=== PATIENT | female | born 1970 | race Caucasian/White ===

== ENCOUNTER 2023-10-20 05:14 | Inpatient (IN) | payer BC, SELFPAY ==
[2023-10-19 23:21] VITALS: BP 137/82
[2023-10-19 23:22] VITALS: BP 137/82; BMI 21.5
--- NOTE | 2023-10-19 23:33 | ED.GENMED ---
History of Present Illness
General
Chief Complaint: Abdominal Pain
Source: patient
Exam Limitations: none
Time Seen by Provider: 10/19/23 23:25
Nursing documentation reviewed up to this point in time: agreed with
Travel History
Have you had any contact with someone who has COVID-19?: No
Do you have any symptoms of coronavirus? Fever > 100 degrees, chills, cough, shortness of breath, sore throat, loss of taste or smell, muscle aches, or headache?: No
History of Present Illness
History of Present Illness:
The patient is a 53-year-old female with a past medical history of recurrent pancreatitis who comes in with complaints of severe diarrhea and abdominal pain. Patient complains of severe nausea. She attributes her symptoms to a likely bout of
pancreatitis. She reports that she recently recovered from a flareup of pancreatitis about 2 weeks ago. She reports she is followed by a specialist at [place]. She reports that she is unable to handle her symptoms at home and is tearful in the
ED. She denies fever. She reports left upper abdominal pain.
Past History
Past History
ED Past Medical History: Other (Recurrent pancreatitis, pancreatic duct stone,, pancreatic divisum,, PNA, Bowel obstruction, Hep A, IBS, Gastroporesis) and Other (C. difficile colitis)
ED Past Surgical History: Appendectomy, Bowel resection (Pancreatic revision surgery February 2017.), Cardiac (VSD repair as a child ), Cholecystectomy and Other (Splenectomy/adhesion. Liver repair post trauma years ago. Stents Pancreatic, Adhesions)
Social History
Tobacco: Non-smoker
Alcohol: Occasional
Drug: None
Personal:
Living: with family
Employment: Not employed
Family History
Family History: Hypertension
Review of Systems
Review of Systems
Allergies reviewed?: Yes
All Other Systems: ROS reviewed and negative except as documented in HPI and ROS
Constitutional: Reports no symptoms
EENT: Reports no symptoms
Respiratory: Reports no symptoms
Cardiac: Reports no symptoms
ABD/GI: Reports abdominal pain, nausea, vomiting, diarrhea and anorexia
: Reports no symptoms
Musculoskeletal: Reports no symptoms
Skin: Reports no symptoms
Neurological: Reports no symptoms
Endocrine: Reports no symptoms
Hematologic/Lymphatic: Reports no symptoms
Psychiatric: Reports no symptoms
Phy Exam
Physical Exam
Physical Exam:
Physical Exam
General: Patient appears anxious, uncomfortable and is crying
Neck: supple. no meningeal signs. normal psoterior pharynx
Heart: Tachycardic, regular
Lungs: no acute respiratory distress. clear bilaterally
Abdomen: Soft, left upper abdominal tenderness. No rebound or guarding. No pulsatile mass
Neuro: alert and oriented. no focal neurological deficits
Skin: no rash
Psychiatric: well kept. interactive and cooperative
Extremities: no edema. no calf tenderness. negative homans. good distal pulses
Course
Orders/Labs/Results
Orders:
Orders
10/19/23 23:31
Complete Blood Count/With Diff Urgent
Comprehensive Metabolic Panel Urgent
Lipase Urgent
10/19/23 23:33
0.9% Sodium Chloride 1000 ml [Nss] 1,000 ml IV BOLUS
Ondansetron Injectable [Zofran] 4 mg IV NOW STA
10/19/23 23:34
HYDROmorphone [Dilaudid] 1 mg IV NOW STA
10/20/23 00:55
CT Abd/pelvis W Iv Cont Urgent
Comment:
Reason For Exam: abdominal pain
10/20/23 02:25
Lorazepam [Ativan] 1 mg IV NOW STA
10/20/23 03:17
Lactic Acid Urgent
10/20/23 04:10
Admit/Transfer Patient As Directed
Co-Sign Provider:
Level of Care: Inpatient admission
Assign to:: Medical/Surgical
Physician / Group: [email or web address]
Diagnosis: Recurrent epigastric abdominal pain - Dirrhea
Reason for Hospitalization: Recurrent epigastric abdominal pain -
Expected length of stay greater than two midnights?: Yes
ELOS- Estimated Length of Stay in days: 3
I certify the patient meets the requirements for IP care: Yes
10/20/23 04:11
Code Status As Directed
Resuscitation Status: Full Code
10/20/23 05:21
HYDROmorphone [Dilaudid] 1 mg IV Q3HPRN PRN
Lactated Ringers [Lr] 1,000 ml IV 120 mls/hr
Ondansetron Injectable [Zofran] 4 mg IV Q6HPRN PRN
10/20/23 05:21
Consult Notification Routine
Specialty to Notify: Gastroenterology
Date consulting provider notified: 10/20/23
Time consulting provider notified: 08:20
Notified:: Provider
GASTROINTESTINAL CONSULT Routine
Consulting Provider: Ruel Jack
Was physician already notified: No
Reason for consult: Recurrent epigastric abdominal pain - may be chr pancreatitis
Stool Culture Routine
JUAN M Source: Feces/Stool
Specimen Description:
Date Specimen was Collected: 10/21/23
Time Specimen was Collected: 12:39
Activity As Directed
Activity Level: With Assistance
Intake/ Output As Directed
Frequency: Per unit guidelines
Pneumatic Compression Sleeves As Directed
Type: Knee high
Vital Signs As Directed
Frequency: Per unit guidelines
Weight As Directed
Frequency: Daily
DX Deep Vein Thrombosis Video Routine
10/20/23 05:41
Complete Blood Count/No Diff IN AM
10/20/23 05:42
Comprehensive Metabolic Panel IN AM
Lipase IN AM
Abnormal Lab Results
10/20/23
00:13
WBC 29.8 H 10^3/uL
(4.8-10.8)
Hct 36.4 L %
(37.0-47.0)
MCV 79.5 L fL
(81.0-99.0)
Plt Count 692 H 10^3/uL
(130-400)
Abs Immat Gran (auto) 0.6 H 10^3/uL
(0-0.05)
Absolute Neuts (auto) 24.9 H 10^3/uL
(1.4-6.5)
Absolute Monos (auto) 1.7 H 10^3/uL
(0.1-0.6)
Immature Gran % 2.0 H %
(0-0.5)
Neutrophils % 83.7 H %
(42.2-75.2)
Lymphocytes % 7.7 L %
(20.5-51.1)
Carbon Dioxide 17 L mmol/L
(22-30)
BUN 24 H mg/dl
(7-17)
Creatinine 0.5 L mg/dL
(0.6-1.0)
Glucose 124 H mg/dl
(70-99)
Calcium 10.4 H mg/dl
(8.4-10.2)
AST 54 H U/L
(14-36)
10/20/23 00:13
10/20/23 00:13
Vital Signs
Initial and Last Documented VS:
Initial Vital Signs
BP
137/82
10/19/23 23:21
Last Documented Vital Signs
Temp Pulse Resp BP Pulse Ox
98.3 F 74 18 114/59 95
10/22/23 07:00 10/22/23 07:00 10/22/23 07:00 10/22/23 07:00 10/22/23 07:00
MDM/Problems Addressed
Differential Diagnosis Includes:
Acute pancreatitis, acute bowel obstruction, acute diverticulitis
MDM/Problems Addressed:
Patient presents with acute on chronic abdominal pain
Chronic conditions affecting care:
Chronic pancreatitis
Acute Exacerbation and/or Progression of Chronic Illness:
Patient likely presents with acute exacerbation of chronic pancreatitis
*Radiology
Radiology exam reviewed: radiology read reviewed
*Pulse Oximetry
Patient hypoxic: no
*Critical Care Note
Total Time (30-74mins, 75-104mins- exclusive of procedures): Not Applicable
Data Reviewed
Review of Other/Old Records Reveals: Discharge Summary (Hospital discharge summary reviewed from 02/2023 when patient was admitted for acute on chronic pancreatitis)
ED Attending Note
-
Portions of this chart may have been created with voice recognition software.� Occasional wrong word or��sound alike� substitutions may have occurred due to the inherent limitations of voice recognition software.
Discharge Plan
Departure
Patient Disposition: Admit
Date of Disposition: 10/20/23
Time of Disposition: 02:36
Admit to: Med/Surg
Presentation/result/management discussed w/ accepting MD/DO: Hospitalist
Patient with high blood pressure during this ER visit?: No
Condition: Good
Covid-19: Not Applicable
Discharge Problem:
Intractable nausea, Acute on chronic abdominal pain, Leukocytosis (leucocytosis)
Interventions
Interventions:
*Risk Screen - Suicide Last Done: 10/19/23 23:25
*General Assessment Last Done: 10/19/23 23:25
*Neglect/Abuse Screening Last Done: 10/19/23 23:25
ED- Fall Risk Assessment Last Done: 10/20/23 02:50
*ED COVID-19 Vaccine History Last Done: 10/19/23 23:25
*Nursing Disposition Last Done: 10/20/23 09:22
WD-Xjqmca-Jibzwnylpr Assessment Last Done: 10/19/23 23:30
Discharge Date and Time
Discharge Date/Time: 10/20/23 10:26
[2023-10-20] VITALS (12 sets, daily range): BP systolic 87–122; BP diastolic 23–85; BMI 21.1
[2023-10-20 00:40] LABS: % Basophils 0.5 % (0-2); % Eosinophils 0.6 % (0-6); % Lymphocytes 7.7 % (20.5-51.1); % Monocytes 5.5 % (1.7-9.3); % Neutrophils 83.7 % (42.2-75.2); Absolute Basophils 0.2 10^3/uL (0-0.2); Absolute Eosinophils 0.2 10^3/uL (0-0.7); Absolute Immature Granulocytes 0.6 10^3/uL (0-0.05); Absolute Lymphocytes 2.3 10^3/uL (1.2-3.4); Absolute Monocytes 1.7 10^3/uL (0.1-0.6); Absolute Neutrophils 24.9 10^3/uL (1.4-6.5); Hematocrit 36.4 % (37.0-47.0); Hemoglobin 13.1 g/dL (12.0-16.0); Mean Corpuscular Hgb 28.6 pg (27.0-31.0); Mean Corpuscular Volume 79.5 fL (81.0-99.0); Mean Platelet Volume 9.8 fL (7.4-10.4); Nucleated Red Blood Cells % 0 %; Platelet Count 692 10^3/uL (130-400); Red Blood Cell Count 4.58 10^6/uL (4.20-5.40); Red Cell Dist. Width 12.8 % (11.5-14.5); White Blood Cell Count 29.8 10^3/uL (4.8-10.8)
[2023-10-20 00:42] LABS: ALT (SGPT) 29 U/L (0-35); AST (SGOT) 54 U/L (14-36); Albumin 4.5 g/dl (3.5-5.0); Alkaline Phosphatase 117 U/L (38-126); Blood Urea Nitrogen 24 mg/dl (7-17); Calcium 10.4 mg/dl (8.4-10.2); Carbon Dioxide 17 mmol/L (22-30); Chloride 105 mmol/L (98-107); Estimated Creatinine Clearance 84 ml/min; Glucose 124 mg/dl (70-99); Potassium 3.8 mmol/L (3.5-5.1); Sodium 136 mmol/L (135-145); Total Bilirubin 0.9 mg/dl (0.2-1.3); eGFR > 60.00
[2023-10-20 00:54] LABS: Lipase 142 U/L (23-300)
[2023-10-20] MEDS: ZOFRAN 4 MG IV ×5 (01:27→22:08)
[2023-10-20] MEDS: NSS 1000 IV (01:27)
[2023-10-20] MEDS: DILAUDID 1 MG IV ×2 (01:27→05:37)
[2023-10-20] MEDS: ATIVAN 1 MG IV ×3 (02:32→23:48)
[2023-10-20 03:46] LABS: Lactic Acid 0.8 mmol/L (0.7-2.0)
--- NOTE | 2023-10-20 04:05 | HPS.HSE ---
Family Physician
-
Family Physician: KATE Vaughn
Chief Complaint
-
abdominal pain and dirrhea
History of Present Illness
53F HX pancreatic divisum, pancreatic duct stones, Puestow procedure with celiac block in 2017 sevre dirrhea and abdominal pain similr to prior recurrent pancreatitis. She is followed by a specialist at [facility].
Abdominal pain:
Recently in/out at [facility] for recurrent abdominal pain for last 8 weeks
In and out of pancreatic stent
last stent was out 2 weeks ago
last recurrent pancreatitis was 2 weeks ago
Associated non bloody fluid vomitinf
Diarrhea 6 times today
Non bloody, like thin film sitting on top
Mal odorous
Denied fever
Medical History
Past Medical History
Past Medical History: Reports Other (Recurrent pancreatitis, pancreatic duct stone, pancreatic divisum Hepatitis A Irritable bowel syndrome Gastroparesis History of C. difficile colitis Essential hypertension Hyperlipidemia Diet controlled type 2
diabetes mellitus Hereditary spherocytosis)
Past Surgical History: Reports Other (Splenectomy Puestow procedure with celiac block in 2017 VSD repair as a child Cholecystectomy Pancreatic stents)
Social History
Tobacco: Non-smoker
Alcohol: None
Family History
Family History: Other (Hereditary spherocytosis, essential hypertension)
Allergies / Home Medications
Allergies reflects when Allergies were last updated in [employer].
Home Medications with original date entered in [employer]
Allergy/Medication List:
Allergies
Allergy/AdvReac Type Severity Reaction Status Date / Time
ketamine Allergy Unknown Verified 02/17/23 03:07
prochlorperazine Allergy Shortness Verified 02/17/23 03:07
of Breath,
Muscle
Rigidity
prochlorperazine edisylate Allergy tardive Verified 02/17/23 03:07
[From Compazine] dyskinesia
prochlorperazine maleate Allergy tardive Verified 02/17/23 03:07
[From Compazine] dyskinesia
trimethobenzamide Allergy Shortness Verified 02/17/23 03:07
of Breath,
muscle
rigidity
trimethobenzamide HCl Allergy tardive Verified 02/17/23 03:07
[From Tigan] dyskinesia
vancomycin Allergy RED AND Verified 02/17/23 03:07
ITCHY
morphine AdvReac Nausea / Verified 02/17/23 03:07
Vomiting
Home Medications
lorazepam 1 mg tablet 1 mg PO HS anxiety 12/08/13
sertraline 50 mg tablet 100 mg PO HS Depression 12/08/13
cholecalciferol (vitamin D3) 25 mcg (1,000 unit) tablet (Vitamin D3) 25 mcg PO DAILY Supplement 01/07/23
hydromorphone 4 mg tablet (Dilaudid) 4 mg PO Q4H PRN pancreatitis pain 01/07/23
ondansetron 4 mg disintegrating tablet 8 mg PO TID PRN nausea/vomiting 02/17/23
Review of Systems
-
Constitutional: Reports No Symptoms
EENT: Reports No Symptoms
Respiratory: Reports No Symptoms
Cardiac: Reports No Symptoms
Abdomen/GI: Reports Abdominal Pain and Diarrhea
: Reports No Symptoms
Musculoskeletal: Reports No Symptoms
Skin: Reports No Symptoms
Neurological: Reports No Symptoms
Endocrine: Reports No Symptoms
Hematologic/Lymphatic: Reports No Symptoms
Psych: Reports No Symptoms
Physical Exam
Vital Signs
Vital Signs
Temp Pulse Resp BP Pulse Ox
98.7 F 86 20 98/71 92
10/19/23 23:22 10/20/23 03:00 10/20/23 03:00 10/20/23 03:00 10/20/23 03:00
Physical Exam
General: Well Developed, Well Nourished and Other
HEENT: NormoCephalic and Anicteric
Respiratory: Clear
Cardiac: S1/S2 and Regular Rhythm
GI: Soft, Non Distended and Normal Bowel Sounds
Rectal: Deferred by Provider
Musculoskeletal: No Edema
Skin: Warm and Dry
Neuro: AO x 3
Psych: Calm
Laboratory Results
-
10/20/23 00:13
10/20/23 00:13
Laboratory Results
Lactic Acid 0.8 mmol/L (0.7-2.0) 10/20/23 03:17
Total Bilirubin 0.9 mg/dl (0.2-1.3) 10/20/23 00:13
AST 54 U/L (14-36) H 10/20/23 00:13
ALT 29 U/L (0-35) 10/20/23 00:13
Alkaline Phosphatase 117 U/L (38-126) 10/20/23 00:13
Lipase 142 U/L (23-300) 10/20/23 00:13
Data Reviewed
-
CT Scan: Other (pending )
Lab Data: Labs Reviewed by me
Old Records: Reviewed
Impression/Plan
-
Reviewed VS:
Vital Signs
Temp Pulse Resp BP Pulse Ox
98.7 F 86 20 98/71 92
10/19/23 23:22 10/20/23 03:00 10/20/23 03:00 10/20/23 03:00 10/20/23 03:00
Data
WCC 29
CO2 17
BUN 24
Cr 0.5
NAG met acidosis
NEG LA
Lipase 142
Last hospitalist admission: 02/17/23 - 02/24/23
Recurrent acute on chronic pancreatitis attributed to pancreatic divisum, patient have history Puestow`s procedure in the in the past
ASSESSMENT & PLAN
Recurrent epigastric abdominal pain - may be related to chronic pancreatitis - unremarkable lipase
Recently in/out at [facility] for recurrent abdominal pain for last 8 weeks
In and out of pancreatic stent
last stent was out 2 weeks ago
last recurrent pancreatitis was 2 weeks ago
Associated non bloody fluid vomitinf
EGD 06/28/22 with gastritis no other cause
MRI 07/01/22 with tortuous mild CBD
HX pancreatic divisum/stones, prior Puestow procedure with celiac block in 2017
HX gastroparesis prior botox
- Clear and ADAT
- Gentle narcotic analgesia PRN in view of Gastroparesis HX
- Anti emetics
- GI consult
NAG met acidosis due to severe dirrhea
- LR IVF
Diarrhea 6 times today
Non bloody, like thin film sitting on top
Mal odorous
- stool Cx
- LR IVF
- f/u BMP
Diet controlled type 2 diabetes HX
-on no medications
Essential hypertension HX
-on no medications
Irritable bowel syndrome
HX Gastroparesis history-
- on no medications
Hyperlipidemia--
- on no medications
Hereditary spherocytosis--status post splenectomy--noted
Anxiety--continue Zoloft
DVT Px: SCD
Code: Full
IP MS
[2023-10-20] MEDS: LR 1000 IV ×3 (05:46→20:28)
[2023-10-20 06:05] LABS: Hematocrit 31.2 % (37.0-47.0); Hemoglobin 11.7 g/dL (12.0-16.0); Mean Corp Hgb Conc. 37.5 g/dL (33.0-37.0); Mean Corpuscular Hgb 29.8 pg (27.0-31.0); Mean Corpuscular Volume 79.6 fL (81.0-99.0); Mean Platelet Volume 9.4 fL (7.4-10.4); Platelet Count 660 10^3/uL (130-400); Red Blood Cell Count 3.92 10^6/uL (4.20-5.40); Red Cell Dist. Width 12.8 % (11.5-14.5); White Blood Cell Count 18.6 10^3/uL (4.8-10.8)
[2023-10-20 06:10] LABS: ALT (SGPT) 23 U/L (0-35); AST (SGOT) 38 U/L (14-36); Albumin 3.6 g/dl (3.5-5.0); Alkaline Phosphatase 84 U/L (38-126); Blood Urea Nitrogen 18 mg/dl (7-17); Calcium 9.2 mg/dl (8.4-10.2); Carbon Dioxide 19 mmol/L (22-30); Chloride 108 mmol/L (98-107); Estimated Creatinine Clearance 84 ml/min; Glucose 102 mg/dl (70-99); Potassium 4.2 mmol/L (3.5-5.1); Sodium 135 mmol/L (135-145); Total Bilirubin 0.7 mg/dl (0.2-1.3); Total Protein 6.7 g/dl (6.3-8.2); eGFR > 60.00
[2023-10-20 06:54] LABS: Lipase 124 U/L (23-300)
[2023-10-20] MEDS: DILAUDID 0.5 MG IV (09:24)
--- NOTE | 2023-10-20 09:24 | CON.GI ---
Consultation
-
Date/Time Consultation Performed: 10/20/23
Performing Provider: Christopher Jack MD
Reason for Consultation: abdominal pain, diarrhea
Medical History
Chief Complaint / HPI
Chief Complaint: abdominal pain, diarrhea
History of Present Illness:
The patient is a 53-year-old female with past medical history as noted who presents with recurrent abdominal pain. She is a longstanding history of chronic pancreatitis, with pancreatic divisum, status post pueestow and follows closely with
[facility]. She has had multiple admissions this year at [facility] for abdominal pain, with pancreatic stents by report though removed with persistent pain and no change in her symptoms. She presents with similar symptoms, with epigastric pain that
radiates to the back, with nausea and increasing diarrhea. Denies any bloody diarrhea, or melena. Denies any recent NSAIDs. Labs here show significant leukocytosis, though LFTs essentially normal, and CT scan preliminarily with minimal if any
peripancreatic inflammation without other significant pathology.
Past Medical History
Past Medical History: Other (pancreatic divisum, recurrent pancreatitis, IBS, htn, hyperlipidemia)
Past Surgical History: Other (VSD repair, puestow, splenectomy, cholecystectomy, prior pancreatic stents)
Social History
Tobacco: Non-Smoker
Alcohol: None
Family History
Family History: Reviewed & Not Pertinent
Allergies / Home Medications
Allergy/AdvReac Type Severity Reaction Status Date / Time
ketamine Allergy Unknown Verified 10/20/23 08:47
prochlorperazine Allergy Shortness Verified 10/20/23 08:47
of Breath,
Muscle
Rigidity
prochlorperazine edisylate Allergy tardive Verified 10/20/23 08:47
[From Compazine] dyskinesia
prochlorperazine maleate Allergy tardive Verified 10/20/23 08:47
[From Compazine] dyskinesia
trimethobenzamide Allergy Shortness Verified 10/20/23 08:47
of Breath,
muscle
rigidity
trimethobenzamide HCl Allergy tardive Verified 10/20/23 08:47
[From Tigan] dyskinesia
vancomycin Allergy RED AND Verified 10/20/23 08:47
ITCHY
morphine AdvReac Nausea / Verified 10/20/23 08:47
Vomiting
�Medication �Instructions �Recorded
lorazepam 1 mg tablet 1 mg PO HS anxiety 12/08/13
sertraline 50 mg tablet 100 mg PO HS Depression 12/08/13
cholecalciferol (vitamin D3) 25 25 mcg PO DAILY Supplement 01/07/23
mcg (1,000 unit) tablet (Vitamin
D3)
hydromorphone 4 mg tablet 4 mg PO Q4H PRN pancreatitis pain 01/07/23
(Dilaudid)
ondansetron 4 mg disintegrating 8 mg PO TID PRN nausea/vomiting 02/17/23
tablet
Review of Systems
-
All other systems: A 12 pt ROS was Negative except as stated above in HPI
Vital Signs
Temp Pulse Resp BP Pulse Ox
98.7 F 81 16 103/62 99
10/19/23 23:22 10/20/23 09:22 10/20/23 09:22 10/20/23 08:00 10/20/23 09:22
Physical Exam
Exam
General: NAD
HEENT: MMM, anicteric, no lymphadenopathy
Heart: Regular, no murmurs
Lungs: CTA bilaterally
Abdomen: normal bowel sounds,mildly distended though soft, mild epigastric tenderness, no rebound or guarding, no masses, bruits or ascites
Extremeties: no edema
Skin: no rashes
Results
WBC 18.6 10^3/uL (4.8-10.8) H 10/20/23 05:41
Hgb 11.7 g/dL (12.0-16.0) L 10/20/23 05:41
Hct 31.2 % (37.0-47.0) L 10/20/23 05:41
MCV 79.6 fL (81.0-99.0) L 10/20/23 05:41
Plt Count 660 10^3/uL (130-400) H 10/20/23 05:41
Absolute Neuts (auto) 24.9 10^3/uL (1.4-6.5) H 10/20/23 00:13
Sodium 135 mmol/L (135-145) 10/20/23 05:42
Potassium 4.2 mmol/L (3.5-5.1) 10/20/23 05:42
Chloride 108 mmol/L (98-107) H 10/20/23 05:42
Carbon Dioxide 19 mmol/L (22-30) L 10/20/23 05:42
BUN 18 mg/dl (7-17) H 10/20/23 05:42
Creatinine 0.5 mg/dL (0.6-1.0) L 10/20/23 05:42
Calcium 9.2 mg/dl (8.4-10.2) 10/20/23 05:42
Total Bilirubin 0.7 mg/dl (0.2-1.3) 10/20/23 05:42
AST 38 U/L (14-36) H 10/20/23 05:42
ALT 23 U/L (0-35) 10/20/23 05:42
Alkaline Phosphatase 84 U/L (38-126) 10/20/23 05:42
Lipase 124 U/L (23-300) 10/20/23 05:42
Diagnostic Image Results:
Prior GI Procedures:
EGD:
Colonoscopy:
Assessment / Plan
-
1. Abdominal pain: With history of chronic abdominal pain, chronic pancreatitis with pancreatic divisum, pancreatic duct stone status post Puestow in the past, as well as pancreatic stents with recent admissions at [facility]. There is no severe
inflammation noted on CT scan, though awaiting final report. She does have significant leukocytosis and increased diarrhea, and we will check C. difficile given her recent hospitalizations as well as other stool studies. Would continue supportive
care for now including bowel rest IV fluids and pain control.
-
-
Thank you for consultation and allowing me to participate in the patient's care. Please call the computer operations manager GI physician during the after hours with any questions or concerns.
--- NOTE | 2023-10-20 09:26 | EDRN ---
Dr. De La Garza at the bedside discussing plan of care and pain management with the patine. Requesting Ativan to assist with he nausea as that helps her.
--- NOTE | 2023-10-20 09:40 | W.PN.HOSP.TC ---
Today's Communication/Plan
-
see plan
Assessment / Plan
Assessment / Plan
Impression:
Acute on chronic pancreatitis
Pancreas divisum, status post bee sting procedure.
Persistent diarrhea suspect secondary to pancreatic insufficiency.
Metabolic acidosis.
Leukocytosis, reactive
Protein calorie malnutrition with BMI of 21
Chronic pain secondary to chronic pancreatitis/opiate dependence.
Hereditary spherocytosis status postlaminectomy.
Cholecystectomy
Depression.
Plan:
Acute on chronic pancreatitis
Pancreas divisum status post pancreatojejunostomy.
Followed by Dr. Myron Braxton at [facility].
Patient reports worsening of abdominal pain over the last few weeks requiring admission to [facility] with 4 stents placement. Had no significant relief of symptoms and stents were removed.
Presents with worsening of abdominal pain and persistent diarrhea
CT scan of the abdomen and pelvis on admission consistent with very mild pancreatitis with stranding in head of the pancreas. No biliary obstruction. Negative for intestinal obstruction.
Significant leukocytosis likely reactive as well as functional hemoconcentration.
Continue bowel rest
Continue isotonic solution/lactated Ringer
Continue aggressive analgesia with IV hydromorphone
Follow electrolytes closely
Follow CMP and lipase
Currently no indication for antibiotics
Anticipated Discharge: 24 - 48 hours
Subjective/Interval History
-
Date of Service: October 20, 2023
Objective Data
-
Labs:
Laboratory Results
10/20/23 10/20/23 10/20/23
00:13 05:41 05:42
WBC 29.8 H 18.6 H
Hgb 13.1 11.7 L
Hct 36.4 L 31.2 L
Plt Count 692 H 660 H
Sodium 136 135
Potassium 3.8 4.2
Chloride 105 108 H
Carbon Dioxide 17 L 19 L
BUN 24 H 18 H
Creatinine 0.5 L 0.5 L
Glucose 124 H 102 H
Calcium 10.4 H 9.2
Total Bilirubin 0.9 0.7
AST 54 H 38 H
ALT 29 23
Alkaline Phosphatase 117 84
Vital Signs:
Vital Signs
Temp Pulse Resp BP Pulse Ox
98.7 F 81 16 103/62 99
10/19/23 23:22 10/20/23 09:22 10/20/23 09:22 10/20/23 08:00 10/20/23 09:22
Physical Exam
-
General: Well Developed and No Apparent Distress
HEENT: Normocephalic, Atraumatic and Moist Mucous Membranes
Respiratory: Clear to Auscultation
Cardiac: Regular Rhythm and S1/S2; Negative Murmur, Rub or Gallop
GI: Soft, Nontender, Nondistended and Normal Bowel Sounds; Negative Organomegaly
Rectal: Deferred by Provider
Musculoskeletal: No Clubbing, No Cyanosis and No Edema
Skin: Negative Rash
Neuro: Nonfocal/Grossly Intact
[2023-10-20] MEDS: DILAUDID 1.5 MG IV ×4 (13:10→23:48)
[2023-10-20] MEDS: NSS (PRESERVATIVE FREE) 0.5 ML IV (23:49)
[2023-10-21] MEDS: DILAUDID 1.5 MG IV ×6 (03:50→23:09)
[2023-10-21] MEDS: LR 1000 IV ×3 (03:53→20:45)
[2023-10-21 07:00] VITALS: BP 116/71
--- NOTE | 2023-10-21 07:36 | W.PN.GI.CBS2 ---
Today's Communication / Plan
-
Please see assessment and plan for details.
Assessment / Plan
-
1. Abdominal pain: With history of chronic abdominal pain, chronic pancreatitis with pancreatic divisum, pancreatic duct stone status post Puestow in the past, as well as pancreatic stents with recent admissions at [facility]. There is no severe
inflammation noted on CT scan. At this point given improved symptoms we will start clear liquids for now. If she has further diarrhea will await C. difficile, though no diarrhea overnight.
Subjective
Subjective
Date of Service: October 21, 2023
Patient feeling better overall, still pain, no vomiting. No diarrhea overnight, no fevers or chills.
Objective
Data Reviewed
Laboratory Data:
Laboratory Results
Total Bilirubin 0.7 mg/dl (0.2-1.3) 10/20/23 05:42
AST 38 U/L (14-36) H 10/20/23 05:42
ALT 23 U/L (0-35) 10/20/23 05:42
Alkaline Phosphatase 84 U/L (38-126) 10/20/23 05:42
Lipase 124 U/L (23-300) 10/20/23 05:42
Vital Signs and I&O:
Vital Signs
Temp Pulse Resp BP Pulse Ox
98.3 F 73 16 112/55 95
10/20/23 23:05 10/20/23 23:05 10/20/23 23:05 10/20/23 23:05 10/20/23 23:05
I&O
10/20/23 10/21/23 10/22/23
06:59 06:59 06:59
Intake Total 1560 / 1560
Balance 1560 / 1560
Physical Exam
Physical Exam
General: NAD
Abdomen: normal bowel sounds, soft, improved but mild diffuse tenderness, no masses or bruits, no ascites
[2023-10-21 08:08] LABS: % Basophils 0.8 % (0-2); % Eosinophils 6.7 % (0-6); % Immature Granulocytes 0.5 % (0-0.5); % Lymphocytes 39.6 % (20.5-51.1); % Monocytes 7.5 % (1.7-9.3); % Neutrophils 44.9 % (42.2-75.2); Absolute Basophils 0.1 10^3/uL (0-0.2); Absolute Eosinophils 0.7 10^3/uL (0-0.7); Absolute Immature Granulocytes 0.1 10^3/uL (0-0.05); Absolute Lymphocytes 4.3 10^3/uL (1.2-3.4); Absolute Monocytes 0.8 10^3/uL (0.1-0.6); Absolute Neutrophils 4.9 10^3/uL (1.4-6.5); Hematocrit 32.3 % (37.0-47.0); Mean Corp Hgb Conc. 34.1 g/dL (33.0-37.0); Mean Corpuscular Hgb 28.4 pg (27.0-31.0); Mean Corpuscular Volume 83.5 fL (81.0-99.0); Mean Platelet Volume 9.2 fL (7.4-10.4); Nucleated Red Blood Cells % 0 %; Platelet Count 593 10^3/uL (130-400); Red Blood Cell Count 3.87 10^6/uL (4.20-5.40); Red Cell Dist. Width 12.5 % (11.5-14.5); White Blood Cell Count 10.9 10^3/uL (4.8-10.8)
[2023-10-21 08:42] LABS: ALT (SGPT) 25 U/L (0-35); AST (SGOT) 36 U/L (14-36); Albumin 3.3 g/dl (3.5-5.0); Alkaline Phosphatase 88 U/L (38-126); Blood Urea Nitrogen 9 mg/dl (7-17); Calcium 9.3 mg/dl (8.4-10.2); Carbon Dioxide 24 mmol/L (22-30); Chloride 108 mmol/L (98-107); Estimated Creatinine Clearance 84 ml/min; Glucose 73 mg/dl (70-99); Lipase 268 U/L (23-300); Potassium 3.9 mmol/L (3.5-5.1); Sodium 136 mmol/L (135-145); Total Bilirubin 0.7 mg/dl (0.2-1.3); Total Protein 6.3 g/dl (6.3-8.2); eGFR > 60.00
[2023-10-21] MEDS: ZOFRAN 4 MG IV ×3 (10:05→23:09)
--- NOTE | 2023-10-21 12:41 | PTCARENOTE ---
Patient crying and c/o worsening nausea and pain. Zofran and Dilaudid given at 1000. Pain reassessed 1035, patient was sleeping soundly. Patient now asking for additional medicine for nausea, Ativan given.
[2023-10-21] MEDS: ATIVAN 1 MG IV ×2 (12:47→19:32)
[2023-10-21] MEDS: NSS (PRESERVATIVE FREE) 0.5 ML IV ×2 (12:47→19:33)
--- NOTE | 2023-10-21 12:53 | CM ---
Met with pt at bedside
Reports lives in a 2 story home with her and 2 sons
Independent, drives
Denies DME/SNF/HH in past
Has ride at d/c
PCP - Lina Hermosillo
Pharm - [facility]
Plan - Anticipate home no needs
--- NOTE | 2023-10-21 14:29 | W.PN.HOSP.TC ---
Today's Communication/Plan
-
Advance to clear liquid diet
Continue current analgesic regimen.
Follow electrolytes
Assessment / Plan
Assessment / Plan
Impression:
Acute on chronic pancreatitis
Pancreas divisum, status post bee sting procedure.
Persistent diarrhea suspect secondary to pancreatic insufficiency.
Metabolic acidosis.
Leukocytosis, reactive
Protein calorie malnutrition with BMI of 21
Chronic pain secondary to chronic pancreatitis/opiate dependence.
Hereditary spherocytosis status postlaminectomy.
Cholecystectomy
Depression.
Plan:
Acute on chronic pancreatitis
Pancreas divisum status post pancreatojejunostomy.
Followed by Dr. Myron Braxton at [facility].
Patient reports worsening of abdominal pain over the last few weeks requiring admission to [facility] with 4 stents placement. Had no significant relief of symptoms and stents were removed.
Presents with worsening of abdominal pain and persistent diarrhea
CT scan of the abdomen and pelvis on admission consistent with very mild pancreatitis with stranding in head of the pancreas. No biliary obstruction. Negative for intestinal obstruction.
Significant leukocytosis likely reactive as well as functional hemoconcentration.
Advance to clear liquid diet
Continue isotonic solution/lactated Ringer
Continue aggressive analgesia with IV hydromorphone
Follow electrolytes closely
Follow CMP and lipase
Currently no indication for antibiotics
Anticipated Discharge: 24 - 48 hours
Subjective/Interval History
-
Date of Service: October 21, 2023
Objective Data
-
Labs:
Laboratory Results
10/21/23
07:53
WBC 10.9 H
Hgb 11.0 L
Hct 32.3 L
Plt Count 593 H
Sodium 136
Potassium 3.9
Chloride 108 H
Carbon Dioxide 24
BUN 9
Creatinine 0.5 L
Glucose 73
Calcium 9.3
Total Bilirubin 0.7
AST 36
ALT 25
Alkaline Phosphatase 88
Vital Signs:
Vital Signs
Temp Pulse Resp BP Pulse Ox
98.0 F 68 18 116/71 96
10/21/23 07:00 10/21/23 07:00 10/21/23 07:00 10/21/23 07:00 10/21/23 07:00
I&O
10/20/23 10/21/23 10/22/23
06:59 06:59 06:59
Intake Total 1560 / 1560
Balance 1560 / 1560
Physical Exam
-
General: Well Developed and No Apparent Distress
HEENT: Normocephalic, Atraumatic and Moist Mucous Membranes
Respiratory: Clear to Auscultation
Cardiac: Regular Rhythm and S1/S2; Negative Murmur, Rub or Gallop
GI: Soft, Nontender, Nondistended and Normal Bowel Sounds; Negative Organomegaly
Rectal: Deferred by Provider
Musculoskeletal: No Clubbing, No Cyanosis and No Edema
Skin: Negative Rash
Neuro: Nonfocal/Grossly Intact
[2023-10-21 15:00] VITALS: BP 119/62
--- NOTE | 2023-10-21 18:41 | PTCARENOTE ---
Patient's pain 9/10 Dilaudid and Zofran given with good relief. Patient states, 'The pain medicine works, but does not last long.' Patient tolerating small amounts of clear liquids. Patient requesting a Kpad for abdomen, physician made aware.
[2023-10-21] MEDS: ZOLOFT 100 MG PO (21:39)
[2023-10-21 23:35] VITALS: BP 112/73
[2023-10-22] MEDS: DILAUDID 1.5 MG IV ×7 (02:26→22:30)
[2023-10-22] MEDS: ATIVAN 1 MG IV ×3 (02:38→20:36)
[2023-10-22] MEDS: NSS (PRESERVATIVE FREE) 0.5 ML IV ×3 (02:38→20:36)
[2023-10-22] MEDS: LR 1000 IV ×3 (05:05→18:35)
[2023-10-22 07:00] VITALS: BP 114/59
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
[2023-10-22] MEDS: ZOFRAN 4 MG IV ×3 (08:55→22:34)
--- NOTE | 2023-10-22 09:05 | W.PN.UPDATE ---
Update Note
Progress Note Update
For billing purposes - see note for clinical details
[2023-10-22] MEDS: ZENPEP DELAYED RELEASE CAPSULE PO (12:20)
[2023-10-22 15:00] VITALS: BP 130/67
--- NOTE | 2023-10-22 15:34 | W.PN.HOSP.TC ---
Today's Communication/Plan
-
Advance to low-fat diet.
Continue current analgesic regimen
Wean off IV fluids if tolerates diet
Continue pancreatic enzymes
Assessment / Plan
Assessment / Plan
Impression:
Acute on chronic pancreatitis
Pancreas divisum, status post bee sting procedure.
Persistent diarrhea suspect secondary to pancreatic insufficiency.
Metabolic acidosis.
Leukocytosis, reactive
Protein calorie malnutrition with BMI of 21
Chronic pain secondary to chronic pancreatitis/opiate dependence.
Hereditary spherocytosis status postlaminectomy.
Cholecystectomy
Depression.
Plan:
Acute on chronic pancreatitis
Pancreas divisum status post pancreatojejunostomy.
Followed by Dr. Myron Braxton at [facility].
Patient reports worsening of abdominal pain over the last few weeks requiring admission to [facility] with 4 stents placement. Had no significant relief of symptoms and stents were removed.
Presents with worsening of abdominal pain and persistent diarrhea
CT scan of the abdomen and pelvis on admission consistent with very mild pancreatitis with stranding in head of the pancreas. No biliary obstruction. Negative for intestinal obstruction.
Significant leukocytosis likely reactive as well as functional hemoconcentration. Improved.
Pain and diarrhea somehow improved over the last 24 hours
Advance to low-fat diet
Initiated on pancreatic enzymes AC.
Wean off IV fluids if tolerates diet
Continue current analgesic regimen
Anticipated Discharge: 24 - 48 hours
Subjective/Interval History
-
Date of Service: October 22, 2023
Objective Data
-
Vital Signs:
Vital Signs
Temp Pulse Resp BP Pulse Ox
97.9 F 69 18 130/67 97
10/22/23 15:00 10/22/23 15:00 10/22/23 15:00 10/22/23 15:00 10/22/23 15:00
I&O
10/21/23 10/22/23 10/23/23
06:59 06:59 06:59
Intake Total 1559
Balance 1559
Physical Exam
-
General: Well Developed and No Apparent Distress
HEENT: Normocephalic, Atraumatic and Moist Mucous Membranes
Respiratory: Clear to Auscultation
Cardiac: Regular Rhythm and S1/S2; Negative Murmur, Rub or Gallop
GI: Soft, Nontender, Nondistended and Normal Bowel Sounds; Negative Organomegaly
Rectal: Deferred by Provider
Musculoskeletal: No Clubbing, No Cyanosis and No Edema
Skin: Negative Rash
Neuro: Nonfocal/Grossly Intact
[2023-10-22] MEDS: ZENPEP DELAYED RELEASE CAPSULE 2 CAPSULE PO ×2 (17:33→22:30)
[2023-10-22] MEDS: ZOLOFT 100 MG PO (22:34)
[2023-10-22 23:30] VITALS: BP 132/84
[2023-10-23] MEDS: DILAUDID 1.5 MG IV ×4 (01:50→14:59)
[2023-10-23] MEDS: ATIVAN 1 MG IV (02:41)
[2023-10-23] MEDS: NSS (PRESERVATIVE FREE) 0.5 ML IV (02:41)
[2023-10-23] MEDS: LR 1000 IV (04:12)
[2023-10-23 07:00] VITALS: BP 127/71
[2023-10-23] MEDS: ZENPEP DELAYED RELEASE CAPSULE 2 CAPSULE PO ×3 (08:29→17:43)
[2023-10-23] MEDS: ZOFRAN 4 MG IV ×2 (08:43→17:49)
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
--- NOTE | 2023-10-23 14:18 | W.PN.UPDATE ---
Update Note
Progress Note Update
For billing purposes
--- NOTE | 2023-10-23 14:59 | CM ---
CM following for d/c planning
Marcela advanced diet. Per GI will observe til tomorrow
CM will follow for d/c needs
Plan - anticipate home no needs
[2023-10-23 15:00] VITALS: BP 133/73
--- NOTE | 2023-10-23 15:56 | W.PN.HOSP.TC ---
Today's Communication/Plan
-
Reports some improvement in pain, although requesting IV opiates.
Monitor oral intake for another 24 hours
Attempt to wean off IV narcotics prior to discharge
Wean off IV fluids
Assessment / Plan
Assessment / Plan
Impression:
Acute on chronic pancreatitis
Pancreas divisum, status post bee sting procedure.
Persistent diarrhea suspect secondary to pancreatic insufficiency.
Metabolic acidosis.
Leukocytosis, reactive
Protein calorie malnutrition with BMI of 21
Chronic pain secondary to chronic pancreatitis/opiate dependence.
Hereditary spherocytosis status postlaminectomy.
Cholecystectomy
Depression.
Plan:
Acute on chronic pancreatitis
Pancreas divisum status post pancreatojejunostomy.
Followed by Dr. Myron Braxton at [facility].
Patient reports worsening of abdominal pain over the last few weeks requiring admission to [facility] with 4 stents placement. Had no significant relief of symptoms and stents were removed.
Presents with worsening of abdominal pain and persistent diarrhea
CT scan of the abdomen and pelvis on admission consistent with very mild pancreatitis with stranding in head of the pancreas. No biliary obstruction. Negative for intestinal obstruction.
Significant leukocytosis likely reactive as well as functional hemoconcentration. Improved.
Pain and diarrhea somehow improved over the last 24 hours
Advance to low-fat diet
Initiated on pancreatic enzymes AC.
Wean off IV fluids if tolerates diet
Continue current analgesic regimen
Anticipated Discharge: 24 - 48 hours
Subjective/Interval History
-
Date of Service: October 23, 2023
Objective Data
-
Vital Signs:
Vital Signs
Temp Pulse Resp BP Pulse Ox
98.0 F 74 16 127/71 97
10/23/23 07:00 10/23/23 07:00 10/23/23 07:00 10/23/23 07:00 10/23/23 07:00
I&O
0410/23/23 10/24/23
06:59 06:59 06:59
Intake Total 1809
Balance 1809
Physical Exam
-
General: Well Developed and No Apparent Distress
HEENT: Normocephalic, Atraumatic and Moist Mucous Membranes
Respiratory: Clear to Auscultation
Cardiac: Regular Rhythm and S1/S2; Negative Murmur, Rub or Gallop
GI: Soft, Nontender, Nondistended and Normal Bowel Sounds; Negative Organomegaly
Rectal: Deferred by Provider
Musculoskeletal: No Clubbing, No Cyanosis and No Edema
Skin: Negative Rash
Neuro: Nonfocal/Grossly Intact
[2023-10-23] MEDS: DILAUDID 2 MG IV ×2 (17:43→21:10)
[2023-10-23] MEDS: ZENPEP DELAYED RELEASE CAPSULE PO ×2 (21:10→21:24)
[2023-10-23] MEDS: ZOLOFT 100 MG PO (21:10)
[2023-10-23 23:57] VITALS: BP 118/62
[2023-10-24] MEDS: NSS (PRESERVATIVE FREE) 0.5 ML IV ×2 (00:18→14:28)
[2023-10-24] MEDS: ATIVAN 1 MG IV ×3 (00:18→21:21)
[2023-10-24] MEDS: DILAUDID 2 MG IV ×7 (00:18→20:45)
[2023-10-24 07:00] VITALS: BP 108/57
[2023-10-24] MEDS: ZENPEP DELAYED RELEASE CAPSULE 2 CAPSULE PO ×4 (07:14→21:22)
[2023-10-24] MEDS: ZOFRAN 4 MG IV ×2 (09:41→17:46)
[2023-10-24 15:00] VITALS: BP 131/70
[2023-10-24] MEDS: LR 1000 IV (16:11)
--- NOTE | 2023-10-24 16:42 | W.PN.HOSP.TC ---
Today's Communication/Plan
-
Reports persistent pain and low appetite
Some improvement of abdominal pain while on current analgesic regimen including IV hydromorphone.
Reports worsening diarrhea over the last 24 hours. Will keep on IV fluids.
Monitor further on low-fat diet and pancreatic enzymes.
Assessment / Plan
Assessment / Plan
Impression:
Acute on chronic pancreatitis
Pancreas divisum, status post bee sting procedure.
Persistent diarrhea suspect secondary to pancreatic insufficiency.
Metabolic acidosis.
Leukocytosis, reactive
Protein calorie malnutrition with BMI of 21
Chronic pain secondary to chronic pancreatitis/opiate dependence.
Hereditary spherocytosis status postlaminectomy.
Cholecystectomy
Depression.
Plan:
Acute on chronic pancreatitis
Pancreas divisum status post pancreatojejunostomy.
Followed by Dr. Myron Braxton at [facility].
Patient reports worsening of abdominal pain over the last few weeks requiring admission to [facility] with 4 stents placement. Had no significant relief of symptoms and stents were removed.
Presents with worsening of abdominal pain and persistent diarrhea
CT scan of the abdomen and pelvis on admission consistent with very mild pancreatitis with stranding in head of the pancreas. No biliary obstruction. Negative for intestinal obstruction.
Significant leukocytosis likely reactive as well as functional hemoconcentration. Improved.
Pain and diarrhea somehow improved over the last 24 hours
Advance to low-fat diet
Initiated on pancreatic enzymes AC.
Wean off IV fluids if tolerates diet
Continue current analgesic regimen
Anticipated Discharge: 24 - 48 hours
Subjective/Interval History
-
Date of Service: October 24, 2023
Objective Data
-
Vital Signs:
Vital Signs
Temp Pulse Resp BP Pulse Ox
98.6 F 63 17 131/70 94
10/24/23 15:00 10/24/23 15:00 10/24/23 15:00 10/24/23 15:00 10/24/23 15:00
I&O
10/23/23 10/24/23 10/25/23
06:59 06:59 06:59
Intake Total 2340 / 2340 480 / 480
Balance 2340 / 2340 480 / 480
Physical Exam
-
General: Well Developed and No Apparent Distress
HEENT: Normocephalic, Atraumatic and Moist Mucous Membranes
Respiratory: Clear to Auscultation
Cardiac: Regular Rhythm and S1/S2; Negative Murmur, Rub or Gallop
GI: Soft, Nontender, Nondistended and Normal Bowel Sounds; Negative Organomegaly
Rectal: Deferred by Provider
Musculoskeletal: No Clubbing, No Cyanosis and No Edema
Skin: Negative Rash
Neuro: Nonfocal/Grossly Intact
[2023-10-24] MEDS: ZOLOFT 100 MG PO (21:22)
[2023-10-24 23:53] VITALS: BP 120/64
[2023-10-25] MEDS: DILAUDID 2 MG IV ×5 (00:37→14:18)
[2023-10-25] MEDS: ZOFRAN 4 MG IV ×2 (00:37→10:38)
[2023-10-25] MEDS: NSS (PRESERVATIVE FREE) 0.5 ML IV ×2 (03:52→15:58)
[2023-10-25] MEDS: ATIVAN 1 MG IV ×2 (03:52→15:58)
[2023-10-25] MEDS: LR 1000 IV (03:57)
[2023-10-25 06:28] VITALS: BMI 21.5
[2023-10-25 06:49] LABS: Blood Urea Nitrogen 5 mg/dl (7-17); Calcium 9.1 mg/dl (8.4-10.2); Carbon Dioxide 26 mmol/L (22-30); Chloride 104 mmol/L (98-107); Estimated Creatinine Clearance 84 ml/min; Glucose 85 mg/dl (70-99); Potassium 4.1 mmol/L (3.5-5.1); Sodium 135 mmol/L (135-145); eGFR > 60.00
[2023-10-25 07:00] VITALS: BP 108/71
[2023-10-25] MEDS: ZENPEP DELAYED RELEASE CAPSULE 2 CAPSULE PO (07:15)
[2023-10-25] MEDS: LR IV (12:39)
[2023-10-25] MEDS: ZENPEP DELAYED RELEASE CAPSULE PO ×2 (12:40→14:31)
--- NOTE | 2023-10-25 13:59 | W.DS.TRANS ---
DC Summary - Home Care Scheduler
-
Discharge Instructions:
Discharge Diagnosis/Procedures Acute on chronic pancreatitis
Pancreas divisum, status post bee sting
procedure.
Persistent diarrhea suspect secondary to
pancreatic insufficiency.
Metabolic acidosis.
Leukocytosis, reactive
Protein calorie malnutrition with BMI of 21
Chronic pain secondary to chronic pancreatitis/
opiate dependence.
Hereditary spherocytosis status postlaminectomy.
Cholecystectomy
Depression.
Diet Low Fat
Instructions:
Stand-Alone Forms:
Changes to Home Medications: No
Discharge Medications:
DC Medications w/original date entered in [employer]
lorazepam 1 mg tablet 1 mg PO HS anxiety 12/08/13
sertraline 50 mg tablet 100 mg PO HS Depression 12/08/13
hydromorphone 4 mg tablet (Dilaudid) 4 mg PO Q4H PRN pancreatitis pain 01/07/23
ondansetron 4 mg disintegrating tablet 8 mg PO TID PRN nausea/vomiting 02/17/23
acetaminophen 325 mg capsule (Tylenol) 650 mg PO Q4H PRN HEADACHE 10/21/23
lorazepam 1 mg tablet 1 mg PO Q8H PRN Nausea/anxiety 10/21/23
promethazine 25 mg rectal suppository 25 mg WA PRN PRN NAUSEA 10/21/23
[id number] 12,000-38,000-60,000 unit capsule,delayed rel (Creon) 2 cap PO MEALS Pancreatitis 10/22/23
Home Medication Changes
Pending Results: No
--- NOTE | 2023-10-25 14:35 | CM ---
For d/c today
Will have ride
Plan - anticipate home no needs
[2023-10-25 15:00] VITALS: BP 133/75
== END 2023-10-25 17:25 | disposition home or self-care (01) | DRG 439 ==
LOC: 3 WEST ACU 05:14
PROVIDERS: ADMITTING PHYSICIAN Internal Medicine; ATTENDING PHYSICIAN Internal Medicine; CONSULT PHYSICIAN Internal Medicine Gastroenterology; EMERGENCY PHYSICIAN Emergency Medicine; FAMILY PHYSICIAN Nurse Practitioner
DX: K85.90 Acute pancreatitis without necrosis or infection, unspecified (principal); E46 Unspecified protein-calorie malnutrition; E87.20 Acidosis, unspecified; Q45.3 Other congenital malformations of pancreas and pancreatic duct; F11.20 Opioid dependence, uncomplicated; K86.1 Other chronic pancreatitis; I10 Essential (primary) hypertension; F41.9 Anxiety disorder, unspecified; K58.9 Irritable bowel syndrome, unspecified; E86.0 Dehydration; K86.89 Other specified diseases of pancreas; G89.29 Other chronic pain; D72.829 Elevated white blood cell count, unspecified; F32.A Depression, unspecified; E11.43 Type 2 diabetes mellitus with diabetic autonomic (poly)neuropathy; E78.5 Hyperlipidemia, unspecified; D58.0 Hereditary spherocytosis; Z90.81 Acquired absence of spleen; Z86.19 Personal history of other infectious and parasitic diseases; Z88.1 Allergy status to other antibiotic agents; Z88.5 Allergy status to narcotic agent; Z88.8 Allergy status to other drugs, medicaments and biological substances; Z68.21 Body mass index [BMI] 21.0-21.9, adult
CPT/HCPCS: 74177; 80048; 80053; 83605; 83690; 85025; 85027; 87045; 87046; 87070; 87147; 87324; 87427; 87449; 96361; 96374; 96375; 99285; Q9967

== ENCOUNTER 2023-12-24 06:10 | Inpatient (IN) | payer BC, SELFPAY ==
[2023-12-24] VITALS (7 sets, daily range): BP systolic 120–140; BP diastolic 59–74
[2023-12-24] MEDS: NSS 1000 IV ×3 (04:33→23:30)
[2023-12-24] MEDS: DILAUDID 1 MG IV ×4 (04:33→23:30)
[2023-12-24 04:39] LABS: % Basophils 0.7 % (0-2); % Immature Granulocytes 0.3 % (0-0.5); % Lymphocytes 18.6 % (20.5-51.1); % Monocytes 6.6 % (1.7-9.3); % Neutrophils 70.8 % (42.2-75.2); Absolute Basophils 0.1 10^3/uL (0-0.2); Absolute Eosinophils 0.5 10^3/uL (0-0.7); Absolute Immature Granulocytes 0.1 10^3/uL (0-0.05); Absolute Lymphocytes 3.3 10^3/uL (1.2-3.4); Absolute Monocytes 1.2 10^3/uL (0.1-0.6); Absolute Neutrophils 12.4 10^3/uL (1.4-6.5); Hematocrit 31.7 % (37.0-47.0); Hemoglobin 10.8 g/dL (12.0-16.0); Mean Corp Hgb Conc. 34.1 g/dL (33.0-37.0); Mean Corpuscular Hgb 27.6 pg (27.0-31.0); Mean Corpuscular Volume 81.1 fL (81.0-99.0); Mean Platelet Volume 9.2 fL (7.4-10.4); Nucleated Red Blood Cells % 0 %; Platelet Count 686 10^3/uL (130-400); Red Blood Cell Count 3.91 10^6/uL (4.20-5.40); Red Cell Dist. Width 13.2 % (11.5-14.5); White Blood Cell Count 17.5 10^3/uL (4.8-10.8)
--- NOTE | 2023-12-24 05:02 | ED.GENMED ---
History of Present Illness
General
Chief Complaint: Generalized Pain
Source: patient, spouse and previous hospital records (Previous hospitalizations most recently October 19 to October 24.)
Exam Limitations: none
Time Seen by Provider: 12/24/23 03:55
Nursing documentation reviewed up to this point in time: agreed with
Travel History
Have you had any contact with someone who has COVID-19?: No
Do you have any symptoms of coronavirus? Fever > 100 degrees, chills, cough, shortness of breath, sore throat, loss of taste or smell, muscle aches, or headache?: No
History of Present Illness
History of Present Illness:
This is a 53-year-old woman who has history of chronic pancreatitis, chronic pain syndrome secondary to chronic pancreatitis with opiate dependence. She follows with [facility] and has required recurrent hospitalizations due to chronic
pain, chronic nausea, vomiting, diarrhea. Most recent hospitalization October 19 until October 24 where she presented with acute on chronic upper abdominal pain accompanied with intractable nausea and vomiting as well as intractable diarrhea. Symptoms
improved with bowel rest, IV pain medication and she was discharged to home but required recurrent hospitalization at [facility] and since then she has been started on IV TPN with PICC line placed right upper arm approximately 6 to 8
weeks ago.
With initiation of TPN patient has had resolution of diarrhea and has successfully gained 10 pounds over the past 2 months.
She does continue with chronic pain, chronic opioid dependence and is currently considering surgical removal of her pancreas with islet cell transplant and is contemplating second opinion with a specialist in [place].
Tonight however she developed increased in her abdominal pain accompanied with chills, generalized aches and a fever at home of 102 �F. She denies cough nor nasal congestion nor sore throat.
She does admit to intermittent dysuria and was treated for a UTI 1-1/2 to 2 months ago while hospitalized at [place]. No recent antibiotics.
She admits to intermittent nausea but has had no vomiting, no diarrhea. No rashes. No neck pain nor headache.
She states her right upper arm PICC line site is changed by home health care nurse on a regular basis and does admit that the area has some yellowish exudate and mild local tenderness that is overall unchanged.
Past History
Past History
ED Past Medical History: Other (Recurrent pancreatitis, pancreatic duct stone,, pancreatic divisum,, PNA, Bowel obstruction, Hep A, IBS, Gastroporesis) and Other (C. difficile colitis)
ED Past Surgical History: Appendectomy, Bowel resection (Pancreatic revision surgery February 2017.), Cardiac (VSD repair as a child ), Cholecystectomy and Other (Splenectomy/adhesion. Liver repair post trauma years ago. Stents Pancreatic, Adhesions)
Social History
Tobacco: Non-smoker
Alcohol: None
Drug: None
Personal:
Living: with family
Employment: Not employed
Family History
Family History: Hypertension
Phy Exam
Physical Exam
Physical Exam:
GENERAL: 53-year-old woman appears her stated age, awake and alert, appears mildly uncomfortable, mildly anxious. Low-grade fever noted. is accompanying.
EYE: pupils equal and reactive. anicteric
NECK: Supple, nontender, no meningismus, no significant adenopathy.
ENT: posterior pharynx is clear, oral mucosa is moist. No rhinorrhea.
CARDIAC: Regular rate and rhythm. no murmur.
LUNGS: Clear breath sounds bilaterally, no acute respiratory distress, no wheezes/rales/rhonchi
ABDOMEN: Soft, nondistended, mild tenderness epigastric region, no r/g, no cvat. normoactive BS.
NEUROLOGICAL: Alert and oriented x3, no focal neuro deficits. Gait is steady.
SKIN: Warm and dry, minimally pale in color, skin intact. No rash.
MUSCULOSKELETAL: No C/C/E. peripheral pulses are full and equal b/l. No palpable tenderness.
PSYCH: Mildly anxious.
Course
Orders/Labs/Results
Orders:
Orders
12/24/23 04:06
Urinalysis Reflex To Culture Urgent
12/24/23 04:07
0.9% Sodium Chloride 1000 ml [Nss] 1,000 ml IV BOLUS
12/24/23 04:18
HYDROmorphone [Dilaudid] 1 mg IV NOW STA
12/24/23 04:31
Complete Blood Count/With Diff Urgent
Comprehensive Metabolic Panel Urgent
Lactic Acid Urgent
Lipase Urgent
Blood Culture Q30M
JUAN M Source: Blood/Venous
Specimen Description:
12/24/23 04:32
Blood Culture Q30M
JUAN M Source: Blood/Venous
Specimen Description:
12/24/23 05:09
HYDROmorphone [Dilaudid] 1 mg IV NOW STA
Ondansetron Injectable [Zofran] 4 mg IV NOW STA
12/24/23 05:10
HYDROmorphone [Dilaudid] 1 mg .ROUTE .STK-MED ONE
Ondansetron Injectable [Zofran] 4 mg .ROUTE .STK-MED ONE
12/24/23 05:32
Piperacillin/Tazo 4.5 Gram [Zosyn] 4.5 gram in 100 ml IV NOW
Abnormal Lab Results
12/24/23
04:31
WBC 17.5 H 10^3/uL
(4.8-10.8)
RBC 3.91 L 10^6/uL
(4.20-5.40)
Hgb 10.8 L g/dL
(12.0-16.0)
Hct 31.7 L %
(37.0-47.0)
Plt Count 686 H 10^3/uL
(130-400)
Abs Immat Gran (auto) 0.1 H 10^3/uL
(0-0.05)
Absolute Neuts (auto) 12.4 H 10^3/uL
(1.4-6.5)
Absolute Monos (auto) 1.2 H 10^3/uL
(0.1-0.6)
Lymphocytes % 18.6 L %
(20.5-51.1)
BUN 21 H mg/dl
(7-17)
Alkaline Phosphatase 144 H U/L
(38-126)
12/24/23 04:31
12/24/23 04:31
Vital Signs
Initial and Last Documented VS:
Initial Vital Signs
Temp Pulse Resp BP Pulse Ox
99.5 F 98 26 140/70 98
12/24/23 03:50 12/24/23 03:50 12/24/23 03:50 12/24/23 03:50 12/24/23 03:50
Last Documented Vital Signs
Temp Pulse Resp BP Pulse Ox
99.5 F 98 26 140/70 98
12/24/23 03:50 12/24/23 03:50 12/24/23 03:50 12/24/23 03:50 12/24/23 03:50
MDM/Problems Addressed
Differential Diagnosis Includes:
Concern for acute sepsis syndrome, bacteremia. Patient is certainly at risk for bacteremia with chronic PICC line. Other consideration is UTI as well is concern for fever related to acute on chronic pancreatitis.
Nothing in history nor exam to suggest URI/pneumonia.
Will initiate peripheral IV, panculture, IV fluids, IV pain medication.
Will consider CT of the abdomen and pelvis depending on laboratory results.
Due to acute febrile illness, concern for bacteremia/concern for potential line sepsis patient will require broad-spectrum antibiotics and hospitalization.
Chronic conditions affecting care: Previous abdomnial surgery and Other (Chronic pancreatitis, chronic pain syndrome)
*Pulse Oximetry
Patient hypoxic: no
*Critical Care Note
Total Time (30-74mins, 75-104mins- exclusive of procedures): Not Applicable
Update Note
Update Note:
12/24/2023 0535 AM
White blood cell count moderately elevated at 17.5. Similar elevations noted on previous hospitalizations, even higher at 29.8 during most recent hospitalization October 19.
Chronic thrombocytosis.
Chemistries are unremarkable as is lactic acid.
Urinalysis is pending.
Will initiate IV Zosyn for coverage of potential central line bacteremia/sepsis as well as coverage of potential acute on chronic pancreatitis.
Blood cultures are pending.
Will continue IV fluids, IV pain medication and antiemetics and admit to hospitalist service.
ED Attending Note
-
Portions of this chart may have been created with voice recognition software.� Occasional wrong word or��sound alike� substitutions may have occurred due to the inherent limitations of voice recognition software.
Discharge Plan
Departure
Patient Disposition: Admit
Date of Disposition: 12/24/23
Time of Disposition: 05:37
Admit to: Med/Surg
Admit to doctor: [facility]
Presentation/result/management discussed w/ accepting MD/DO: Hospitalist
Condition: Fair
Discharge Problem:
Fever r/o sepsis, concern for central line related sepsis, Acute on chronic pancreatitis, acute on chronic pancreatitis pain
Prescriptions:
No Action
lorazepam 1 MG tablet
1 mg PO HS
Patient Comments:
01/07/2023: last filled 12/25/22, 30 tabs for 30 days from [facility]
sertraline 50 MG tablet
100 mg PO HS
hydromorphone [Dilaudid] 4 mg Tablet
4 mg PO Q4H PRN (Reason: pancreatitis pain)
Patient Comments:
01/07/2023: last filled 11/26/22, 20 tabs for 10 days from [facility]
ondansetron 4 mg tablet,disintegrating
8 mg PO TID PRN (Reason: nausea/vomiting)
Rx Instructions:
F/u EKG outpatient
lorazepam 1 mg Tablet
1 mg PO Q8H PRN (Reason: Nausea/anxiety)
promethazine 25 mg Suppository
25 mg AK PRN PRN (Reason: NAUSEA)
acetaminophen [Tylenol] 325 mg Capsule
650 mg PO Q4H PRN (Reason: HEADACHE)
Creon 12,000-38,000 -60,000 unit Capsule,Delayed Release(Dr/Ec)
2 cap PO MEALS
Rx Instructions:
With meals and snacks
Referrals:
Lina Hermosillo CRNP [Family Provider] -
Discharge Date and Time
Print Language: KINYARWANDA
[2023-12-24 05:04] LABS: ALT (SGPT) 21 U/L (0-35); AST (SGOT) 31 U/L (14-36); Albumin 4.2 g/dl (3.5-5.0); Alkaline Phosphatase 144 U/L (38-126); Blood Urea Nitrogen 21 mg/dl (7-17); Calcium 9.6 mg/dl (8.4-10.2); Carbon Dioxide 23 mmol/L (22-30); Chloride 104 mmol/L (98-107); Glucose 92 mg/dl (70-99); Lipase 163 U/L (23-300); Sodium 138 mmol/L (135-145); Total Bilirubin 0.3 mg/dl (0.2-1.3); Total Protein 7.9 g/dl (6.3-8.2); eGFR > 60.00
[2023-12-24 05:11] LABS: Potassium 4.5 mmol/L (3.5-5.1)
[2023-12-24] MEDS: ZOFRAN 4 MG IV ×4 (05:11→21:39)
--- NOTE | 2023-12-24 05:45 | HPS.HSE ---
Family Physician
-
Family Physician: KATE Vaughn
Chief Complaint
-
Fever , has PICC line
History of Present Illness
53F HX pancreatic divisum, pancreatic duct stones, [place] procedure with celiac block in 2017 , HX chronic pancreatitis followed by a specialist at [place]. HX recurrent hospitalizations due to chronic pain, chronic nausea, vomiting, diarrhea
seen at ER for evaluation abdominal pain flare accompanied with chills, generalized aches and a fever at home of 102 �F.
Recently hospitalization at [facility]: started on IV TPN with PICC line placed right upper arm approximately 6 to 8 weeks ago. In response to TPN patient has had resolution of diarrhea and gained 10 pounds over the past 2 months. Reports r right upper
arm PICC line site is changed by home health care nurse on a regular basis and does admit that the area has some yellowish exudate and mild local tenderness that is overall unchanged.
ROS
POS intermittent nausea
No vomiting, no diarrhea. No rashes. No neck pain nor headache.
Denied cough ,nasal congestion nor sore throat.
No recent antibiotics.
Medical History
Past Medical History
Past Medical History: Reports Other (Recurrent pancreatitis, pancreatic duct stone, pancreatic divisum Hepatitis A Irritable bowel syndrome Gastroparesis History of C. difficile colitis Essential hypertension Hyperlipidemia Diet controlled type 2
diabetes mellitus Hereditary spherocytosis)
Past Surgical History: Reports Other (Splenectomy [place] procedure with celiac block in 2017 VSD repair as a child Cholecystectomy Pancreatic stents)
Social History
Tobacco: Non-smoker
Alcohol: None
Family History
Family History: Not pertinent and Other (Hereditary spherocytosis, essential hypertension)
Allergies / Home Medications
Allergies reflects when Allergies were last updated in [employer]
Home Medications with original date entered in [employer]
Allergy/Medication List:
Allergies
Allergy/AdvReac Type Severity Reaction Status Date / Time
ketamine Allergy Unknown Verified 02/17/23 03:07
prochlorperazine Allergy Shortness Verified 02/17/23 03:07
of Breath,
Muscle
Rigidity
prochlorperazine edisylate Allergy tardive Verified 02/17/23 03:07
[From Compazine] dyskinesia
prochlorperazine maleate Allergy tardive Verified 02/17/23 03:07
[From Compazine] dyskinesia
trimethobenzamide Allergy Shortness Verified 02/17/23 03:07
of Breath,
muscle
rigidity
trimethobenzamide HCl Allergy tardive Verified 02/17/23 03:07
[From Tigan] dyskinesia
vancomycin Allergy RED AND Verified 02/17/23 03:07
ITCHY
morphine AdvReac Nausea / Verified 02/17/23 03:07
Vomiting
Home Medications
lorazepam 1 mg tablet 1 mg PO HS anxiety 12/08/13
sertraline 50 mg tablet 100 mg PO HS Depression 12/08/13
cholecalciferol (vitamin D3) 25 mcg (1,000 unit) tablet (Vitamin D3) 25 mcg PO DAILY Supplement 01/07/23
hydromorphone 4 mg tablet (Dilaudid) 4 mg PO Q4H PRN pancreatitis pain 01/07/23
ondansetron 4 mg disintegrating tablet 8 mg PO TID PRN nausea/vomiting 02/17/23
Review of Systems
-
Constitutional: Reports Fever and Chills
EENT: Reports No Symptoms
Respiratory: Reports No Symptoms
Cardiac: Reports No Symptoms
Abdomen/GI: Reports Abdominal Pain and Nausea; Denies Vomiting or Diarrhea
: Reports No Symptoms
Musculoskeletal: Reports No Symptoms
Skin: Reports No Symptoms
Neurological: Reports No Symptoms
Endocrine: Reports No Symptoms
Hematologic/Lymphatic: Reports No Symptoms
Psych: Reports No Symptoms
Physical Exam
Vital Signs
Vital Signs
Temp Pulse Resp BP Pulse Ox
99.5 F 98 26 140/70 98
12/24/23 03:50 12/24/23 03:50 12/24/23 03:50 12/24/23 03:50 12/24/23 03:50
Physical Exam
General: Well Developed, Well Nourished, Fever, Chills and Other
HEENT: NormoCephalic and Anicteric
Respiratory: Clear
Cardiac: S1/S2 and Regular Rhythm
GI: Soft, Normal Bowel Sounds and Tender (epigastrium )
Rectal: Deferred by Provider
Musculoskeletal: No Edema and Other (mild local tendernes at Rt upper arm distal PICC site )
Skin: Warm and Dry
Neuro: AO x 3
Psych: Anxious
Laboratory Results
-
12/24/23 04:31
12/24/23 04:31
Laboratory Results
Lactic Acid 1.0 mmol/L (0.7-2.0) 12/24/23 04:31
Total Bilirubin 0.3 mg/dl (0.2-1.3) 12/24/23 04:31
AST 31 U/L (14-36) 12/24/23 04:31
ALT 21 U/L (0-35) 12/24/23 04:31
Alkaline Phosphatase 144 U/L (38-126) H 12/24/23 04:31
Lipase 163 U/L (23-300) 12/24/23 04:31
Data Reviewed
-
CT Scan: Other (pending )
Lab Data: Labs Reviewed by me
Old Records: Reviewed
Impression/Plan
-
Reviewed VS: Tc 99.5 RR 26 HR 98 BP 140/70
Data
WCC 17.5 - baseline 11- 29
Hgb 10.8 - baseline 11
Plt 686 - baseline 500- 600s
Unremarkable CMP
nl Cr
LA 1.0
Lipase 163
BCx sent
4/7/24 CT Abd/pelvis W Iv Cont
1. There is very minimal stranding about the pancreatic head suggesting very mild acute pancreatitis superimposed on chronic pancreatic disease. No fluid collection or pseudocyst.
2. Postoperative changes similar to previous. There is pneumobilia, unchanged. Prior cholecystectomy.
3. Chronic coarse calcification in the pancreatic head unchanged.
4. No free air or free fluid.
5. Incidental findings as outlined above similar to previous exams
Last hospitalist admission: 10/20/23 - 10/25/23
P Dxs:
Acute on chronic pancreatitis.
Metabolic acidosis.
Reactive leukocytosis.
Protein calorie malnutrition with body mass index of 21.
Chronic pain secondary to chronic pancreatitis with opiate dependence.
Hereditary spherocytosis status post splenectomy.
ASSESSMENT & PLAN
Pending Rx reconciliation
SIRS picture( Fever 102 at home , T c 99.5 , RR > 20, HR > 90)
Concern for evolving sepsis due to risk of infected PICC line at Rt upper arm PICC placed approximately 8 weeks ago
Concerning for bacteremia or fungemia
Significant leukocytosis: acute on chronic
NEG LA
HX Jesus syndrome with Vancomycin per patient
- UA
- BCx
- Empiric IV Zosyn, will add IV vanco
- IVF
- ID consult
Chr abdominal pain flare
Chronic pancreatitis: Normal lipase
Currently on OP TPN for 8 weeks for chr diarrhea, Protein calorie malnutrition with body mass index of 21: reported wt gain and resolved diarrhea
HX Pancreas divisum status post pancreatojejunostomy.
HX pancreatic duct stone status post [place] in the past, as well as pancreatic stents
P GI : Dr. Myron Braxton at [facility].
- IV Dilaudid PRN
- NPO wit sips of clear
- GI consult
Anxiety
- on Sertraline an Ativan
Known pre existing Dxs;
Chr pain syndrome
Diet controlled T2DM: - add ISS low
Essential hypertension HX
Irritable bowel syndrome
HX Gastroparesis
Hyperlipidemia-
Hereditary spherocytosis--status post splenectomy
DVT Px: LMWH
Code: Full
IP TLM
[2023-12-24] MEDS: ZOSYN 100 IV (05:47)
--- NOTE | 2023-12-24 06:29 | VATNOTE ---
12/23 [id number]
Paged by PCN to obtain blood cultures (per doctors order) from patients PICC line. Patient with a double lumen PICC placed at [place]. Patient states dressing was just changed Saturday (12/22) AM. Patient reports skin issues with almost all
dressings, STAT lock and biopatch. Per patient currently the site is being dressed with a non adherent pad under the PICC, a steri strip to secure the PICC and a non transparent bordered dressing. Per patient the site had some blisters under the
dressing that were unchanged when the dressing was changed yesterday. Per Dr. Barron we were only to get the blood cultures from the line and everything else will go through an established peripheral IV. Patient asked not to put heparin in purple
lumen yet incase they do need to use it again. PCN aware of this.
[2023-12-24 06:36] LABS: Urine Albumin Negative (Neg - Trace); Urine Bilirubin Negative (Negative); Urine Character Clear (Clear); Urine Color Yellow; Urine Glucose Negative (Negative); Urine Ketone Negative (Negative); Urine Leukocyte Negative (Negative); Urine Nitrite Negative (Negative); Urine Occult Blood Negative (Negative); Urine Specific Gravity 1.005 (<1.030); Urine Urobilinogen Negative (Neg - 1+)
--- NOTE | 2023-12-24 08:52 | PHA.VAN.IN ---
Assessment
- Assessment
Renal Function: Appears similar to baseline
Concomitant Antimicrobials: piperacillin/tazobactam
AUC Dosing Plan
- Dosing Variables
Dosing Weight (kg): 57
Dosing CrCl (ml/min): 84
Vd coefficient (L/kg): 0.7
- Empiric Dosing
Maintenance Regimen: Vanc 750mg Q12H - first dose now then 1800 in lieu of load
Estimated AUC (mcg*h/mL): 526
Estimated Peak (mcg*h/mL): 31.9
Estimated Trough (mcg/ml): 14.1
Estimated Half Life (H): 9.3
Infuse over 90 mins given prior history of infusion reaction
- Monitoring
No levels ordered at this time: consider levels in next few days
Pharmacokinetics Vancomycin I
- -
Patient Age: 53
Patient Sex: Female
Vancomycin Day #: 1
Indication: Skin And Soft Tissue
Requesting Provider: Dr. Sims
Pertinent Antimicrobial Allergies:
vancomycin - red and itchy
Height / Weight:
Height 5 ft 2 in
Actual Weight 57 kg
- Vital Signs / Lab Results
Temp Pulse Resp BP Pulse Ox
100.4 F H 98 26 140/70 98
12/24/23 05:51 12/24/23 03:50 12/24/23 03:50 12/24/23 03:50 12/24/23 03:50
Lab Results - Hematology
12/24/23
04:31
WBC 17.5 H
Lab Results - Chemistry
12/24/23
04:31
BUN 21 H
Creatinine 0.6
Albumin 4.2
12/24/23
04:31
Lactic Acid 1.0
Lab Results - Urine
12/24/23
06:25
Urine Nitrite (Reflex) Negative
Leukocyte Esterase Rfl Negative
[2023-12-24] MEDS: VANCOCIN 150 IV ×2 (09:40→18:49)
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
[2023-12-24] MEDS: DILAUDID 0.25 MG IV (09:57)
--- NOTE | 2023-12-24 11:04 | W.PN.HOSP.TC ---
Today's Communication/Plan
-
see plan
Assessment / Plan
Assessment / Plan
Last hospitalist admission: 10/20/23 - 10/25/23
P Dxs:
Acute on chronic pancreatitis.
Metabolic acidosis.
Reactive leukocytosis.
Protein calorie malnutrition with body mass index of 21.
Chronic pain secondary to chronic pancreatitis with opiate dependence.
Hereditary spherocytosis status post splenectomy.
ASSESSMENT & PLAN
SIRS picture( Fever 102 at home , T c 99.5 , RR > 20, HR > 90)
Concern for evolving sepsis due to risk of infected PICC line at Rt upper arm PICC placed approximately 8 weeks ago
Concerning for bacteremia or fungemia
Significant leukocytosis: acute on chronic
NEG LA
HX Jesus syndrome with Vancomycin per patient
- UA clear
- BCx
- Empiric IV Zosyn, and IV Vanc
- IVF
- ID consult
Chr abdominal pain flare
Chronic pancreatitis: Normal lipase
Currently on OP TPN for 8 weeks for chr diarrhea, Protein calorie malnutrition with body mass index of 21: reported wt gain and resolved diarrhea
HX Pancreas divisum status post pancreatojejunostomy.
HX pancreatic duct stone status post Puestow in the past, as well as pancreatic stents
P GI : Dr. Myron Braxton at [facility].
- IV Dilaudid PRN
- NPO with sips of clear
- GI consult
- patient was scheduled to have PICC removed now
-undergoing evaluation for surgical removal of her pancreas with islet cell transplant and is contemplating second opinion with a specialist in [place]
Anxiety
- on Sertraline an Ativan
Known pre existing Dxs;
Chr pain syndrome
Diet controlled T2DM: - add ISS low
Essential hypertension HX
Irritable bowel syndrome
HX Gastroparesis
Hyperlipidemia-
Hereditary spherocytosis--status post splenectomy
DVT Px: LMWH
Code: Full
IP TLM
51 minutes spent on patient evaluation, medical decision making, coordination of care
Anticipated Discharge: > 48 hours
Subjective/Interval History
-
Date of Service: December 24, 2023
itching with IV Vanc
acute on chronic pain
Objective Data
-
Labs:
Laboratory Results
12/24/23
04:31
WBC 17.5 H
Hgb 10.8 L
Hct 31.7 L
Plt Count 686 H
Sodium 138
Potassium 4.5
Chloride 104
Carbon Dioxide 23
BUN 21 H
Creatinine 0.6
Glucose 92
Calcium 9.6
Total Bilirubin 0.3
AST 31
ALT 21
Alkaline Phosphatase 144 H
Vital Signs:
Vital Signs
Temp Pulse Resp BP Pulse Ox
99.0 F 73 18 120/74 97
12/24/23 09:15 12/24/23 09:15 12/24/23 09:15 12/24/23 09:15 12/24/23 09:15
Review of Systems
-
History Source: Patient
All other systems: Reviewed and negative
Physical Exam
-
General: Other (appears distressed, in pain)
HEENT: Other (mild erythema forehead )
Cardiac: Regular Rhythm and S1/S2
GI: Soft and Nontender
Musculoskeletal: No Edema
Skin: Warm and Dry; Negative Rash
Neuro: AO x 3
Psych: Calm
Data Reviewed
-
Diagnostic Radiology: Report Reviewed by me
Labs: Labs Reviewed by me
[2023-12-24] MEDS: BENADRYL 25 MG IV (11:49)
[2023-12-24] MEDS: ATIVAN 1 MG PO ×2 (11:50→21:39)
[2023-12-24] MEDS: NSS (PRESERVATIVE FREE) 8 ML IV ×2 (11:51→19:59)
[2023-12-24] MEDS: PEPCID 20 MG IV ×2 (11:51→19:59)
[2023-12-24] MEDS: TUMS 2 TABLET PO (12:03)
[2023-12-24] MEDS: TYLENOL 650 MG PO ×2 (12:50→18:48)
[2023-12-24] MEDS: DILAUDID 0.5 MG IV ×2 (13:03→17:08)
[2023-12-24] MEDS: FLUSH (NSS) 1 FLUSH IV ×3 (13:04→18:52)
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
[2023-12-24] MEDS: ZOSYN 50 IV (14:57)
[2023-12-24] MEDS: FLUSH (NSS) 2 FLUSH IV (15:16)
[2023-12-24 15:46] LABS: COVID-19 Antigen Negative (Negative)
[2023-12-24] MEDS: LOVENOX 40 MG SC (17:08)
--- NOTE | 2023-12-24 17:44 | W.PN.UPDATE ---
Update Note
Progress Note Update
UE US:IMPRESSION:
No appreciable flow in the right brachial or axillary veins along the course of the PICC raising concern for thrombus.
PICC removed
will start therapeutic lovenox for now
CM cost for Eliquis
patient just received lovenox 40mg; speaking with pharmacy about extra 20mg tonight; start 60 q 12 tomorrow
[2023-12-24] MEDS: BENADRYL 12.5 MG IV (18:48)
[2023-12-24] MEDS: LOVENOX 0.200000000000000011 MG SC (19:59)
[2023-12-24] MEDS: ZOLOFT 100 MG PO (21:39)
[2023-12-25 03:00] VITALS: BP 124/57
[2023-12-25] MEDS: DILAUDID 1 MG IV ×7 (03:05→21:10)
[2023-12-25] MEDS: ZOFRAN 4 MG IV ×3 (03:06→14:56)
[2023-12-25 04:49] LABS: % Basophils 0.9 % (0-2); % Eosinophils 3.9 % (0-6); % Immature Granulocytes 0.5 % (0-0.5); % Monocytes 8.9 % (1.7-9.3); % Neutrophils 67.8 % (42.2-75.2); Absolute Basophils 0.2 10^3/uL (0-0.2); Absolute Eosinophils 0.7 10^3/uL (0-0.7); Absolute Immature Granulocytes 0.1 10^3/uL (0-0.05); Absolute Lymphocytes 3.1 10^3/uL (1.2-3.4); Absolute Monocytes 1.5 10^3/uL (0.1-0.6); Absolute Neutrophils 11.5 10^3/uL (1.4-6.5); Hematocrit 26.2 % (37.0-47.0); Hemoglobin 8.8 g/dL (12.0-16.0); Mean Corp Hgb Conc. 33.6 g/dL (33.0-37.0); Mean Corpuscular Hgb 27.6 pg (27.0-31.0); Mean Corpuscular Volume 82.1 fL (81.0-99.0); Mean Platelet Volume 9.2 fL (7.4-10.4); Nucleated Red Blood Cells % 0 %; Platelet Count 641 10^3/uL (130-400); Red Blood Cell Count 3.19 10^6/uL (4.20-5.40); Red Cell Dist. Width 13.3 % (11.5-14.5)
[2023-12-25 05:16] LABS: ALT (SGPT) 24 U/L (0-35); AST (SGOT) 40 U/L (14-36); Albumin 3.4 g/dl (3.5-5.0); Alkaline Phosphatase 119 U/L (38-126); Blood Urea Nitrogen 13 mg/dl (7-17); Calcium 8.9 mg/dl (8.4-10.2); Carbon Dioxide 21 mmol/L (22-30); Chloride 108 mmol/L (98-107); Estimated Creatinine Clearance 84 ml/min; Glucose 84 mg/dl (70-99); Potassium 3.8 mmol/L (3.5-5.1); Sodium 137 mmol/L (135-145); Total Bilirubin 0.4 mg/dl (0.2-1.3); Total Protein 6.8 g/dl (6.3-8.2); eGFR > 60.00
[2023-12-25] MEDS: BENADRYL 12.5 MG IV (05:21)
[2023-12-25] MEDS: VANCOCIN 150 IV (05:40)
[2023-12-25] MEDS: LOVENOX 60 MG SC ×2 (05:41→16:55)
[2023-12-25 06:00] VITALS: BMI 22.1
[2023-12-25 07:03] VITALS: BP 121/64
[2023-12-25 08:24] LABS: Hemoglobin 9.6 g/dL (12.0-16.0)
[2023-12-25] MEDS: PEPCID 20 MG IV ×2 (08:29→19:52)
[2023-12-25] MEDS: NSS (PRESERVATIVE FREE) 8 ML IV ×2 (08:29→19:52)
[2023-12-25] MEDS: ATIVAN 1 MG PO ×2 (08:43→21:10)
[2023-12-25 10:10] VITALS: BMI 22.1
[2023-12-25 11:48] VITALS: BP 145/58
--- NOTE | 2023-12-25 12:05 | W.PN.HOSP.TC ---
Today's Communication/Plan
-
see plan
Assessment / Plan
Assessment / Plan
Last hospitalist admission: 10/20/23 - 10/25/23
P Dxs:
Acute on chronic pancreatitis.
Metabolic acidosis.
Reactive leukocytosis.
Protein calorie malnutrition with body mass index of 21.
Chronic pain secondary to chronic pancreatitis with opiate dependence.
Hereditary spherocytosis status post splenectomy.
ASSESSMENT & PLAN
SIRS picture( Fever 102 at home , T c 99.5 , RR > 20, HR > 90)
Concern for evolving sepsis due to risk of infected PICC line at Rt upper arm PICC placed approximately 8 weeks ago
Concerning for bacteremia or fungemia
Significant leukocytosis: acute on chronic
NEG LA
HX Jesus syndrome with Vancomycin per patient
-flu/covid negative
- UA clear
- BCx thus far negative
- appreciate ID
-continue IV Vancomycin
-gentle IVF
Chr abdominal pain flare
Chronic pancreatitis: Normal lipase
Currently on OP TPN for 8 weeks for chr diarrhea, Protein calorie malnutrition with body mass index of 21: reported wt gain and resolved diarrhea
HX Pancreas divisum status post pancreatojejunostomy.
HX pancreatic duct stone status post Puestow in the past, as well as pancreatic stents
P GI : Dr. Myron Braxton at [facility].
- IV Dilaudid PRN
- NPO with sips of clear
- GI consult appreciated
- patient was scheduled to have PICC removed now
-undergoing evaluation for surgical removal of her pancreas with islet cell transplant and is contemplating second opinion with a specialist in [place]
Catheter associated DVT
-lovenox started
-PICC removed
-likely transition to Eliquis tomorrow
-Hg low this AM likely outlier as repeat closer to baseline
Anxiety
- on Sertraline an Ativan
Known pre existing Dxs;
Chr pain syndrome
Diet controlled T2DM: - add ISS low
Essential hypertension HX
Irritable bowel syndrome
HX Gastroparesis
Hyperlipidemia-
Hereditary spherocytosis--status post splenectomy
DVT Px: LMWH
Code: Full
IP TLM
51 minutes spent on patient evaluation, medical decision making, coordination of care
Anticipated Discharge: > 48 hours
Subjective/Interval History
-
Date of Service: December 25, 2023
continues to have pain
no black or bloody stools
no fevers overnight
Objective Data
-
Labs:
Laboratory Results
12/25/23 12/25/23
04:40 07:54
WBC 17.0 H
Hgb 8.8 L 9.6 L
Hct 26.2 L
Plt Count 641 H
Sodium 137
Potassium 3.8
Chloride 108 H
Carbon Dioxide 21 L
BUN 13
Creatinine 0.6
Glucose 84
Calcium 8.9
Total Bilirubin 0.4
AST 40 H
ALT 24
Alkaline Phosphatase 119
Vital Signs:
Vital Signs
Temp Pulse Resp BP Pulse Ox
97.6 F 73 19 145/58 96
12/25/23 11:48 12/25/23 11:48 12/25/23 11:48 12/25/23 11:48 12/25/23 11:48
I&O
12/24/23 12/25/23 12/26/23
06:59 06:59 06:59
Intake Total 200 / 200
Balance 200 / 200
Review of Systems
-
History Source: Patient
All other systems: Reviewed and negative
Physical Exam
-
General: Other (appears distressed, in pain)
HEENT: Atraumatic
Cardiac: Regular Rhythm and S1/S2
GI: Soft and Nontender
Musculoskeletal: No Edema
Skin: Warm and Dry; Negative Rash
Neuro: AO x 3
Psych: Calm
Data Reviewed
-
Diagnostic Radiology: Report Reviewed by me
Labs: Labs Reviewed by me
--- NOTE | 2023-12-25 13:53 | PN.CDI ---
CDI
- -
CDI:
Physician Documentation Request
Admit Date: 12/24/23 06:10
Dear Doctor Eduardo,
Please review the following and provide your response in the progress notes.
Due to conflicting documentation, please clarify the acuity of the documented pancreatitis..:
Clinical Indicators:
ID consult, 12/23
# Acute on chronic pancreatitis
#- no need for abx coverage.
PN, 12/24
#Chronic pancreatitis: Normal lipase
Please clarify in the progress notes, the appropriate diagnosis, if significant, that supports the above abnormalities and additional evaluation, monitoring and/or treatment rendered:
Acute on chronic pancreatitis
Chronic pancreatitis
Other(please specify)
Use of terms such as suspected, likely, concern for, or probable (associated with a specific diagnosis that is being evaluated, monitored, or treated as if it exists) are acceptable and can be coded in the inpatient setting, when documented at the
time of discharge.
Thank you,
Nelida Correa RN BSN CCDS
CDI Specialist
please contact via tiger text
Please use your independent medical judgment in providing your response.
--- NOTE | 2023-12-25 13:57 | PN.CDI ---
CDI
- -
CDI:
Physician Documentation Request
Admit Date: 12/24/23 06:10
Dear Doctor Eduardo,
Please review the following and provide your response in the progress notes.
Clinical Indicators:
ED, 12/23
#...history of chronic pancreatitis, chronic pain syndrome
#...secondary to chronic pancreatitis with opiate dependence.
Home meds:
#hydromorphone 4 mg tablet (Dilaudid) 4 mg PO Q4H PRN pancreatitis pain 01/07/23
Medications
Hydromorphone HCl (Hydromorphone 1 Mg/Ml Carpuject) 1 mg IV Q3HPRN PRN
PRN Reason: acute on severe chronic pain
Stop: 01/07/24 17:59
Last Admin: 12/25/23 12:01 Dose: 1 mg
Hydromorphone HCl (Hydromorphone 1 Mg/Ml Carpuject) 1 mg IV NOW STA
Stop: 12/24/23 04:19
Last Admin: 12/24/23 04:33 Dose: 1 mg
Hydromorphone HCl (Hydromorphone 0.25 Mg/0.5 Ml Syringe) 0.25 mg IV Q4HPRN PRN
PRN Reason: acute on chronic pain
Stop: 01/07/24 06:35
Last Admin: 12/24/23 09:57 Dose: 0.25 mg
Hydromorphone HCl (Hydromorphone 0.5 Mg/0.5 Ml Syringe) 0.5 mg IV Q3HPRN PRN
PRN Reason: acute on severe chronic pain
Stop: 01/07/24 11:32
Last Admin: 12/24/23 17:08 Dose: 0.5 mg
Please clarify specificity opiate use:
Chronic opiate use with dependence
Chronic opiate use without dependence
Other(please specify)
Use of terms such as suspected, likely, concern for, or probable (associated with a specific diagnosis that is being evaluated, monitored, or treated as if it exists) are acceptable and can be coded in the inpatient setting, when documented at the
time of discharge.
Thank you,
Nelida Correa RN BSN CCDS
CDI Specialist
please contact via tiger text
Please use your independent medical judgment in providing your response.
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
--- NOTE | 2023-12-25 14:50 | W.PN.ID1 ---
Date of Service
Date of Service: December 25, 2023
Today's Communication
DC Vancomycin.
Assessment / Plan
# Picc associated thrombus
- Picc dc'd
# Fever resolved
# Leukocytosis stable
- Reactive to DVT
-Blood cx's neg to date
-DC Vancomycin
# RUE contact dermatitis
-Apply topical steroid tid x 7d
# Acute on chronic pancreatitis
- no need for abx coverage.
# Recent TPN past 8 weeks
#Additional Past Medical History:
Pancreatic stone and pancreatic divisum and recurrent pancreatitis.
History of pancreatojejunostomy 2017.
Irritable bowel syndrome.
Gastroparesis.
Anxiety.
C difficile x2.
Hereditary spherocytosis status post splenectomy, up to date
with her splenectomy vaccines per patient.
Chronic pain
Cholecystectomy.
VSD repair as a child.
Chief Complaint
-: Fever and Leukocytosis
Subjective / Review of Systems
R arm better after PICC removal.
Still with upper abd pain.
Vital Signs / Physical Exam
Vital Signs
Vital Signs
Temp Pulse Resp BP Pulse Ox
97.6 F 73 19 145/58 96
12/25/23 11:48 12/25/23 11:48 12/25/23 11:48 12/25/23 11:48 12/25/23 11:48
Physical Exam
Constitutional: No Acute Distress
Pulmonary: Clear
Gastrointestinal: Soft and Tender (epigastric)
Skin: Rash (RUE previous PICC site with crusty lesions within square pattern)
Neurological: AO x 3
Objective Data
Lab Data
Lab Results
12/25/23 07:54
12/25/23 04:40
Estimated Creat Clear 84 ml/min 12/25/23 04:40
Lactic Acid Cancelled 12/24/23 20:09
Total Bilirubin 0.4 mg/dl (0.2-1.3) 12/25/23 04:40
AST 40 U/L (14-36) H 12/25/23 04:40
ALT 24 U/L (0-35) 12/25/23 04:40
Alkaline Phosphatase 119 U/L (38-126) 12/25/23 04:40
Most recent labs reviewed.
Micro Results:
12/24/23 04:32 Blood Culture - Preliminary
Blood/Venous No Growth in 24 hours- Final report to follow
12/24/23 04:31 Blood Culture - Preliminary
Blood/Venous No Growth in 24 hours- Final report to follow
12/24/23 15:02 Influenza Types A & B ([facility]) - Final
Nasal Swab Negative for Influenza A & B, NAAT
Negative results must be combined with clinical observations
and patient history.
Nucleic Acid Amplification test (NAAT)performed on the
[employer] platform.
[2023-12-25] MEDS: NSS 1000 IV (15:02)
--- NOTE | 2023-12-25 15:26 | CM ---
Alert awake oriented patient who lives with her Jovi who lives in a 2 story home with 0 step to enter and 6 steps to bed and bathroom. She is independent in driving and in all activities of daily living.She was offered VN she declined
need. requested bobo check on Eliquis which was free. She said she had just got notified that Eiquis was in and was to be free.
Infusion VN hx / No SNF history
Ph[facility]acy [facility]
PCP DR Hermosillo
PLAN Home Declined VN
[2023-12-25 15:42] VITALS: BP 118/67
[2023-12-25] MEDS: BENADRYL 25 MG IV (16:55)
[2023-12-25] MEDS: ZENPEP DELAYED RELEASE CAPSULE 4 CAPSULE PO (16:56)
[2023-12-25] MEDS: ARISTOCORT/TRIAMCINOLONE 0.1% CREAM 1 APPLIC TOPICAL ×2 (16:56→21:10)
[2023-12-25 19:44] VITALS: BP 126/57
[2023-12-25] MEDS: ZOLOFT 100 MG PO (21:10)
[2023-12-25 23:16] VITALS: BP 112/64
[2023-12-26] MEDS: ZOFRAN 4 MG IV ×3 (00:14→17:12)
[2023-12-26] MEDS: DILAUDID 1 MG IV ×8 (00:15→21:32)
[2023-12-26 03:09] VITALS: BP 130/64
[2023-12-26 05:16] VITALS: BMI 22.6
[2023-12-26 05:16] LABS: % Eosinophils 8.4 % (0-6); % Immature Granulocytes 0.3 % (0-0.5); % Lymphocytes 40.2 % (20.5-51.1); % Monocytes 11.6 % (1.7-9.3); % Neutrophils 38.5 % (42.2-75.2); Absolute Basophils 0.1 10^3/uL (0-0.2); Absolute Lymphocytes 4.6 10^3/uL (1.2-3.4); Absolute Monocytes 1.3 10^3/uL (0.1-0.6); Absolute Neutrophils 4.4 10^3/uL (1.4-6.5); Hematocrit 27.2 % (37.0-47.0); Hemoglobin 9.2 g/dL (12.0-16.0); Mean Corp Hgb Conc. 33.8 g/dL (33.0-37.0); Mean Corpuscular Hgb 27.8 pg (27.0-31.0); Mean Corpuscular Volume 82.2 fL (81.0-99.0); Mean Platelet Volume 9.2 fL (7.4-10.4); Nucleated Red Blood Cells % 0.2 %; Platelet Count 586 10^3/uL (130-400); Red Blood Cell Count 3.31 10^6/uL (4.20-5.40); Red Cell Dist. Width 13.2 % (11.5-14.5); White Blood Cell Count 11.4 10^3/uL (4.8-10.8)
[2023-12-26 05:32] LABS: ALT (SGPT) 26 U/L (0-35); AST (SGOT) 46 U/L (14-36); Albumin 3.2 g/dl (3.5-5.0); Alkaline Phosphatase 108 U/L (38-126); Blood Urea Nitrogen 15 mg/dl (7-17); Calcium 8.5 mg/dl (8.4-10.2); Carbon Dioxide 24 mmol/L (22-30); Chloride 108 mmol/L (98-107); Estimated Creatinine Clearance 84 ml/min; Glucose 91 mg/dl (70-99); Potassium 4.6 mmol/L (3.5-5.1); Sodium 139 mmol/L (135-145); Total Bilirubin 0.2 mg/dl (0.2-1.3); Total Protein 6.4 g/dl (6.3-8.2); eGFR > 60.00
[2023-12-26] MEDS: NSS 1000 IV (06:17)
[2023-12-26] MEDS: LOVENOX 60 MG SC (06:18)
[2023-12-26 07:50] VITALS: BP 129/69
[2023-12-26] MEDS: ARISTOCORT/TRIAMCINOLONE 0.1% CREAM 1 APPLIC TOPICAL ×3 (08:34→21:32)
[2023-12-26] MEDS: NSS (PRESERVATIVE FREE) 8 ML IV ×2 (08:34→19:52)
[2023-12-26] MEDS: PEPCID 20 MG IV ×2 (08:34→19:52)
[2023-12-26] MEDS: ZENPEP DELAYED RELEASE CAPSULE 4 CAPSULE PO ×3 (08:34→17:13)
--- NOTE | 2023-12-26 10:31 | W.PN.ID1 ---
Date of Service
Date of Service: December 26, 2023
Today's Communication
Observe off abx.
ID will sign off.
Assessment / Plan
# Picc associated thrombus
- Picc dc'd
# Fever resolved
# Leukocytosis resolving
- Reactive to DVT
-Blood cx's neg to date
-Observe off abx
# RUE contact dermatitis improving
-Continue topical steroid tid x 7d
# Acute on chronic pancreatitis
- no need for abx coverage.
# Recent TPN past 8 weeks
ID will sign off.
#Additional Past Medical History:
Pancreatic stone and pancreatic divisum and recurrent pancreatitis.
History of pancreatojejunostomy 2017.
Irritable bowel syndrome.
Gastroparesis.
Anxiety.
C difficile x2.
Hereditary spherocytosis status post splenectomy, up to date
with her splenectomy vaccines per patient.
Chronic pain
Cholecystectomy.
VSD repair as a child.
Chief Complaint
-: Fever and Leukocytosis
Subjective / Review of Systems
R arm rash itching better.
Vital Signs / Physical Exam
Vital Signs
Vital Signs
Temp Pulse Resp BP Pulse Ox
98.4 F 68 18 129/69 95
12/26/23 07:50 12/26/23 07:50 12/26/23 07:50 12/26/23 07:50 12/26/23 07:50
Physical Exam
Constitutional: No Acute Distress
Pulmonary: Clear
Extremities: Negative Edema (RUE nontender)
Skin: Rash (RUE improving)
Neurological: AO x 3
Objective Data
Lab Data
Lab Results
12/26/23 04:59
12/26/23 04:59
Estimated Creat Clear 84 ml/min 12/26/23 04:59
Lactic Acid Cancelled 12/24/23 20:09
Total Bilirubin 0.2 mg/dl (0.2-1.3) 12/26/23 04:59
AST 46 U/L (14-36) H 12/26/23 04:59
ALT 26 U/L (0-35) 12/26/23 04:59
Alkaline Phosphatase 108 U/L (38-126) 12/26/23 04:59
C-Reactive Protein 49.90 mg/L (0.0-10.00) H 12/26/23 04:59
Most recent labs reviewed.
Micro Results:
12/24/23 04:32 Blood Culture - Preliminary
Blood/Venous No Growth in 48 hours- Final report to follow
12/24/23 04:31 Blood Culture - Preliminary
Blood/Venous No Growth in 48 hours- Final report to follow
12/24/23 15:02 Influenza Types A & B (CHACHA) - Final
Nasal Swab Negative for Influenza A & B, NAAT
Negative results must be combined with clinical observations
and patient history.
Nucleic Acid Amplification test (NAAT)performed on the
[employer] platform.
--- NOTE | 2023-12-26 11:13 | W.PN.HOSP.TC ---
Addendum entered and electronically signed by Keshia Clark MD 12/26/23 14:07:
opiate use with dependence
-IV dilaudid today convert to oral tomorrow
acute pancreatitis does not apply for this admission
Original Note:
Today's Communication/Plan
-
expect DC tomorrow on Eliquis
observe off antibiotics
Assessment / Plan
Assessment / Plan
Last hospitalist admission: 10/20/23 - 10/25/23
P Dxs:
Acute on chronic pancreatitis.
Metabolic acidosis.
Reactive leukocytosis.
Protein calorie malnutrition with body mass index of 21.
Chronic pain secondary to chronic pancreatitis with opiate dependence.
Hereditary spherocytosis status post splenectomy.
ASSESSMENT & PLAN
SIRS picture (Fever 102 at home , T c 99.5 , RR > 20, HR > 90)
Concern for evolving sepsis due to risk of infected PICC line at Rt upper arm PICC placed approximately 8 weeks ago
blood cultures have remained negative
Significant leukocytosis: acute on chronic - improving
NEG LA
HX Jesus syndrome with Vancomycin per patient
-flu/covid negative
- UA clear
- BCx thus far negative
- appreciate ID
-continue IV Vancomycin
Chronic Pancreatitis
Chronic pancreatitis: Normal lipase
Currently on OP TPN for 8 weeks for chr diarrhea, Protein calorie malnutrition with body mass index of 21: reported wt gain and resolved diarrhea
HX Pancreas divisum status post pancreatojejunostomy.
HX pancreatic duct stone status post Pu[place]ow in the past, as well as pancreatic stents
P GI : Dr. Myron Braxton at [facility].
- IV Dilaudid PRN
- advanced to low fat diet
- GI consult appreciated
-undergoing evaluation for surgical removal of her pancreas with islet cell transplant and is contemplating second opinion with a specialist in [place]
-will continue IV Dilaudid one more day. tomorrow put patient back on her oral meds
Catheter associated DVT
-lovenox started
-PICC removed
-transition to Eliquis this evening
-Hg low this AM likely outlier as repeat closer to baseline
Anxiety
- on Sertraline an Ativan
Known pre existing Dxs;
Chr pain syndrome
Diet controlled T2DM: - add ISS low
Essential hypertension HX
Irritable bowel syndrome
HX Gastroparesis
Hyperlipidemia-
Hereditary spherocytosis--status post splenectomy
DVT Px: LMWH
Code: Full
IP TLM
51 minutes spent on patient evaluation, medical decision making, coordination of care
Anticipated Discharge: 24 - 48 hours
Subjective/Interval History
-
Date of Service: December 26, 2023
no fevers overnight
Objective Data
-
Labs:
Laboratory Results
12/26/23
04:59
WBC 11.4 H
Hgb 9.2 L
Hct 27.2 L
Plt Count 586 H
Sodium 139
Potassium 4.6
Chloride 108 H
Carbon Dioxide 24
BUN 15
Creatinine 0.6
Glucose 91
Calcium 8.5
Total Bilirubin 0.2
AST 46 H
ALT 26
Alkaline Phosphatase 108
Vital Signs:
Vital Signs
Temp Pulse Resp BP Pulse Ox
98.4 F 68 18 129/69 95
12/26/23 07:50 12/26/23 07:50 12/26/23 07:50 12/26/23 07:50 12/26/23 07:50
I&O
12/25/23 12/26/23 12/27/23
06:59 06:59 06:59
Intake Total 200 / 200 1470 / 1470
Balance 200 / 200 1470 / 1470
Review of Systems
-
History Source: Patient
All other systems: Reviewed and negative
Physical Exam
-
General: Other (conversant, in no distress )
HEENT: Atraumatic
Cardiac: Regular Rhythm and S1/S2
GI: Soft and Nontender
Musculoskeletal: No Edema
Skin: Warm and Dry; Negative Rash
Neuro: AO x 3
Psych: Calm
Data Reviewed
-
Diagnostic Radiology: Report Reviewed by me
Labs: Labs Reviewed by me
[2023-12-26] MEDS: BENADRYL 25 MG IV ×2 (12:47→21:55)
--- NOTE | 2023-12-26 13:40 | W.PN.UPDATE ---
Update Note
Progress Note Update
Gi signed off - please call if we can help.
Patient will advance her diet as tolerated and start her creon.
Followed by Dr. Rome at [facility] and patient is working on going to [facility] for pancreatic transplant workup
--- NOTE | 2023-12-26 14:07 | PN.CDI ---
CDI
- -
CDI:
Physician Documentation Request
Admit Date: 12/24/23 06:10
Dear Doctor Eduardo,
Please review the following and provide your response in the progress notes.
Clinical Indicators:
PN, 12/25
#SIRS picture (Fever 102 at home , T c 99.5 , RR > 20, HR > 90)
#Concern for evolving sepsis due to risk of infected PICC line
#...at Rt upper arm PICC placed approximately 8 weeks ago
#...blood cultures have remained negative
#Catheter associated DVT
#-lovenox started
#-PICC removed
Please clarify which most accurately describes the patient:
Sepsis due to infected PICC line
Sepsis has been ruled out
SIRS due to non-infectious source(please specify)
Other(please specify)
Sepsis
Systemic manifestations of infection, with 2 or more SIRS criteria which include:
Fever > 100.4 degrees F or hypothermia < 96.8 degrees F
Leukocytosis - WBC > 12,000 or leukopenia, WBC < 4,000 or > 10% bands
Tachycardia - > 90 beats per minute
Tachypnea - RR > 20 breaths per minute or PaCO2 < 32 mmHg
Source: Merck Manual 2013
Indicate if associated with an implanted device such as a F/C, PICC line, orthopedic hardware etc.
SIRS due to a non-infectious source
Indicate the known or suspected etiology
Indicate if there is associated organ dysfunction, such as renal or respiratory failure
Use of terms such as suspected, likely, concern for, or probable (associated with a specific diagnosis that is being evaluated, monitored, or treated as if it exists) are acceptable and can be coded in the inpatient setting, when documented at the
time of discharge.
Thank you,
Nelida Correa RN BSN CCDS
CDI Specialist
please contact via tiger text
Please use your independent medical judgment in providing your response.
[2023-12-26 15:46] VITALS: BP 113/55
[2023-12-26] MEDS: ELIQUIS 10 MG PO (17:16)
[2023-12-26] MEDS: ZOLOFT 100 MG PO (21:31)
[2023-12-26] MEDS: ATIVAN 1 MG PO (21:32)
[2023-12-26 23:00] VITALS: BP 127/65
[2023-12-27] MEDS: DILAUDID 1 MG IV ×3 (01:07→09:03)
[2023-12-27 04:27] LABS: % Basophils 0.8 % (0-2); % Eosinophils 9.2 % (0-6); % Immature Granulocytes 0.5 % (0-0.5); % Lymphocytes 41.5 % (20.5-51.1); % Monocytes 9.7 % (1.7-9.3); % Neutrophils 38.3 % (42.2-75.2); Absolute Basophils 0.1 10^3/uL (0-0.2); Absolute Eosinophils 0.9 10^3/uL (0-0.7); Absolute Immature Granulocytes 0.1 10^3/uL (0-0.05); Absolute Lymphocytes 4.1 10^3/uL (1.2-3.4); Absolute Neutrophils 3.8 10^3/uL (1.4-6.5); Mean Corp Hgb Conc. 33.3 g/dL (33.0-37.0); Mean Corpuscular Hgb 27.3 pg (27.0-31.0); Mean Corpuscular Volume 81.8 fL (81.0-99.0); Mean Platelet Volume 9.4 fL (7.4-10.4); Nucleated Red Blood Cells % 0 %; Platelet Count 631 10^3/uL (130-400); Red Cell Dist. Width 13.2 % (11.5-14.5)
[2023-12-27 04:58] LABS: ALT (SGPT) 26 U/L (0-35); AST (SGOT) 40 U/L (14-36); Albumin 3.1 g/dl (3.5-5.0); Alkaline Phosphatase 114 U/L (38-126); Blood Urea Nitrogen 14 mg/dl (7-17); Calcium 8.6 mg/dl (8.4-10.2); Carbon Dioxide 25 mmol/L (22-30); Chloride 108 mmol/L (98-107); Estimated Creatinine Clearance 84 ml/min; Glucose 84 mg/dl (70-99); Potassium 4.4 mmol/L (3.5-5.1); Sodium 139 mmol/L (135-145); Total Bilirubin 0.2 mg/dl (0.2-1.3); Total Protein 6.4 g/dl (6.3-8.2); eGFR > 60.00
[2023-12-27 05:20] VITALS: BMI 22.3
[2023-12-27] MEDS: ELIQUIS 10 MG PO (05:26)
[2023-12-27] MEDS: BENADRYL 25 MG IV ×2 (05:28→11:07)
[2023-12-27 07:30] VITALS: BP 125/59
[2023-12-27] MEDS: NSS (PRESERVATIVE FREE) 8 ML IV (09:04)
[2023-12-27] MEDS: ARISTOCORT/TRIAMCINOLONE 0.1% CREAM 1 APPLIC TOPICAL (09:04)
[2023-12-27] MEDS: PEPCID 20 MG IV (09:04)
[2023-12-27] MEDS: ZENPEP DELAYED RELEASE CAPSULE 4 CAPSULE PO ×2 (09:04→12:39)
[2023-12-27] MEDS: ZOFRAN 4 MG IV (10:45)
[2023-12-27] MEDS: DILAUDID 0.5 MG IV ×2 (11:00→13:57)
--- NOTE | 2023-12-27 11:06 | W.PN.HOSP.TC ---
Today's Communication/Plan
-
DC home today
Assessment / Plan
Assessment / Plan
Last hospitalist admission: 10/20/23 - 10/25/23
P Dxs:
Acute on chronic pancreatitis.
Metabolic acidosis.
Reactive leukocytosis.
Protein calorie malnutrition with body mass index of 21.
Chronic pain secondary to chronic pancreatitis with opiate dependence.
Hereditary spherocytosis status post splenectomy.
ASSESSMENT & PLAN
SIRS 2/2 DVT (see below)
blood cultures have remained negative
Significant leukocytosis: acute on chronic - improving
NEG LA
-flu/covid negative
- UA clear
- BCx negative
- appreciate ID - antibiotics stopped, patient afebrile overnight
-OK for DC home on Eliquis (see below)
Chronic Pancreatitis
Chronic pancreatitis: Normal lipase
Currently on OP TPN for 8 weeks for chr diarrhea, Protein calorie malnutrition with body mass index of 21: reported wt gain and resolved diarrhea
HX Pancreas divisum status post pancreatojejunostomy.
HX pancreatic duct stone status post Pu[place]ow in the past, as well as pancreatic stents
P GI : Dr. Myron Braxton at [facility].
- IV Dilaudid PRN --> resume oral pain regimen today
- advanced to low fat diet
- GI consult appreciated
-undergoing evaluation for surgical removal of her pancreas with islet cell transplant and is contemplating second opinion with a specialist in [place]
Catheter associated DVT
-lovenox started
-PICC removed
-transition to Eliquis this evening
Anemia
-slowly declining, no e/o active bleeding likely 2/2 dilution/inflammatory response, phlebotomy
-warning signs on bleeding on Eliquis
-CBC as outpatient
Anxiety
- on Sertraline an Ativan
Known pre existing Dxs;
Chr pain syndrome
Diet controlled T2DM: - add ISS low
Essential hypertension HX
Irritable bowel syndrome
HX Gastroparesis
Hyperlipidemia-
Hereditary spherocytosis--status post splenectomy
DVT Px: LMWH
Code: Full
IP TLM
51 minutes spent on patient evaluation, medical decision making, coordination of care
Anticipated Discharge: Today
Subjective/Interval History
-
Date of Service: December 27, 2023
no fevers overnight
feels ready to go home
Objective Data
-
Labs:
Laboratory Results
12/27/23
03:58
WBC 10.0
Hgb 9.0 L
Hct 27.0 L
Plt Count 631 H
Sodium 139
Potassium 4.4
Chloride 108 H
Carbon Dioxide 25
BUN 14
Creatinine 0.6
Glucose 84
Calcium 8.6
Total Bilirubin 0.2
AST 40 H
ALT 26
Alkaline Phosphatase 114
Vital Signs:
Vital Signs
Temp Pulse Resp BP Pulse Ox
97.9 F 62 20 125/59 99
12/27/23 07:30 12/27/23 07:30 12/27/23 07:30 12/27/23 07:30 12/27/23 07:30
I&O
12/26/23 12/27/23 12/28/23
06:59 06:59 06:59
Intake Total 1470 / 1470 840 / 840
Balance 1470 / 1470 840 / 840
Review of Systems
-
History Source: Patient
All other systems: Reviewed and negative
Physical Exam
-
General: No Apparent Distress
HEENT: PERRLA
Respiratory: Clear to Auscultation; Negative Wheezes
Cardiac: Regular Rhythm and S1/S2
GI: Soft and Nontender
Musculoskeletal: No Edema
Skin: Warm and Dry; Negative Rash
Neuro: AO x 3
Psych: Calm
Data Reviewed
-
Diagnostic Radiology: Report Reviewed by me
Labs: Labs Reviewed by me
--- NOTE | 2023-12-27 11:23 | W.DS.TRANS ---
DC Summary - Sustainability Manager
-
Discharge Instructions:
Discharge Diagnosis/Procedures catheter associated deep vein thrombosis
Diet Regular
Activity As tolerated
Driving Restrictions As prior to admission
Bathing Restrictions None
Blood Work follow up CBC to be ordered by your PCP
Instructions: Apixaban
Stand-Alone Forms:
Changes to Home Medications: Yes
Discharge Medications:
DC Medications w/original date entered in [employer]
sertraline 50 mg tablet 100 mg PO HS Depression 12/08/13
hydromorphone 4 mg tablet (Dilaudid) 8 mg PO Q4HPRN PRN pancreatitis pain 01/07/23
ondansetron 4 mg disintegrating tablet 8 mg PO TIDPRN PRN nausea/vomiting 02/17/23
acetaminophen 325 mg capsule (Tylenol) 650 mg PO Q4HPRN PRN HEADACHE 10/21/23
lorazepam 1 mg tablet 1 mg PO Q8HPRN PRN Nausea/anxiety 10/21/23
bczepw-tannnarc-nrspdba 12,000-38,000-60,000 unit capsule,delayed rel (Creon) 2 cap PO AC Pancreatitis 10/22/23
diphenhydramine HCl 50 mg capsule 50 mg PO HSPRN PRN sleep 12/24/23
apixaban 5 mg tablet (Eliquis) 5 mg PO Q12H #90 tabs 12/27/23
Home Medication Changes
new start eliquis
Pending Results: No
[2023-12-27 11:55] LABS: Iron 29 ug/dl (37-170)
[2023-12-27 12:04] LABS: Percent Saturation 9 % (20-50); Total Iron Binding Capacity 316 ug/dl (265-497)
[2023-12-27 12:30] LABS: Ferritin 8.5 ng/ml (11.1-264.0)
--- NOTE | 2023-12-27 13:25 | CM ---
Patient for d/c home, no needs.
Spouse will transport.
Plan: Home no needs.
--- NOTE | 2023-12-27 14:27 | W.DCSUMMARY ---
Discharge Summary
Discharge Data
Date of Admission: 12/24/23
Date of Discharge: 12/27/23
-
Pending Results: No
Hospital Course
Discharging Physician : Dr. Keshia Clark
Disposition : Home
Primary care physician : Dr. Lina Hermosillo
Principal Discharge diagnosis : Catheter associated deep vein thrombosis
Hospital Course :
Ms. Yamile Prater is a 53 yo woman with hx pancreatic divisum, pancreatic duct stones, Puestow procedure with celiac block in 2017 , HX chronic pancreatitis followed by a specialist at [place], recurrent hospitalizations due to chronic pain, s/p
8 weeks TPN seen at ER for evaluation abdominal pain flare accompanied with chills, generalized aches and a fever at home of 102 �F. Concern raised for bacteremia given PICC and TPN therapy. Patient was admitted to medicine with ID and GI
consulting and started on empiric antibiotics. Work-up with RUE US revealed catheter associated DVT. Her PICC was removed (was scheduled to be removed already). She was started on anticoagulation lovenox converted to Eliquis. Infectious work-up
negative with blood cultures remaining negative for 3 days prior to discharge. She was observed off antibiotics without return of fever. SIRS picture attributed to DVT.
Patient has chronic pain and was treated with IV dilaudid in-house. She feels ready to go back to her home oral regimen and be discharged. She ate a low fat diet while in-house.
Time spent on discharge was 35 minutes.
Important imaging findings :
Peripheral Vascular US 12/24/23
IMPRESSION:
No appreciable flow in the right brachial or axillary veins along the course of the PICC raising concern for thrombus.
Procedure findings :
Discharge Plan
-
Patient Disposition: Home (Routine Discharge)
Discharge Diagnosis/Procedures: catheter associated deep vein thrombosis
Diet: Regular
Activity: As tolerated
Driving Restrictions: As prior to admission
Bathing Restrictions: None
Blood Work: follow up CBC to be ordered by your PCP
Instructions: Apixaban
Referrals:
Lina Hermosillo CRNP [Family Provider] - in less than 1 week
Additional Discharge Medication Instructions: Take Eliquis 10mg (2 tabs) twice a day x 12 more doses (through morning of 01/02/24). On evening of 01/02/24 decrease dose to 5mg (1 tab) to take twice a day. Recommended time on Eliquis is at least 3
months, to be discussed further with your PCP.
Seek medical attention for any significant bleeding, black or bloody stools.
Prescriptions:
New
Eliquis 5 mg Tablet
5 mg PO Q12H Qty: 90 0RF
Rx Instructions:
Take 2 tabs (10mg) twice a day through morning 01/01 then start 1 tab (5mg) twice a day evening 01/01
Continued
sertraline 50 MG tablet
100 mg PO HS
ondansetron 4 mg tablet,disintegrating
8 mg PO TIDPRN PRN (Reason: nausea/vomiting)
Rx Instructions:
F/u EKG outpatient
lorazepam 1 mg Tablet
1 mg PO Q8HPRN PRN (Reason: Nausea/anxiety)
acetaminophen [Tylenol] 325 mg Capsule
650 mg PO Q4HPRN PRN (Reason: HEADACHE)
Creon 12,000-38,000 -60,000 unit Capsule,Delayed Release(Dr/Ec)
2 cap PO AC
diphenhydramine HCl 50 mg Capsule
50 mg PO HSPRN PRN (Reason: sleep)
Changed
hydromorphone [Dilaudid] 4 mg Tablet
8 mg PO Q6HPRN PRN (Reason: pancreatitis pain) Qty: 0 0RF
Discharge Orders:
Discharge Patient (As Directed); Ordered 12/27/23
Ordered By: Keshia Clark
Discharge Date and Time
Print Language: PERSIAN
[2023-12-27 15:23] VITALS: BP 122/56
== END 2023-12-27 16:00 | disposition home or self-care (01) | DRG 315 ==
LOC: 4 WEST ACU 06:10
PROVIDERS: ADMITTING PHYSICIAN Internal Medicine; ATTENDING PHYSICIAN Student in an Organized Health Care Education/Training Program; CONSULT PHYSICIAN Internal Medicine; CONSULT PHYSICIAN Internal Medicine Infectious Disease; EMERGENCY PHYSICIAN Emergency Medicine; FAMILY PHYSICIAN Nurse Practitioner
PROC: 02PYX3Z Removal of Infusion Device from Great Vessel, External Approach (ICD-10-PCS; 2023-12-27)
DX: T82.868A Thrombosis due to vascular prosthetic devices, implants and grafts, initial encounter (principal); E46 Unspecified protein-calorie malnutrition; F11.20 Opioid dependence, uncomplicated; K86.1 Other chronic pancreatitis; Q45.3 Other congenital malformations of pancreas and pancreatic duct; E87.20 Acidosis, unspecified; R65.10 Systemic inflammatory response syndrome (SIRS) of non-infectious origin without acute organ dysfunction; R50.9 Fever, unspecified; Y84.8 Other medical procedures as the cause of abnormal reaction of the patient, or of later complication, without mention of misadventure at the time of the procedure; Y92.9 Unspecified place or not applicable; G89.4 Chronic pain syndrome; E11.43 Type 2 diabetes mellitus with diabetic autonomic (poly)neuropathy; I10 Essential (primary) hypertension; E78.5 Hyperlipidemia, unspecified; K31.84 Gastroparesis; D72.829 Elevated white blood cell count, unspecified; L25.9 Unspecified contact dermatitis, unspecified cause; F41.9 Anxiety disorder, unspecified; K58.9 Irritable bowel syndrome, unspecified; K21.9 Gastro-esophageal reflux disease without esophagitis; D58.0 Hereditary spherocytosis; Z87.74 Personal history of (corrected) congenital malformations of heart and circulatory system; Z90.49 Acquired absence of other specified parts of digestive tract; Z90.81 Acquired absence of spleen; Z86.19 Personal history of other infectious and parasitic diseases; Z88.1 Allergy status to other antibiotic agents; Z88.5 Allergy status to narcotic agent; Z88.8 Allergy status to other drugs, medicaments and biological substances; Z68.21 Body mass index [BMI] 21.0-21.9, adult; Z56.0 Unemployment, unspecified; Z11.52 Encounter for screening for COVID-19
CPT/HCPCS: 80053; 81003; 82728; 83540; 83550; 83605; 83690; 85018; 85025; 86140; 86850; 86900; 86901; 87040; 87502; 87811; 93005; 93971; 96374; 96376; 99285

== ENCOUNTER → 2024-01-07 13:45 | Outpatient (REF) | payer BC, SELFPAY ==
[2024-01-07 14:23] LABS: % Basophils 0.9 % (0-2); % Eosinophils 5.6 % (0-6); % Immature Granulocytes 0.3 % (0-0.5); % Lymphocytes 28.9 % (20.5-51.1); % Monocytes 6.8 % (1.7-9.3); % Neutrophils 57.5 % (42.2-75.2); Absolute Basophils 0.1 10^3/uL (0-0.2); Absolute Eosinophils 0.6 10^3/uL (0-0.7); Absolute Lymphocytes 3.1 10^3/uL (1.2-3.4); Absolute Monocytes 0.7 10^3/uL (0.1-0.6); Absolute Neutrophils 6.2 10^3/uL (1.4-6.5); Hematocrit 35.6 % (37.0-47.0); Mean Corp Hgb Conc. 33.7 g/dL (33.0-37.0); Mean Corpuscular Hgb 26.7 pg (27.0-31.0); Mean Corpuscular Volume 79.1 fL (81.0-99.0); Nucleated Red Blood Cells % 0 %; Platelet Count 867 10^3/uL (130-400); White Blood Cell Count 10.7 10^3/uL (4.8-10.8)
[2024-01-07 15:13] LABS: Iron 114 ug/dl (37-170)
[2024-01-07 18:24] LABS: Ferritin 8.8 ng/ml (11.1-264.0)
== END ==
LOC: REG 13:45
PROVIDERS: ATTENDING PHYSICIAN Nurse Practitioner
DX: D64.9 Anemia, unspecified (principal); D75.89 Other specified diseases of blood and blood-forming organs; R79.82 Elevated C-reactive protein (CRP)
CPT/HCPCS: 36415; 82728; 83540; 85025; 86140

== ENCOUNTER → 2024-02-07 11:43 | Outpatient (REF) | payer BC, SELFPAY ==
[2024-02-07 13:59] LABS: % Basophils 0.8 % (0-2); % Immature Granulocytes 0.3 % (0-0.5); % Lymphocytes 22.3 % (20.5-51.1); % Monocytes 4.9 % (1.7-9.3); % Neutrophils 70.7 % (42.2-75.2); Absolute Basophils 0.1 10^3/uL (0-0.2); Absolute Eosinophils 0.1 10^3/uL (0-0.7); Absolute Lymphocytes 2.6 10^3/uL (1.2-3.4); Absolute Monocytes 0.6 10^3/uL (0.1-0.6); Absolute Neutrophils 8.3 10^3/uL (1.4-6.5); Hematocrit 36.1 % (37.0-47.0); Hemoglobin 12.4 g/dL (12.0-16.0); Mean Corp Hgb Conc. 34.3 g/dL (33.0-37.0); Mean Corpuscular Hgb 27.7 pg (27.0-31.0); Mean Corpuscular Volume 80.8 fL (81.0-99.0); Mean Platelet Volume 9.4 fL (7.4-10.4); Nucleated Red Blood Cells % 0 %; Platelet Count 812 10^3/uL (130-400); Red Blood Cell Count 4.47 10^6/uL (4.20-5.40); Red Cell Dist. Width 13.4 % (11.5-14.5); White Blood Cell Count 11.8 10^3/uL (4.8-10.8)
[2024-02-07 14:18] LABS: ALT (SGPT) 28 U/L (0-35); AST (SGOT) 34 U/L (14-36); Alkaline Phosphatase 143 U/L (38-126); Blood Urea Nitrogen 17 mg/dl (7-17); Calcium 10.3 mg/dl (8.4-10.2); Carbon Dioxide 27 mmol/L (22-30); Chloride 103 mmol/L (98-107); Glucose 86 mg/dl (70-99); Lipase 103 U/L (23-300); Potassium 5.1 mmol/L (3.5-5.1); Sodium 140 mmol/L (135-145); Total Bilirubin 0.5 mg/dl (0.2-1.3); Total Protein 8.5 g/dl (6.3-8.2); eGFR > 60.00
== END ==
LOC: REG 11:43
DX: K86.1 Other chronic pancreatitis (principal)
CPT/HCPCS: 36415; 80053; 83690; 85025

== ENCOUNTER 2024-02-17 09:53 | Inpatient (IN) | payer BC, SELFPAY ==
[2024-02-17] VITALS (10 sets, daily range): BP systolic 81–124; BP diastolic 49–72; BMI 22.1; BMI 22.0
[2024-02-17 06:13] LABS: % Basophils 0.4 % (0-2); % Eosinophils 2.1 % (0-6); % Immature Granulocytes 0.5 % (0-0.5); % Lymphocytes 10.3 % (20.5-51.1); % Neutrophils 80.7 % (42.2-75.2); Absolute Basophils 0.1 10^3/uL (0-0.2); Absolute Eosinophils 0.6 10^3/uL (0-0.7); Absolute Immature Granulocytes 0.2 10^3/uL (0-0.05); Absolute Monocytes 1.7 10^3/uL (0.1-0.6); Hemoglobin 12.1 g/dL (12.0-16.0); Mean Corp Hgb Conc. 34.6 g/dL (33.0-37.0); Mean Corpuscular Hgb 27.6 pg (27.0-31.0); Mean Corpuscular Volume 79.7 fL (81.0-99.0); Mean Platelet Volume 8.6 fL (7.4-10.4); Nucleated Red Blood Cells % 0 %; Platelet Count 683 10^3/uL (130-400); Red Blood Cell Count 4.39 10^6/uL (4.20-5.40); Red Cell Dist. Width 13.4 % (11.5-14.5); White Blood Cell Count 28.6 10^3/uL (4.8-10.8)
[2024-02-17] MEDS: ZOFRAN 4 MG IV ×4 (06:13→21:36)
[2024-02-17 06:18] LABS: AST (SGOT) 81 U/L (14-36); Albumin 4.8 g/dl (3.5-5.0); Alkaline Phosphatase 154 U/L (38-126); Blood Urea Nitrogen 20 mg/dl (7-17); Calcium 9.8 mg/dl (8.4-10.2); Carbon Dioxide 25 mmol/L (22-30); Estimated Creatinine Clearance 84 ml/min; Glucose 101 mg/dl (70-99); Potassium 4.1 mmol/L (3.5-5.1); Total Bilirubin 0.4 mg/dl (0.2-1.3); Total Protein 8.2 g/dl (6.3-8.2); eGFR > 60.00
[2024-02-17 06:27] LABS: ALT (SGPT) 35 U/L (0-35); Chloride 103 mmol/L (98-107); Lipase 156 U/L (23-300); Sodium 139 mmol/L (135-145)
--- NOTE | 2024-02-17 06:39 | ED.GENMED ---
History of Present Illness
General
Chief Complaint: Abdominal Pain
Time Seen by Provider: 02/17/24 06:39
History of Present Illness
History of Present Illness:
HPI: Patient presents with which she feels is an exacerbation of pancreatitis. She has had bowel obstructions in the past, has had gastroparesis and has had a Puestow procedure in 2017. She feels that she again has pain related to an exacerbation
of chronic pancreatitis. She chronically takes 8 mg of Dilaudid twice daily. She is known to pain management.
EXAM:
GENERAL: Well appearing but in mild distress
HEENT: Moist oral mucosa
CARDIOVASCULAR: No murmurs, normal heart rate, regular rhythm, No chest wall tenderness
PULMONARY: No respiratory distress, breath sounds are clear and equal
ABDOMEN: Soft with no peritoneal signs, mild epigastric tenderness
NEUROLOGIC: Excellent strength all extremities, no coordination deficits
PSYCHIATRIC: Appropriate mental status, normal insight and judgement
EXTREMITIES: Nontender, no edema, moves all extremities equally
SKIN: No rash, no lesions
TIME OF INITIAL ENCOUNTER: 6:45 AM
NUMBER AND COMPLEXITY OF PROBLEMS ADDRESSED AT THE ENCOUNTER
� Chronic conditions affecting care: Chronic pancreatitis status post Puestow procedure, gastroparesis, spherocytosis, anxiety, has had bowel obstruction
� Acute Exacerbation and/or Progression of Chronic Illness: This is an acute exacerbation of a chronic problem (pancreatitis)
� Differential Diagnosis includes: Acute pancreatitis, acute exacerbation of chronic pancreatitis, bowel obstruction
AMOUNT AND/OR COMPLEXITY OF DATA TO BE REVIEWED AND ANALYZED
� I performed an independent evaluation of and my interpretation is:
EKG:
CT: CT imaging shows a normal pancreas and no evidence for bowel obstruction
X-rays:
Laboratory Studies: White count 28.6, normal hemoglobin, platelets 683, lipase 156
Other:
� Review of other/old records: The patient was admitted here 6 weeks ago with acute on chronic pancreatitis�I reviewed the discharge summary; at that time there was some concern for thrombus near the PICC in the right upper
extremity
� Clinical information was obtained by an independent historian: I spoke to at bedside
� Prescriptions/Medications Considered but not given:
� Further testing considered but not performed:
RISK OF COMPLICATIONS AND/OR MORBIDITY OR MORTALITY OF PATIENT MANAGEMENT
� Social determinants of health affecting care: Lives at home
� Discussion with other providers: Notified Dr. Ortiz at 7:55 AM
� Escalation of care including admission/observation vs risk of discharge considered: Given the leukocytosis of 28.6, CT imaging obtained which was relatively unremarkable. However given the leukocytosis along with ongoing pain,
will keep in the hospital for further pain control.
Past History
Past History
ED Past Medical History: Other (Recurrent pancreatitis, pancreatic duct stone,, pancreatic divisum,, PNA, Bowel obstruction, Hep A, IBS, Gastroporesis) and Other (C. difficile colitis)
ED Past Surgical History: Appendectomy, Bowel resection (Pancreatic revision surgery February 2017.), Cardiac (VSD repair as a child ), Cholecystectomy and Other (Splenectomy/adhesion. Liver repair post trauma years ago. Stents Pancreatic, Adhesions)
Social History
Tobacco: Non-smoker
Alcohol: None
Drug: None
Personal:
Living: with family
Employment: Not employed
Family History
Family History: Hypertension
Phy Exam
Physical Exam
Physical Exam:
See HPI
Course
Orders/Labs/Results
Orders:
Orders
02/17/24 05:49
IV Insert/Care/Rem.- Treatment PRN
Urinalysis Reflex To Culture Urgent
Date Specimen was Collected: 02/17/24
Time Specimen was Collected: 05:49
02/17/24 05:51
Complete Blood Count/With Diff Urgent
Comprehensive Metabolic Panel Urgent
Lipase Urgent
02/17/24 06:11
Ondansetron Injectable [Zofran] 4 mg .ROUTE .[facility]
02/17/24 06:13
Ondansetron Injectable [Zofran] 4 mg IV NOW STA
02/17/24 06:42
CT Abd/pelvis W Iv Cont Urgent
Comment:
Reason For Exam: pain; h/o chronic pancreatitis, WBC 28, normal lip
02/17/24 07:01
0.9% Sodium Chloride 1000 ml [Nss] 1,000 ml IV BOLUS
HYDROmorphone [Dilaudid] 2 mg IV NOW STA
02/17/24 07:40
Ondansetron Injectable [Zofran] 4 mg IV NOW STA
Abnormal Lab Results
02/17/24
05:51
WBC 28.6 H 10^3/uL
(4.8-10.8)
Hct 35.0 L %
(37.0-47.0)
MCV 79.7 L fL
(81.0-99.0)
Plt Count 683 H 10^3/uL
(130-400)
Abs Immat Gran (auto) 0.2 H 10^3/uL
(0-0.05)
Absolute Neuts (auto) 23.0 H 10^3/uL
(1.4-6.5)
Absolute Monos (auto) 1.7 H 10^3/uL
(0.1-0.6)
Neutrophils % 80.7 H %
(42.2-75.2)
Lymphocytes % 10.3 L %
(20.5-51.1)
BUN 20 H mg/dl
(7-17)
Glucose 101 H mg/dl
(70-99)
AST 81 H U/L
(14-36)
Alkaline Phosphatase 154 H U/L
(38-126)
02/17/24 05:51
02/17/24 05:51
Vital Signs
Initial and Last Documented VS:
Initial Vital Signs
Temp Pulse Resp BP Pulse Ox
98.2 F 110 26 124/72 98
02/17/24 05:05 02/17/24 05:05 02/17/24 05:05 02/17/24 05:05 02/17/24 05:05
Last Documented Vital Signs
Temp Pulse Resp BP Pulse Ox
98.2 F 110 26 112/62 97
02/17/24 05:05 02/17/24 05:05 02/17/24 05:05 02/17/24 06:00 02/17/24 07:45
*Critical Care Note
Total Time (30-74mins, 75-104mins- exclusive of procedures): Not Applicable
ED Attending Note
-
Portions of this chart may have been created with voice recognition software.� Occasional wrong word or��sound alike� substitutions may have occurred due to the inherent limitations of voice recognition software.
Discharge Plan
Departure
Patient Disposition: Admit
Date of Disposition: 02/17/24
Time of Disposition: 07:54
Presentation/result/management discussed w/ accepting MD/DO: Hospitalist
Discharge Problem:
Abdominal pain, acute
Prescriptions:
No Action
sertraline 50 MG tablet
100 mg PO HS
ondansetron 4 mg tablet,disintegrating
8 mg PO TIDPRN PRN (Reason: nausea/vomiting)
lorazepam 1 mg Tablet
1 mg PO HS
Creon 12,000-38,000 -60,000 unit Capsule,Delayed Release(Dr/Ec)
2 cap PO AC
docusate sodium [Colace] 100 mg Capsule
100 mg PO BID
buspirone 7.5 mg Tablet
7.5 mg PO DAILY
Centrum Chewables 8 mg-400 mcg- 10 mcg Tablet,Chewable
1 tab PO DAILY
hydromorphone [Dilaudid] 4 mg tablet
4 mg PO BIDPRN PRN (Reason: severe pain)
Referrals:
Lina Hermosillo CRNP [Family Provider] -
Interventions
Interventions:
*Risk Screen - Suicide Last Done: 02/17/24 05:05
*Neglect/Abuse Screening Last Done: 02/17/24 05:05
CB-Gzvzux-Wrtdeafinu Assessment Last Done: 02/17/24 06:17
Discharge Date and Time
Print Language: COLOMBIAN
[2024-02-17] MEDS: DILAUDID 2 MG IV ×6 (07:16→21:34)
[2024-02-17] MEDS: NSS 1000 IV ×3 (07:18→21:28)
--- NOTE | 2024-02-17 08:04 | HPS.HSE ---
Family Physician
-
Family Physician: KATE Vaughn
Chief Complaint
-
abd pain
History of Present Illness
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 Abdomen pain and progressively worsening
over the past week. Developed nausea vomiting nonbloody night prior prompting visit to ED. Denies fevers chills coughing sneezing sick contacts constipation diarrhea dysuria. Reports abdomen pain epigastric and radiates through to back. Afebrile
normotensive, possible sepsis given tachycardia and significant leukocytosis 28.6-possibly due to hemoconcentration as well. Noted essential thrombocytosis 683 downtrending from 800s noted in previous labs. CT abdomen pelvis and lactic acid
results pending.
Medical History
Past Medical History
Past Medical History: Reports Other (As above)
Past Surgical History: Reports Other (As above)
Social History
Tobacco: Non-smoker
Alcohol: None
Drug: None
Personal:
Living: With Family
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
Family History
Family History: Not pertinent (Reviewed)
Allergies / Home Medications
Allergies reflects when Allergies were last updated in [facility].
Home Medications with original date entered in [facility]
Allergy/Medication List:
Allergies
Allergy/AdvReac Type Severity Reaction Status Date / Time
ketamine Allergy Hallucinati Verified 02/17/24 05:07
ons
morphine Allergy Nausea / Verified 02/17/24 05:07
Vomiting
prochlorperazine Allergy Shortness Verified 02/17/24 05:07
of Breath,
Muscle
Rigidity
prochlorperazine edisylate Allergy tardive Verified 02/17/24 05:07
[From Compazine] dyskinesia
prochlorperazine maleate Allergy tardive Verified 02/17/24 05:07
[From Compazine] dyskinesia
trimethobenzamide Allergy Shortness Verified 02/17/24 05:07
of Breath,
muscle
rigidity
trimethobenzamide HCl Allergy tardive Verified 02/17/24 05:07
[From Tigan] dyskinesia
vancomycin Allergy RED AND Verified 02/17/24 05:07
ITCHY
CHG Allergy Unknown Uncoded 02/17/24 05:07
Home Medications
sertraline 50 mg tablet 100 mg PO HS depression/anxiety 12/08/13
ondansetron 4 mg disintegrating tablet 8 mg PO TIDPRN PRN nausea/vomiting 02/17/23
lorazepam 1 mg tablet 1 mg PO HS anxiety/sleep 10/21/23
xtlwqd-ppbmihkd-dlmfdoi 12,000-38,000-60,000 unit capsule,delayed rel (Creon) 2 cap PO AC Pancreatitis 10/22/23
buspirone 7.5 mg tablet 7.5 mg PO DAILY anxiety 02/17/24
docusate sodium 100 mg capsule (Colace) 100 mg PO BID Constipation 02/17/24
hydromorphone 4 mg tablet (Dilaudid) 4 mg PO BIDPRN PRN severe pain 02/17/24
zfjmwqlu-sxkqcdxz-czte 8 mg-folic ac 400 mcg-vit K 10 mcg chew tablet (Centrum Chewables) 1 tab PO DAILY Supplement 02/17/24
Review of Systems
-
A 12 point ROS was completed and negative except as noted: Yes
Constitutional: Reports Other (as below)
Physical Exam
Vital Signs
Vital Signs
Temp Pulse Resp BP Pulse Ox
98.2 F 110 26 112/62 97
02/17/24 05:05 02/17/24 05:05 02/17/24 05:05 02/17/24 06:00 02/17/24 07:45
Physical Exam
General: Other (as below)
Laboratory Results
-
02/17/24 05:51
02/17/24 05:51
Laboratory Results
Total Bilirubin 0.4 mg/dl (0.2-1.3) 02/17/24 05:51
AST 81 U/L (14-36) H 02/17/24 05:51
ALT 35 U/L (0-35) 02/17/24 05:51
Alkaline Phosphatase 154 U/L (38-126) H 02/17/24 05:51
Lipase 156 U/L (23-300) 02/17/24 05:51
Impression/Plan
-
ROS
General: Denies fever chills night sweats
Neuro: Denies seizure shaking loss of consciousness dizziness vertigo
Psych: denies depression hallucinations confusion manic episodes
Endocrine: Denies polyuria polydipsia polyphagia heat/cold intolerance
HEENT: Denies blindness visual disturbances epistaxis
Pulmonary: denies coughing hemoptysis sneezing sob dyspnea on exertion
Cardiovascular: denies chest pain palpitations leg swelling
Hematology: denies signs symptoms of anemia easy bruising/bleeding
Gastrointestinal: Reports nausea vomiting denies diarrhea constipation hematemesis hematochezia melena
Genito-Urinary: denies retention incontinence dysuria
Musculoskeletal: denies joint pain weakness
Dermatology: denies rash laceration bruising
Physical Exam
General: No pallor, cyanosis, or jaundice.
HEENT: Throat clear. PERRLA Normocephalic atraumatic
NECK: Supple. No JVD Carotid Bruits
RESPIRATORY: Lungs clear to auscultation. No crackles wheezes stridor
CVS: S1, S2 normal. RRR. No murmur, rub or gallop.
ABDOMEN: Soft, tender. No distension. Bowel sounds present
EXTREMITIES: No peripheral cyanosis or edema.
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 No focal deficits.
IMPRESSION:
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 Abdomen pain and
progressively worsening over the past week. Developed nausea vomiting nonbloody night prior prompting visit to ED. Denies fevers chills coughing sneezing sick contacts constipation diarrhea dysuria. Reports abdomen pain epigastric and radiates
through to back. Afebrile normotensive, possible sepsis given tachycardia and significant leukocytosis 28.6-possibly due to hemoconcentration as well. Noted essential thrombocytosis 683 downtrending from 800s noted in previous labs. CT abdomen
pelvis and lactic acid results pending.
PLAN:
#Acute on chronic pancreatitis
Bowel rest n.p.o. except meds
IV fluid support
Dilaudid 2 mg every 3 hours as needed severe pain 1 mg moderate pain
As needed Tylenol
As needed antiemetic, check EKG QTc
Follow-up CT abdomen pelvis results
#Possible sepsis leukocytosis tachycardia
Check blood culture urinalysis procalcitonin
Check lactate
Empiric Zosyn for now
Trend WBC
#Thrombocytosis
Trending down
Monitor
#Anxiety depression
#Insomnia
Continue home buspirone sertraline
Bedtime Ativan converted to IV for now
DVT prophylaxis Lovenox
GI prophylaxis Protonix
Full code
I spent a total of 80 minutes with the patient or on the floor. More than 50% of this time involved counseling and coordination of care.
[2024-02-17] MEDS: PHENERGAN 51 MG IV (09:27)
[2024-02-17 09:56] LABS: Urine Albumin Negative (Neg - Trace); Urine Bilirubin Negative (Negative); Urine Character Clear (Clear); Urine Color Yellow; Urine Glucose Negative (Negative); Urine Ketone Negative (Negative); Urine Leukocyte Trace (Negative); Urine Nitrite Negative (Negative); Urine Occult Blood Negative (Negative); Urine Specific Gravity 1.005 (<1.030); Urine Urobilinogen Negative (Neg - 1+); Urine pH 6.5 (5.0-9.0)
[2024-02-17 10:33] LABS: Urine Red Blood Cell 0-2 /HPF (0-2)
[2024-02-17] MEDS: ZOSYN 50 IV ×3 (12:13→23:55)
[2024-02-17 12:35] LABS: Procalcitonin < 0.05 ng/ml (0.0-0.25)
[2024-02-17] MEDS: NSS (PRESERVATIVE FREE) 0.25 ML IV ×2 (16:59→21:28)
[2024-02-17] MEDS: ATIVAN 0.5 MG IV (16:59)
[2024-02-17] MEDS: LOVENOX 40 MG SC (17:00)
[2024-02-17] MEDS: ZOLOFT 100 MG PO (21:28)
[2024-02-17] MEDS: ATIVAN 1 MG IV (21:28)
[2024-02-18] VITALS (7 sets, daily range): BP systolic 86–116; BP diastolic 50–58
[2024-02-18] MEDS: DILAUDID 2 MG IV ×7 (00:36→21:15)
[2024-02-18] MEDS: ZOFRAN 4 MG IV ×3 (03:43→16:58)
[2024-02-18] MEDS: COLACE 100 MG PO ×2 (03:54→07:57)
[2024-02-18] MEDS: ZOSYN 50 IV (05:53)
[2024-02-18] MEDS: NSS 1000 IV ×3 (05:56→23:13)
--- NOTE | 2024-02-18 07:11 | W.PN.HOSP.TC ---
Today's Communication/Plan
-
cont bowel rest
pain control
antiemetic
IVF support
Assessment / Plan
Assessment / Plan
Physical Exam
General: No pallor, cyanosis, or jaundice.
HEENT: Throat clear. PERRLA Normocephalic atraumatic
NECK: Supple. No JVD Carotid Bruits
RESPIRATORY: Lungs clear to auscultation. No crackles wheezes stridor
CVS: S1, S2 normal. RRR. No murmur, rub or gallop.
ABDOMEN: Soft, tender. No distension. Bowel sounds present
EXTREMITIES: No peripheral cyanosis or edema.
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 No focal deficits.
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 Abdomen pain and
progressively worsening over the past week. Developed nausea vomiting nonbloody night prior prompting visit to ED. Denies fevers chills coughing sneezing sick contacts constipation diarrhea dysuria. Reports abdomen pain epigastric and radiates
through to back. Afebrile normotensive, possible sepsis given tachycardia and significant leukocytosis 28.6-possibly due to hemoconcentration as well. Noted essential thrombocytosis 683 downtrending from 800s noted in previous labs. CT abdomen
pelvis and lactic acid results pending.
PLAN:
#Acute on chronic pancreatitis
Bowel rest n.p.o. except meds
IV fluid support
Dilaudid 2 mg every 3 hours as needed severe pain 1 mg moderate pain
Scheduled percocet
As needed Tylenol
As needed antiemetic
CT abdomen pelvis appreciated constipation otherwise no acute pathology
Constipation
-cont bowel regimen
#Possible sepsis (leukocytosis tachycardia) ruled out
Follow blood culture
urinalysis not suggestive UTI
lactate wnl
neg procal Empiric Zosyn discontinued
Trend WBC
#Thrombocytosis
Trending down
Monitor
#Anxiety depression
#Insomnia
Continue home buspirone sertraline
Bedtime Ativan converted to IV for now
DVT prophylaxis Lovenox
GI prophylaxis Protonix
Full code
I spent a total of 50 minutes with the patient or on the floor. More than 50% of this time involved counseling and coordination of care.
Anticipated Discharge: 24 - 48 hours
Subjective/Interval History
-
Date of Service: February 18, 2024
Abd pain nausea persists though vomiting has resolved.
Objective Data
-
Labs:
Laboratory Results
02/18/24
06:00
WBC Pending
Hgb Pending
Hct Pending
Plt Count Pending
Sodium Pending
Potassium Pending
Chloride Pending
Carbon Dioxide Pending
BUN Pending
Creatinine Pending
Glucose Pending
Calcium Pending
Total Bilirubin Pending
AST Pending
ALT Pending
Alkaline Phosphatase Pending
Vital Signs:
Vital Signs
Temp Pulse Resp BP Pulse Ox
98.3 F 74 22 95/58 98
02/18/24 03:05 02/18/24 03:05 02/18/24 03:05 02/18/24 03:05 02/18/24 03:05
I&O
02/17/24 02/18/24 02/19/24
06:59 06:59 06:59
Intake Total 2860 / 2860
Balance 2860 / 2860
[2024-02-18] MEDS: BUSPAR 7.5 MG PO (07:42)
[2024-02-18] MEDS: ATIVAN 0.5 MG IV (07:43)
[2024-02-18] MEDS: TYLENOL 650 MG PO (07:57)
[2024-02-18] MEDS: SENOKOT-S 1 TABLET PO (10:40)
[2024-02-18] MEDS: PERCOCET 5/325 1 TABLET PO ×2 (10:40→16:57)
[2024-02-18 10:46] LABS: Hematocrit 26.8 % (37.0-47.0); Mean Corp Hgb Conc. 33.6 g/dL (33.0-37.0); Mean Corpuscular Hgb 26.3 pg (27.0-31.0); Mean Corpuscular Volume 78.4 fL (81.0-99.0); Mean Platelet Volume 8.6 fL (7.4-10.4); Platelet Count 524 10^3/uL (130-400); Red Blood Cell Count 3.42 10^6/uL (4.20-5.40); Red Cell Dist. Width 13.6 % (11.5-14.5); White Blood Cell Count 11.7 10^3/uL (4.8-10.8)
[2024-02-18 11:49] LABS: ALT (SGPT) 30 U/L (0-35); AST (SGOT) 50 U/L (14-36); Albumin 3.5 g/dl (3.5-5.0); Alkaline Phosphatase 106 U/L (38-126); Blood Urea Nitrogen 13 mg/dl (7-17); Calcium 8.6 mg/dl (8.4-10.2); Carbon Dioxide 21 mmol/L (22-30); Chloride 108 mmol/L (98-107); Estimated Creatinine Clearance 72 ml/min; Glucose 77 mg/dl (70-99); Magnesium 1.9 mg/dl (1.6-2.3); Potassium 4.2 mmol/L (3.5-5.1); Sodium 135 mmol/L (135-145); Total Bilirubin 0.6 mg/dl (0.2-1.3); Total Protein 6.4 g/dl (6.3-8.2); eGFR > 60.00
--- NOTE | 2024-02-18 12:36 | CM ---
Reviewed the chart notes and spoke with the patient at the bedside. The patient resides with her spouse in a split level home with no steps to enter. The patient reports no DME or SNF in the past, but did have VN, agency name unknown. The patient
confirmed her pharmacy of choice is the [facility]. CM continues to be available to patient/family and is monitoring medical plan for needs at discharge.
Plan: Discharge plans will depend on the patient's progress.
[2024-02-18] MEDS: LOVENOX 40 MG SC (16:59)
[2024-02-18 19:25] LABS: Hematocrit 25.8 % (37.0-47.0); Hemoglobin 8.8 g/dL (12.0-16.0)
[2024-02-18] MEDS: PHENERGAN 50.25 MG IV (20:36)
[2024-02-18] MEDS: SENOKOT-S PO (20:36)
[2024-02-18] MEDS: PERCOCET 5/325 PO (21:14)
[2024-02-18] MEDS: ZOLOFT 100 MG PO (21:15)
[2024-02-18] MEDS: NSS (PRESERVATIVE FREE) 0.5 ML IV (23:14)
[2024-02-18] MEDS: ATIVAN 1 MG IV (23:14)
[2024-02-19] VITALS (7 sets, daily range): BP systolic 103–123; BP diastolic 54–64
[2024-02-19] MEDS: DILAUDID 2 MG IV ×7 (00:51→23:45)
[2024-02-19] MEDS: ZOFRAN 4 MG IV ×3 (03:57→22:13)
[2024-02-19 05:45] LABS: Hematocrit 27.2 % (37.0-47.0); Hemoglobin 9.3 g/dL (12.0-16.0); Mean Corp Hgb Conc. 34.2 g/dL (33.0-37.0); Mean Corpuscular Hgb 27.8 pg (27.0-31.0); Mean Corpuscular Volume 81.4 fL (81.0-99.0); Mean Platelet Volume 8.7 fL (7.4-10.4); Platelet Count 487 10^3/uL (130-400); Red Blood Cell Count 3.34 10^6/uL (4.20-5.40); Red Cell Dist. Width 13.2 % (11.5-14.5); White Blood Cell Count 12.7 10^3/uL (4.8-10.8)
[2024-02-19 06:09] LABS: ALT (SGPT) 37 U/L (0-35); AST (SGOT) 58 U/L (14-36); Albumin 3.4 g/dl (3.5-5.0); Alkaline Phosphatase 112 U/L (38-126); Blood Urea Nitrogen 9 mg/dl (7-17); Calcium 8.8 mg/dl (8.4-10.2); Carbon Dioxide 25 mmol/L (22-30); Chloride 108 mmol/L (98-107); Estimated Creatinine Clearance 84 ml/min; Glucose 96 mg/dl (70-99); Magnesium 1.8 mg/dl (1.6-2.3); Phosphorus 3.6 mg/dl (2.5-4.5); Potassium 4.2 mmol/L (3.5-5.1); Sodium 138 mmol/L (135-145); Total Bilirubin 0.3 mg/dl (0.2-1.3); Total Protein 6.3 g/dl (6.3-8.2); eGFR > 60.00
[2024-02-19] MEDS: NSS 1000 IV ×3 (06:22→23:43)
--- NOTE | 2024-02-19 07:29 | W.PN.HOSP.TC ---
Today's Communication/Plan
-
trial clear liquid diet
cont pain control antiemetic prn
bowel regimen
monitor H&H
Assessment / Plan
Assessment / Plan
Physical Exam
General: No pallor, cyanosis, or jaundice.
HEENT: Throat clear. PERRLA Normocephalic atraumatic
NECK: Supple. No JVD Carotid Bruits
RESPIRATORY: Lungs clear to auscultation. No crackles wheezes stridor
CVS: S1, S2 normal. RRR. No murmur, rub or gallop.
ABDOMEN: Soft, tender. No distension. Bowel sounds present
EXTREMITIES: No peripheral cyanosis or edema.
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 No focal deficits.
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 Abdomen pain and
progressively worsening over the past week. Developed nausea vomiting nonbloody night prior prompting visit to ED. Denies fevers chills coughing sneezing sick contacts constipation diarrhea dysuria. Reports abdomen pain epigastric and radiates
through to back. Afebrile normotensive, possible sepsis given tachycardia and significant leukocytosis 28.6-possibly due to hemoconcentration as well. Noted essential thrombocytosis 683 downtrending from 800s noted in previous labs. CT abdomen
pelvis and lactic acid results pending.
PLAN:
#Acute on chronic pancreatitis
Bowel rest diet advanced to clear liquid
IV fluid support
Dilaudid 2 mg every 3 hours as needed severe pain 1 mg moderate pain
Scheduled percocet
As needed Tylenol
As needed antiemetic
CT abdomen pelvis appreciated constipation otherwise no acute pathology
Constipation
-cont bowel regimen
#Possible sepsis (leukocytosis tachycardia) ruled out
Follow blood culture
urinalysis not suggestive UTI
lactate wnl
neg procal Empiric Zosyn discontinued
Trend WBC
#Thrombocytosis
Trending down
Monitor
#Anxiety depression
#Insomnia
Continue home buspirone sertraline
Bedtime Ativan converted to IV for now
#Mild Anemia
possibly dilutional vs hemoconcentrated on presentation
monitor H&H
DVT prophylaxis Lovenox
GI prophylaxis Protonix
Full code
I spent a total of 50 minutes with the patient or on the floor. More than 50% of this time involved counseling and coordination of care.
Anticipated Discharge: > 48 hours
Subjective/Interval History
-
Date of Service: February 19, 2024
Continues to report abd pain nausea some improvement with current pain regimen. Phenergan added to antiemetic regimen. Reports bowel movements. Agreeable to trial clear liquid diet.
Objective Data
-
Labs:
Laboratory Results
02/19/24
05:23
WBC 12.7 H
Hgb 9.3 L
Hct 27.2 L
Plt Count 487 H
Sodium 138
Potassium 4.2
Chloride 108 H
Carbon Dioxide 25
BUN 9
Creatinine 0.6
Glucose 96
Calcium 8.8
Total Bilirubin 0.3
AST 58 H
ALT 37 H
Alkaline Phosphatase 112
Vital Signs:
Vital Signs
Temp Pulse Resp BP Pulse Ox
98.5 F 73 16 116/61 96
02/19/24 03:18 02/19/24 03:18 02/19/24 03:18 02/19/24 03:18 02/19/24 03:18
I&O
02/18/24 02/19/24 02/20/24
06:59 06:59 06:59
Intake Total 2860 / 2860 4220 / 4220
Balance 2860 / 2860 4220 / 4220
[2024-02-19] MEDS: BUSPAR 7.5 MG PO (08:18)
[2024-02-19] MEDS: PERCOCET 5/325 1 TABLET PO (08:19)
[2024-02-19] MEDS: SENOKOT-S PO (08:21)
[2024-02-19] MEDS: PHENERGAN 50.25 MG IV ×2 (08:58→15:28)
--- NOTE | 2024-02-19 08:59 | PN.CDI ---
CDI
- -
CDI:
Physician Documentation Request
Admit Date: 02/17/24 09:53
Dear Doctor Scotty,
Please review the following and provide your response in the progress notes.
Clinical Indicators:
Pt admitted with Acute on Chronic Pancreatitis
Documented per H&P and Progress note 02/17, ' ... (leukocytosis tachycardia)...'
WBC on admit 28.6, HR 110, Respirations 26
Please clarify which most accurately describes the patient:
SIRS due to a non-infectious source
Acute on Chronic Pancreatitis only
Other
Use of terms such as suspected, likely, concern for, or probable (associated with a specific diagnosis that is being evaluated, monitored, or treated as if it exists) are acceptable and can be coded in the inpatient setting, when documented at the
time of discharge.
Thank you,
Elle Amaya RN
CDI Specialist
Brandon Text
Please use your independent medical judgment in providing your response.
--- NOTE | 2024-02-19 15:52 | CM ---
Reviewed the chart notes. Patient diet advanced to clears today. CM continues to be available to patient/family and is monitoring medical plan for needs at discharge.
Plan: Discharge to home when medically stable.
[2024-02-19] MEDS: PERCOCET 5/325 PO ×2 (16:25→22:12)
[2024-02-19] MEDS: LOVENOX 40 MG SC (17:21)
[2024-02-19] MEDS: SENOKOT-S 1 TABLET PO (19:46)
[2024-02-19] MEDS: NSS (PRESERVATIVE FREE) 0.5 ML IV (20:11)
[2024-02-19] MEDS: ATIVAN 1 MG IV (20:11)
[2024-02-19] MEDS: ZOLOFT 100 MG PO (22:43)
[2024-02-20] MEDS: DILAUDID 2 MG IV ×7 (02:50→23:40)
[2024-02-20 03:04] VITALS: BP 127/55
[2024-02-20] MEDS: ZOFRAN 4 MG IV ×3 (05:10→20:48)
[2024-02-20] MEDS: NSS 1000 IV (06:07)
--- NOTE | 2024-02-20 07:21 | W.PN.HOSP.TC ---
Today's Communication/Plan
-
pain control
flexeril
Toradol
reduce IVF rate
ID GI eval
Assessment / Plan
Assessment / Plan
Physical Exam
General: No pallor, cyanosis, or jaundice.
HEENT: Throat clear. PERRLA Normocephalic atraumatic
NECK: Supple. No JVD Carotid Bruits
RESPIRATORY: Crackles b/l
CVS: S1, S2 normal. RRR. No murmur, rub or gallop.
ABDOMEN: Soft, tender. No distension. Bowel sounds present
EXTREMITIES: No peripheral cyanosis or edema.
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 No focal deficits.
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 Abdomen pain and
progressively worsening over the past week. Developed nausea vomiting nonbloody night prior prompting visit to ED. Denies fevers chills coughing sneezing sick contacts constipation diarrhea dysuria. Reports abdomen pain epigastric and radiates
through to back. Afebrile normotensive, possible sepsis given tachycardia and significant leukocytosis 28.6-possibly due to hemoconcentration as well. Noted essential thrombocytosis 683 downtrending from 800s noted in previous labs. CT abdomen
pelvis and lactic acid results pending.
PLAN:
#Acute on chronic pancreatitis
Bowel rest diet advanced to clear liquid
IV fluid support
Dilaudid 2 mg every 3 hours as needed severe pain 1 mg moderate pain
Scheduled percocet
As needed Tylenol
As needed antiemetic
CT abdomen pelvis appreciated constipation otherwise no acute pathology
GI eval appreciated
#Mild Pulm Edema
appreciated on CXR and auscultation
otherwise stable respiratory status room air
IVF rate reduced
#Neck Pain/stiffness
-muscle relaxant
-Toradol added to pain regimen
-will consider further imaging if pain does not improve
Constipation
-cont bowel regimen
#Possible sepsis (leukocytosis tachycardia) ruled out
Follow blood culture
urinalysis not suggestive UTI
lactate wnl
neg procal Empiric Zosyn discontinued
Trend WBC
ID eval appreciated
#Thrombocytosis
Trending down
Monitor
#Anxiety depression
#Insomnia
Continue home buspirone sertraline
Bedtime Ativan converted to IV for now
#Mild Anemia
possibly dilutional vs hemoconcentrated on presentation
monitor H&H
DVT prophylaxis Lovenox
GI prophylaxis Protonix
Full code
I spent a total of 50 minutes with the patient or on the floor. More than 50% of this time involved counseling and coordination of care.
Anticipated Discharge: 24 - 48 hours
Subjective/Interval History
-
Date of Service: February 20, 2024
Neck pain stiffness. Abd pain persists. Generally feels unwell.
Objective Data
-
Labs:
Laboratory Results
02/20/24
06:00
WBC Pending
Hgb Pending
Hct Pending
Plt Count Pending
Sodium Pending
Potassium Pending
Chloride Pending
Carbon Dioxide Pending
BUN Pending
Creatinine Pending
Glucose Pending
Calcium Pending
Total Bilirubin Pending
AST Pending
ALT Pending
Alkaline Phosphatase Pending
Vital Signs:
Vital Signs
Temp Pulse Resp BP Pulse Ox
99.1 F 80 14 127/55 95
02/20/24 03:04 02/20/24 03:04 02/20/24 03:04 02/20/24 03:04 02/20/24 03:04
I&O
02/19/24 02/20/24 02/21/24
06:59 06:59 06:59
Intake Total 4220 / 4220 2160 / 2160
Balance 4220 / 4220 2160 / 2160
[2024-02-20 07:50] VITALS: BP 105/52
[2024-02-20] MEDS: PERCOCET 5/325 PO (08:27)
[2024-02-20] MEDS: SENOKOT-S PO (08:27)
[2024-02-20] MEDS: BUSPAR PO (08:27)
[2024-02-20] MEDS: ATIVAN 0.5 MG IV (08:27)
[2024-02-20] MEDS: LIDOCAINE 4% PATCH 1 PATCH TOPICAL (09:22)
[2024-02-20 10:09] LABS: Mean Corp Hgb Conc. 34.6 g/dL (33.0-37.0); Mean Corpuscular Hgb 27.8 pg (27.0-31.0); Mean Corpuscular Volume 80.2 fL (81.0-99.0); Mean Platelet Volume 8.8 fL (7.4-10.4); Platelet Count 468 10^3/uL (130-400); Red Blood Cell Count 3.24 10^6/uL (4.20-5.40); White Blood Cell Count 25.3 10^3/uL (4.8-10.8)
[2024-02-20 11:05] LABS: ALT (SGPT) 37 U/L (0-35); AST (SGOT) 45 U/L (14-36); Albumin 3.4 g/dl (3.5-5.0); Alkaline Phosphatase 145 U/L (38-126); Blood Urea Nitrogen 10 mg/dl (7-17); Carbon Dioxide 21 mmol/L (22-30); Estimated Creatinine Clearance 84 ml/min; Glucose 49 mg/dl (70-99); Phosphorus 3.3 mg/dl (2.5-4.5); Potassium 3.8 mmol/L (3.5-5.1); Total Bilirubin 0.6 mg/dl (0.2-1.3); Total Protein 6.2 g/dl (6.3-8.2); eGFR > 60.00
[2024-02-20 11:07] LABS: Calcium 8.7 mg/dl (8.4-10.2); Chloride 105 mmol/L (98-107); Magnesium 1.6 mg/dl (1.6-2.3); Sodium 134 mmol/L (135-145)
[2024-02-20 11:13] LABS: Glucose - Point of Care 117 mg/dl (70-99)
[2024-02-20] MEDS: LIORESAL 5 MG PO (11:37)
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
[2024-02-20 11:55] VITALS: BP 128/57
[2024-02-20] MEDS: D5/0.9% SODIUM CHLORIDE 1000 IV ×2 (12:35→23:40)
[2024-02-20] MEDS: ZOSYN 50 IV (12:36)
--- NOTE | 2024-02-20 13:10 | CM ---
Reviewed the chart notes. Continues on clear liquid diet. CM continues to be available to patient/family and is monitoring medical plan for needs at discharge.
Plan: Discharge to home when medically stable.
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
[2024-02-20 15:40] VITALS: BP 122/65
[2024-02-20] MEDS: FLEXERIL 5 MG PO ×2 (15:56→22:24)
--- NOTE | 2024-02-20 16:30 | PTCARENOTE ---
Patient refused her scheduled dose of Percocet 5/325mg. Pt educated on importance of taking scheduled pain medication as ordered for pain management. Dr vargas. plan of care ongoing.
[2024-02-20 16:37] LABS: Glucose - Point of Care 118 mg/dl (70-99)
[2024-02-20] MEDS: LOVENOX 40 MG SC (17:09)
[2024-02-20 19:38] VITALS: BP 113/60
[2024-02-20] MEDS: TORADOL 15 MG IV (20:36)
[2024-02-20] MEDS: SENOKOT-S 1 TABLET PO (20:36)
[2024-02-20] MEDS: NSS (PRESERVATIVE FREE) 10 ML IV (20:37)
[2024-02-20] MEDS: PROTONIX IV 40 MG IV (20:37)
[2024-02-20 21:20] LABS: Glucose - Point of Care 170 mg/dl (70-99)
[2024-02-20] MEDS: ATIVAN 1 MG IV (22:23)
[2024-02-20] MEDS: NSS (PRESERVATIVE FREE) 0.5 ML IV (22:24)
[2024-02-20] MEDS: ZOLOFT 100 MG PO (22:25)
[2024-02-20 23:51] VITALS: BP 119/60
[2024-02-21 02:53] LABS: Glucose - Point of Care 110 mg/dl (70-99)
[2024-02-21] MEDS: TORADOL 15 MG IV ×4 (03:29→23:58)
[2024-02-21 03:31] VITALS: BP 114/68
[2024-02-21] MEDS: DILAUDID 2 MG IV ×5 (06:19→20:33)
--- NOTE | 2024-02-21 07:13 | W.PN.HOSP.TC ---
Today's Communication/Plan
-
cont pain control
clear liquid diet as tolerated
Toradol frequency increased
pending CT neck w/ IV contrast
Assessment / Plan
Assessment / Plan
Physical Exam
General: No pallor, cyanosis, or jaundice.
HEENT: Throat clear. PERRLA Normocephalic atraumatic
NECK: Supple. No JVD Carotid Bruits
RESPIRATORY: Crackles b/l
CVS: S1, S2 normal. RRR. No murmur, rub or gallop.
ABDOMEN: Soft, tender. No distension. Bowel sounds present
EXTREMITIES: No peripheral cyanosis or edema.
WHEAT GROWER: AOx3. No focal deficits.
IMPRESSION:
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 Abdomen pain and
progressively worsening over the past week. Developed nausea vomiting nonbloody night prior prompting visit to ED. Denies fevers chills coughing sneezing sick contacts constipation diarrhea dysuria. Reports abdomen pain epigastric and radiates
through to back. Afebrile normotensive, possible sepsis given tachycardia and significant leukocytosis 28.6-possibly due to hemoconcentration as well. Noted essential thrombocytosis 683 downtrending from 800s noted in previous labs. CT abdomen
pelvis and lactic acid results pending.
PLAN:
#Acute on chronic pancreatitis
#SIRs present on admission non-infectious source, sepsis ruled out
Bowel rest diet advanced to clear liquid
IV fluid support
Dilaudid 2 mg every 3 hours as needed severe pain 1 mg moderate pain
Scheduled percocet
As needed Tylenol
As needed antiemetic
CT abdomen pelvis appreciated constipation otherwise no acute pathology
GI eval appreciated
#Mild Pulm Edema
appreciated on CXR and auscultation
otherwise stable respiratory status room air
IVF rate reduced
#Neck Pain/stiffness
-muscle relaxant
-Toradol added to pain regimen
-CT neck w/ IV contrast pending
Constipation
-cont bowel regimen
#Possible sepsis (leukocytosis tachycardia) ruled out
Follow blood culture
urinalysis not suggestive UTI
lactate wnl
neg procal Empiric Zosyn discontinued
Trend WBC
ID eval appreciated
#Thrombocytosis
Trending down
Monitor
#Anxiety depression
#Insomnia
Continue home buspirone sertraline
Bedtime Ativan converted to IV for now
#Mild Anemia
possibly dilutional vs hemoconcentrated on presentation
monitor H&H
DVT prophylaxis Lovenox
GI prophylaxis Protonix
Full code
I spent a total of 50 minutes with the patient or on the floor. More than 50% of this time involved counseling and coordination of care.
Anticipated Discharge: 24 - 48 hours
Subjective/Interval History
-
Date of Service: February 21, 2024
Continues to report neck pain stiffness with some improvement. Abd pain persists.
Objective Data
-
Labs:
Laboratory Results
02/21/24
06:00
WBC Pending
Hgb Pending
Hct Pending
Plt Count Pending
Sodium Pending
Potassium Pending
Chloride Pending
Carbon Dioxide Pending
BUN Pending
Creatinine Pending
Glucose Pending
Calcium Pending
Total Bilirubin Pending
AST Pending
ALT Pending
Alkaline Phosphatase Pending
Vital Signs:
Vital Signs
Temp Pulse Resp BP Pulse Ox
98.9 F 83 16 114/68 97
02/21/24 03:31 02/21/24 03:31 02/21/24 03:31 02/21/24 03:31 02/21/24 03:31
I&O
02/20/24 02/21/24 02/22/24
06:59 06:59 06:59
Intake Total 2160 / 2160 1260 / 1260
Balance 2160 / 2160 1260 / 1260
[2024-02-21 07:16] LABS: Glucose - Point of Care 117 mg/dl (70-99)
[2024-02-21 07:50] VITALS: BP 108/65
[2024-02-21] MEDS: PROTONIX IV 40 MG IV (08:42)
[2024-02-21] MEDS: FLEXERIL 5 MG PO ×3 (08:45→22:40)
[2024-02-21] MEDS: NSS (PRESERVATIVE FREE) 10 ML IV (08:45)
[2024-02-21] MEDS: BUSPAR 7.5 MG PO (08:46)
[2024-02-21] MEDS: SENOKOT-S 1 TABLET PO ×2 (08:46→20:13)
[2024-02-21] MEDS: LIDOCAINE 4% PATCH 1 PATCH TOPICAL (08:48)
[2024-02-21 11:08] LABS: Glucose - Point of Care 105 mg/dl (70-99)
[2024-02-21 11:25] VITALS: BP 129/62
[2024-02-21] MEDS: TORADOL IV (11:35)
[2024-02-21 11:46] LABS: ALT (SGPT) 43 U/L (0-35); AST (SGOT) 60 U/L (14-36); Albumin 3.2 g/dl (3.5-5.0); Alkaline Phosphatase 131 U/L (38-126); Blood Urea Nitrogen 6 mg/dl (7-17); Calcium 8.4 mg/dl (8.4-10.2); Carbon Dioxide 24 mmol/L (22-30); Chloride 109 mmol/L (98-107); Estimated Creatinine Clearance 84 ml/min; Glucose 96 mg/dl (70-99); Magnesium 1.6 mg/dl (1.6-2.3); Phosphorus 2.3 mg/dl (2.5-4.5); Potassium 3.4 mmol/L (3.5-5.1); Sodium 136 mmol/L (135-145); Total Bilirubin 0.5 mg/dl (0.2-1.3); eGFR > 60.00
[2024-02-21] MEDS: ZOFRAN 4 MG IV ×2 (12:09→18:10)
[2024-02-21] MEDS: TYLENOL 650 MG PO ×4 (12:09→23:58)
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
[2024-02-21 12:16] LABS: Hematocrit 24.9 % (37.0-47.0); Hemoglobin 8.8 g/dL (12.0-16.0); Mean Corp Hgb Conc. 35.3 g/dL (33.0-37.0); Mean Corpuscular Hgb 27.5 pg (27.0-31.0); Mean Corpuscular Volume 77.8 fL (81.0-99.0); Mean Platelet Volume 9.9 fL (7.4-10.4); Platelet Count 415 10^3/uL (130-400); Red Cell Dist. Width 13.5 % (11.5-14.5); White Blood Cell Count 17.6 10^3/uL (4.8-10.8)
[2024-02-21] MEDS: D5/0.9% SODIUM CHLORIDE 1000 IV (13:51)
--- NOTE | 2024-02-21 14:06 | W.PN.ID1 ---
Date of Service
Date of Service: February 21, 2024
Today's Communication
Observe off abx.
Assessment / Plan
# Acute on chronic pancreatitis
- CT a/p: no necrosis/abscess
- Observe off abx.
# Acute neck muscular sprain (onset hospital day # 2)
- Continue supportive care with warm compress, muscle relaxant
# Leukocytosis improved
- Suspect reactive from neck pain
- Afebrile.
-Observe off abx.
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
Pancreatic stone and pancreatic divisum and recurrent pancreatitis.
History of pancreatojejunostomy 2017.
Irritable bowel syndrome.
Gastroparesis.
Anxiety.
C difficile x2.
Hereditary spherocytosis status post splenectomy, up to date
with her splenectomy vaccines per patient.
Chronic pain
PICC-associated RUE DVT
Cholecystectomy.
VSD repair as a child.
History of liver trauma repair.
Chief Complaint
-: Leukocytosis
Subjective / Review of Systems
Still with abdominal pain.
Neck pain slightly better with Flexaril
Vital Signs / Physical Exam
Vital Signs
Vital Signs
Temp Pulse Resp BP Pulse Ox
98.8 F 73 16 129/62 92
02/21/24 11:25 02/21/24 11:25 02/21/24 11:25 02/21/24 11:25 02/21/24 12:14
Physical Exam
Constitutional: No Acute Distress
Gastrointestinal: Soft, Non Tender, Non Distended and Normal Bowel Sounds
Neurological: Negative Meningeal Signs
Objective Data
Lab Data
Lab Results
02/21/24 09:42
02/21/24 09:41
Estimated Creat Clear 84 ml/min 02/21/24 09:41
Lactic Acid 1.0 mmol/L (0.7-2.0) 02/17/24 09:32
Total Bilirubin 0.5 mg/dl (0.2-1.3) 02/21/24 09:41
AST 60 U/L (14-36) H 02/21/24 09:41
ALT 43 U/L (0-35) H 02/21/24 09:41
Alkaline Phosphatase 131 U/L (38-126) H 02/21/24 09:41
Most recent labs reviewed.
Micro Results:
02/17/24 09:32 Blood Culture - Preliminary
Blood/Venous No Growth in 4 days- Final report to follow
02/20/24 CXR: Mild pulmonary edema with trace bilateral pleural effusions.
02/17/24 CT a/p: No acute pathology of the abdomen or pelvis.
[2024-02-21] MEDS: ZENPEP DELAYED RELEASE CAPSULE 2 CAPSULE PO ×2 (15:40→22:41)
[2024-02-21 15:50] VITALS: BP 109/58
[2024-02-21] MEDS: LOVENOX 40 MG SC (17:18)
[2024-02-21] MEDS: POTASSIUM PHOSPHATE 259.0909 MEQ IV (18:09)
[2024-02-21 20:22] VITALS: BP 95/51
[2024-02-21] MEDS: ZOLOFT 100 MG PO (22:42)
[2024-02-21] MEDS: ATIVAN 1 MG IV (23:18)
[2024-02-21] MEDS: NSS (PRESERVATIVE FREE) 0.5 ML IV (23:18)
[2024-02-22 00:08] VITALS: BP 124/58
[2024-02-22] MEDS: DILAUDID 2 MG IV ×6 (01:00→21:15)
[2024-02-22 03:22] VITALS: BP 111/62
[2024-02-22] MEDS: TYLENOL PO (04:23)
[2024-02-22] MEDS: D5/0.9% SODIUM CHLORIDE 1000 IV ×2 (04:55→22:16)
[2024-02-22] MEDS: TORADOL 15 MG IV ×4 (06:21→23:58)
[2024-02-22 06:40] LABS: Hematocrit 24.2 % (37.0-47.0); Hemoglobin 8.5 g/dL (12.0-16.0); Mean Corp Hgb Conc. 35.1 g/dL (33.0-37.0); Mean Corpuscular Hgb 27.5 pg (27.0-31.0); Mean Corpuscular Volume 78.3 fL (81.0-99.0); Mean Platelet Volume 8.7 fL (7.4-10.4); Platelet Count 477 10^3/uL (130-400); Red Blood Cell Count 3.09 10^6/uL (4.20-5.40); Red Cell Dist. Width 13.8 % (11.5-14.5)
[2024-02-22 07:06] LABS: ALT (SGPT) 63 U/L (0-35); AST (SGOT) 93 U/L (14-36); Alkaline Phosphatase 122 U/L (38-126); Blood Urea Nitrogen 5 mg/dl (7-17); Calcium 8.4 mg/dl (8.4-10.2); Carbon Dioxide 21 mmol/L (22-30); Chloride 113 mmol/L (98-107); Estimated Creatinine Clearance 84 ml/min; Glucose 97 mg/dl (70-99); Magnesium 1.6 mg/dl (1.6-2.3); Phosphorus 3.9 mg/dl (2.5-4.5); Potassium 3.6 mmol/L (3.5-5.1); Sodium 139 mmol/L (135-145); Total Bilirubin 0.4 mg/dl (0.2-1.3); Total Protein 5.8 g/dl (6.3-8.2); eGFR > 60.00
--- NOTE | 2024-02-22 07:10 | W.PN.HOSP.TC ---
Today's Communication/Plan
-
CT neck w/ IV contrast pending
cont pain control
antiemetic prn
bowel regimen
diet as tolerated
Assessment / Plan
Assessment / Plan
Physical Exam
General: No pallor, cyanosis, or jaundice.
HEENT: Throat clear. PERRLA Normocephalic atraumatic
NECK: Supple. No JVD Carotid Bruits
RESPIRATORY: Crackles b/l
CVS: S1, S2 normal. RRR. No murmur, rub or gallop.
ABDOMEN: Soft, tender. No distension. Bowel sounds present
EXTREMITIES: No peripheral cyanosis or edema.
INDUSTRIAL CLEANER: AOx3. No focal deficits.
IMPRESSION:
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 Abdomen pain and
progressively worsening over the past week. Developed nausea vomiting nonbloody night prior prompting visit to ED. Denies fevers chills coughing sneezing sick contacts constipation diarrhea dysuria. Reports abdomen pain epigastric and radiates
through to back. Afebrile normotensive, possible sepsis given tachycardia and significant leukocytosis 28.6-possibly due to hemoconcentration as well. Noted essential thrombocytosis 683 downtrending from 800s noted in previous labs. CT abdomen
pelvis and lactic acid results pending.
PLAN:
#Acute on chronic pancreatitis
#SIRs present on admission non-infectious source, sepsis ruled out
Bowel rest diet advanced to clear liquid
IV fluid support
Dilaudid 2 mg every 3 hours as needed severe pain 1 mg moderate pain
Scheduled percocet
As needed Tylenol
As needed antiemetic
CT abdomen pelvis appreciated constipation otherwise no acute pathology
GI eval appreciated low fat diet, pancreatic enzymes
#Mild Pulm Edema
appreciated on CXR and auscultation
otherwise stable respiratory status room air
IVF rate reduced
#Neck Pain/stiffness
-muscle relaxant
-Toradol added to pain regimen
-CT neck w/ IV contrast pending
Constipation
-cont bowel regimen
#Possible sepsis (leukocytosis tachycardia) ruled out
Follow blood culture
urinalysis not suggestive UTI
lactate wnl
neg procal Empiric Zosyn discontinued
Trend WBC
ID eval appreciated
#Thrombocytosis
Trending down
Monitor
#Anxiety depression
#Insomnia
Continue home buspirone sertraline
Bedtime Ativan converted to IV for now
#Mild Anemia
possibly dilutional vs hemoconcentrated on presentation
monitor H&H
DVT prophylaxis Lovenox
GI prophylaxis Protonix
Full code
I spent a total of 50 minutes with the patient or on the floor. More than 50% of this time involved counseling and coordination of care.
Anticipated Discharge: > 48 hours
Subjective/Interval History
-
Date of Service: February 22, 2024
Reports some improvement in pain symptoms. Oral intake remains poor.
Objective Data
-
Labs:
Laboratory Results
02/22/24
06:17
WBC 12.0 H
Hgb 8.5 L
Hct 24.2 L
Plt Count 477 H
Sodium 139
Potassium 3.6
Chloride 113 H
Carbon Dioxide 21 L
BUN 5 L
Creatinine 0.5 L
Glucose 97
Calcium 8.4
Total Bilirubin 0.4
AST 93 H
ALT 63 H
Alkaline Phosphatase 122
Vital Signs:
Vital Signs
Temp Pulse Resp BP Pulse Ox
97.9 F 65 16 111/62 96
02/22/24 03:22 02/22/24 03:22 02/22/24 03:22 02/22/24 03:22 02/22/24 03:53
I&O
02/21/24 02/22/24 02/23/24
06:59 06:59 06:59
Intake Total 1260 / 1260 2104
Balance 1260 / 1260 2104
[2024-02-22 07:50] VITALS: BP 101/54
[2024-02-22] MEDS: LIDOCAINE 4% PATCH TOPICAL ×2 (08:35→08:46)
[2024-02-22] MEDS: BUSPAR 7.5 MG PO (08:43)
[2024-02-22] MEDS: FLEXERIL 5 MG PO ×3 (08:44→22:07)
[2024-02-22] MEDS: ZENPEP DELAYED RELEASE CAPSULE 2 CAPSULE PO ×2 (08:44→22:07)
[2024-02-22] MEDS: TYLENOL 650 MG PO ×5 (08:45→23:58)
[2024-02-22] MEDS: SENOKOT-S 1 TABLET PO ×2 (08:45→19:39)
[2024-02-22] MEDS: PROTONIX IV 40 MG IV (08:51)
[2024-02-22] MEDS: NSS (PRESERVATIVE FREE) 10 ML IV (08:51)
[2024-02-22 11:56] VITALS: BP 130/63
[2024-02-22] MEDS: ZENPEP DELAYED RELEASE CAPSULE PO ×2 (11:57→15:46)
[2024-02-22] MEDS: PHENERGAN 50.25 MG IV (13:47)
[2024-02-22 15:30] VITALS: BP 117/65
[2024-02-22] MEDS: LOVENOX 40 MG SC (17:23)
[2024-02-22] MEDS: ATIVAN 1 MG IV (22:08)
[2024-02-22] MEDS: ZOLOFT 100 MG PO (22:08)
[2024-02-22] MEDS: NSS (PRESERVATIVE FREE) 0.5 ML IV (22:08)
[2024-02-22 23:53] VITALS: BP 119/67
[2024-02-23] MEDS: DILAUDID 2 MG IV ×4 (01:33→21:10)
[2024-02-23] MEDS: TYLENOL PO ×2 (04:24→17:58)
[2024-02-23] MEDS: TORADOL 15 MG IV ×2 (06:12→12:20)
[2024-02-23 06:13] LABS: Hematocrit 26.1 % (37.0-47.0); Hemoglobin 8.9 g/dL (12.0-16.0); Mean Corp Hgb Conc. 34.1 g/dL (33.0-37.0); Mean Corpuscular Hgb 27.7 pg (27.0-31.0); Mean Corpuscular Volume 81.3 fL (81.0-99.0); Mean Platelet Volume 9.1 fL (7.4-10.4); Platelet Count 487 10^3/uL (130-400); Red Blood Cell Count 3.21 10^6/uL (4.20-5.40); White Blood Cell Count 10.6 10^3/uL (4.8-10.8)
[2024-02-23 06:40] LABS: ALT (SGPT) 56 U/L (0-35); AST (SGOT) 46 U/L (14-36); Albumin 3.1 g/dl (3.5-5.0); Alkaline Phosphatase 133 U/L (38-126); Blood Urea Nitrogen 7 mg/dl (7-17); Calcium 8.6 mg/dl (8.4-10.2); Carbon Dioxide 23 mmol/L (22-30); Chloride 110 mmol/L (98-107); Estimated Creatinine Clearance 84 ml/min; Glucose 93 mg/dl (70-99); Magnesium 1.7 mg/dl (1.6-2.3); Phosphorus 4.1 mg/dl (2.5-4.5); Sodium 140 mmol/L (135-145); Total Bilirubin 0.2 mg/dl (0.2-1.3); eGFR > 60.00
[2024-02-23 07:50] VITALS: BP 128/69
--- NOTE | 2024-02-23 07:52 | W.PN.HOSP.TC ---
Addendum entered and electronically signed by Carmen Fajardo MD 03/04/24 08:03:
Mild Acute Pulm Edema
Original Note:
Today's Communication/Plan
-
cont pain control
antiemetic prn
bowel regimen
diet as tolerated
IVF completed
monitor renal function
IV iron supplementation
Assessment / Plan
Assessment / Plan
Physical Exam
General: No pallor, cyanosis, or jaundice.
HEENT: Throat clear. PERRLA Normocephalic atraumatic. Dry oral mucosa, red anemia tongue present
NECK: Supple. No JVD Carotid Bruits
RESPIRATORY: Crackles b/l
CVS: S1, S2 normal. RRR. No murmur, rub or gallop.
ABDOMEN: Soft, tender. No distension. Bowel sounds present
EXTREMITIES: No peripheral cyanosis or edema.
SOLOIST DANCER: AOx3. No focal deficits.
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 depression presents with abdomen pain suspected acute on chronic pancreatitis. Abdomen pain and
progressively worsening over the past week. Developed nausea vomiting nonbloody night prior prompting visit to ED. Denies fevers chills coughing sneezing sick contacts constipation diarrhea dysuria. Reports abdomen pain epigastric and radiates
through to back. Afebrile normotensive, possible sepsis given tachycardia and significant leukocytosis 28.6-possibly due to hemoconcentration as well. Noted essential thrombocytosis 683 downtrending from 800s noted in previous labs.
PLAN:
#Acute on chronic pancreatitis
#SIRs present on admission non-infectious source, sepsis ruled out
Bowel rest diet advanced to Low fat as per GI
IV fluid support completed, endorses drinking fluids without issues, solid food intake however remains poor
Dilaudid 2 mg every 3 hours as needed severe pain 1 mg moderate pain
Scheduled percocet
As needed Tylenol
As needed antiemetic
CT abdomen pelvis appreciated constipation otherwise no acute pathology
GI eval appreciated low fat diet, pancreatic enzymes
#Mild Pulm Edema
appreciated on CXR and auscultation
otherwise stable respiratory status room air
IVF rate reduced
#Neck Pain/stiffness
-muscle relaxant
-Toradol added to pain regimen
-Bengay-like cream
-CT neck w/ IV contrast appreciated no acute inflammatory changes, abscess, mild likely reactive adenopathy, possible mucus ball vs soft tissue mass vallecula (space btwn tongue and epiglottis) outpt ENT follow up recommended. 8mm right Thyroid
nodule, outpt Thyroid US with primary care provider recommended.
Constipation
-cont bowel regimen
#Possible sepsis (leukocytosis tachycardia) ruled out
Follow blood culture
urinalysis not suggestive UTI
lactate wnl
neg procal Empiric Zosyn discontinued
Trend WBC
ID eval appreciated monitor off abx
#Thrombocytosis
Trending down
Monitor
#Anxiety depression
#Insomnia
Continue home buspirone sertraline
Bedtime Ativan converted to IV for now
#Severe Iron Deficiency anemia causing dry mouth and 'Anemia Tongue' (Dilaudid also contributing to dry mouth, wean as tolerated)
#Anemia of Chronic Disease
IV iron infusion, convert to oral when stable for discharge
DVT prophylaxis Lovenox
GI prophylaxis Protonix
Full code
I spent a total of 50 minutes with the patient or on the floor. More than 50% of this time involved counseling and coordination of care.
Anticipated Discharge: 24 - 48 hours
Subjective/Interval History
-
Date of Service: February 23, 2024
Reports some improvement neck pain. Drinking fluids without issues. Endorses poor oral intake solid food. Abd pain persists. Reports dry mouth likely side effect dilaudid and severe iron deficiency (anemia tongue present).
Objective Data
-
Labs:
Laboratory Results
02/23/24
05:21
WBC 10.6
Hgb 8.9 L
Hct 26.1 L
Plt Count 487 H
Sodium 140
Potassium 4.0
Chloride 110 H
Carbon Dioxide 23
BUN 7
Creatinine 0.5 L
Glucose 93
Calcium 8.6
Total Bilirubin 0.2
AST 46 H
ALT 56 H
Alkaline Phosphatase 133 H
Vital Signs:
Vital Signs
Temp Pulse Resp BP Pulse Ox
98.2 F 66 16 119/67 96
02/22/24 23:53 02/22/24 23:53 02/22/24 23:53 02/22/24 23:53 02/23/24 04:37
I&O
02/22/24 02/23/24 02/24/24
06:59 06:59 06:59
Intake Total 2104
Balance 2104
[2024-02-23 09:26] LABS: Glucose - Point of Care 102 mg/dl (70-99)
[2024-02-23] MEDS: BUSPAR 7.5 MG PO (09:28)
[2024-02-23] MEDS: D5/0.9% SODIUM CHLORIDE 1000 IV (09:28)
[2024-02-23] MEDS: LIDOCAINE 4% PATCH 1 PATCH TOPICAL (09:28)
[2024-02-23] MEDS: TYLENOL 650 MG PO ×3 (09:29→20:19)
[2024-02-23] MEDS: ZENPEP DELAYED RELEASE CAPSULE 2 CAPSULE PO ×2 (09:29→17:57)
[2024-02-23] MEDS: PROTONIX IV 40 MG IV (09:29)
[2024-02-23] MEDS: SENOKOT-S 1 TABLET PO ×2 (09:29→20:19)
[2024-02-23] MEDS: DILAUDID 1 MG IV ×2 (09:30→14:21)
[2024-02-23] MEDS: NSS (PRESERVATIVE FREE) 10 ML IV (09:30)
[2024-02-23] MEDS: FLEXERIL 5 MG PO ×3 (09:34→21:46)
[2024-02-23 11:22] LABS: Iron < 20 ug/dl (37-170)
[2024-02-23 11:28] LABS: Total Iron Binding Capacity 273 ug/dl (265-497)
[2024-02-23 12:44] LABS: Folate > 20.0 ng/ml (2.76-20); Vitamin B12 953 pg/ml (239-931)
[2024-02-23] MEDS: ZOFRAN 4 MG IV (14:21)
[2024-02-23 14:29] LABS: Glucose - Point of Care 89 mg/dl (70-99)
[2024-02-23] MEDS: ZENPEP DELAYED RELEASE CAPSULE PO ×2 (14:32→21:49)
[2024-02-23 15:26] VITALS: BP 139/76
[2024-02-23] MEDS: FERRLECIT 110 MG IV (17:28)
[2024-02-23] MEDS: LOVENOX 40 MG SC (17:35)
[2024-02-23 17:39] LABS: Glucose - Point of Care 87 mg/dl (70-99)
[2024-02-23] MEDS: ATIVAN 0.5 MG IV (17:53)
[2024-02-23] MEDS: NSS (PRESERVATIVE FREE) 0.25 ML IV (17:54)
[2024-02-23] MEDS: TORADOL IV (18:00)
[2024-02-23] MEDS: NSS (PRESERVATIVE FREE) 0.5 ML IV (21:45)
[2024-02-23] MEDS: ATIVAN 1 MG IV (21:45)
[2024-02-23] MEDS: ZOLOFT 100 MG PO (21:46)
[2024-02-23 22:13] LABS: Glucose - Point of Care 111 mg/dl (70-99)
[2024-02-23] MEDS: PHENERGAN 50.25 MG IV (22:29)
[2024-02-23 23:20] VITALS: BP 142/76
[2024-02-24] MEDS: TORADOL 15 MG IV ×5 (00:10→23:28)
[2024-02-24] MEDS: TYLENOL 650 MG PO ×5 (00:10→19:48)
[2024-02-24] MEDS: TYLENOL PO (03:53)
[2024-02-24] MEDS: DILAUDID 2 MG IV ×3 (04:28→19:47)
[2024-02-24] MEDS: ZOFRAN 4 MG IV ×2 (06:05→18:23)
[2024-02-24 07:50] VITALS: BP 145/81
[2024-02-24 07:57] LABS: Glucose - Point of Care 113 mg/dl (70-99)
[2024-02-24] MEDS: LIDOCAINE 4% PATCH TOPICAL (08:06)
[2024-02-24] MEDS: NSS (PRESERVATIVE FREE) 10 ML IV (08:06)
[2024-02-24] MEDS: PROTONIX IV 40 MG IV (08:07)
[2024-02-24] MEDS: FLEXERIL 5 MG PO ×3 (08:07→21:24)
[2024-02-24] MEDS: SENOKOT-S 1 TABLET PO ×2 (08:07→19:48)
[2024-02-24] MEDS: ZENPEP DELAYED RELEASE CAPSULE 2 CAPSULE PO ×2 (08:07→17:32)
[2024-02-24] MEDS: BUSPAR 7.5 MG PO (08:07)
--- NOTE | 2024-02-24 09:17 | PTCARENOTE ---
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 40mg lisinopril held. pt verbalizing 8/9 out of 10 pain on right side this am prn pain medication given. made aware
[2024-02-24] MEDS: PHENERGAN 50.25 MG IV ×2 (10:42→23:29)
[2024-02-24 12:02] LABS: Glucose - Point of Care 95 mg/dl (70-99)
--- NOTE | 2024-02-24 12:11 | W.PN.HOSP.TC ---
Today's Communication/Plan
-
re-engage GI
Possible MRI Abdomen
Pain control
Assessment / Plan
Assessment / Plan
Physical Exam
General: No pallor, cyanosis, or jaundice.
HEENT: Throat clear. PERRLA Normocephalic atraumatic. Dry oral mucosa, red anemia tongue present
NECK: Supple. No JVD Carotid Bruits
RESPIRATORY: Crackles b/l
CVS: S1, S2 normal. RRR. No murmur, rub or gallop.
ABDOMEN: Soft, tender. No distension. Bowel sounds present
EXTREMITIES: No peripheral cyanosis or edema.
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 No focal deficits.
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 depression presents with abdomen pain suspected acute on chronic pancreatitis. Abdomen pain and
progressively worsening over the past week. Developed nausea vomiting nonbloody night prior prompting visit to ED. Denies fevers chills coughing sneezing sick contacts constipation diarrhea dysuria. Reports abdomen pain epigastric and radiates
through to back. Afebrile normotensive, possible sepsis given tachycardia and significant leukocytosis 28.6-possibly due to hemoconcentration as well. Noted essential thrombocytosis 683 downtrending from 800s noted in previous labs.
PLAN:
#Acute on chronic pancreatitis
#SIRS present on admission non-infectious source, sepsis ruled out
Bowel rest diet advanced to Low fat as per GI
IV fluid support completed, endorses drinking fluids without issues, solid food intake however remains poor
Dilaudid 2 mg every 3 hours as needed severe pain 1 mg moderate pain
Scheduled percocet
As needed Tylenol
As needed antiemetic
CT abdomen pelvis appreciated constipation otherwise no acute pathology
GI eval appreciated low fat diet, pancreatic enzymes
Re-Engaged GI for persistent PO intolerance/Pain
Anticipate MR
#Mild Pulm Edema
appreciated on CXR and auscultation
otherwise stable respiratory status room air
Has been receiving IVF - will hold any further fluids until further Pancreatic imaging
#Neck Pain/stiffness
-muscle relaxant
-Toradol added to pain regimen
-Bengay-like cream
-CT neck w/ IV contrast appreciated no acute inflammatory changes, abscess, mild likely reactive adenopathy, possible mucus ball vs soft tissue mass vallecula (space btwn tongue and epiglottis) outpt ENT follow up recommended. 8mm right Thyroid
nodule, outpt Thyroid US with primary care provider recommended.
Constipation
-cont bowel regimen
#Possible sepsis (leukocytosis tachycardia) ruled out
Follow blood culture
urinalysis not suggestive UTI
lactate wnl
neg procal Empiric Zosyn discontinued
Trend WBC
ID eval appreciated monitor off abx
#Thrombocytosis
Trending down
Monitor
#Anxiety depression
#Insomnia
Continue home buspirone sertraline
Bedtime Ativan converted to IV for now
#Severe Iron Deficiency anemia causing dry mouth and 'Anemia Tongue' (Dilaudid also contributing to dry mouth, wean as tolerated)
#Anemia of Chronic Disease
IV iron infusion, convert to oral when stable for discharge
DVT prophylaxis Lovenox
GI prophylaxis Protonix
Full code
Total time spent on today's encounter was 50 minutes which included time spent in counseling the patient/family regarding diagnosis and treatment plan as listed above, goals of care, and symptom management. Case was discussed with nursing staff,
specialists, and care coordinators/case management. All labs and imaging personally reviewed by me. Remainder the time spent in detailed review of previous records, lab data, imaging, and other medical provider documentation.
Anticipated Discharge: 24 - 48 hours
Subjective/Interval History
-
Date of Service: February 24, 2024
PO intolerance, persistent pain
Objective Data
-
Vital Signs:
Vital Signs
Temp Pulse Resp BP Pulse Ox
97.9 F 63 16 145/81 96
02/24/24 07:50 02/24/24 07:50 02/24/24 07:50 02/24/24 07:50 02/24/24 07:50
I&O
02/23/24 02/24/24 02/25/24
06:59 06:59 06:59
Intake Total 1779 1620 / 1620
Balance 1779 162 / 162
Review of Systems
-
History Source: Patient
All other systems: Not reviewed unless documented
Physical Exam
-
General: No Apparent Distress
HEENT: PERRLA
Respiratory: Clear to Auscultation; Negative Wheezes
Cardiac: Regular Rhythm and S1/S2
GI: Soft and Nontender
Musculoskeletal: No Edema
Skin: Warm and Dry; Negative Rash
Neuro: AO x 3
Psych: Calm
Data Reviewed
-
Diagnostic Radiology: Report Reviewed by me
Labs: Labs Reviewed by me
[2024-02-24] MEDS: ZENPEP DELAYED RELEASE CAPSULE PO ×2 (12:25→21:24)
--- NOTE | 2024-02-24 13:18 | CM ---
Reviewed the chart notes. Low fat diet. IV Dilaudid for pain. IVF completed. CM continues to be available to patient/family and is monitoring medical plan for needs at discharge.
Plan: Discharge to home when medically stable. No needs anticipated.
[2024-02-24] MEDS: FERRLECIT 110 MG IV (13:26)
[2024-02-24] MEDS: DILAUDID 1 MG IV (13:43)
[2024-02-24 14:59] VITALS: BP 105/78
--- NOTE | 2024-02-24 15:08 | PTCARENOTE ---
pt requiring doses of prn dilaudid this shift. one dose for moderate pain and one dose for severe. see MAR for charting. pt also needed dose of phenergan this morning at 1042 for nausea. all prn doses given through patient L midline access. pt
refused bengay for the morning and afternoon doses and refused lidocaine patch this AM as well.
[2024-02-24 16:33] LABS: Hematocrit 26.4 % (37.0-47.0); Hemoglobin 9.2 g/dL (12.0-16.0); Mean Corp Hgb Conc. 34.8 g/dL (33.0-37.0); Mean Corpuscular Hgb 27.1 pg (27.0-31.0); Mean Corpuscular Volume 77.9 fL (81.0-99.0); Mean Platelet Volume 8.8 fL (7.4-10.4); Platelet Count 570 10^3/uL (130-400); Red Blood Cell Count 3.39 10^6/uL (4.20-5.40); Red Cell Dist. Width 14.6 % (11.5-14.5); White Blood Cell Count 12.3 10^3/uL (4.8-10.8)
[2024-02-24 16:44] LABS: ALT (SGPT) 40 U/L (0-35); AST (SGOT) 26 U/L (14-36); Albumin 3.3 g/dl (3.5-5.0); Alkaline Phosphatase 135 U/L (38-126); Blood Urea Nitrogen 9 mg/dl (7-17); Carbon Dioxide 25 mmol/L (22-30); Chloride 107 mmol/L (98-107); Estimated Creatinine Clearance 84 ml/min; Glucose 125 mg/dl (70-99); Magnesium 1.6 mg/dl (1.6-2.3); Phosphorus 4.1 mg/dl (2.5-4.5); Potassium 3.2 mmol/L (3.5-5.1); Sodium 137 mmol/L (135-145); Total Bilirubin 0.2 mg/dl (0.2-1.3); Total Protein 6.2 g/dl (6.3-8.2); eGFR > 60.00
[2024-02-24 17:31] LABS: Glucose - Point of Care 129 mg/dl (70-99)
[2024-02-24] MEDS: LOVENOX 40 MG SC (17:33)
--- NOTE | 2024-02-24 17:52 | PTCARENOTE ---
after speaking with pt, it was made known to this nurse pt has not had a bowel movement in three days. pt agreeable to try miralax this evening with 2000 medications. will pass along to shift leader nurse
--- NOTE | 2024-02-24 18:26 | PTCARENOTE ---
pt tearful within the room. verbalizing extreme nausea. prn zofran given. dinner just arrived in room. See MAR for proper documentation
[2024-02-24 19:18] LABS: Hematocrit 25.6 % (37.0-47.0); Hemoglobin 9.1 g/dL (12.0-16.0); Mean Corp Hgb Conc. 35.5 g/dL (33.0-37.0); Mean Corpuscular Hgb 27.3 pg (27.0-31.0); Mean Corpuscular Volume 76.9 fL (81.0-99.0); Mean Platelet Volume 8.5 fL (7.4-10.4); Platelet Count 560 10^3/uL (130-400); Red Blood Cell Count 3.33 10^6/uL (4.20-5.40); Red Cell Dist. Width 14.5 % (11.5-14.5)
[2024-02-24] MEDS: ATIVAN 1 MG IV (21:23)
[2024-02-24] MEDS: NSS (PRESERVATIVE FREE) 0.5 ML IV (21:24)
[2024-02-24] MEDS: ZOLOFT 100 MG PO (21:24)
[2024-02-24 21:29] LABS: Glucose - Point of Care 118 mg/dl (70-99)
[2024-02-24 23:14] VITALS: BP 134/70
[2024-02-25] MEDS: TYLENOL PO ×2 (01:37→12:38)
[2024-02-25] MEDS: TYLENOL 650 MG PO ×4 (03:14→21:56)
[2024-02-25] MEDS: DILAUDID 1 MG IV ×3 (03:14→15:22)
[2024-02-25] MEDS: TORADOL 15 MG IV ×3 (06:16→17:56)
[2024-02-25 08:18] LABS: Glucose - Point of Care 90 mg/dl (70-99)
[2024-02-25 08:21] LABS: Hematocrit 26.3 % (37.0-47.0); Hemoglobin 9.2 g/dL (12.0-16.0); Mean Corpuscular Hgb 27.5 pg (27.0-31.0); Mean Corpuscular Volume 78.7 fL (81.0-99.0); Mean Platelet Volume 8.9 fL (7.4-10.4); Platelet Count 530 10^3/uL (130-400); Red Blood Cell Count 3.34 10^6/uL (4.20-5.40); Red Cell Dist. Width 14.6 % (11.5-14.5); White Blood Cell Count 10.2 10^3/uL (4.8-10.8)
[2024-02-25 08:28] VITALS: BP 149/76
[2024-02-25 08:58] LABS: ALT (SGPT) 35 U/L (0-35); AST (SGOT) 24 U/L (14-36); Albumin 3.3 g/dl (3.5-5.0); Alkaline Phosphatase 132 U/L (38-126); Blood Urea Nitrogen 7 mg/dl (7-17); Calcium 8.8 mg/dl (8.4-10.2); Carbon Dioxide 26 mmol/L (22-30); Chloride 106 mmol/L (98-107); Estimated Creatinine Clearance 84 ml/min; Glucose 81 mg/dl (70-99); Phosphorus 3.8 mg/dl (2.5-4.5); Potassium 3.2 mmol/L (3.5-5.1); Sodium 138 mmol/L (135-145); Total Bilirubin 0.3 mg/dl (0.2-1.3); Total Protein 6.1 g/dl (6.3-8.2); eGFR > 60.00
[2024-02-25] MEDS: FLEXERIL 5 MG PO ×3 (09:12→21:56)
[2024-02-25] MEDS: SENOKOT-S 1 TABLET PO ×2 (09:12→21:55)
[2024-02-25] MEDS: ZENPEP DELAYED RELEASE CAPSULE 2 CAPSULE PO ×2 (09:13→15:23)
[2024-02-25] MEDS: BUSPAR 7.5 MG PO (09:13)
[2024-02-25] MEDS: PROTONIX IV 40 MG IV (09:14)
[2024-02-25] MEDS: NSS (PRESERVATIVE FREE) 10 ML IV (09:20)
[2024-02-25] MEDS: LIDOCAINE 4% PATCH TOPICAL (09:21)
[2024-02-25] MEDS: DILAUDID 2 MG IV ×4 (09:29→21:48)
--- NOTE | 2024-02-25 11:46 | W.PN.HOSP.TC ---
Today's Communication/Plan
-
#soft tissue mass vallecula (space btwn tongue and epiglottis) outpt ENT follow up recommended.
#8 mm subtle low-attenuation right thyroid nodule. Consider nonemergent thyroid ultrasound follow-up.
#Oral Iron Supplmenettion
#F/u with PCP, GI for pancreatic transplant and Colonoscopy
Assessment / Plan
Assessment / Plan
Physical Exam
General: No pallor, cyanosis, or jaundice.
HEENT: Throat clear. PERRLA Normocephalic atraumatic. Dry oral mucosa, red anemia tongue present
NECK: Supple. No JVD Carotid Bruits
RESPIRATORY: Crackles b/l
CVS: S1, S2 normal. RRR. No murmur, rub or gallop.
ABDOMEN: Soft, tender. No distension. Bowel sounds present
EXTREMITIES: No peripheral cyanosis or edema.
IMMIGRATION ASSOCIATE: AOx3. No focal deficits.
IMPRESSION:
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 Abdomen pain and
progressively worsening over the past week. Developed nausea vomiting nonbloody night prior prompting visit to ED. Denies fevers chills coughing sneezing sick contacts constipation diarrhea dysuria. Reports abdomen pain epigastric and radiates
through to back. Afebrile normotensive, possible sepsis given tachycardia and significant leukocytosis 28.6-possibly due to hemoconcentration as well. Noted essential thrombocytosis 683 downtrending from 800s noted in previous labs.
PLAN:
#Acute on chronic pancreatitis
#SIRS present on admission non-infectious source, sepsis ruled out
Bowel rest diet advanced to Low fat as per GI
IV fluid support completed, endorses drinking fluids without issues, solid food intake however remains poor
Dilaudid 2 mg every 3 hours as needed severe pain 1 mg moderate pain
Scheduled percocet
As needed Tylenol
As needed antiemetic
CT abdomen pelvis appreciated constipation otherwise no acute pathology
GI eval appreciated low fat diet, pancreatic enzymes
-Tolerating Diet
F/u With Pancreatic Transplant with [facility] outpatient
-F/u GI outpatient for screening
#Mild Pulm Edema
appreciated on CXR and auscultation
otherwise stable respiratory status room air
Has been receiving IVF - will hold any further fluids
No o2 requirement
#Neck Pain/stiffness
-muscle relaxant
-Toradol added to pain regimen
-Bengay-like cream
-CT neck w/ IV contrast appreciated no acute inflammatory changes, abscess, mild likely reactive adenopathy, possible mucus ball vs soft tissue mass vallecula (space btwn tongue and epiglottis) outpt ENT follow up recommended. 8mm right Thyroid
nodule, outpt Thyroid US with primary care provider recommended.
Constipation
-cont bowel regimen
#Possible sepsis (leukocytosis tachycardia) ruled out
Follow blood culture
urinalysis not suggestive UTI
lactate wnl
neg procal Empiric Zosyn discontinued
Trend WBC
ID eval appreciated monitor off abx
#Thrombocytosis
Trending down
Monitor
#Anxiety depression
#Insomnia
Continue home buspirone sertraline
Bedtime Ativan converted to IV for now
#Severe Iron Deficiency anemia causing dry mouth and 'Anemia Tongue' (Dilaudid also contributing to dry mouth, wean as tolerated)
#Anemia of Chronic Disease
IV iron infusion, convert to oral when stable for discharge
#soft tissue mass vallecula (space btwn tongue and epiglottis) outpt ENT follow up recommended.
#8 mm subtle low-attenuation right thyroid nodule. Consider nonemergent thyroid ultrasound follow-up.
DVT prophylaxis Lovenox
GI prophylaxis Protonix
Full code
More than 30 minutes spent in discharge including
Final examination of the patient
Summarizing hospital stay
Instructions for continuing care to all relevant caregivers
Preparation of discharge records, prescriptions, and referral forms
Total time spent (35 in minutes):
Anticipated Discharge: Today
Subjective/Interval History
-
Date of Service: February 25, 2024
tolerating diet
Objective Data
-
Labs:
Laboratory Results
02/25/24
08:00
WBC 10.2
Hgb 9.2 L
Hct 26.3 L
Plt Count 530 H
Sodium 138
Potassium 3.2 L
Chloride 106
Carbon Dioxide 26
BUN 7
Creatinine 0.5 L
Glucose 81
Calcium 8.8
Total Bilirubin 0.3
AST 24
ALT 35
Alkaline Phosphatase 132 H
Vital Signs:
Vital Signs
Temp Pulse Resp BP Pulse Ox
98.0 F 61 16 149/76 95
02/25/24 08:28 02/25/24 08:28 02/25/24 08:28 02/25/24 08:28 02/25/24 08:28
I&O
02/24/24 02/25/24 02/26/24
06:59 06:59 06:59
Intake Total 1620 / 1620 2170 / 2170
Balance 1620 / 1620 2170 / 2170
Review of Systems
-
History Source: Patient
All other systems: Not reviewed unless documented
Data Reviewed
-
Diagnostic Radiology: Report Reviewed by me
CT Scan: Image personally visualized and interpreted and Report Reviewed by me
Labs: Labs Reviewed by me
--- NOTE | 2024-02-25 11:52 | W.DS.TRANS ---
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
-
Discharge Instructions:
Discharge Diagnosis/Procedures
#Acute on chronic pancreatitis
Diet Low Fat,Other diet
Additional Diets Liquids with supplements as long as tolerated
Activity As tolerated
Blood Work cbc, bmp in 5 days with pcp. (Platelets, WBC,
Potassium, ALP)
Instructions:
Stand-Alone Forms:
Changes to Home Medications: Yes
Discharge Medications:
DC Medications w/original date entered in [email or web address]
sertraline 50 mg tablet 100 mg PO HS depression/anxiety 12/08/13
ondansetron 4 mg disintegrating tablet 8 mg PO TIDPRN PRN nausea/vomiting 02/17/23
lorazepam 1 mg tablet 1 mg PO HS anxiety/sleep 10/21/23
hpeiat-cgdqgbki-fbrraqg 12,000-38,000-60,000 unit capsule,delayed rel (Creon) 2 cap PO AC Pancreatitis 10/22/23
buspirone 7.5 mg tablet 7.5 mg PO DAILY anxiety 02/17/24
docusate sodium 100 mg capsule (Colace) 100 mg PO BID Constipation 02/17/24
hydromorphone 4 mg tablet (Dilaudid) 4 mg PO BIDPRN PRN severe pain 02/17/24
skgcylcu-pbxmzylg-lyyh 8 mg-folic ac 400 mcg-vit K 10 mcg chew tablet (Centrum Chewables) 1 tab PO DAILY Supplement 02/17/24
ferrous sulfate 325 mg (65 mg iron) tablet,delayed release 325 mg PO Q48H 30 days #15 tabs 02/25/24
Home Medication Changes
ferrous sulfate 325 mg (65 mg iron) tablet,delayed release 325 mg PO Q48H 30 days #15 tabs 02/25/24
Pending Results: No
--- NOTE | 2024-02-25 11:59 | CM ---
Reviewed the chart notes and spoke with the patient at the bedside. The patient is for discharge today to home with no additional needs identified. The patient's daughter will provide transportation. CM continues to be available to patient/family
and is monitoring medical plan for needs at discharge.
Plan: Discharge to home today. No needs identified.
--- NOTE | 2024-02-25 12:34 | PN.CDI ---
CDI
- -
CDI:
Physician Documentation Request
Admit Date: 02/17/24 09:53
Dear Doctor Lara,
Please review the following and provide your response in the progress notes.
Clinical Indicators:
Pt admitted with Acute on Chronic Pancreatitis
Progress note 02/19,'RESPIRATORY: Crackles b/l....Mild Pulm Edema...appreciated on CXR and auscultationotherwise stable respiratory status room air IVF rate reduced...'
Progress notes 02/22-02/24, ' Mild Pulm Edema appreciated on CXR and auscultation otherwise stable respiratory status room air Has been receiving IVF - will hold any further fluids No o2 requirement.'
Clarify which of the following accurately represents the acuity of the ( pulmonary edema ).
Acute
Acute on Chronic
Other (please specify)
Use of terms such as suspected, likely, concern for, or probable (associated with a specific diagnosis that is being evaluated, monitored, or treated as if it exists) are acceptable and can be coded in the inpatient setting, when documented at the
time of discharge.
Thank you,
Elle Amaya RN
CDI Specialist
[employer]
Please use your independent medical judgment in providing your response.
[2024-02-25] MEDS: ZENPEP DELAYED RELEASE CAPSULE PO ×3 (12:38→21:58)
[2024-02-25] MEDS: ZOFRAN 4 MG IV ×2 (12:39→21:39)
[2024-02-25] MEDS: KCL ELIXIR 40 MEQ PO (12:40)
[2024-02-25 13:50] LABS: Glucose - Point of Care 84 mg/dl (70-99)
[2024-02-25] MEDS: KCL 270 MEQ IV (14:50)
[2024-02-25] MEDS: FERRLECIT 110 MG IV (14:51)
[2024-02-25] MEDS: NSS (PRESERVATIVE FREE) 0.25 ML IV (15:23)
[2024-02-25] MEDS: ATIVAN 0.5 MG IV (15:23)
[2024-02-25 15:50] VITALS: BP 144/73
[2024-02-25 16:50] LABS: Glucose - Point of Care 139 mg/dl (70-99)
[2024-02-25] MEDS: LOVENOX 40 MG SC (17:56)
[2024-02-25 21:08] LABS: Glucose - Point of Care 127 mg/dl (70-99)
[2024-02-25] MEDS: ZOLOFT 100 MG PO (21:58)
[2024-02-25 23:05] VITALS: BP 125/68
[2024-02-25] MEDS: NSS (PRESERVATIVE FREE) 0.5 ML IV (23:22)
[2024-02-25] MEDS: ATIVAN 1 MG IV (23:22)
[2024-02-26] MEDS: TORADOL 15 MG IV ×2 (00:24→05:42)
[2024-02-26] MEDS: PHENERGAN 50.25 MG IV (00:25)
[2024-02-26] MEDS: TYLENOL PO ×2 (00:25→03:57)
[2024-02-26 07:45] VITALS: BP 135/77
[2024-02-26] MEDS: TYLENOL 650 MG PO ×2 (07:49→11:01)
[2024-02-26] MEDS: ZENPEP DELAYED RELEASE CAPSULE 2 CAPSULE PO (07:49)
[2024-02-26] MEDS: FLEXERIL 5 MG PO (07:50)
[2024-02-26] MEDS: BUSPAR 7.5 MG PO (07:51)
[2024-02-26] MEDS: SENOKOT-S 1 TABLET PO (07:51)
[2024-02-26] MEDS: LIDOCAINE 4% PATCH TOPICAL (07:52)
[2024-02-26] MEDS: NSS (PRESERVATIVE FREE) 10 ML IV (07:52)
[2024-02-26] MEDS: PROTONIX IV 40 MG IV (07:53)
[2024-02-26] MEDS: DILAUDID 2 MG IV ×2 (07:53→11:03)
[2024-02-26 08:17] LABS: Glucose - Point of Care 92 mg/dl (70-99)
[2024-02-26 10:33] LABS: Hematocrit 28.6 % (37.0-47.0); Hemoglobin 9.8 g/dL (12.0-16.0); Mean Corp Hgb Conc. 34.3 g/dL (33.0-37.0); Mean Corpuscular Hgb 27.6 pg (27.0-31.0); Mean Corpuscular Volume 80.6 fL (81.0-99.0); Platelet Count 615 10^3/uL (130-400); Red Blood Cell Count 3.55 10^6/uL (4.20-5.40); Red Cell Dist. Width 14.7 % (11.5-14.5); White Blood Cell Count 11.7 10^3/uL (4.8-10.8)
[2024-02-26] MEDS: ZENPEP DELAYED RELEASE CAPSULE PO (11:02)
[2024-02-26 11:04] LABS: ALT (SGPT) 29 U/L (0-35); AST (SGOT) 25 U/L (14-36); Albumin 3.6 g/dl (3.5-5.0); Alkaline Phosphatase 137 U/L (38-126); Blood Urea Nitrogen 9 mg/dl (7-17); Calcium 9.1 mg/dl (8.4-10.2); Carbon Dioxide 24 mmol/L (22-30); Chloride 105 mmol/L (98-107); Estimated Creatinine Clearance 84 ml/min; Glucose 135 mg/dl (70-99); Potassium 3.7 mmol/L (3.5-5.1); Sodium 138 mmol/L (135-145); Total Bilirubin 0.3 mg/dl (0.2-1.3); Total Protein 6.6 g/dl (6.3-8.2); eGFR > 60.00
--- NOTE | 2024-02-26 11:19 | W.PN.HOSP.TC ---
Addendum entered and electronically signed by Lorne Bermudez MD 02/26/24 17:05:
[id number]
Original Note:
Today's Communication/Plan
-
#soft tissue mass vallecula (space btwn tongue and epiglottis) outpt ENT follow up recommended.
#8 mm subtle low-attenuation right thyroid nodule. Consider nonemergent thyroid ultrasound follow-up.
#Oral Iron Supplementation
#F/u with PCP, GI for pancreatic transplant and Colonoscopy
Assessment / Plan
Assessment / Plan
Physical Exam
General: No pallor, cyanosis, or jaundice.
HEENT: Throat clear. PERRLA Normocephalic atraumatic. Dry oral mucosa, red anemia tongue present
NECK: Supple. No JVD Carotid Bruits
RESPIRATORY: Crackles b/l
CVS: S1, S2 normal. RRR. No murmur, rub or gallop.
ABDOMEN: Soft, tender. No distension. Bowel sounds present
EXTREMITIES: No peripheral cyanosis or edema.
WAREHOUSE PERSON: AOx3. No focal deficits.
IMPRESSION:
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 Abdomen pain and
progressively worsening over the past week. Developed nausea vomiting nonbloody night prior prompting visit to ED. Denies fevers chills coughing sneezing sick contacts constipation diarrhea dysuria. Reports abdomen pain epigastric and radiates
through to back. Afebrile normotensive, possible sepsis given tachycardia and significant leukocytosis 28.6-possibly due to hemoconcentration as well. Noted essential thrombocytosis 683 downtrending from 800s noted in previous labs.
PLAN:
#Acute on chronic pancreatitis
#SIRS present on admission non-infectious source, sepsis ruled out
Bowel rest diet advanced to Low fat as per GI
IV fluid support completed, endorses drinking fluids without issues, solid food intake however remains poor
Dilaudid 2 mg every 3 hours as needed severe pain 1 mg moderate pain
Scheduled percocet
As needed Tylenol
As needed antiemetic
CT abdomen pelvis appreciated constipation otherwise no acute pathology
GI eval appreciated low fat diet, pancreatic enzymes
-Tolerating Diet
F/u With Pancreatic Transplant with [facility] outpatient
-F/u GI outpatient for screening
#Mild Pulm Edema
appreciated on CXR and auscultation
otherwise stable respiratory status room air
Has been receiving IVF - will hold any further fluids
No o2 requirement
#Neck Pain/stiffness
-muscle relaxant
-Toradol added to pain regimen
-Bengay-like cream
-CT neck w/ IV contrast appreciated no acute inflammatory changes, abscess, mild likely reactive adenopathy, possible mucus ball vs soft tissue mass vallecula (space btwn tongue and epiglottis) outpt ENT follow up recommended. 8mm right Thyroid
nodule, outpt Thyroid US with primary care provider recommended.
Constipation
-cont bowel regimen
#Possible sepsis (leukocytosis tachycardia) ruled out
Follow blood culture
urinalysis not suggestive UTI
lactate wnl
neg procal Empiric Zosyn discontinued
Trend WBC
ID eval appreciated monitor off abx
#Thrombocytosis
Trending down
Monitor
#Anxiety depression
#Insomnia
Continue home buspirone sertraline
Bedtime Ativan converted to IV for now
#Severe Iron Deficiency anemia causing dry mouth and 'Anemia Tongue' (Dilaudid also contributing to dry mouth, wean as tolerated)
#Anemia of Chronic Disease
IV iron infusion, convert to oral on discharge
#soft tissue mass vallecula (space btwn tongue and epiglottis) outpt ENT follow up recommended.
#8 mm subtle low-attenuation right thyroid nodule. Consider nonemergent thyroid ultrasound follow-up.
DVT prophylaxis Lovenox
GI prophylaxis Protonix
Full code
More than 30 minutes spent in discharge including
Final examination of the patient
Summarizing hospital stay
Instructions for continuing care to all relevant caregivers
Preparation of discharge records, prescriptions, and referral forms
Total time spent (35 in minutes):
Anticipated Discharge: Today
Subjective/Interval History
-
Date of Service: February 26, 2024
no acute events
Objective Data
-
Labs:
Laboratory Results
02/26/24
09:58
WBC 11.7 H
Hgb 9.8 L
Hct 28.6 L
Plt Count 615 H
Sodium 138
Potassium 3.7
Chloride 105
Carbon Dioxide 24
BUN 9
Creatinine 0.6
Glucose 135 H
Calcium 9.1
Total Bilirubin 0.3
AST 25
ALT 29
Alkaline Phosphatase 137 H
Vital Signs:
Vital Signs
Temp Pulse Resp BP Pulse Ox
99.4 F 73 18 135/77 96
02/26/24 07:45 02/26/24 07:45 02/26/24 07:45 02/26/24 07:45 02/26/24 07:45
I&O
02/25/24 02/26/24 02/27/24
06:59 06:59 06:59
Intake Total 2170 / 2170 2620 / 2620
Balance 2170 / 2170 2620 / 2620
Review of Systems
-
History Source: Patient
All other systems: Not reviewed unless documented
Data Reviewed
-
Diagnostic Radiology: Report Reviewed by me
CT Scan: Image personally visualized and interpreted and Report Reviewed by me
Labs: Labs Reviewed by me
[2024-02-26 11:50] VITALS: BP 127/64
--- NOTE | 2024-03-02 08:30 | PN.CDI ---
CDI
- -
CDI:
Physician Documentation Request
Admit Date: 02/17/24 09:53
Dear Doctor Scotty,
Please review the following and provide your response in the progress notes.
Clinical Indicators:
Pt admitted with Acute on Chronic Pancreatitis
Progress note 02/19,'RESPIRATORY: Crackles b/l....Mild Pulm Edema...appreciated on CXR and auscultationotherwise stable respiratory status room air IVF rate reduced...'
Progress notes 02/22-02/24, ' Mild Pulm Edema appreciated on CXR and auscultation otherwise stable respiratory status room air Has been receiving IVF - will hold any further fluids No o2 requirement.'
Clarify which of the following accurately represents the acuity of the ( pulmonary edema ).
Acute
Acute on Chronic
Other (please specify)
Use of terms such as suspected, likely, concern for, or probable (associated with a specific diagnosis that is being evaluated, monitored, or treated as if it exists) are acceptable and can be coded in the inpatient setting, when documented at the
time of discharge.
Thank you,
Elle Amaya RN
CDI Specialist
[employer]
Please use your independent medical judgment in providing your response.
== END 2024-02-26 12:23 | disposition home or self-care (01) | DRG 438 ==
LOC: 2 NORTH 09:53
PROVIDERS: Emergency Medicine; ADMITTING PHYSICIAN Internal Medicine; ATTENDING PHYSICIAN Internal Medicine; CONSULT PHYSICIAN Internal Medicine Gastroenterology; CONSULT PHYSICIAN Internal Medicine Infectious Disease; EMERGENCY PHYSICIAN Emergency Medicine; FAMILY PHYSICIAN Nurse Practitioner; OTHER PHYSICIAN Nurse Practitioner Adult Health
DX: K85.90 Acute pancreatitis without necrosis or infection, unspecified (principal); J81.0 Acute pulmonary edema; K56.609 Unspecified intestinal obstruction, unspecified as to partial versus complete obstruction; Q45.3 Other congenital malformations of pancreas and pancreatic duct; R65.10 Systemic inflammatory response syndrome (SIRS) of non-infectious origin without acute organ dysfunction; K86.1 Other chronic pancreatitis; E04.1 Nontoxic single thyroid nodule; D75.839 Thrombocytosis, unspecified; F32.A Depression, unspecified; D50.9 Iron deficiency anemia, unspecified
CPT/HCPCS: 70491; 71046; 74177; 80053; 81003; 81015; 82607; 82746; 82962; 83540; 83550; 83605; 83690; 83735; 84100; 84145; 85014; 85018; 85025; 85027; 86850; 86900; 86901; 87040; 93005; 96361; 96374; 96375; 96376; 99285; J2916; Q9967

== ENCOUNTER 2024-03-06 05:09 | Inpatient (IN) | payer BC, SELFPAY ==
[2024-03-05 22:22] VITALS: BP 177/97
[2024-03-05 23:00] LABS: Lactic Acid 1.4 mmol/L (0.7-2.0)
[2024-03-05 23:11] LABS: % Eosinophils 5.9 % (0-6); % Immature Granulocytes 0.5 % (0-0.5); % Lymphocytes 21.5 % (20.5-51.1); % Monocytes 6.4 % (1.7-9.3); % Neutrophils 64.4 % (42.2-75.2); Absolute Basophils 0.2 10^3/uL (0-0.2); Absolute Immature Granulocytes 0.1 10^3/uL (0-0.05); Absolute Lymphocytes 3.4 10^3/uL (1.2-3.4); Absolute Neutrophils 10.1 10^3/uL (1.4-6.5); Hematocrit 38.2 % (37.0-47.0); Hemoglobin 13.3 g/dL (12.0-16.0); Mean Corp Hgb Conc. 35.1 g/dL (33.0-37.0); Mean Corpuscular Hgb 27.6 pg (27.0-31.0); Mean Corpuscular Volume 78.5 fL (81.0-99.0); Mean Platelet Volume 9.1 fL (7.4-10.4); Nucleated Red Blood Cells % 0 %; Platelet Count 908 10^3/uL (130-400); Red Blood Cell Count 4.79 10^6/uL (4.20-5.40); Red Cell Dist. Width 16.1 % (11.5-14.5); White Blood Cell Count 15.7 10^3/uL (4.8-10.8)
[2024-03-06] VITALS (12 sets, daily range): BP systolic 101–137; BP diastolic 55–83; PULSE 73–86; BMI 21.0
[2024-03-06] MEDS: ZOFRAN 4 MG IV ×5 (00:16→17:14)
[2024-03-06] MEDS: DILAUDID 2 MG IV ×4 (00:17→21:34)
[2024-03-06] MEDS: NSS 500 IV (00:18)
[2024-03-06 01:12] LABS: ALT (SGPT) 36 U/L (0-35); AST (SGOT) 51 U/L (14-36); Albumin 4.6 g/dl (3.5-5.0); Alkaline Phosphatase 158 U/L (38-126); Amylase 93 U/L (30-110); Blood Urea Nitrogen 18 mg/dl (7-17); Carbon Dioxide 25 mmol/L (22-30); Chloride 102 mmol/L (98-107); Glucose 109 mg/dl (70-99); LDH 212 U/L (120-246); Lipase 171 U/L (23-300); Potassium 4.7 mmol/L (3.5-5.1); Sodium 140 mmol/L (135-145); Total Bilirubin 0.5 mg/dl (0.2-1.3); Total Protein 7.9 g/dl (6.3-8.2); eGFR > 60.00
--- NOTE | 2024-03-06 01:59 | ED.GENMED ---
History of Present Illness
General
Chief Complaint: Abdominal Pain
Source: patient
Exam Limitations: none
Time Seen by Provider: 03/05/24 23:07
Nursing documentation reviewed up to this point in time: agreed with
History of Present Illness
History of Present Illness:
53-year-old female with past medical history as documented notable for chronic pancreatitis presents to the emergency department for evaluation of abdominal pain with nausea and vomiting. Of note she was just admitted in late January with acute on
chronic pancreatitis. 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 Patient reports that for the past few times have been slowly increasing; kimberly tried to eat some chicken
and shortly thereafter pain became acutely worse. She reports sharp epigastric pain that radiates to her back. Associated with nausea and vomiting. She also reports that for the past few days she has been having yellow mucousy stools. She denies
any fevers or chills. She denies any urinary issues. She says the symptoms are identical to symptoms she has had a past with chronic pancreatitis. She has p.o. Dilaudid 4 mg and ODT Zofran 4 mg which she uses at home when she has flares of her
pancreatitis that she says she has been using past few days and they are not adequately controlling her symptoms.
Past History
Past History
ED Past Medical History: Other (Recurrent pancreatitis, pancreatic duct stone,, pancreatic divisum,, PNA, Bowel obstruction, Hep A, IBS, Gastroporesis) and Other (C. difficile colitis)
ED Past Surgical History: Appendectomy, Bowel resection (Pancreatic revision surgery February 2017.), Cardiac (VSD repair as a child ), Cholecystectomy and Other (Splenectomy/adhesion. Liver repair post trauma years ago. Stents Pancreatic, Adhesions)
Social History
Tobacco: Non-smoker
Alcohol: None
Drug: None
Personal:
Living: with family
Employment: Not employed
Family History
Family History: Hypertension
Review of Systems
Review of Systems
All Other Systems: ROS reviewed and negative except as documented in HPI and ROS
Constitutional: Denies fever or chills
Respiratory: Denies cough or trouble breathing
Cardiac: Denies chest pain or palpitations
ABD/GI: Reports abdominal pain, nausea, vomiting and diarrhea
: Denies flank pain
Musculoskeletal: Denies neck pain or back pain
Neurological: Denies dizzy or headache
Phy Exam
Physical Exam
Physical Exam:
General: Awake, alert, oriented x3; appears uncomfortable
Head: Normocephalic, atraumatic
Eyes: Conjunctiva normal, sclera anicteric
Throat: Airway intact, mucous membranes dry
Neck: Trachea midline, supple without meningismus
Lungs: Clear to auscultation bilaterally, no wheezing, rales, rhonchi
Heart: Tachycardia with regular rhythm, no murmurs, gallops, or rubs
Abd: Soft, non distended, tender to palpation in the epigastrium
Neuro: No gross deficits
Extremities: Warm and well-perfused
Scores
Heart Failure Risk
Heart Failure Risk Score: Not Applicable
Heart Score for Chest Pain Patients
STEMI patient?: Not applicable
Withdrawal Assessment of Alcohol
Withdrawal Assessment Completed?: Not applicable
Course
Orders/Labs/Results
Orders:
Orders
03/05/24 22:44
CBC/With Diff [Complete Blood Count/With Diff] Urgent
Lactate Level [Lactic Acid] Urgent
03/05/24 22:55
Amylase Urgent
Comprehensive Metabolic Panel Urgent
LDH Urgent
Lipase Urgent
03/05/24 23:21
HYDROmorphone [Dilaudid] 2 mg IV NOW STA
Ondansetron Injectable [Zofran] 4 mg IV NOW STA
03/05/24 23:22
STOOL [C difficile Antigen & Toxins] Urgent
JUAN M Source: Feces/Stool
Specimen Description:
Stool Culture Urgent
JUAN M Source: Feces/Stool
Specimen Description:
0.9% Sodium Chloride 500 ml [Nss] 500 ml IV BOLUS
03/06/24 01:37
HYDROmorphone [Dilaudid] 1 mg IV NOW STA
Ondansetron Injectable [Zofran] 4 mg IV NOW STA
Abnormal Lab Results
03/05/24 03/06/24
22:44 00:26
WBC 15.7 H 10^3/uL
(4.8-10.8)
MCV 78.5 L fL
(81.0-99.0)
RDW 16.1 H %
(11.5-14.5)
Plt Count 908 H 10^3/uL
(130-400)
Abs Immat Gran (auto) 0.1 H 10^3/uL
(0-0.05)
Absolute Neuts (auto) 10.1 H 10^3/uL
(1.4-6.5)
Absolute Monos (auto) 1.0 H 10^3/uL
(0.1-0.6)
Absolute Eos (auto) 1.0 H 10^3/uL
(0-0.7)
BUN 18 H mg/dl
(7-17)
Glucose 109 H mg/dl
(70-99)
AST 51 H U/L
(14-36)
ALT 36 H U/L
(0-35)
Alkaline Phosphatase 158 H U/L
(38-126)
03/05/24 22:44
03/06/24 00:26
Vital Signs
Initial and Last Documented VS:
Initial Vital Signs
Temp Pulse Resp BP Pulse Ox
36.8 C 111 25 177/97 97
03/05/24 22:22 03/05/24 22:22 03/05/24 22:22 03/05/24 22:22 03/05/24 22:22
Last Documented Vital Signs
Temp Pulse Resp BP Pulse Ox
36.8 C 90 20 119/65 97
03/05/24 22:22 03/06/24 00:30 03/06/24 00:30 03/06/24 00:30 03/06/24 00:30
MDM/Problems Addressed
Differential Diagnosis Includes:
Pancreatitis, gastritis, gastroenteritis
MDM/Problems Addressed:
53-year-old female presents for evaluation of epigastric abdominal pain�she says identical to prior episodes of pancreatitis. Has a long history of chronic pancreatitis. Vital signs notable for hypertension and tach, tachypnea�suspect pain related
physical exam as above. Place an IV check labs including a CBC and a CMP, amylase and lipase. Will provide fluids, pain control, antiemetic. Considered repeat CT scan but with identical symptoms to her normal pancreatitis and multiple CTs and
MRIs in the past including most recently 3 weeks ago in my judgment no indication to repeat imaging at this point in time. Will reassess after the above.
Labs reviewed: CBC shows slight leukocytosis to 15.7 suspect some degree of hemoconcentration, platelet count 900 consistent with hemoconcentration. IV fluids in progress. LFTs were marginally elevated consistent with prior values. Her lipase is
normal not unheard of in setting of chronic pancreatitis. Patient still having pain after initial round of medications will repeat and reassess. EKG for QTc monitoring. Will admit for continued management, case discussed with hospitalist.
Chronic conditions affecting care:
Chronic pancreatitis
Acute Exacerbation and/or Progression of Chronic Illness:
Acutely hypertensive resolved with pain control continue to monitor but no additional definite answers indicated at present
Acute Exacerbation and/or Progression of Chronic Illness: HTN
*Pulse Oximetry
Patient hypoxic: no
*EKG
Interpreted by ED Provider?: Yes
Heart Rate: 88
Rate: normal
Rhythm: sinus
[place]: normal axis
Interval: normal interval and normal QT interval
QRS Pattern: normal QRS
Ischemia: no ischemia
*Critical Care Note
Total Time (30-74mins, 75-104mins- exclusive of procedures): Not Applicable
Data Reviewed
Review of Other/Old Records Reveals: Labs, Records and Discharge Summary
Source: patient and records
Further Testing Considered But Not Given:
Considered repeat CT of the abdomen and pelvis
Patient Management
Discussion with other providers: Hospitalist (Discussed with hospitalist)
Escalation/DeEscalation of care consider admission/obs:
Admission indicated
ED Attending Note
-
Portions of this chart may have been created with voice recognition software.� Occasional wrong word or��sound alike� substitutions may have occurred due to the inherent limitations of voice recognition software.
Discharge Plan
Departure
Patient Disposition: Admit
Date of Disposition: 03/06/24
Time of Disposition: 02:11
Admit to doctor: Sundeep
Presentation/result/management discussed w/ accepting MD/DO: Hospitalist
Discharge Problem:
Abdominal pain, Acute on chronic pancreatitis
Prescriptions:
No Action
sertraline 50 MG tablet
100 mg PO HS
ondansetron 4 mg tablet,disintegrating
8 mg PO TIDPRN PRN (Reason: nausea/vomiting)
lorazepam 1 mg Tablet
1 mg PO HS
Creon 12,000-38,000 -60,000 unit Capsule,Delayed Release(Dr/Ec)
2 cap PO AC
docusate sodium [Colace] 100 mg Capsule
100 mg PO BID
buspirone 7.5 mg Tablet
7.5 mg PO DAILY
Centrum Chewables 8 mg-400 mcg- 10 mcg Tablet,Chewable
1 tab PO DAILY
hydromorphone [Dilaudid] 4 mg tablet
4 mg PO BIDPRN PRN (Reason: severe pain)
ferrous sulfate 325 mg (65 mg iron) tablet,delayed release (DR/EC)
325 mg PO Q48H 30 Days Qty: 15 0RF
Referrals:
Lina Hermosillo CRNP [Family Provider] -
Interventions
Interventions:
*Risk Screen - Suicide Last Done: 03/06/24 00:31
*Neglect/Abuse Screening Last Done: 03/06/24 00:31
*ED COVID-19 Vaccine History Last Done: 03/06/24 00:31
Discharge Date and Time
Print Language: HEBREW
[2024-03-06] MEDS: DILAUDID 1 MG IV ×5 (02:09→18:41)
[2024-03-06] MEDS: PROTONIX IV 40 MG IV ×3 (02:19→20:21)
[2024-03-06 04:34] LABS: Urine Albumin Negative (Neg - Trace); Urine Bilirubin Negative (Negative); Urine Character Clear (Clear); Urine Color Yellow; Urine Glucose Negative (Negative); Urine Ketone Negative (Negative); Urine Leukocyte 2+ (Negative); Urine Nitrite Negative (Negative); Urine Occult Blood Trace (Negative); Urine Specific Gravity 1.015 (<1.030); Urine Urobilinogen Negative (Neg - 1+)
[2024-03-06] MEDS: PHENERGAN 50.5 MG IV (04:37)
--- NOTE | 2024-03-06 05:01 | HPS.HSE ---
Family Physician
-
Family Physician: KATE Vaughn
Chief Complaint
-
Abd Pain, N/V
History of Present Illness
Patient is a 53y F with PMH significant for chronic pancreatitis who presents to ED complaining of abdominal pain with N/V. Patient has long history (15 years) of chronic pancreatitis symptoms. She is followed by Dr. Rome at [facility] and is
planning to be evaluated at [facility] for potential pancreatic transplant. Patient was last hospitalized here 02/16 - 02/25 for similar symptoms. prior to that, she had been maintained on TPN via PICC line for about 8 weeks. This did result in about 10
lbs of weight gain and patient was feeling somewhat improved. Unfortunately, she has declined again since discontinuation of the TPN. Patient has chronic abdominal pain and states that eating / drinking clearly worsens her symptoms.
She has had more severe pain over the past few days - despite home narcotic regimen.
She has had nausea and today had emesis at home - ultimately prompting her to present to the ED for further evaluation.
Medical History
Past Medical History
Past Medical History: Reports Other
Additional Past Medical History:
Chronic / Recurrent Pancreatitis
Pancreatic Duct Stone
Pancreatic Divisum
Hereditary Spherocytosis
History of CDiff
History of Hep A
Anxiety / Depression
Past Surgical History: Reports Other
Additional Past Surgical History:
Pancreatic Duct Stents / Removal
Pancreaticojejunostomy
Celiac Nerve Block
Appendectomy
Cholecystectomy
Splenectomy
Repair of Liver Laceration
VSD Repair in Childhood
Social History
Tobacco: Non-smoker
Alcohol: None
Drug: None
Family History
Family History: Other (Father: Colon Cancer, Neuropathy, ESRD)
Allergies / Home Medications
Allergies reflects when Allergies were last updated in [employer].
Home Medications with original date entered in [employer]
Allergy/Medication List:
Allergies
Allergy/AdvReac Type Severity Reaction Status Date / Time
ketamine Allergy Hallucinati Verified 03/05/24 22:25
ons
prochlorperazine Allergy Shortness Verified 03/05/24 22:25
of Breath,
Muscle
Rigidity
prochlorperazine edisylate Allergy tardive Verified 03/05/24 22:25
[From Compazine] dyskinesia
prochlorperazine maleate Allergy tardive Verified 03/05/24 22:25
[From Compazine] dyskinesia
trimethobenzamide Allergy Shortness Verified 03/05/24 22:25
of Breath,
muscle
rigidity
trimethobenzamide HCl Allergy tardive Verified 03/05/24 22:25
[From Tigan] dyskinesia
vancomycin Allergy RED AND Verified 03/05/24 22:25
ITCHY
CHG Allergy Unknown Uncoded 03/05/24 22:25
Home Medications
sertraline 50 mg tablet 100 mg PO HS depression/anxiety 12/08/13
ondansetron 4 mg disintegrating tablet 8 mg PO TIDPRN PRN nausea/vomiting 02/17/23
lorazepam 1 mg tablet 1 mg PO HS anxiety/sleep 10/21/23
hsygwc-tuhtshgr-ejftpjx 12,000-38,000-60,000 unit capsule,delayed rel (Creon) 2 cap PO AC Pancreatitis 10/22/23
buspirone 7.5 mg tablet 7.5 mg PO DAILY anxiety 02/17/24
docusate sodium 100 mg capsule (Colace) 100 mg PO BID Constipation 02/17/24
hydromorphone 4 mg tablet (Dilaudid) 4 mg PO BIDPRN PRN severe pain 02/17/24
brscfaml-cswcblrb-mvbb 8 mg-folic ac 400 mcg-vit K 10 mcg chew tablet (Centrum Chewables) 1 tab PO DAILY Supplement 02/17/24
ferrous sulfate 325 mg (65 mg iron) tablet,delayed release 325 mg PO Q48H 30 days #15 tabs 02/25/24
Review of Systems
-
History Source: Patient
A 12 point ROS was completed and negative except as noted: Yes
Constitutional: Reports Weight Loss and Fatigue; Denies Fever or Chills
Respiratory: Denies Cough or Trouble Breathing
Cardiac: Denies Chest Pain or Palpitations
Abdomen/GI: Reports Abdominal Pain, Nausea, Vomiting, Diarrhea and Anorexia; Denies Constipated, Bloody Stools or Black Stools
: Denies Dysuria, Frequency or Flank Pain
Musculoskeletal: Denies Joint Pain or Edema
Neurological: Denies Dizzy or Headache
Psych: Reports Depression and Anxiety
Physical Exam
Vital Signs
Vital Signs
Temp Pulse Resp BP Pulse Ox
98.3 F 85 15 105/56 93
03/05/24 22:22 03/06/24 03:30 03/06/24 03:30 03/06/24 03:00 03/06/24 04:41
Physical Exam
General: Other (53y F in mild distress due to pain / nausea.)
HEENT: Other (Very dry MM.)
Respiratory: Clear; No Wheezes, Rales or Rhonchi
Cardiac: S1/S2 and Regular Rhythm; No Murmur
GI: Soft, Non Distended, Normal Bowel Sounds and Other (Pos epigastric tenderness without rebound/ guarding.)
Musculoskeletal: No Clubbing, No Cyanosis and No Edema
Neuro: AO x 3
Laboratory Results
-
03/05/24 22:44
03/06/24 00:26
Laboratory Results
Lactic Acid 1.4 mmol/L (0.7-2.0) 03/05/24 22:44
Total Bilirubin 0.5 mg/dl (0.2-1.3) 03/06/24 00:26
AST 51 U/L (14-36) H 03/06/24 00:26
ALT 36 U/L (0-35) H 03/06/24 00:26
Alkaline Phosphatase 158 U/L (38-126) H 03/06/24 00:26
Lipase 171 U/L (23-300) 03/06/24 00:26
Impression/Plan
-
A/P: Patient is a 53y F with PMH significant for chronic pancreatitis who presents to ED complaining of abdominal pain with N/V.
Acute on Chronic Pancreatitis
- Admit for further evaluation and treatment.
- Patient with poor PO intake due to symptoms, clearly volume depleted on arrival.
- Clear liquids as tolerated / if tolerated.
- IVF support (somewhat cautiously given prior pulm edema after IVF replacement).
- Supportive care with pain control, antiemetics, etc.
- GI evaluation for additional recommendations.
- Follow for clinical improvement.
Leukocytosis
Thrombocytosis
- All cell lines are increased (patient typically has anemia with Hgb = 9s).
- Likely reflection of volume contraction / acute pancreatitis.
- Follow for return to baseline cell counts with IVF support, etc.
- No evidence of any acute infectious process at this time.
Chronic Iron Deficiency Anemia
- Follow for return to usual baseline Hgb.
- Resume PO iron supplementation when tolerating diet reliably.
Anxiety / Depression
- Stable. Continue home med regimen.
DVT Prophylaxis: Lovenox
Code Status: Full
[2024-03-06] MEDS: LR 1000 IV (06:14)
[2024-03-06 06:28] LABS: Urine Bacteria Moderate (Negative); Urine Red Blood Cell 0-2 /HPF (0-2); Urine White Cell 26-30 /HPF (0-5)
[2024-03-06 06:34] LABS: Hematocrit 40.5 % (37.0-47.0); Hemoglobin 13.8 g/dL (12.0-16.0); Mean Corp Hgb Conc. 34.1 g/dL (33.0-37.0); Mean Corpuscular Hgb 27.7 pg (27.0-31.0); Mean Corpuscular Volume 81.3 fL (81.0-99.0); Mean Platelet Volume 8.4 fL (7.4-10.4); Platelet Count 719 10^3/uL (130-400); Red Blood Cell Count 4.98 10^6/uL (4.20-5.40); White Blood Cell Count 10.2 10^3/uL (4.8-10.8)
[2024-03-06 06:47] LABS: ALT (SGPT) 31 U/L (0-35); AST (SGOT) 48 U/L (14-36); Alkaline Phosphatase 125 U/L (38-126); Blood Urea Nitrogen 16 mg/dl (7-17); Calcium 9.6 mg/dl (8.4-10.2); Carbon Dioxide 25 mmol/L (22-30); Chloride 104 mmol/L (98-107); Direct Bilirubin 0.2 mg/dl (0.0-0.4); Glucose 93 mg/dl (70-99); Potassium 4.7 mmol/L (3.5-5.1); Sodium 139 mmol/L (135-145); Total Bilirubin 0.5 mg/dl (0.2-1.3); Total Protein 7.2 g/dl (6.3-8.2); eGFR > 60.00
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
[2024-03-06] MEDS: ZENPEP DELAYED RELEASE CAPSULE PO ×3 (08:04→17:09)
--- NOTE | 2024-03-06 08:42 | W.PN.HOSP.TC ---
Addendum entered and electronically signed by Destinee Le MD 03/06/24 12:17:
A/P:
# Acute on Chronic Pancreatitis
Patient with poor PO intake due to symptoms, and volume depleted on arrival.
Cont Clear liquids as tolerated / if tolerated.
Cont IVF support (would be cautious given prior pulm edema after IVF replacement).
Cont supportive care with pain control (IV Dilaudid) and antiemetics (IV Zofran and Promethazine PRN)
GI on board
Follow for clinical improvement.
# Resolved reactive Leukocytosis
# Improved Thrombocytosis
All cell lines increased on admission suggestive of volume contraction
IVF as above
# Chronic Iron Deficiency Anemia
Follow for return to usual baseline Hgb.
Resume PO iron supplementation when tolerating diet reliably.
# Anxiety / Depression, Stable.
Continue home med regimen.
DVT Prophylaxis: Lovenox
Code Status: Full
Original Note:
Today's Communication/Plan
-
Continue providing supportive care, await GI input
Assessment / Plan
Assessment / Plan
Assessment:
53y F with PMH significant for chronic pancreatitis who presents to ED complaining of abdominal pain with N/V. Patient has chronic abdominal pain and that eating/drinking worsens her symptoms. Patient had nausea and emesis at home with worsening
of her abdominal pain which prompted her to come to the ED. Patient admitted for further evaluation and treatment, put on supportive IVF and GI consulted for evaluation.
Plan:
Acute on Chronic Pancreatitis
- Patient with poor PO intake due to abdominal pain, continue on clear liquid diet as tolerated, speech eval once symptoms resolve
- IVF support with lactated ringers, monitor due to history of prior pulmonary edema
- Supportive care with pain control, antiemetics, etc.
- GI evaluation for additional recommendations.
- Follow for clinical improvement.
- Await result of Sjorgen's antibody testing, suspect due to history of chronic pancreatitis
Leukocytosis and Thrombocytosis
- All cell lines are increased last night
- Likely reflection of volume contraction / acute pancreatitis.
- Resolving
- Returning to baseline cell count, most likely due to dehydration
- No evidence of any acute infectious process at this time
Chronic Iron Deficiency Anemia
- Follow for return to usual baseline Hgb.
- Resume PO iron supplementation when tolerating diet reliably
Anxiety / Depression
- Stable. Continue home med regimen.
DVT Prophylaxis: Lovenox
Code Status: Full
Anticipated Discharge: Within 24 hours
Subjective/Interval History
-
Date of Service: March 06, 2024
Patient says that her nausea has been much improved since she has been in the hospital. Still reporting some epigastric pain. Says she has been feeling dry and has difficulty swallowing at times.
Objective Data
-
Labs:
Laboratory Results
03/05/24 03/06/24 03/06/24
22:44 00:26 06:13
WBC 15.7 H 10.2
Hgb 13.3 13.8
Hct 38.2 40.5
Plt Count 908 H 719 H D
Sodium Cancelled 140 139
Potassium Cancelled 4.7 4.7
Chloride Cancelled 102 104
Carbon Dioxide Cancelled 25 25
BUN Cancelled 18 H 16
Creatinine Cancelled 0.6 0.6
Glucose Cancelled 109 H 93
Calcium Cancelled 10.0 9.6
Total Bilirubin Cancelled 0.5 0.5
AST Cancelled 51 H 48 H
ALT Cancelled 36 H 31
Alkaline Phosphatase Cancelled 158 H 125
Vital Signs:
Vital Signs
Temp Pulse Resp BP Pulse Ox
98.3 F 82 15 102/63 96
03/05/24 22:22 03/06/24 08:00 03/06/24 03:30 03/06/24 07:06 08/23/24 08:00
Review of Systems
-
History Source: Patient
Constitutional: Reports Weight Loss, No Appetite, Fatigue and Weakness
EENT: Reports Sore Throat
Respiratory: Denies Cough, Trouble Breathing or Wheezing
Cardiac: Denies Chest Pain, Diaphoresis or Palpitations
Abdomen/GI: Reports Abdominal Pain, Nausea, Vomiting (One episode last night, none since) and Bloated
Musculoskeletal: Denies Joint Pain or Edema
Skin: Denies Itching or Rash
Neuro: Denies Dizzy, Headache, Weakness or Numbness
Physical Exam
-
General: Well Developed, Appears in Distress and Pain
HEENT: Normocephalic, Atraumatic and Moist Mucous Membranes
Respiratory: Clear to Auscultation and Non Labored Respirations
Cardiac: Regular Rhythm and S1/S2
GI: Soft, Nondistended and Tender (Epigastric tenderness)
Musculoskeletal: No Clubbing, No Cyanosis and No Edema
Skin: Warm and Dry
Neuro: Awake, Alert, Oriented, AO x 3 and No Motor Deficits
Psych: Anxious
Data Reviewed
-
Diagnostic Radiology: Report Reviewed by me, Discussed with Physician and Discussed with Patient
Labs: Labs Reviewed by me, Discussed with Physician and Discussed with Patient
--- NOTE | 2024-03-06 10:21 | CM ---
CM reviewed patient's chart. Spoke with patient at bedside. CM introduced self and role. Patient in visible pain.
PCP: Dr. Lina Ashley
Pharmacy: [facility].
Living situation: Patient lives with her and 2 sons. She lives in a mulit-level home. No steps to enter. 4 steps to go into living room. She said she also has a rec room in the back of the house with no steps.
Finances: Patient denies any social insecurities. She is able to afford her housing, clothing, medications, food, utilities and transportation. 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
DME/Ambulation: Patient ambulates independently. She does not own any DME.
Transportation: Patient will most likely need transportation set up once she is discharged. Patient does not drive.
Agreeable to home health care?: Yes, if needed.
Patient shared with case management that her eventual plan is to receive a pancreas transplant from the [facility].
ANTICIPATED DISCHARGE DISPOSITION:
Return to home with family and follow up with [facility] and GI.
CM will continue to follow case and available for further assistance.
[2024-03-06] MEDS: PHENERGAN 50.25 MG IV ×2 (12:54→21:42)
[2024-03-06] MEDS: LOVENOX 40 MG SC (17:10)
[2024-03-06] MEDS: ATIVAN 1 MG PO (20:32)
[2024-03-06] MEDS: ZOLOFT 100 MG PO (20:32)
[2024-03-07] MEDS: DILAUDID 2 MG IV ×8 (00:34→21:30)
[2024-03-07 03:00] VITALS: BP 124/64
[2024-03-07] MEDS: FLUSH (NSS) 1 FLUSH IV (06:42)
[2024-03-07 07:00] VITALS: BP 100/54
[2024-03-07 07:44] LABS: ALT (SGPT) 39 U/L (0-35); AST (SGOT) 73 U/L (14-36); Albumin 4.2 g/dl (3.5-5.0); Alkaline Phosphatase 135 U/L (38-126); Blood Urea Nitrogen 11 mg/dl (7-17); Calcium 9.7 mg/dl (8.4-10.2); Carbon Dioxide 27 mmol/L (22-30); Chloride 100 mmol/L (98-107); Estimated Creatinine Clearance 72 ml/min; Glucose 78 mg/dl (70-99); Potassium 4.6 mmol/L (3.5-5.1); Sodium 140 mmol/L (135-145); Total Bilirubin 0.7 mg/dl (0.2-1.3); Total Protein 7.6 g/dl (6.3-8.2); eGFR > 60.00
[2024-03-07 07:59] LABS: Hematocrit 35.7 % (37.0-47.0); Hemoglobin 12.2 g/dL (12.0-16.0); Mean Corp Hgb Conc. 34.2 g/dL (33.0-37.0); Mean Corpuscular Volume 82.1 fL (81.0-99.0); Mean Platelet Volume 8.6 fL (7.4-10.4); Platelet Count 885 10^3/uL (130-400); Red Blood Cell Count 4.35 10^6/uL (4.20-5.40); Red Cell Dist. Width 15.7 % (11.5-14.5); White Blood Cell Count 9.8 10^3/uL (4.8-10.8)
[2024-03-07] MEDS: ZENPEP DELAYED RELEASE CAPSULE 2 CAPSULE PO ×3 (09:06→16:49)
[2024-03-07] MEDS: ZOFRAN 4 MG IV ×3 (09:06→21:35)
[2024-03-07] MEDS: PROTONIX IV 40 MG IV ×2 (09:06→21:29)
--- NOTE | 2024-03-07 10:12 | W.PN.HOSP.TC ---
Addendum entered and electronically signed by Destinee Le MD 03/07/24 11:56:
Urine culture growing GNR.
Patient does endorse to mild dysuria.
Will start empiric ceftriaxone, follow urine culture for likely UTI
Original Note:
Today's Communication/Plan
-
see A/P
Assessment / Plan
Assessment / Plan
A/P:
# Acute on Chronic Pancreatitis
CT AP from 02/17/2024 was unrevealing
Patient with poor PO intake on admission due to symptoms, and volume depleted on arrival.
s/p IVF
Cont Clear liquids as tolerated / if tolerated.
Cont supportive care with pain control (IV Dilaudid) and antiemetics (IV Zofran and Promethazine PRN)
GI on board
Follow for clinical improvement.
# Resolved reactive Leukocytosis
# Improved Thrombocytosis
All cell lines increased on admission suggestive of volume contraction
s/p IVF
# Chronic Iron Deficiency Anemia
Follow for return to usual baseline Hgb.
Resume PO iron supplementation when tolerating diet reliably.
# Anxiety / Depression, Stable.
Continue home med regimen.
DVT Prophylaxis: Lovenox
Code Status: Full
Anticipated Discharge: Within 24 hours
Subjective/Interval History
-
Date of Service: March 07, 2024
Objective Data
-
Labs:
Laboratory Results
03/07/24
06:54
WBC 9.8
Hgb 12.2
Hct 35.7 L
Plt Count 885 H D
Sodium 140
Potassium 4.6
Chloride 100
Carbon Dioxide 27
BUN 11
Creatinine 0.7
Glucose 78
Calcium 9.7
Total Bilirubin 0.7
AST 73 H
ALT 39 H
Alkaline Phosphatase 135 H
Vital Signs:
Vital Signs
Temp Pulse Resp BP Pulse Ox
36.6 C 81 18 100/54 95
03/07/24 07:00 03/07/24 07:00 03/07/24 07:00 03/07/24 07:00 03/07/24 07:00
I&O
03/06/24 03/07/24 03/08/24
06:59 06:59 06:59
Intake Total 240 / 240
Balance 240 / 240
Review of Systems
-
Abdomen/GI: Reports Abdominal Pain (epigastrium )
Physical Exam
-
General: Well Developed, Well Nourished and Comfortable
HEENT: Normocephalic, Atraumatic and Moist Mucous Membranes
Respiratory: Clear to Auscultation and Non Labored Respirations; Negative Accessory Resp Muscle Use
Cardiac: Regular Rhythm and S1/S2
GI: Soft, Nondistended and Tender (Epigastric tenderness)
Musculoskeletal: No Clubbing, No Cyanosis and No Edema
Skin: Warm and Dry
Neuro: Awake, Alert, Oriented and AO x 3
Psych: Calm
Data Reviewed
-
Labs: Labs Reviewed by me
[2024-03-07 10:43] VITALS: BMI 21.0
[2024-03-07] MEDS: ROCEPHIN 1000 MG IV (12:20)
[2024-03-07] MEDS: STERILE WATER FOR INJECTION 10 ML IV (12:21)
[2024-03-07] MEDS: FLEXERIL 2.5 MG PO (12:39)
[2024-03-07 15:00] VITALS: BP 127/57
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
[2024-03-07] MEDS: LOVENOX 40 MG SC (16:50)
[2024-03-07] MEDS: PHENERGAN 50.25 MG IV (16:50)
[2024-03-07] MEDS: ATIVAN 1 MG PO (21:29)
[2024-03-07] MEDS: ZOLOFT 100 MG PO (21:29)
[2024-03-07 23:00] VITALS: BP 102/63
[2024-03-08] VITALS (8 sets, daily range): BP systolic 88–113; BP diastolic 56–79; PULSE 75–101
[2024-03-08] MEDS: DILAUDID 1 MG IV ×3 (00:48→19:42)
[2024-03-08] MEDS: DILAUDID 2 MG IV ×5 (00:48→23:28)
[2024-03-08] MEDS: PHENERGAN 50.25 MG IV ×2 (00:50→09:25)
[2024-03-08] MEDS: FLUSH (NSS) 1 FLUSH IV (03:58)
[2024-03-08] MEDS: ZOFRAN 4 MG IV ×2 (04:00→21:06)
[2024-03-08] MEDS: ZENPEP DELAYED RELEASE CAPSULE 2 CAPSULE PO ×3 (08:50→18:27)
[2024-03-08] MEDS: PROTONIX IV 40 MG IV ×2 (08:58→19:44)
--- NOTE | 2024-03-08 09:00 | W.PN.HOSP.TC ---
Today's Communication/Plan
-
see A/P
Assessment / Plan
Assessment / Plan
A/P:
# Acute on Chronic Pancreatitis
CT AP from 02/17/2024 was unrevealing
Patient with poor PO intake on admission due to symptoms, and volume depleted on arrival.
s/p IVF
Cont Clear liquids as tolerated.
Cont supportive care with pain control (IV Dilaudid) and antiemetics (IV Zofran and Promethazine PRN)
GI on board
Follow for clinical improvement.
# UTI
pt c/o dysuria
follow urine Cx,
cont empiric ceftriaxone
# Chronic Iron Deficiency Anemia
Resume PO iron supplementation when tolerating diet reliably.
# Anxiety / Depression, Stable.
Continue home med regimen.
DVT Prophylaxis: Lovenox
Code Status: Full
Anticipated Discharge: 24 - 48 hours
Subjective/Interval History
-
Date of Service: March 08, 2024
Objective Data
-
Labs:
Laboratory Results
03/08/24
06:00
WBC Pending
Hgb Pending
Hct Pending
Plt Count Pending
Sodium Pending
Potassium Pending
Chloride Pending
Carbon Dioxide Pending
BUN Pending
Creatinine Pending
Glucose Pending
Calcium Pending
Total Bilirubin Pending
AST Pending
ALT Pending
Alkaline Phosphatase Pending
Vital Signs:
Vital Signs
Temp Pulse Resp BP Pulse Ox
36.7 C 75 16 110/58 94
03/08/24 07:20 03/08/24 07:20 03/08/24 07:20 03/08/24 07:20 03/08/24 07:20
I&O
03/07/24 03/08/24 03/09/24
06:59 06:59 06:59
Intake Total 240 / 240 480 / 480
Balance 240 / 240 480 / 480
Review of Systems
-
Abdomen/GI: Reports Abdominal Pain (epigastrium )
Physical Exam
-
General: Well Developed, Well Nourished and Comfortable
HEENT: Normocephalic, Atraumatic and Moist Mucous Membranes
Respiratory: Clear to Auscultation and Non Labored Respirations; Negative Accessory Resp Muscle Use
Cardiac: Regular Rhythm and S1/S2
GI: Soft, Nondistended and Tender (Epigastric tenderness)
Musculoskeletal: No Clubbing, No Cyanosis and No Edema
Skin: Warm and Dry
Neuro: Awake, Alert, Oriented and AO x 3
Psych: Calm
Data Reviewed
-
Labs: Labs Reviewed by me
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
[2024-03-08 10:15] LABS: Hematocrit 36.6 % (37.0-47.0); Hemoglobin 12.9 g/dL (12.0-16.0); Mean Corp Hgb Conc. 35.2 g/dL (33.0-37.0); Mean Corpuscular Hgb 27.4 pg (27.0-31.0); Mean Corpuscular Volume 77.9 fL (81.0-99.0); Platelet Count 857 10^3/uL (130-400); Red Cell Dist. Width 15.7 % (11.5-14.5); White Blood Cell Count 12.7 10^3/uL (4.8-10.8)
[2024-03-08 10:38] LABS: ALT (SGPT) 57 U/L (0-35); AST (SGOT) 104 U/L (14-36); Albumin 4.5 g/dl (3.5-5.0); Alkaline Phosphatase 169 U/L (38-126); Blood Urea Nitrogen 13 mg/dl (7-17); Calcium 9.9 mg/dl (8.4-10.2); Carbon Dioxide 25 mmol/L (22-30); Chloride 98 mmol/L (98-107); Estimated Creatinine Clearance 72 ml/min; Glucose 70 mg/dl (70-99); Magnesium 1.9 mg/dl (1.6-2.3); Potassium 4.3 mmol/L (3.5-5.1); Sodium 140 mmol/L (135-145); Total Bilirubin 0.8 mg/dl (0.2-1.3); eGFR > 60.00
[2024-03-08] MEDS: ROCEPHIN 1000 MG IV (12:32)
[2024-03-08] MEDS: STERILE WATER FOR INJECTION 10 ML IV (12:33)
[2024-03-08 13:49] LABS: SSA 52 (Ro)(ENA) Ab, IgG 5 AU/mL (0-40); SSA 60 (Ro)(ENA) Ab, IgG 0 AU/mL (0-40); SSB (La)(ENA) Ab, IgG 0 AU/mL (0-40)
[2024-03-08] MEDS: LOVENOX 40 MG SC (18:27)
[2024-03-08] MEDS: NSS (PRESERVATIVE FREE) 10 ML IV (19:44)
[2024-03-08] MEDS: ZOLOFT 100 MG PO (21:06)
[2024-03-08] MEDS: ATIVAN 1 MG PO (21:06)
[2024-03-09] VITALS (7 sets, daily range): BP systolic 93–117; BP diastolic 55–70; PULSE 87–92; BMI 20.4
[2024-03-09] MEDS: DILAUDID 2 MG IV ×6 (02:26→20:57)
[2024-03-09] MEDS: ZENPEP DELAYED RELEASE CAPSULE 2 CAPSULE PO ×2 (07:27→17:02)
[2024-03-09] MEDS: NSS (PRESERVATIVE FREE) 10 ML IV ×2 (07:27→20:56)
[2024-03-09] MEDS: PROTONIX IV 40 MG IV ×2 (07:28→20:56)
[2024-03-09 08:22] LABS: Hematocrit 35.5 % (37.0-47.0); Hemoglobin 12.5 g/dL (12.0-16.0); Mean Corp Hgb Conc. 35.2 g/dL (33.0-37.0); Mean Corpuscular Hgb 28.4 pg (27.0-31.0); Mean Corpuscular Volume 80.7 fL (81.0-99.0); Mean Platelet Volume 9.2 fL (7.4-10.4); Platelet Count 802 10^3/uL (130-400); Red Cell Dist. Width 15.6 % (11.5-14.5); White Blood Cell Count 9.5 10^3/uL (4.8-10.8)
[2024-03-09 08:28] LABS: ALT (SGPT) 51 U/L (0-35); AST (SGOT) 79 U/L (14-36); Albumin 4.2 g/dl (3.5-5.0); Alkaline Phosphatase 163 U/L (38-126); Blood Urea Nitrogen 12 mg/dl (7-17); Calcium 9.8 mg/dl (8.4-10.2); Carbon Dioxide 30 mmol/L (22-30); Chloride 99 mmol/L (98-107); Estimated Creatinine Clearance 84 ml/min; Glucose 87 mg/dl (70-99); Potassium 4.1 mmol/L (3.5-5.1); Sodium 140 mmol/L (135-145); Total Bilirubin 0.4 mg/dl (0.2-1.3); Total Protein 7.6 g/dl (6.3-8.2); eGFR > 60.00
--- NOTE | 2024-03-09 09:30 | W.PN.HOSP.TC ---
Addendum entered and electronically signed by Raymond Shook MD 03/09/24 15:06:
Acute on chronic pancreatitis s/p pancreaticojejunostomy at [facility], IV fluids IV analgesics. Asked to trial clear liquid diet as she states that she is slightly hungry this might help her. IV antiemetics.
UTI with dysuria demonstrating ESBL Klebsiella plus non-ESBL E. coli. Improvement symptomatology however has not resolved fully. States once he tried 1 more day of the Rocephin for which I explained this will not cover the ESBL Klebsiella.
Informed her that she would a Carbapenem containing antibiotic in order to cover the ESBL Klebsiella. States may consider tomorrow if no improvement
Neck spasms start cyclobenzaprine
Thrombocytosis likely secondary to splenectomy and possibly reactive CORINNE.
Original Note:
Today's Communication/Plan
-
Continue clears
Advance diet when tolerated
Continue pain management with Flexeril and narcotics
Assessment / Plan
Assessment / Plan
A/P:
# Acute on Chronic Pancreatitis
Extensive GI history, with multiple surgeries and procedures followed by [facility]
CT AP from 02/17/2024 was unrevealing
Patient with poor PO intake on admission due to symptoms, and volume depleted on arrival.
IV fluids restarted, 100 mL/h continuous normal saline
Per patient request, started on clear liquids, advance as tolerated
Cont supportive care with IV Dilaudid and IV Zofran and Promethazine PRN
GI on board
# UTI
pt c/o dysuria
Urinalysis on admission positive for +2 leukocyte esterase, WBCs and moderate bacteria
Urine culture ordered
Urine culture resulted with cephalosporin resistant E. coli and Klebsiella ESBL resistant
Currently on empiric ceftriaxone 1000mg, day 3
Patient reports no dysuria today, and that her urinary frequency has improved
Will recheck in with patient tomorrow, if symptoms have improved we will not start on any additional antibiotics, if not improved tomorrow will start on ertapenem
#Neck spasms
Patient reports pain in her neck as well as abdomen
Pain is uncontrolled with IV Dilaudid,
Patient was started on cyclobenzaprine 5 mg p.o. as well as 5 mg p.o. every 8 hours as needed
#Thrombocytosis
Chronic thrombocytosis
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
# Chronic Iron Deficiency Anemia
Resume PO iron supplementation when tolerating diet reliably.
# Anxiety / Depression, Stable.
Continue home med regimen.
Diet: Clear liquids
DVT Prophylaxis: Lovenox
Code Status: Full
Anticipated Discharge: 24 - 48 hours
Subjective/Interval History
-
Date of Service: March 09, 2024
Patient reports pain, and her abdomen and neck
Patient reports she would like to try to advance her diet
Objective Data
-
Labs:
Laboratory Results
03/09/24
06:50
WBC 9.5
Hgb 12.5
Hct 35.5 L
Plt Count 802 H
Sodium 140
Potassium 4.1
Chloride 99
Carbon Dioxide 30
BUN 12
Creatinine 0.6
Glucose 87
Calcium 9.8
Total Bilirubin 0.4
AST 79 H
ALT 51 H
Alkaline Phosphatase 163 H
Vital Signs:
Vital Signs
Temp Pulse Resp BP Pulse Ox
98.0 F 80 18 111/65 95
03/09/24 07:00 03/09/24 07:00 03/09/24 07:00 03/09/24 07:00 03/09/24 07:00
I&O
03/08/24 03/09/24 03/10/24
06:59 06:59 06:59
Intake Total 480 / 480 700 / 700
Balance 480 / 480 700 / 700
Review of Systems
-
History Source: Patient
Constitutional: Reports No Symptoms
Respiratory: Reports No Symptoms
Cardiac: Reports No Symptoms
Abdomen/GI: Reports Abdominal Pain; Denies Nausea, Vomiting or Diarrhea
Genitourinary: Reports Frequency (Patient reports frequency is improving); Denies Dysuria
Skin: Reports No Symptoms
Physical Exam
-
General: Well Developed
Respiratory: Clear to Auscultation
Cardiac: Regular Rhythm and S1/S2
GI: Soft, Nondistended, Normal Bowel Sounds and Tender (Midline tenderness, radiates to back)
Musculoskeletal: No Edema
Skin: Warm and Dry
Neuro: Awake, Alert, Oriented and AO x 3
Psych: Calm and Intact Judgement/Insight
Data Reviewed
-
Labs: Labs Reviewed by me and Discussed with Physician
[2024-03-09] MEDS: ZENPEP DELAYED RELEASE CAPSULE PO (12:05)
[2024-03-09] MEDS: STERILE WATER FOR INJECTION 10 ML IV (12:12)
[2024-03-09] MEDS: ROCEPHIN 1000 MG IV (12:12)
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
[2024-03-09] MEDS: FLEXERIL 5 MG PO ×2 (14:47→21:01)
--- NOTE | 2024-03-09 16:25 | CM ---
Patient seen bedside.
Patient feeling a little better.
Still requiring IV pain medications.
Plan: home no needs anticipated
Spouse will transport.
[2024-03-09] MEDS: LOVENOX 40 MG SC (17:01)
[2024-03-09] MEDS: ZOFRAN 4 MG IV (20:57)
[2024-03-09] MEDS: ZOLOFT 100 MG PO (21:01)
[2024-03-09] MEDS: ATIVAN 1 MG PO (21:02)
[2024-03-10] MEDS: DILAUDID 2 MG IV ×6 (01:40→21:11)
[2024-03-10] MEDS: FLEXERIL 5 MG PO ×5 (02:14→21:10)
[2024-03-10 06:00] VITALS: BMI 20.5
[2024-03-10 07:00] VITALS: BP 106/71
[2024-03-10] MEDS: NSS (PRESERVATIVE FREE) 10 ML IV ×2 (07:35→20:58)
[2024-03-10] MEDS: PROTONIX IV 40 MG IV ×2 (07:36→20:58)
[2024-03-10] MEDS: ZENPEP DELAYED RELEASE CAPSULE 2 CAPSULE PO ×2 (07:37→15:47)
[2024-03-10] MEDS: ZOFRAN 4 MG IV ×2 (07:43→17:50)
[2024-03-10 07:54] LABS: Hematocrit 33.1 % (37.0-47.0); Hemoglobin 11.6 g/dL (12.0-16.0); Mean Corpuscular Hgb 28.2 pg (27.0-31.0); Mean Corpuscular Volume 80.3 fL (81.0-99.0); Mean Platelet Volume 9.1 fL (7.4-10.4); Platelet Count 726 10^3/uL (130-400); Red Blood Cell Count 4.12 10^6/uL (4.20-5.40); Red Cell Dist. Width 15.6 % (11.5-14.5); White Blood Cell Count 10.3 10^3/uL (4.8-10.8)
[2024-03-10 08:48] LABS: ALT (SGPT) 50 U/L (0-35); AST (SGOT) 83 U/L (14-36); Alkaline Phosphatase 162 U/L (38-126); Blood Urea Nitrogen 11 mg/dl (7-17); Calcium 9.7 mg/dl (8.4-10.2); Carbon Dioxide 30 mmol/L (22-30); Chloride 99 mmol/L (98-107); Estimated Creatinine Clearance 84 ml/min; Glucose 95 mg/dl (70-99); Potassium 4.3 mmol/L (3.5-5.1); Sodium 139 mmol/L (135-145); Total Bilirubin 0.4 mg/dl (0.2-1.3); Total Protein 7.2 g/dl (6.3-8.2); eGFR > 60.00
--- NOTE | 2024-03-10 09:38 | W.PN.HOSP.TC ---
Addendum entered and electronically signed by Raymond Shook MD 03/10/24 13:40:
Acute on chronic pancreatitis s/p pancreaticojejunostomy at [facility], IV fluids IV analgesics. Asked to trial clear liquid diet as she states that she is slightly hungry this might help her. IV antiemetics.
UTI with dysuria demonstrating ESBL Klebsiella plus non-ESBL E. coli. Improvement symptomatology however has not resolved fully. Does nto want a change of atb. Completed 3days
Neck spasms started cyclobenzaprine
Thrombocytosis likely secondary to splenectomy and possibly reactive CORINNE.
Original Note:
Today's Communication/Plan
-
Advance diet to low res
Control neck spasms with increased Flexeril and K-pad heating
Assessment / Plan
Assessment / Plan
A/P:
# Acute on Chronic Pancreatitis
Extensive GI history, with multiple surgeries and procedures followed by [facility]
CT AP from 02/17/2024 was unrevealing
Patient with poor PO intake on admission due to symptoms, and volume depleted on arrival.
Will not renew IV fluids now the patient is eating and tolerating food and drink by mouth
Per patient request, change diet from full liquids to low residue, advance as tolerated
Cont supportive care with IV Dilaudid and IV Zofran and Promethazine PRN
GI on board
# UTI
pt c/o dysuria
Urinalysis on admission positive for +2 leukocyte esterase, WBCs and moderate bacteria
Urine culture ordered
Urine culture resulted with cephalosporin resistant E. coli and Klebsiella ESBL resistant
Ceftriaxone to be be discontinued, 3 days total
Patient reports no dysuria today, and that her urinary frequency has improved
Patient reports that her symptoms have improved she no longer has frequency or dysuria. It was explained to her that her bacterial infection was resistant to the antibiotic however she feels that she is better and does not need to be started on a
second antibiotic. Will continue to reassess for urinary symptoms throughout her stay.
#Neck spasms
Patient reports pain in her neck as well as abdomen
Pain is uncontrolled with IV Dilaudid,
Patient was started on cyclobenzaprine 5 mg p.o. scheduled as well as 5 mg p.o. every 8 hours as needed
Patient reports that her neck spasms are not controlled and her frequency was changed to 5 mg p.o. every 6 hours as needed.
K-pad heating was added for posterior neck and back, 30-minute intervals moderate intensity.
#Thrombocytosis
Chronic thrombocytosis
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
# Chronic Iron Deficiency Anemia
Resume PO iron supplementation when tolerating diet reliably.
# Anxiety / Depression, Stable.
Continue home med regimen.
Diet: Low residue
DVT Prophylaxis: Lovenox
Code Status: Full
Anticipated Discharge: 24 - 48 hours
Subjective/Interval History
-
Date of Service: March 10, 2024
Patient reports slight nausea controlled with Zofran
Tolerating full liquid diet well
Objective Data
-
Labs:
Laboratory Results
03/10/24
07:27
WBC 10.3
Hgb 11.6 L
Hct 33.1 L
Plt Count 726 H
Sodium 139
Potassium 4.3
Chloride 99
Carbon Dioxide 30
BUN 11
Creatinine 0.6
Glucose 95
Calcium 9.7
Total Bilirubin 0.4
AST 83 H
ALT 50 H
Alkaline Phosphatase 162 H
Vital Signs:
Vital Signs
Temp Pulse Resp BP Pulse Ox
98.0 F 81 18 106/71 96
03/10/24 07:00 03/10/24 07:00 03/10/24 07:00 03/10/24 07:00 03/10/24 07:00
I&O
08/26/24 08/27/24 08/28/24
06:59 06:59 06:59
Intake Total 700 / 700 240 / 240
Balance 700 / 700 240 / 240
Review of Systems
-
History Source: Patient
Constitutional: Reports No Symptoms
Respiratory: Reports No Symptoms
Cardiac: Reports No Symptoms
Abdomen/GI: Reports Abdominal Pain and Nausea; Denies Vomiting or Diarrhea
Genitourinary: Reports Other (Reports frequency has decreased in intensity, no dysuria)
Physical Exam
-
General: Well Developed
Respiratory: Clear to Auscultation
Cardiac: Regular Rhythm and S1/S2
GI: Soft, Nondistended, Normal Bowel Sounds and Tender (Midline tenderness deep to palpation, radiates to back)
Skin: Warm and Dry
Neuro: Awake, Alert, Oriented and AO x 3
Psych: Calm and Intact Judgement/Insight
Data Reviewed
-
Labs: Labs Reviewed by me and Discussed with Physician
[2024-03-10] MEDS: ZENPEP DELAYED RELEASE CAPSULE PO (10:25)
[2024-03-10] MEDS: ROCEPHIN 1000 MG IV (11:48)
[2024-03-10] MEDS: STERILE WATER FOR INJECTION 10 ML IV (11:48)
--- NOTE | 2024-03-10 14:45 | CM ---
Patient seen at bedside.
States started low residue diet for lunch today.
CM to continue to follow - no needs anticipated.
PLAN: Home when stable. No anticipated needs. to transport
[2024-03-10 14:59] VITALS: BP 96/70
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
[2024-03-10] MEDS: LOVENOX 40 MG SC (17:44)
[2024-03-10] MEDS: DILAUDID 1 MG IV (17:50)
[2024-03-10] MEDS: ZOLOFT 100 MG PO (21:09)
[2024-03-10] MEDS: ATIVAN 1 MG PO (21:11)
[2024-03-10 22:30] VITALS: BP 122/70
[2024-03-10] MEDS: PHENERGAN 50.25 MG IV (22:47)
[2024-03-11] MEDS: DILAUDID 2 MG IV ×7 (00:33→22:31)
[2024-03-11] MEDS: FLEXERIL 5 MG PO ×5 (03:24→22:01)
[2024-03-11 05:34] VITALS: BMI 20.6
[2024-03-11 07:22] LABS: ALT (SGPT) 45 U/L (0-35); AST (SGOT) 61 U/L (14-36); Albumin 3.9 g/dl (3.5-5.0); Alkaline Phosphatase 153 U/L (38-126); Blood Urea Nitrogen 12 mg/dl (7-17); Calcium 9.8 mg/dl (8.4-10.2); Carbon Dioxide 29 mmol/L (22-30); Chloride 101 mmol/L (98-107); Estimated Creatinine Clearance 84 ml/min; Glucose 94 mg/dl (70-99); Potassium 4.4 mmol/L (3.5-5.1); Sodium 140 mmol/L (135-145); Total Bilirubin 0.3 mg/dl (0.2-1.3); Total Protein 7.2 g/dl (6.3-8.2); eGFR > 60.00
[2024-03-11 07:25] LABS: Hemoglobin 11.4 g/dL (12.0-16.0); Mean Corp Hgb Conc. 34.5 g/dL (33.0-37.0); Mean Corpuscular Hgb 28.1 pg (27.0-31.0); Mean Corpuscular Volume 81.3 fL (81.0-99.0); Mean Platelet Volume 9.3 fL (7.4-10.4); Platelet Count 685 10^3/uL (130-400); Red Blood Cell Count 4.06 10^6/uL (4.20-5.40); Red Cell Dist. Width 15.3 % (11.5-14.5); White Blood Cell Count 9.8 10^3/uL (4.8-10.8)
[2024-03-11 07:35] VITALS: BP 132/65
[2024-03-11] MEDS: ZENPEP DELAYED RELEASE CAPSULE 2 CAPSULE PO ×3 (08:46→17:23)
[2024-03-11] MEDS: NSS (PRESERVATIVE FREE) 10 ML IV ×2 (08:46→19:28)
[2024-03-11] MEDS: PROTONIX IV 40 MG IV ×2 (08:47→19:28)
[2024-03-11] MEDS: ZOFRAN 4 MG IV (08:57)
--- NOTE | 2024-03-11 09:34 | W.PN.HOSP.TC ---
Addendum entered and electronically signed by Raymond Shook MD 03/11/24 16:22:
sepsis secondary to uti
-treat with ctx
-symptoms resolved
Addendum entered and electronically signed by Raymond Shook MD 03/11/24 15:32:
still with nv and intermittent abd pain with bakc pain that is worse.
ocntinue full diet
advance as tolerated
follow up with gi recs
Original Note:
Today's Communication/Plan
-
plan discharge today
Assessment / Plan
Assessment / Plan
A/P:
# Acute on Chronic Pancreatitis
Extensive GI history, with multiple surgeries and procedures followed by [facility]
CT AP from 02/17/2024 was unrevealing
Patient with poor PO intake on admission due to symptoms, and volume depleted on arrival.
Will not renew IV fluids now the patient is eating and tolerating food and drink by mouth
Per patient request, change diet from full liquids to low residue, advance as tolerated
Patient tolerating low residue diet well, low pain with eating
Cont supportive care with IV Dilaudid and IV Zofran and Promethazine PRN
GI on board, recommending continuing Zenpep with meals and advancing diet as tolerated.
Recommends follow-up with Dr. Rome at [place], GI after discharge.
# UTI
pt c/o dysuria
Urinalysis on admission positive for +2 leukocyte esterase, WBCs and moderate bacteria
Urine culture ordered
Urine culture resulted with cephalosporin resistant E. coli and Klebsiella ESBL resistant
Ceftriaxone to be be discontinued, 3 days total
Patient reports improvement in her urinary symptoms
Patient reports that her symptoms have improved she no longer has frequency or dysuria. It was explained to her that her bacterial infection was resistant to the antibiotic however she feels that she is better and does not need to be started on a
second antibiotic. Will continue to reassess for urinary symptoms throughout her stay.
#Neck spasms
Patient reports pain in her neck as well as abdomen
Pain is uncontrolled with IV Dilaudid,
Patient was started on cyclobenzaprine 5 mg p.o. scheduled as well as 5 mg p.o. every 8 hours as needed
Patient reports that her neck spasms are better controlled when her frequency was changed to 5 mg p.o. every 6 hours as needed.
K-pad heating was added for posterior neck and back, 30-minute intervals moderate intensity.
#Thrombocytosis
Chronic thrombocytosis
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
# Chronic Iron Deficiency Anemia
Resume PO iron supplementation when tolerating diet reliably.
# Anxiety / Depression, Stable.
Continue home med regimen.
#thyroid nodule
Thyroid nodule was found incidentally on CT scan
PT will follow up with PCP for thyroid US, labs and repeat CT
#CDI query
Patient does not meet sepsis criteria as she has no source. Her diagnosis is acute on chronic pancreatitis with UTI only.
Diet: Low residue
DVT Prophylaxis: Lovenox
Code Status: Full
Anticipated Discharge: Today
Subjective/Interval History
-
Date of Service: March 11, 2024
No acute events overnight
Patient tolerating diet well with no abdominal pain when eating
Patient had 1 bowel movement yesterday
Objective Data
-
Labs:
Laboratory Results
03/11/24
06:26
WBC 9.8
Hgb 11.4 L
Hct 33.0 L
Plt Count 685 H
Sodium 140
Potassium 4.4
Chloride 101
Carbon Dioxide 29
BUN 12
Creatinine 0.6
Glucose 94
Calcium 9.8
Total Bilirubin 0.3
AST 61 H
ALT 45 H
Alkaline Phosphatase 153 H
Vital Signs:
Vital Signs
Temp Pulse Resp BP Pulse Ox
98.3 F 78 19 132/65 95
03/11/24 07:35 03/11/24 07:35 03/11/24 07:35 03/11/24 07:35 03/11/24 07:35
I&O
03/10/24 03/11/24 03/12/24
06:59 06:59 06:59
Intake Total 240 / 240 600 / 600
Balance 240 / 240 600 / 600
Review of Systems
-
History Source: Patient
Constitutional: Reports No Symptoms
Respiratory: Reports No Symptoms
Cardiac: Reports No Symptoms
Abdomen/GI: Reports Abdominal Pain (Mid abdomen radiates to back) and Nausea; Denies Vomiting or Diarrhea
Genitourinary: Reports No Symptoms
Musculoskeletal: Reports No Symptoms
Physical Exam
-
General: Well Developed, No Apparent Distress and Comfortable
Respiratory: Clear to Auscultation
Cardiac: Regular Rhythm and S1/S2
GI: Soft, Nondistended, Normal Bowel Sounds and Tender (Tender to deep palpation midline above umbilicus, radiates to back)
Musculoskeletal: No Edema
Skin: Warm and Dry
Neuro: Awake, Alert, Oriented and AO x 3
Psych: Calm and Intact Judgement/Insight
Data Reviewed
-
Labs: Labs Reviewed by me and Discussed with Physician
--- NOTE | 2024-03-11 10:16 | CM ---
manager study reviewed patient's chart and met with patient and reviewed updated clinical notes, diet advanced, plan is to home when stable, no needs.
Plan; Home when stable, no needs.
[2024-03-11] MEDS: STERILE WATER FOR INJECTION IV (12:00)
--- NOTE | 2024-03-11 12:33 | PN.CDI ---
CDI
- -
CDI:
Physician Documentation Request
Admit Date: 03/06/24 05:09
Dear Doctor Yudith,
Patient admitted with acute on chronic pancreatitis.
03/10 PN, 'Acute on chronic pancreatitis...UTI...Ceftriaxone to be be discontinued, 3 days total.'
On admission, WBC 15.7 and HR 111 and RR 25.
Please clarify which of the following most accurately describes the status of the patient's infection:
Sepsis, POA
Acute pancreatitis/ UTI only
Other
Sepsis
- Systemic manifestations of infection, with 2 or more SIRS criteria which include:
- Fever >100.4 degrees F or hypothermia < 96.8 degrees F
- Leukocytosis - WBC > 12,000 or leukopenia - WBC < 4,000 or > 10% bands
- Tachycardia > 90 beats per minute
- Tachypnea - RR > 20 breaths per minute or PaCO2 , 32mmHg
Source: Merck Manual 2013
- Indicate the known or suspected organism
- Indicate the known or suspected underlying infection, such as UTI, pancreatitis
- Indicate if a suspected bacterial infection of unknown source
Localized Infection Only, Without Systemic Illness
- indicate the site/source, such as UTI, pancreatis
Other
Unable to Determine
Use of terms such as suspected, likely, concern for, or probable (associated with a specific diagnosis that is being evaluated, monitored, or treated as if it exists) are acceptable and can be coded in the inpatient setting, when documented at the
time of discharge.
Thank you,
Comfort Avila
CDI Specialist
Please use your independent medical judgment in providing your response.
[2024-03-11 15:07] VITALS: BP 102/55
[2024-03-11] MEDS: LOVENOX 40 MG SC (17:23)
[2024-03-11] MEDS: ATIVAN 1 MG PO (22:01)
[2024-03-11] MEDS: ZOLOFT 100 MG PO (22:01)
[2024-03-11 23:21] VITALS: BP 114/65
[2024-03-12] MEDS: DILAUDID 2 MG IV ×4 (01:37→12:51)
[2024-03-12] MEDS: FLEXERIL 5 MG PO ×2 (04:58→09:04)
[2024-03-12 06:00] VITALS: BMI 20.7
[2024-03-12 07:42] VITALS: BP 108/76
[2024-03-12 08:27] LABS: Hematocrit 33.2 % (37.0-47.0); Hemoglobin 11.5 g/dL (12.0-16.0); Mean Corp Hgb Conc. 34.6 g/dL (33.0-37.0); Mean Corpuscular Hgb 27.4 pg (27.0-31.0); Mean Corpuscular Volume 79.2 fL (81.0-99.0); Mean Platelet Volume 9.5 fL (7.4-10.4); Platelet Count 717 10^3/uL (130-400); Red Blood Cell Count 4.19 10^6/uL (4.20-5.40); Red Cell Dist. Width 15.6 % (11.5-14.5); White Blood Cell Count 8.6 10^3/uL (4.8-10.8)
[2024-03-12] MEDS: PROTONIX IV 40 MG IV (09:06)
[2024-03-12] MEDS: NSS (PRESERVATIVE FREE) 10 ML IV (09:06)
[2024-03-12] MEDS: ZENPEP DELAYED RELEASE CAPSULE 2 CAPSULE PO ×2 (09:06→12:31)
[2024-03-12] MEDS: STERILE WATER FOR INJECTION IV (09:09)
[2024-03-12 09:17] LABS: ALT (SGPT) 45 U/L (0-35); AST (SGOT) 67 U/L (14-36); Albumin 3.9 g/dl (3.5-5.0); Alkaline Phosphatase 162 U/L (38-126); Blood Urea Nitrogen 14 mg/dl (7-17); Calcium 9.6 mg/dl (8.4-10.2); Carbon Dioxide 30 mmol/L (22-30); Chloride 99 mmol/L (98-107); Estimated Creatinine Clearance 84 ml/min; Glucose 88 mg/dl (70-99); Potassium 4.4 mmol/L (3.5-5.1); Sodium 140 mmol/L (135-145); Total Bilirubin 0.4 mg/dl (0.2-1.3); Total Protein 7.3 g/dl (6.3-8.2); eGFR > 60.00
--- NOTE | 2024-03-12 11:21 | W.PN.HOSP.TC ---
Addendum entered and electronically signed by Raymond Shook MD 03/12/24 14:33:
sepsis uti complete atb resolved
Addendum entered and electronically signed by Raymond Shook MD 03/12/24 13:43:
dc home.
outpt gi follow up
outpt pancreatic transplant eval
Original Note:
Today's Communication/Plan
-
Discharge home to follow-up with gastroenterology and family doctor outpatient
Assessment / Plan
Assessment / Plan
A/P:
# Acute on Chronic Pancreatitis
Extensive GI history, with multiple surgeries and procedures followed by [facility]
CT AP from 02/17/2024 was unrevealing
Patient with poor PO intake on admission due to symptoms, and volume depleted on arrival.
Will not renew IV fluids now the patient is eating and tolerating food and drink by mouth
Diet was advanced from full liquids to clear liquids to low residue and eventually to regular diet
Patient tolerating diet well with minimal abdominal pain, no nausea
Cont supportive care with IV Dilaudid and IV Zofran and Promethazine PRN
GI on board, recommending continuing Zenpep with meals and advancing diet as tolerated.
Recommends follow-up with Dr. Rome at [place] after discharge.
# UTI
pt c/o dysuria
Urinalysis on admission positive for +2 leukocyte esterase, WBCs and moderate bacteria
Urine culture ordered
Urine culture resulted with cephalosporin resistant E. coli and Klebsiella ESBL resistant
Ceftriaxone to be be discontinued, 3 days total
Patient reports improvement in her urinary symptoms
Patient reports that her symptoms have improved she no longer has frequency or dysuria. It was explained to her that her bacterial infection was resistant to the antibiotic however she feels that she is better and does not need to be started on a
second antibiotic. Will continue to reassess for urinary symptoms throughout her stay.
#Neck spasms
Patient reports pain in her neck as well as abdomen
Pain is uncontrolled with IV Dilaudid,
Patient was started on cyclobenzaprine 5 mg p.o. scheduled as well as 5 mg p.o. every 8 hours as needed
Patient reports that her neck spasms are better controlled when her frequency was changed to 5 mg p.o. every 6 hours as needed.
K-pad heating was added for posterior neck and back, 30-minute intervals moderate intensity.
#Thrombocytosis
Chronic thrombocytosis
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
# Chronic Iron Deficiency Anemia
Resume PO iron supplementation when tolerating diet reliably.
# Anxiety / Depression, Stable.
Continue home med regimen.
#thyroid nodule
Thyroid nodule was found incidentally on CT scan
PT will follow up with PCP for thyroid US, labs and repeat CT
#CDI query
Her diagnosis is acute on chronic pancreatitis with UTI only.
Diet: Regular
DVT Prophylaxis: Lovenox
Code Status: Full
Anticipated Discharge: Today
Subjective/Interval History
-
Date of Service: March 12, 2024
No acute events overnight
Patient tolerating regular diet well
Objective Data
-
Labs:
Laboratory Results
03/12/24
06:49
WBC 8.6
Hgb 11.5 L
Hct 33.2 L
Plt Count 717 H
Sodium 140
Potassium 4.4
Chloride 99
Carbon Dioxide 30
BUN 14
Creatinine 0.5 L
Glucose 88
Calcium 9.6
Total Bilirubin 0.4
AST 67 H
ALT 45 H
Alkaline Phosphatase 162 H
Vital Signs:
Vital Signs
Temp Pulse Resp BP Pulse Ox
97.7 F 72 20 108/76 94
03/12/24 07:42 03/12/24 07:42 03/12/24 07:42 03/12/24 07:42 08/29/24 07:42
I&O
03/11/24 03/12/24 03/13/24
06:59 06:59 06:59
Intake Total 600 / 600 840 / 840
Balance 600 / 600 840 / 840
Review of Systems
-
History Source: Patient
Constitutional: Reports No Symptoms
Respiratory: Reports No Symptoms
Cardiac: Reports No Symptoms
Abdomen/GI: Reports Abdominal Pain; Denies Nausea, Vomiting or Diarrhea
Genitourinary: Reports No Symptoms; Denies Dysuria, Frequency or Flank Pain
Musculoskeletal: Reports Other (Back and neck pain)
Neuro: Reports No Symptoms
Physical Exam
-
General: Well Developed, Well Nourished, No Apparent Distress, Comfortable and Conversant
Respiratory: Clear to Auscultation
Cardiac: Regular Rhythm and S1/S2
GI: Soft, Nondistended, Normal Bowel Sounds and Tender (Tender to deep palpation upper epigastric, radiates to back to)
Genito-urinary: No Costovertebral Tender
Skin: Warm and Dry
Neuro: Awake, Alert, Oriented and AO x 3
Psych: Calm and Intact Judgement/Insight
Data Reviewed
-
Labs: Labs Reviewed by me and Discussed with Physician
--- NOTE | 2024-03-12 11:21 | W.DCSUMMARY ---
Documented by User: Reggie Zurita DO, Resident 03/12/24 11:30
Discharge Summary
Discharge Data
Date of Admission: 03/06/24
Date of Discharge: 03/12/24
-
Pending Results: No
Hospital Course
Discharging Physician : miguel Zurita
Disposition : Home
Primary care physician : Dr. Hermosillo
Principal Discharge diagnosis : Chronic pancreatitis
Chronic Discharge diagnosis : Chronic leukocytosis with periodic evaluations, recent DVT, pancreatic divisum, recurrent pancreatitis with history of pancreatic stones, gastroparesis, anxiety, spherocytosis/splenectomy, anxiety, neck spasms,
thrombocytosis, chronic iron deficiency anemia, UTI
Hospital Course : 53-year-old female with past medical history of recurrent chronic pancreatitis present patient follows gastroenterology at [facility] and is currently working to see a pancreatic transplant team with [facility]. She reports sharp midline
epigastric pain radiating to back with associated nausea and vomiting. Patient takes p.o. Dilaudid and Zofran at home when she has flares, these were not adequately controlling her symptoms. Patient was admitted for further management. During her
stay GI evaluated the patient and recommended IV fluids, supportive care and pain control. During her stay it was noted that the patient had leukocytosis, and elevated LFTs. Both of these lab abnormalities resolved by the time of discharge.
Urinalysis with culture was performed. Patient was started on empiric ceftriaxone, patient received 3 days total of antibiotics. Patient's cultures resulted in ESBL Klebsiella plus non-ESBL E. coli. After 3 days of antibiotics patient reported
that her symptoms have improved, she was no longer experiencing dysuria and her urinary frequency had improved. Conversation was had with the patient regarding that she was infected with an antibiotic resistant bacteria, and the antibiotic chosen
would not cover it and 3. Decision was made with the patient that she would not be started on a second antibiotic as she feels better and is no longer symptomatic. Patient's diet was slowly advanced from n.p.o. to clear liquids to full liquids to
low residue and eventually regular.. Patient tolerated the diet well with minimal pain was having bowel movements and was no longer vomiting. Patient also complained of neck spasms, pain was uncontrolled with IV Dilaudid and patient was started on
cyclobenzaprine 5 mg p.o. every 6 hours. Patient was also given a K heating pad for her neck spasms and back pain. Patient will follow-up with Dr. Ortiz at the [facility] in [place] within 1 week of discharge. Patient
will follow-up with Dr. Rome, gastroenterology at [facility] in 1 to 2 weeks of discharge. Patient will be discharged home.
Important imaging findings :
02/17/[address] with IV contrast, impression:
No acute pathology of the abdomen or pelvis.
Pneumobilia. Stable
Cholecystectomy. Stable
Splenectomy. Stable
Simple left renal cyst. Stable
Coarse calcification of the pancreatic head. Stable. This can be seen with chronic pancreatitis
Moderate fecal material throughout the colon. Progressed
02/20/2024 chest x-ray, impressions:
Mild pulmonary edema with trace bilateral pleural effusions.
02/22/[address] with IV contrast, impressions:
No acute inflammatory changes. No retropharyngeal soft tissue swelling. No evidence of abscess.
Mild, likely reactive adenopathy, without significant change from previous ultrasound examination.
The residual secretions. More masslike opacity in the left vallecula. This could represent a mucous ball. However, a soft tissue mass cannot be entirely excluded. Consider follow-up visualization.
8 mm subtle low-attenuation right thyroid nodule. Consider nonemergent thyroid ultrasound follow-up.
Procedure findings :
No procedures
Discharge Plan
-
Patient Disposition: Home (Routine Discharge)
Discharge Diagnosis/Procedures: Acute on chronic pancreatitis
Condition: Good
Diet: As tolerated
Activity: No restrictions
Driving Restrictions: As prior to admission
Bathing Restrictions: None
Activity Restrictions/Additional Instructions:
Please follow-up with Dr. Nichole, gastroenterology at [facility] in 1 to 2 weeks
Please follow-up with , or a different resident at the [facility] in [place] within 1 week of discharge. Follow-up with family doctor regarding thyroid nodule workup, labs, thyroid ultrasound and potential repeat CAT
scan.
Hospital Course : 53-year-old female with past medical history of recurrent chronic pancreatitis present patient follows gastroenterology at [facility] and is currently working to see a pancreatic transplant team with [facility]. She reports sharp midline
epigastric pain radiating to back with associated nausea and vomiting. Patient takes p.o. Dilaudid and Zofran at home when she has flares, these were not adequately controlling her symptoms. Patient was admitted for further management. During her
stay GI evaluated the patient and recommended IV fluids, supportive care and pain control. During her stay it was noted that the patient had leukocytosis, and elevated LFTs. Both of these lab abnormalities resolved by the time of discharge.
Urinalysis with culture was performed. Patient was started on empiric ceftriaxone, patient received 3 days total of antibiotics. Patient's cultures resulted in ESBL Klebsiella plus non-ESBL E. coli. After 3 days of antibiotics patient reported
that her symptoms have improved, she was no longer experiencing dysuria and her urinary frequency had improved. Conversation was had with the patient regarding that she was infected with an antibiotic resistant bacteria, and the antibiotic chosen
would not cover it and 3. Decision was made with the patient that she would not be started on a second antibiotic as she feels better and is no longer symptomatic. Patient's diet was slowly advanced from n.p.o. to clear liquids to full liquids to
low residue and eventually regular.. Patient tolerated the diet well with minimal pain was having bowel movements and was no longer vomiting. Patient also complained of neck spasms, pain was uncontrolled with IV Dilaudid and patient was started on
cyclobenzaprine 5 mg p.o. every 6 hours. Patient was also given a K heating pad for her neck spasms and back pain. Patient will follow-up with Dr. Ortiz at the [facility] in [place] within 1 week of discharge. Patient
will follow-up with Dr. Rome, gastroenterology at [facility] in 1 to 2 weeks of discharge. Patient will be discharged home.
Instructions: Chronic Pancreatitis (DC)
Referrals:
Myles Camargo MD, Resident [Family Practice Resident Year2] - in less than 1 week
Myron Rome MD [Active] - in one to two weeks
Additional Discharge Medication Instructions: Please take cyclobenzaprine 5 mg by mouth 3 times a day as needed for muscle spasms
Please use heating pad as needed for neck and back spasms
Prescriptions:
New
cyclobenzaprine 5 mg tablet
5 mg PO TID PRN (Reason: muscle spasm) Qty: 60 0RF
Continued
sertraline 50 MG tablet
100 mg PO HS
ondansetron 4 mg tablet,disintegrating
8 mg PO TIDPRN PRN (Reason: nausea/vomiting)
lorazepam 1 mg Tablet
1 mg PO HS
Creon 12,000-38,000 -60,000 unit Capsule,Delayed Release(Dr/Ec)
2 cap PO AC
docusate sodium [Colace] 100 mg Capsule
100 mg PO BID
buspirone 7.5 mg Tablet
7.5 mg PO DAILY
hydromorphone [Dilaudid] 4 mg tablet
4 mg PO BIDPRN PRN (Reason: severe pain)
Discharge Orders:
Discharge Patient (As Directed); Ordered 03/12/24
Ordered By: Reggie Zurita
Discharge Date and Time
Print Language: SINHALA

Documented by User: Raymond Shook MD 03/12/24 13:43
Discharge Summary
Discharge Data
Date of Admission: 03/06/24
Date of Discharge: 03/12/24
Discharge Plan
-
Patient Disposition: Home (Routine Discharge)
Discharge Diagnosis/Procedures: Acute on chronic pancreatitis
Condition: Good
Diet: As tolerated
Activity: No restrictions
Driving Restrictions: As prior to admission
Bathing Restrictions: None
Activity Restrictions/Additional Instructions:
Please follow-up with Dr. Nichole, gastroenterology at [facility] in 1 to 2 weeks
Please follow-up with , or a different resident at the [facility] clinic in [place] within 1 week of discharge. Follow-up with family doctor regarding thyroid nodule workup, labs, thyroid ultrasound and potential repeat CAT
scan.
Hospital Course : 53-year-old female with past medical history of recurrent chronic pancreatitis present patient follows gastroenterology at [facility] and is currently working to see a pancreatic transplant team with [facility]. She reports sharp midline
epigastric pain radiating to back with associated nausea and vomiting. Patient takes p.o. Dilaudid and Zofran at home when she has flares, these were not adequately controlling her symptoms. Patient was admitted for further management. During her
stay GI evaluated the patient and recommended IV fluids, supportive care and pain control. During her stay it was noted that the patient had leukocytosis, and elevated LFTs. Both of these lab abnormalities resolved by the time of discharge.
Urinalysis with culture was performed. Patient was started on empiric ceftriaxone, patient received 3 days total of antibiotics. Patient's cultures resulted in ESBL Klebsiella plus non-ESBL E. coli. After 3 days of antibiotics patient reported
that her symptoms have improved, she was no longer experiencing dysuria and her urinary frequency had improved. Conversation was had with the patient regarding that she was infected with an antibiotic resistant bacteria, and the antibiotic chosen
would not cover it and 3. Decision was made with the patient that she would not be started on a second antibiotic as she feels better and is no longer symptomatic. Patient's diet was slowly advanced from n.p.o. to clear liquids to full liquids to
low residue and eventually regular.. Patient tolerated the diet well with minimal pain was having bowel movements and was no longer vomiting. Patient also complained of neck spasms, pain was uncontrolled with IV Dilaudid and patient was started on
cyclobenzaprine 5 mg p.o. every 6 hours. Patient was also given a K heating pad for her neck spasms and back pain. Patient will follow-up with Dr. Ortiz at the [facility] in [place] within 1 week of discharge. Patient
will follow-up with Dr. Rome, gastroenterology at [facility] in 1 to 2 weeks of discharge. Patient will be discharged home.
Instructions: Chronic Pancreatitis (DC)
Referrals:
Rosi Prado,Myles Andrade MD, Resident [[facility] Resident Year2] - in less than 1 week
Myron Rome MD [Active] - in one to two weeks
Additional Discharge Medication Instructions: Please take cyclobenzaprine 5 mg by mouth 3 times a day as needed for muscle spasms
Please use heating pad as needed for neck and back spasms
Prescriptions:
New
cyclobenzaprine 5 mg tablet
5 mg PO TID PRN (Reason: muscle spasm) Qty: 60 0RF
Continued
sertraline 50 MG tablet
100 mg PO HS
ondansetron 4 mg tablet,disintegrating
8 mg PO TIDPRN PRN (Reason: nausea/vomiting)
lorazepam 1 mg Tablet
1 mg PO HS
Creon 12,000-38,000 -60,000 unit Capsule,Delayed Release(Dr/Ec)
2 cap PO AC
docusate sodium [Colace] 100 mg Capsule
100 mg PO BID
buspirone 7.5 mg Tablet
7.5 mg PO DAILY
hydromorphone [Dilaudid] 4 mg tablet
4 mg PO BIDPRN PRN (Reason: severe pain)
Discharge Orders:
Discharge Patient (As Directed); Ordered 03/12/24
Ordered By: Reggie Zurita
Discharge Date and Time
Print Language: SINHALA
--- NOTE | 2024-03-12 11:32 | CM ---
Patient seen bedside.
Patient for d/c home today.
No needs.
family will transport.
Plan:home no needs.
[2024-03-12 14:34] VITALS: BP 119/71
== END 2024-03-12 15:00 | disposition home or self-care (01) | DRG 871 ==
LOC: 4 WEST ACU 05:09
PROVIDERS: Internal Medicine; Nurse Practitioner Adult Health; Student in an Organized Health Care Education/Training Program; ADMITTING PHYSICIAN Hospitalist; ATTENDING PHYSICIAN Hospitalist; CONSULT PHYSICIAN Internal Medicine; EMERGENCY PHYSICIAN Emergency Medicine; FAMILY PHYSICIAN Nurse Practitioner
DX: A41.9 Sepsis, unspecified organism (principal); K85.90 Acute pancreatitis without necrosis or infection, unspecified; N39.0 Urinary tract infection, site not specified; Q45.3 Other congenital malformations of pancreas and pancreatic duct; Z16.12 Extended spectrum beta lactamase (ESBL) resistance; Z16.19 Resistance to other specified beta lactam antibiotics; K86.1 Other chronic pancreatitis; D50.9 Iron deficiency anemia, unspecified; E04.1 Nontoxic single thyroid nodule; F32.A Depression, unspecified; B96.20 Unspecified Escherichia coli [E. coli] as the cause of diseases classified elsewhere; K31.84 Gastroparesis; D75.839 Thrombocytosis, unspecified; E86.9 Volume depletion, unspecified; F41.9 Anxiety disorder, unspecified; G89.29 Other chronic pain; N28.1 Cyst of kidney, acquired; M62.838 Other muscle spasm; R79.89 Other specified abnormal findings of blood chemistry; Z79.899 Other long term (current) drug therapy; Z87.19 Personal history of other diseases of the digestive system; Z86.19 Personal history of other infectious and parasitic diseases; Z87.74 Personal history of (corrected) congenital malformations of heart and circulatory system; Z87.828 Personal history of other (healed) physical injury and trauma; Z86.718 Personal history of other venous thrombosis and embolism; Z90.49 Acquired absence of other specified parts of digestive tract; Z88.1 Allergy status to other antibiotic agents; Z90.81 Acquired absence of spleen; Z82.49 Family history of ischemic heart disease and other diseases of the circulatory system
CPT/HCPCS: 80048; 80053; 80076; 81003; 81015; 82150; 83605; 83615; 83690; 83735; 85025; 85027; 86235; 87070; 87077; 87086; 87186; 93005; 96361; 96374; 96375; 96376; 99284

== ENCOUNTER 2024-04-19 15:43 | Inpatient (IN) | payer BC, SELFPAY ==
[2024-04-19 10:14] VITALS: BP 127/86
[2024-04-19 11:15] VITALS: BMI 22.4
[2024-04-19] MEDS: NSS 1000 IV ×2 (11:41→11:43)
[2024-04-19] MEDS: ZOSYN 50 IV ×2 (11:41→17:40)
[2024-04-19] MEDS: DILAUDID 1 MG IV (11:42)
[2024-04-19] MEDS: ZOFRAN 4 MG IV ×2 (11:42→17:47)
[2024-04-19 11:52] LABS: Hematocrit 40.9 % (37.0-47.0); Hemoglobin 14.7 g/dL (12.0-16.0); Mean Corp Hgb Conc. 35.9 g/dL (33.0-37.0); Mean Corpuscular Hgb 27.3 pg (27.0-31.0); Mean Platelet Volume 8.2 fL (7.4-10.4); Platelet Count 558 10^3/uL (130-400); Red Blood Cell Count 5.38 10^6/uL (4.20-5.40); Red Cell Dist. Width 14.5 % (11.5-14.5); White Blood Cell Count 26.2 10^3/uL (4.8-10.8)
[2024-04-19 11:57] LABS: Lactic Acid 0.9 mmol/L (0.7-2.0)
[2024-04-19 12:08] LABS: % Basophils 0.3 % (0-2); % Eosinophils 0.6 % (0-6); % Immature Granulocytes 0.8 % (0-0.5); % Lymphocytes 5.6 % (20.5-51.1); % Monocytes 3.6 % (1.7-9.3); % Neutrophils 89.1 % (42.2-75.2); Absolute Basophils 0.1 10^3/uL (0-0.2); Absolute Eosinophils 0.2 10^3/uL (0-0.7); Absolute Immature Granulocytes 0.2 10^3/uL (0-0.05); Absolute Lymphocytes 1.5 10^3/uL (1.2-3.4); Absolute Monocytes 0.9 10^3/uL (0.1-0.6); Absolute Neutrophils 23.3 10^3/uL (1.4-6.5); Nucleated Red Blood Cells % 0 %
[2024-04-19 12:12] LABS: COVID-19 Antigen Negative (Negative)
[2024-04-19] MEDS: OFIRMEV 100 IV (12:13)
[2024-04-19 12:14] LABS: ALT (SGPT) 131 U/L (0-35); AST (SGOT) 187 U/L (14-36); Albumin 5.1 g/dl (3.5-5.0); Alkaline Phosphatase 255 U/L (38-126); Blood Urea Nitrogen 16 mg/dl (7-17); Calcium 10.1 mg/dl (8.4-10.2); Carbon Dioxide 22 mmol/L (22-30); Chloride 94 mmol/L (98-107); Estimated Creatinine Clearance 68 ml/min; Glucose 103 mg/dl (70-99); Potassium 4.4 mmol/L (3.5-5.1); Sodium 133 mmol/L (135-145); Total Bilirubin 0.9 mg/dl (0.2-1.3); Total Protein 9.1 g/dl (6.3-8.2); eGFR > 60.00
[2024-04-19 12:36] LABS: Lipase 162 U/L (23-300)
[2024-04-19 13:07] VITALS: BP 98/67
[2024-04-19 13:19] LABS: Urine Albumin Negative (Neg - Trace); Urine Bilirubin Negative (Negative); Urine Character Clear (Clear); Urine Color Yellow; Urine Glucose Negative (Negative); Urine Ketone Negative (Negative); Urine Leukocyte Negative (Negative); Urine Nitrite Negative (Negative); Urine Occult Blood Negative (Negative); Urine Urobilinogen Negative (Neg - 1+)
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
[2024-04-19] MEDS: TORADOL 15 MG IV ×2 (13:56→21:57)
[2024-04-19] MEDS: DILAUDID 0.5 MG IV (13:57)
[2024-04-19 15:00] VITALS: BP 91/55
[2024-04-19 15:13] VITALS: BP 98/52
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
[2024-04-19 16:40] VITALS: BMI 22.0
--- NOTE | 2024-04-19 16:45 | PTCARENOTE ---
3rd bag of NSS not hung as of yet. First 2 bags ordered are still currently running. Patient has been instructed to keep arm straight a few times so fluid can run. A no-no was applied to help patient remember to keep arm straight.
[2024-04-19 16:50] VITALS: BP 96/60
[2024-04-19] MEDS: LR 1000 IV (17:26)
[2024-04-19] MEDS: DILAUDID 2 MG IV ×2 (17:44→21:45)
[2024-04-19] MEDS: FLUSH (NSS) 1 FLUSH IV (17:44)
[2024-04-19] MEDS: LOVENOX 40 MG SC (17:46)
--- NOTE | 2024-04-19 18:36 | PHA.VAN.IN ---
Assessment
- Assessment
Renal Function: Appears similar to baseline
Maximum Temperature: 102.7
Concomitant Antimicrobials: Piperacillin/Tazobactam
Plan
- Plan
Initial / Loading Dose: Vanco 1500mg Loading Dose
Monitoring: Random level 04/20/24 AM
Pharmacokinetics Vancomycin I
- -
Patient Age: 54
Patient Sex: Female
Vancomycin Day #: 1
Indication: Other
Requesting Provider: Emily Shook
Pertinent Antimicrobial Allergies:
Vancomycin - Redness and Itchiness - MD aware
Height / Weight:
Height 5 ft 1 in
Actual Weight 52.673 kg
- Vital Signs / Lab Results
Temp Pulse Resp BP Pulse Ox
98.7 F 94 16 96/60 97
04/19/24 16:50 04/19/24 16:50 04/19/24 16:50 04/19/24 16:50 04/19/24 16:50
Lab Results - Hematology
04/19/24
11:26
WBC 26.2 H
Lab Results - Chemistry
04/19/24
11:26
BUN 16
Creatinine 0.7
Estimated Creat Clear 68
Albumin 5.1 H
04/19/24 04/19/24
11:26 15:00
Lactic Acid 0.9 Cancelled
Lab Results - Urine
04/19/24
12:57
Urine Nitrite (Reflex) Negative
Leukocyte Esterase Rfl Negative
Microbiology Results
04/19/24 11:26 Influenza Types A & B ([facility]) - Final
Nasal Swab Negative for Influenza A & B, NAAT
Negative results must be combined with clinical observations
and patient history.
Nucleic Acid Amplification test (NAAT)performed on the
[employer] platform.
[2024-04-19] MEDS: VANCOCIN 300 MG IV (19:56)
[2024-04-19] MEDS: VANCOCIN 300 ML IV (19:56)
[2024-04-19] MEDS: COLACE 100 MG PO (20:48)
[2024-04-19] MEDS: ATIVAN 0.5 MG IV (21:16)
[2024-04-19] MEDS: TUMS CHEWABLE TABLET 400 MG PO (21:35)
[2024-04-19] MEDS: PHENERGAN 25 MG IM (21:36)
[2024-04-19] MEDS: NSS (PRESERVATIVE FREE) 0.25 ML IV (21:37)
[2024-04-19] MEDS: ZOLOFT 100 MG PO (21:42)
[2024-04-19 23:17] VITALS: BP 104/61
[2024-04-20] MEDS: ZOSYN 50 IV ×3 (01:14→13:01)
[2024-04-20] MEDS: DILAUDID 2 MG IV ×6 (01:48→22:49)
[2024-04-20] MEDS: TUMS CHEWABLE TABLET 400 MG PO ×3 (01:52→19:32)
[2024-04-20] MEDS: TYLENOL 650 MG PO (02:58)
[2024-04-20] MEDS: LR 1000 IV ×2 (02:59→15:05)
[2024-04-20] MEDS: ZOFRAN 4 MG IV ×3 (06:12→21:09)
[2024-04-20 06:23] LABS: % Basophils 0.5 % (0-2); % Eosinophils 0.4 % (0-6); % Immature Granulocytes 1.8 % (0-0.5); % Lymphocytes 7.2 % (20.5-51.1); % Monocytes 3.1 % (1.7-9.3); Absolute Basophils 0.2 10^3/uL (0-0.2); Absolute Eosinophils 0.1 10^3/uL (0-0.7); Absolute Immature Granulocytes 0.5 10^3/uL (0-0.05); Absolute Lymphocytes 2.1 10^3/uL (1.2-3.4); Absolute Monocytes 0.9 10^3/uL (0.1-0.6); Hematocrit 35.4 % (37.0-47.0); Hemoglobin 12.2 g/dL (12.0-16.0); Mean Corp Hgb Conc. 34.5 g/dL (33.0-37.0); Mean Corpuscular Hgb 27.1 pg (27.0-31.0); Mean Corpuscular Volume 78.5 fL (81.0-99.0); Mean Platelet Volume 8.9 fL (7.4-10.4); Nucleated Red Blood Cells % 0 %; Platelet Count 485 10^3/uL (130-400); Red Blood Cell Count 4.51 10^6/uL (4.20-5.40); Red Cell Dist. Width 14.9 % (11.5-14.5); White Blood Cell Count 28.7 10^3/uL (4.8-10.8)
[2024-04-20 06:24] LABS: PT 15.1 Sec (11.4-14.6)
[2024-04-20 06:58] LABS: ALT (SGPT) 109 U/L (0-35); AST (SGOT) 137 U/L (14-36); Albumin 3.8 g/dl (3.5-5.0); Alkaline Phosphatase 225 U/L (38-126); Blood Urea Nitrogen 16 mg/dl (7-17); Calcium 9.4 mg/dl (8.4-10.2); Carbon Dioxide 24 mmol/L (22-30); Chloride 98 mmol/L (98-107); Estimated Creatinine Clearance 59 ml/min; Glucose 83 mg/dl (70-99); Lipase 57 U/L (23-300); Magnesium 1.7 mg/dl (1.6-2.3); Sodium 135 mmol/L (135-145); Total Bilirubin 1.1 mg/dl (0.2-1.3); Total Protein 6.8 g/dl (6.3-8.2); eGFR > 60.00
--- NOTE | 2024-04-20 07:05 | W.PN.HOSP.TC ---
Today's Communication/Plan
-
consult infectious diseases
follow blood cultures
change antibiotics to cefepime, metronidazole and vancomycin
Assessment / Plan
Assessment / Plan
IMPRESSION:
54-year-old female with recurrent admissions for chronic pancreatitis, complex medical and surgical history, presented to the emergency department with high grade fever, epigastric pain, nausea, vomiting, and generalized weakness.Sepsis with
continuous fever spikes and leukocytosis. Source unclear,
ASSESSMENT
1.Fever of unknown origin/sepsis
2.Chronic pancreatitis
3.Anxiety depression
4.Muscle spasms
PLAN:
1.Fever of unknown origin/sepsis
Patient has high-grade fever, still spiking in the hospital
Leukocytosis present on blood count
History of chronic pancreatitis/pancreatic duct stone/calcification present
Lipase wnl(57)
Elevated liver function test could be due to chronic pancreatitis/common bile duct stone
Chest x-ray shows no infiltrate
Influenza and COVID screening negative
Urine analysis within normal limits
CT scan of abdomen shows no obvious source of infection, has stable splenectomy, stable cholecystectomy, stable pneumobilia
Infectious disease and gastroenterology consult to help in workup of sepsis
Follow Blood cultures sent for assessment of bacteremia
Change antibiotic to cefepime, vancomycin and metronidazole
Infectious diseases consult
2. Chronic pancreatitis
Patient has history of chronic pancreatitis from last 10 years
Patient is on pancrelipase, hydromorphone, ondansetron at home
Patient states she never had a high-grade fever with pancreatitis episodes
Lipase wnl
Patient had pancreaticojejunostomy that helped in past
Plans to discuss pancreatic transplant with Dr Myron Rust
Gastro consult appreciated- will proceed with MRI/MRCP for further evaluation
Miralax BID and senna at HS for constipation
continue pancreatic enzymes-
3. Anxiety depression
Maintain on IV Ativan half milligram every 6 hours
-Continue home dose of oral buspirone
4. Muscle spasms
Patient has muscle spasms in neck for which she takes cyclobenzoprine as needed
Patient recently had a Mohs surgery for skin cancer with a hypertrophic scar on forehead
History of IBS and gastroparesis
CODE STATUS full
DVT prophylaxis heparin 5000 units subcut twice daily
Anticipated Discharge: 24 - 48 hours
Subjective/Interval History
-
Date of Service: April 20, 2024
Patient has IBS, she alternates between diarrhea and constipation.Currently she complains of epigastric pain but no vomiting or nausea
Objective Data
-
Labs:
Laboratory Results
04/20/24
05:52
WBC 28.7 H
Hgb 12.2
Hct 35.4 L
Plt Count 485 H
PT 15.1 H
INR 1.20
Sodium 135
Potassium 4.0
Chloride 98
Carbon Dioxide 24
BUN 16
Creatinine 0.8
Glucose 83
Calcium 9.4
Total Bilirubin 1.1
AST 137 H
ALT 109 H
Alkaline Phosphatase 225 H
Vital Signs:
Vital Signs
Temp Pulse Resp BP Pulse Ox
101.3 F H 103 16 104/61 93
04/20/24 02:25 04/19/24 23:17 04/19/24 23:17 04/19/24 23:17 04/20/24 01:35
I&O
04/19/24 04/20/24 04/21/24
06:59 06:59 06:59
Intake Total 950 / 950
Balance 950 / 950
Review of Systems
-
All other systems: Reviewed and negative
Physical Exam
-
General: Well Developed, Appears in Distress, Pain (on a scale of 0-10 she rates is as 5-6) and Other (hypertrophic scar on forehead from moh's surgery done on saturday)
HEENT: Normocephalic and Atraumatic
Respiratory: Clear to Auscultation
Cardiac: Regular Rhythm and S1/S2
GI: Soft, Normal Bowel Sounds and Tender (epigastric region)
Genito-urinary: No Costovertebral Tender
Musculoskeletal: No Clubbing, No Cyanosis and No Edema
Skin: Warm
Neuro: Awake, Alert and Oriented
Hematologic / Lymphatic: No Lymphadenopathy
Psych: Calm
[2024-04-20 07:25] VITALS: BP 94/48
--- NOTE | 2024-04-20 07:28 | W.PN.UPDATE ---
Update Note
Progress Note Update
54-year-old female presented with abdominal pain and fever
Chest x-ray reviewed by me-no acute changes
CT abdomen and pelvis with IV contrast only-no acute changes, large amount of fecal material, pneumobilia, cholecystectomy, splenectomy single coarse pancreatic calcification stable from 2019. Simple left renal cyst
CVS: S1-S2 normal
Chest: CTA B/L
Abdomen: Soft, mild diffuse epigastric tenderness, Bowel sounds present
Extremities: No edema
# Fever
Cultures have been sent
Chek GRANT abdomen to evaluate biliary system
Urine analysis unremarkable, COVID serology negative
CT of the abdomen pelvis no source of infection evident
On Empiric Antibiotics
History of splenectomy
GI and ID consulted
# Chronic pancreatitis
History of pancreatitis for the past 15 years with history of pancreatic jejunostomy 2016
Narcotic dependent for chronic pain
Also on pancreatic enzymes
She is followed by Dr. Rome at [facility] and is planning to be evaluated at [facility] for potential pancreatic transplant.
Pancreatic divisum and history of pancreatic duct stone
History of celiac nerve block
# Constipation-likely narcotic related-bowel regimen ordered
# Mild hyponatremia-resolved
# Chronically elevated LFTs
# Anxiety and depression-continue lorazepam and sertraline
# Chronic muscle spasms-continue cyclobenzaprine
# History of IBS and gastroparesis
# Hereditary spherocytosis
# History of hepatitis A
# History of C. difficile
# History of VSD repair as a child
# History of splenectomy
# DVT prophylaxis-Lovenox
# Full code
D/W RN
--- NOTE | 2024-04-20 08:17 | PHA.VAN.FU ---
Vancomycin Assessment / Plan
- Assessment
Renal Function: Stable
WBC's are: Trending Up
In the past 24 hrs, patient has been: Febrile
Concomitant Antimicrobials: piperacillin/tazobactam
- Assessment - Therapeutic Drug Monitoring
Random Level: 9 - drawn ~10H after 1500mg loading dose
- Dosing Plan
Adjust Regimen to: Vanc 1000mg Q24H - first dose now then 0600
New Regimen Predicts: AUC (519), Peak (37.3), Trough (10.9)
Patient with history of infusion reaction but appears to have tolerated 1500mg loading dose at normal infusion rate.
Will do standard infusion time for now but may slow infusions, if needed
- Monitoring Plan
No level(s) ordered at this time: consider levels in next few days
- Follow Up
Pharmacy will continue to follow.
Vancomycin Follow UP
- -
Patient Age: 54
Patient Sex: Female
Vancomycin Day #: 2
Indication: Other
Requesting Provider: Emily Shook
Pertinent Antimicrobial Allergies:
Vancomycin - Redness and Itchiness - MD aware
Height / Weight:
Height 5 ft 1 in
Actual Weight 52.673 kg
- Vital Signs / Lab Results
Temp Pulse Resp BP Pulse Ox
101.3 F H 103 16 104/61 93
04/20/24 02:25 04/19/24 23:17 04/19/24 23:17 04/19/24 23:17 04/20/24 01:35
Lab Results - Hematology
04/19/24 04/20/24
11:26 05:52
WBC 26.2 H 28.7 H
Lab Results - Chemistry
04/19/24 04/20/24
11:26 05:52
BUN 16 16
Creatinine 0.7 0.8
Estimated Creat Clear 68 59
Albumin 5.1 H 3.8
04/19/24 04/19/24
11:26 15:00
Lactic Acid 0.9 Cancelled
Lab Results - Urine
04/19/24
12:57
Urine Nitrite (Reflex) Negative
Leukocyte Esterase Rfl Negative
Microbiology Results
04/19/24 11:26 Influenza Types A & B (CHACHA) - Final
Nasal Swab Negative for Influenza A & B, NAAT
Negative results must be combined with clinical observations
and patient history.
Nucleic Acid Amplification test (NAAT)performed on the
Ultromex platform.
Therapeutic Drug Monitoring
Random Vancomycin 9.0 ug/ml 04/20/24 05:52
[2024-04-20] MEDS: ZENPEP DELAYED RELEASE CAPSULE PO ×4 (08:53→17:06)
[2024-04-20] MEDS: VISBIOME 2 CAP PO (08:53)
[2024-04-20] MEDS: MILK OF MAGNESIA 30 ML PO (08:53)
[2024-04-20] MEDS: COLACE 100 MG PO ×2 (08:54→19:24)
[2024-04-20] MEDS: SENOKOT 17.2 MG PO ×2 (08:55→21:10)
[2024-04-20] MEDS: VANCOCIN 200 IV (08:57)
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
--- NOTE | 2024-04-20 10:02 | CM ---
CM following re: discharge planning.
Reviewed pt's chart, met with pt.
Pt is a 54 year old female, admitted with primary dx of Sepsis - POA
Pt reports she lives with and a daughter in a 2SH, no steps, has 4 supportive daughters. Pt described herself as independent in all areas [employer], works, drives.
PCP: Irvin Campo
Pharmacy: [facility].
D/C plan: home with anticipated no needs. to transport at discharge.
CM will follow with discharge plan updates as hospitalization progresses
[2024-04-20] MEDS: PHENERGAN 50.25 MG IV (13:01)
[2024-04-20] MEDS: FLEXERIL 5 MG PO ×2 (13:14→18:21)
[2024-04-20 15:20] VITALS: BP 113/62
[2024-04-20 15:48] VITALS: BMI 22.0
[2024-04-20] MEDS: TORADOL 15 MG IV (17:08)
[2024-04-20] MEDS: STERILE WATER FOR INJECTION 10 ML IV (18:22)
[2024-04-20] MEDS: FLAGYL 500 MG 100 IV (18:22)
[2024-04-20] MEDS: MAXIPIME 2000 MG IV (18:22)
[2024-04-20] MEDS: LOVENOX 40 MG SC (18:22)
[2024-04-20] MEDS: MIRALAX PO (19:39)
[2024-04-20] MEDS: ZOLOFT 100 MG PO (21:11)
[2024-04-20] MEDS: NSS (PRESERVATIVE FREE) 0.25 ML IV (21:12)
[2024-04-20] MEDS: ATIVAN 0.5 MG IV (21:12)
[2024-04-20 22:54] VITALS: BP 113/70
[2024-04-21] MEDS: FLAGYL 500 MG 100 IV ×2 (01:39→09:04)
[2024-04-21] MEDS: LR 1000 IV ×2 (01:39→18:41)
[2024-04-21] MEDS: DILAUDID 2 MG IV ×5 (01:46→20:53)
[2024-04-21] MEDS: PHENERGAN 50.25 MG IV (02:03)
[2024-04-21] MEDS: ATIVAN 0.5 MG IV ×2 (03:16→22:25)
[2024-04-21] MEDS: NSS (PRESERVATIVE FREE) 0.25 ML IV ×2 (03:16→22:25)
[2024-04-21] MEDS: MAXIPIME 2000 MG IV (05:25)
[2024-04-21] MEDS: VANCOCIN 200 IV (05:25)
[2024-04-21] MEDS: STERILE WATER FOR INJECTION 10 ML IV ×3 (05:27→17:06)
[2024-04-21 06:37] LABS: Hematocrit 30.3 % (37.0-47.0); Hemoglobin 10.7 g/dL (12.0-16.0); Mean Corp Hgb Conc. 35.3 g/dL (33.0-37.0); Mean Corpuscular Hgb 28.4 pg (27.0-31.0); Mean Corpuscular Volume 80.4 fL (81.0-99.0); Platelet Count 388 10^3/uL (130-400); Red Blood Cell Count 3.77 10^6/uL (4.20-5.40); Red Cell Dist. Width 14.7 % (11.5-14.5); White Blood Cell Count 26.6 10^3/uL (4.8-10.8)
[2024-04-21 07:07] LABS: ALT (SGPT) 68 U/L (0-35); AST (SGOT) 59 U/L (14-36); Albumin 3.4 g/dl (3.5-5.0); Alkaline Phosphatase 217 U/L (38-126); Blood Urea Nitrogen 11 mg/dl (7-17); Calcium 8.9 mg/dl (8.4-10.2); Carbon Dioxide 23 mmol/L (22-30); Chloride 98 mmol/L (98-107); Estimated Creatinine Clearance 79 ml/min; Glucose 68 mg/dl (70-99); Lipase 67 U/L (23-300); Sodium 134 mmol/L (135-145); Total Bilirubin 0.5 mg/dl (0.2-1.3); Total Protein 6.2 g/dl (6.3-8.2); eGFR > 60.00
[2024-04-21 07:09] LABS: % Basophils 0.4 % (0-2); % Eosinophils 2.1 % (0-6); % Immature Granulocytes 0.7 % (0-0.5); % Lymphocytes 11.1 % (20.5-51.1); % Neutrophils 80.7 % (42.2-75.2); Absolute Basophils 0.1 10^3/uL (0-0.2); Absolute Eosinophils 0.6 10^3/uL (0-0.7); Absolute Immature Granulocytes 0.2 10^3/uL (0-0.05); Absolute Monocytes 1.3 10^3/uL (0.1-0.6); Absolute Neutrophils 21.4 10^3/uL (1.4-6.5); Nucleated Red Blood Cells % 0 %
[2024-04-21 07:11] LABS: Potassium 3.9 mmol/L (3.5-5.1)
[2024-04-21 07:25] VITALS: BP 119/68
--- NOTE | 2024-04-21 08:28 | W.PN.HOSP.TC ---
Today's Communication/Plan
-
As patient having still high-grade fevers and leukocytosis change antibiotic to meropenem
Repeat COVID-[address] to evaluate for mucus ball versus soft tissue mass
TSH to evaluate the right thyroid nodule and the CT of February [address] scan of abdomen with oral contrast to look for the bowels
Bowel regimen before CT to help with the imaging
Procalcitonin levels
Assessment / Plan
Assessment / Plan
IMPRESSION:
54-year-old female with recurrent admissions for chronic pancreatitis, complex medical and surgical history, high grade fever spikes, epigastric pain, nausea, and generalized weakness.Sepsis with continuous fever spikes and leukocytosis. Source
unclear,
ASSESSMENT
1.Fever of unknown origin/sepsis
2.Chronic pancreatitis
3.Anxiety depression
4.Muscle spasms
PLAN:
1.Fever of unknown origin/sepsis
Patient has high-grade fever, still spiking in the hospital
Leukocytosis present on blood count
Recurrent history of pancreatitis for past few years and history of pancreaticojejunostomy done in 2017, helped initially but later the pain returned
Lipase wnl apr 20(57), repeat lipase on apr 21 is 67
Chest x-ray shows no infiltrate
Influenza and COVID screening negative
Urine analysis within normal limits
MRI abdomen done -No significant findings, CBD shows no stone, no dilation in biliary tracts
CT scan of abdomen shows no obvious source of infection, Repeat CT scan of abdomen with oral contrast to visualize the bowels
No growth in blood cultures in last 24hrs
Infectious diseases consult appreciated- Start meropenem empirically since patient not responding to antibiotics
In the CT scan of February 2024, findings were
02/22/[address]: Airway and pharynx: Nodular soft tissue attenuation measuring approximately 1.2 cm transverse by 1.2 cm craniocaudal by 1.3 cm AP occupies the left vallecula. This could represent a mucous ball, given the presence of mild additional
secretions. However, a soft tissue mass cannot be entirely excluded. Mild, likely reactive adenopathy, without significant change from previous ultrasound examination. 8 mm subtle low-attenuation right thyroid nodule
Neck ct with iv contrast to evaluate the mucous ball/soft tissue swelling
TSH to evaluate right thyroid nodule
2. Chronic pancreatitis
Patient has history of chronic pancreatitis from last 10 years
Patient is on pancrelipase, hydromorphone, ondansetron at home
Patient states she never had a high-grade fever with pancreatitis episodes
Lipase wnl
Patient had pancreaticojejunostomy that helped in past in 2017
Plans to discuss pancreatic transplant with Dr Myron Rome at [facility]
Miralax BID and senna at for constipation
continue pancreatic enzymes-
3. Anxiety depression
Maintain on IV Ativan half milligram every 6 hours
4. Muscle spasms
Patient has muscle spasms in neck for which she takes cyclobenzoprine as needed
Patient recently had a Mohs surgery for skin cancer with a hypertrophic scar on forehead
History of IBS and gastroparesis
Hereditary spherocytosis status post splenectomy, up to date
with her splenectomy vaccines per patient.
C difficile x2
CODE STATUS full
DVT prophylaxis heparin 5000 units subcut twice daily
Anticipated Discharge: 24 - 48 hours
Subjective/Interval History
-
Date of Service: April 21, 2024
still complains of epigastric pain but says it is improving with the pain medications and is like a dull ache now
Objective Data
-
Labs:
Laboratory Results
04/21/24
05:53
WBC 26.6 H
Hgb 10.7 L
Hct 30.3 L
Plt Count 388
Sodium 134 L
Potassium 3.9
Chloride 98
Carbon Dioxide 23
BUN 11
Creatinine 0.6
Glucose 68 L
Calcium 8.9
Total Bilirubin 0.5
AST 59 H
ALT 68 H
Alkaline Phosphatase 217 H
Vital Signs:
Vital Signs
Temp Pulse Resp BP Pulse Ox
98.9 F 90 16 113/70 93
04/20/24 22:54 04/20/24 22:54 04/20/24 22:54 04/20/24 22:54 04/20/24 22:54
I&O
04/20/24 04/21/24 04/22/24
06:59 06:59 06:59
Intake Total 950 / 950 3765 / 3765
Balance 950 / 950 3765 / 3765
Review of Systems
-
All other systems: Reviewed and negative
Physical Exam
-
General: Appears in Distress, Pain and Fever (continuous on and off fever spikes)
HEENT: Normocephalic, Atraumatic and Oxygen (breathing on room air)
Respiratory: Clear to Auscultation
Cardiac: Regular Rhythm and S1/S2
GI: Soft and Tender (mild tenderness in the epigastric region)
Genito-urinary: No Costovertebral Tender
Musculoskeletal: No Clubbing, No Cyanosis and No Edema
Skin: Warm, Dry and Other (mohs surgery scar on forehead)
Neuro: Awake, Alert, Oriented and No Motor Deficits
Hematologic / Lymphatic: No Lymphadenopathy
Psych: Calm
[2024-04-21] MEDS: ZENPEP DELAYED RELEASE CAPSULE PO ×2 (09:01→12:17)
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
[2024-04-21] MEDS: COLACE 100 MG PO ×2 (09:03→20:56)
[2024-04-21] MEDS: MIRALAX 17 GRAMS PO (09:04)
[2024-04-21] MEDS: VISBIOME 2 CAP PO (09:04)
[2024-04-21] MEDS: DILAUDID 1 MG IV (09:22)
--- NOTE | 2024-04-21 10:28 | PHA.VAN.FU ---
Vancomycin Assessment / Plan
- Assessment
Renal Function: Stable
WBC's are: Trending Down
In the past 24 hrs, patient has been: Febrile
Concomitant Antimicrobials: cefepime, metronidazole
- Dosing Plan
Adjust Regimen to: Vanc 500mg Q12H starting at 1800
New Regimen Predicts: AUC (400), Peak (23.7), Trough (11)
- Monitoring Plan
No level(s) ordered at this time: consider levels in next few days
- Follow Up
Pharmacy will continue to follow.
Vancomycin Follow UP
- -
Patient Age: 54
Patient Sex: Female
Vancomycin Day #: 3
Indication: Other
Requesting Provider: Emily Shook
Pertinent Antimicrobial Allergies:
Vancomycin - Redness and Itchiness - MD aware
Height / Weight:
Height 5 ft 1 in
Actual Weight 52.673 kg
- Vital Signs / Lab Results
Temp Pulse Resp BP Pulse Ox
99.3 F 94 16 119/68 94
04/21/24 07:25 04/21/24 07:25 04/21/24 07:25 04/21/24 07:25 04/21/24 07:25
Lab Results - Hematology
04/19/24 04/20/24 04/21/24
11:26 05:52 05:53
WBC 26.2 H 28.7 H 26.6 H
Lab Results - Chemistry
04/19/24 04/20/24 04/21/24
11:26 05:52 05:53
BUN 16 16 11
Creatinine 0.7 0.8 0.6
Estimated Creat Clear 68 59 79
Albumin 5.1 H 3.8 3.4 L
04/19/24 04/19/24
11:26 15:00
Lactic Acid 0.9 Cancelled
Microbiology Results
04/19/24 12:57 Blood Culture - Preliminary
Blood/Venous No Growth in 24 hours- Final report to follow
04/19/24 11:26 Blood Culture - Preliminary
Blood/Venous No Growth in 24 hours- Final report to follow
04/19/24 11:26 Influenza Types A & B (CHACHA) - Final
Nasal Swab Negative for Influenza A & B, NAAT
Negative results must be combined with clinical observations
and patient history.
Nucleic Acid Amplification test (NAAT)performed on the
[employer] platform.
Therapeutic Drug Monitoring
Random Vancomycin 9.0 ug/ml 04/20/24 05:52
--- NOTE | 2024-04-21 10:36 | CON.ID ---
Consultation
-
Date/Time Consultation Requested: April 20, 2024 1638
Date/Time Consultation Performed: April 21, 2024 1040
Requesting Provider: Dr. Korin Preciado
Performing Provider: Dr. Leida Lynn
Reason for Consultation: Fever, Leukocytosis
Chief Complaint / Past History
Chief Complaint
Epigastric pain
History of Present Illness
53 year old female with history of splenectomy, chronic pancreatitis, pancreatic divisum with pancreatic stone, history of pancreatojejunostomy, chronic pain syndrome, multiple hospitalizations for recurrent acute on chronic pancreatitis, will be
evaluated for pancreas transplant at [facility]. She presented to the hospital on 04/19/24 with one week history of worsening epigastric pain radiating to the back. + nausea/vomiting. Also developed fevers and chills. No diarrhea. +constipation.
Admission WBC 26.2. Temp 102.2. CT a/p showed no acute pathology, + significant stool in colon. She is started on Vanco/cefepime/metronidazole. Fever and leukocytosis persist. Today, patient reports still with epigastric pain. Now having
formed bowel movements with bowel regimen. UA negative. No current urinary symptoms at this time. No chills. No cough. No headache, sinus congestion or sore throat. No rash. No tick/insect exposure. She continues to have swollen neck glands.
Still with neck spasms/pain since February. No ill-contacts. No recent travel.
Past History
Additional Past Medical History:
Pancreatic stone and pancreatic divisum and recurrent pancreatitis.
History of pancreatojejunostomy 2017.
Irritable bowel syndrome.
Gastroparesis.
Anxiety.
C difficile x2.
Hereditary spherocytosis status post splenectomy, up to date
with her splenectomy vaccines per patient.
Chronic pain
PICC-associated RUE DVT
Cholecystectomy.
VSD repair as a child.
History of liver trauma repair.
Allergy History:
ketamine Allergy (Verified 03/06/24 17:51)
Hallucinations
prochlorperazine Allergy (Verified 03/06/24 17:51)
Shortness of Breath, Muscle Rigidity
prochlorperazine edisylate [From Compazine] Allergy (Verified 03/06/24 17:51)
tardive dyskinesia
prochlorperazine maleate [From Compazine] Allergy (Verified 03/06/24 17:51)
tardive dyskinesia
trimethobenzamide Allergy (Verified 03/06/24 17:51)
Shortness of Breath, muscle rigidity
trimethobenzamide HCl [From Tigan] Allergy (Verified 03/06/24 17:51)
tardive dyskinesia
vancomycin Allergy (Verified 03/06/24 17:51)
RED AND ITCHY
CHG Allergy (Uncoded 03/05/24 22:25)
Unknown
Medications Reviewed: Yes
Current Antibiotics:
Vancomycin d3
Cefepime d3
metronidazole d3
Social History
Tobacco: Non-Smoker
Alcohol: None
Drug: None
Personal:
Family History
Family History: Not Pertinent
Review of Systems
Review of Systems
General: Fever, Chills and Change in Appetite
HEENT: Negative Sinus Problems, Headache or Pharyngitis
Cardiovascular: Negative Chest Pain or Dyspnea
Respiratory: Negative Dyspnea or Cough
Gasteroenterology: Other (no dysphagia); Negative Vomiting or Diarrhea
Genital / Urological: Negative Dysuria or Flank Pain
Skin / Hair / Nails: Negative Rash
Neurological: Negative Dizziness
All systems: All other systems were reviewed and were negative
Vital Signs
Temp Pulse Resp BP Pulse Ox
99.3 F 94 16 119/68 94
04/21/24 07:25 04/21/24 07:25 04/21/24 07:25 04/21/24 07:25 04/21/24 07:25
Physical Exam
Physical Exam
Constitutional: No Acute Distress
Head: Normocephalic (No frontal or maxillary sinus tenderness.)
Eyes: No Conjunctival Hemorrhage and Sclera Anicteric
Pharynx: Benign
Lymph Nodes: Lymphadenopathy (R>L submandibular fullness)
Cardiovascular: Regular Rate and S1/S2
Pulmonary: Clear
Gastrointestinal: Soft, Tender (mild epigastrum) and Non Distended
Genito-Urinary: Negative Jensen or CVA Tenderness
Extremities: Negative Edema
Musculoskeletal: Negative Spinal Tenderness
Neurological: AO x 3; Negative Meningeal Signs
Lab / Diagnostic Study Results
04/21/24 05:53
04/21/24 05:53
Abs Immat Gran (auto) 0.2 10^3/uL (0-0.05) H 04/21/24 05:53
Absolute Neuts (auto) 21.4 10^3/uL (1.4-6.5) H 04/21/24 05:53
Absolute Lymphs (auto) 3.0 10^3/uL (1.2-3.4) 04/21/24 05:53
Absolute Monos (auto) 1.3 10^3/uL (0.1-0.6) H 04/21/24 05:53
Absolute Basos (auto) 0.1 10^3/uL (0-0.2) 04/21/24 05:53
Immature Gran % 0.7 % (0-0.5) H 04/21/24 05:53
Neutrophils % 80.7 % (42.2-75.2) H 04/21/24 05:53
Lymphocytes % 11.1 % (20.5-51.1) L 04/21/24 05:53
Monocytes % 5.0 % (1.7-9.3) 04/21/24 05:53
Eosinophils % 2.1 % (0-6) 04/21/24 05:53
Basophils % 0.4 % (0-2) 04/21/24 05:53
PT 15.1 Sec (11.4-14.6) H 04/20/24 05:52
INR 1.20 04/20/24 05:52
Lactic Acid Cancelled 04/19/24 15:00
Microbiology Results
Micro:
04/19/24 12:57 Blood Culture - Preliminary
Blood/Venous No Growth in 24 hours- Final report to follow
04/19/24 11:26 Blood Culture - Preliminary
Blood/Venous No Growth in 24 hours- Final report to follow
04/19/24 11:26 Influenza Types A & B (CHACHA) - Final
Nasal Swab Negative for Influenza A & B, NAAT
Negative results must be combined with clinical observations
and patient history.
Nucleic Acid Amplification test (NAAT)performed on the
[employer] platform.
04/21/24 MRI ABD: No acute inflammatory changes of the pancreas. Trace bilateral pleural effusions.
04/19/24 CXR: No acute disease of the chest
04/19/24 CT a/p with IV contrast: No acute pathology of the abdomen or pelvis identified. Large amount of fecal material throughout the colon. Progressed
02/22/[address]: Airway and pharynx: Nodular soft tissue attenuation measuring approximately 1.2 cm transverse by 1.2 cm craniocaudal by 1.3 cm AP occupies the left vallecula. This could represent a mucous ball, given the presence of mild additional
secretions. However, a soft tissue mass cannot be entirely excluded. Mild, likely reactive adenopathy, without significant change from previous ultrasound examination. 8 mm subtle low-attenuation right thyroid nodule. Consider nonemergent thyroid
ultrasound follow-up.
Assessment / Plan
# Fever and leukocytosis despite broad-spectrum abx's
- No infectious etiology identified to date.
UA neg, bcx's neg, CXR neg, CT a/p stable pancreas, ABD MRI no obstructing bile duct stones.
No diarrhea. On bowel regimen for constipation.
- Repeat CT neck to follow-up on previous mass-like opacity.
- For repeat CT a/p with oral contrast, as per hospitalist.
- Repeat UA reflex Ucx. (UTI is diagnosis of exclusion as pt asymptomatic.).
- DC Vanco, cefepime, metronidazole as pt not responding.
- Start empiric meropenem pending further workup.
- Trend wbc, temps.
# Acute on chronic pancreatitis
- CT a/p: no necrosis/abscess
-?possible source of fever and leukocytosis
- No indication for abx.
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
Pancreatic stone and pancreatic divisum and recurrent pancreatitis.
History of pancreatojejunostomy 2017.
Irritable bowel syndrome.
Gastroparesis.
Anxiety.
C difficile x2.
Hereditary spherocytosis status post splenectomy, up to date
with her splenectomy vaccines per patient.
Chronic pain
PICC-associated RUE DVT
Cholecystectomy.
VSD repair as a child.
History of liver trauma repair.
Care Review
Plan reviewed with: Physician (Dr. Preciado)
[2024-04-21 11:06] LABS: Procalcitonin 0.32 ng/ml (0.0-0.25)
--- NOTE | 2024-04-21 11:45 | CM ---
Reviewed the chart notes. Patient continues on clear liquid diet. IV Dilaudid for pain management. IV abx changed to IV Meropenem. CM continues to be available to patient/family and is monitoring medical plan for needs at discharge.
Plan: Discharge to home when medically stable. No needs anticipated at this time.
[2024-04-21 12:22] LABS: TSH 0.17 uIU/ml (0.47-4.68)
[2024-04-21 13:05] VITALS: BP 149/77
[2024-04-21] MEDS: MERREM 500 MG IV ×2 (13:22→17:06)
--- NOTE | 2024-04-21 13:39 | W.PN.UPDATE ---
Update Note
Progress Note Update
54-year-old female presented with abdominal pain and fever
Chest x-ray reviewed by me-no acute changes
CT abdomen and pelvis with IV contrast only-no acute changes, large amount of fecal material, pneumobilia, cholecystectomy, splenectomy single coarse pancreatic calcification stable from 2020. Simple left renal cyst
CVS: S1-S2 normal
Chest: CTA B/L
Abdomen: Soft, mild diffuse epigastric tenderness, Bowel sounds present
Extremities: No edema
# Fever
Antibiotics broadened
CT of the abdomen and pelvis with p.o. contrast, CT of the neck per discussion with infectious disease
Urine analysis unremarkable, COVID serology negative
CT of the abdomen pelvis no source of infection evident
History of splenectomy
Procalcitonin level elevated
GI and ID consulted and following
# Low TSH. Repeat TSH with T4 levels
# Chronic pancreatitis
History of pancreatitis for the past 15 years with history of pancreatic jejunostomy 2016
Narcotic dependent for chronic pain
Also on pancreatic enzymes
She is followed by Dr. Rome at [facility] and is planning to be evaluated at [facility] for potential pancreatic transplant.
Pancreatic divisum and history of pancreatic duct stone
History of celiac nerve block
# Constipation-likely narcotic related-bowel regimen ordered Pt says she has had BMs.
# Mild hyponatremia-resolved
# Chronically elevated LFTs
# Anxiety and depression-continue lorazepam and sertraline
# Chronic muscle spasms-continue cyclobenzaprine
# History of IBS and gastroparesis
# Hereditary spherocytosis
# History of hepatitis A
# History of C. difficile
# History of VSD repair as a child
# History of splenectomy
# DVT prophylaxis-Lovenox
# Full code
D/W RN
D/W ID
D/W Radiology
[2024-04-21] MEDS: ZOFRAN 4 MG IV (13:53)
[2024-04-21] MEDS: MILK OF MAGNESIA 30 ML PO (13:53)
[2024-04-21 15:20] VITALS: BP 134/75
[2024-04-21 16:54] LABS: COVID-19 Antigen Negative (Negative)
[2024-04-21] MEDS: ZENPEP DELAYED RELEASE CAPSULE 2 CAPSULE PO (17:06)
[2024-04-21] MEDS: LOVENOX 40 MG SC (17:07)
[2024-04-21 18:04] LABS: Urine Albumin Negative (Neg - Trace); Urine Bilirubin Negative (Negative); Urine Character Clear (Clear); Urine Color Yellow; Urine Glucose Negative (Negative); Urine Ketone 1+ (Negative); Urine Leukocyte Negative (Negative); Urine Nitrite Negative (Negative); Urine Occult Blood Trace (Negative); Urine Urobilinogen Negative (Neg - 1+)
[2024-04-21 18:39] LABS: Urine Bacteria Few (Negative); Urine White Cell 0-2 /HPF (0-5)
[2024-04-21] MEDS: TORADOL 15 MG IV (18:40)
[2024-04-21] MEDS: LR IV (20:54)
[2024-04-21] MEDS: MIRALAX PO ×2 (20:57→20:58)
[2024-04-21] MEDS: ZOLOFT 100 MG PO (22:26)
[2024-04-21] MEDS: SENOKOT 17.2 MG PO (22:27)
[2024-04-21 23:27] VITALS: BP 116/64
[2024-04-22] MEDS: STERILE WATER FOR INJECTION 10 ML IV ×5 (00:40→23:19)
[2024-04-22] MEDS: MERREM 500 MG IV ×5 (00:40→23:19)
[2024-04-22] MEDS: DILAUDID 1 MG IV ×2 (00:52→05:28)
[2024-04-22] MEDS: FLEXERIL 5 MG PO ×2 (04:45→22:08)
[2024-04-22] MEDS: LR 1000 IV ×2 (04:47→16:09)
[2024-04-22] MEDS: ZOFRAN 4 MG IV (05:43)
[2024-04-22] MEDS: NSS (PRESERVATIVE FREE) 0.25 ML IV ×2 (05:57→22:09)
[2024-04-22] MEDS: ATIVAN 0.5 MG IV ×3 (05:57→22:08)
[2024-04-22] MEDS: OMNIPAQUE 50 ML PO (05:59)
[2024-04-22 06:37] LABS: % Basophils 0.6 % (0-2); % Eosinophils 6.4 % (0-6); % Immature Granulocytes 1.8 % (0-0.5); % Lymphocytes 12.2 % (20.5-51.1); % Monocytes 5.8 % (1.7-9.3); % Neutrophils 73.2 % (42.2-75.2); Absolute Basophils 0.1 10^3/uL (0-0.2); Absolute Eosinophils 1.3 10^3/uL (0-0.7); Absolute Immature Granulocytes 0.4 10^3/uL (0-0.05); Absolute Lymphocytes 2.4 10^3/uL (1.2-3.4); Absolute Monocytes 1.2 10^3/uL (0.1-0.6); Absolute Neutrophils 14.7 10^3/uL (1.4-6.5); Hematocrit 28.9 % (37.0-47.0); Hemoglobin 10.4 g/dL (12.0-16.0); Mean Corpuscular Hgb 28.3 pg (27.0-31.0); Mean Corpuscular Volume 78.7 fL (81.0-99.0); Mean Platelet Volume 9.4 fL (7.4-10.4); Nucleated Red Blood Cells % 0.1 %; Platelet Count 442 10^3/uL (130-400); Red Blood Cell Count 3.67 10^6/uL (4.20-5.40); Red Cell Dist. Width 14.6 % (11.5-14.5)
[2024-04-22 06:43] LABS: INR 1.09
[2024-04-22 07:02] LABS: ALT (SGPT) 53 U/L (0-35); AST (SGOT) 39 U/L (14-36); Albumin 3.4 g/dl (3.5-5.0); Alkaline Phosphatase 201 U/L (38-126); Blood Urea Nitrogen 8 mg/dl (7-17); Calcium 8.6 mg/dl (8.4-10.2); Carbon Dioxide 25 mmol/L (22-30); Chloride 101 mmol/L (98-107); Estimated Creatinine Clearance 79 ml/min; Glucose 95 mg/dl (70-99); Potassium 4.1 mmol/L (3.5-5.1); Sodium 139 mmol/L (135-145); Total Bilirubin 0.5 mg/dl (0.2-1.3); Total Protein 6.5 g/dl (6.3-8.2); eGFR > 60.00
[2024-04-22 07:29] LABS: TSH Reflex To Free T4 0.36 uIU/ml (0.47-4.68)
[2024-04-22 07:53] VITALS: BP 142/78
[2024-04-22] MEDS: ZENPEP DELAYED RELEASE CAPSULE PO (07:56)
[2024-04-22] MEDS: DILAUDID 2 MG IV ×5 (09:05→23:26)
[2024-04-22 09:11] LABS: Free T4 1.23 ng/dl (0.78-2.19)
[2024-04-22] MEDS: VISBIOME 2 CAP PO (09:18)
[2024-04-22] MEDS: COLACE 100 MG PO ×2 (09:18→20:26)
[2024-04-22] MEDS: MIRALAX PO ×3 (09:18→21:00)
--- NOTE | 2024-04-22 10:50 | CM ---
Reviewed the chart notes and spoke with the patient at the bedside. The patient is now on low fat diet, IV Dilaudid for pain management and IV fluids. CM continues to be available to patient/family and is monitoring medical plan for needs at
discharge.
Plan: Discharge to home when medically stable. No needs anticipated at discharge.
--- NOTE | 2024-04-22 11:06 | W.PN.GI.CBS2 ---
Today's Communication / Plan
-
increase panc enzymes, gi will sign off
Assessment / Plan
-
54-year-old female well-known to our service who has chronic pancreatitis, gastroparesis, pancreatic duct stones with prior stenting, pancreatic divisum status post pancreaticojejunostomy with a PSO procedure status post celiac nerve block followed
by Dr. Rome. Re-admitted 04/19 with significant abdominal pain. Unfortunately this time she has criteria for sepsis with fevers up to 103 with a significant leukocytosis of 28,000. She was recently here in February with again acute on chronic
pancreatitis and noted to have Klebsiella UTI with ESBL. CT on admission shows a large amount of stool, stable pneumobilia, there is a stone in the pancreatic head around the region of the common bile duct measuring 6 mm. MRI 04/20 showed no stone
I d/w rads (stone on CT was actually a calcification).
Suspect abd pain is due to chronic panc - will increase panc enzymes to 3 capsules with meals.
Fever work up per ID.
GI will sign off. Pls call with ?s.
OP follow up with Dr. Rome and [facility] scheduled end of April
Subjective
Subjective
Date of Service: April 22, 2024
still with abd pain, last fever 04/20
Objective
Data Reviewed
Laboratory Data:
Laboratory Results
04/22/24 06:05
04/22/24 06:05
Laboratory Results
PT 14.0 Sec (11.4-14.6) 04/22/24 06:05
INR 1.09 04/22/24 06:05
Magnesium 1.7 mg/dl (1.6-2.3) 04/20/24 05:52
Total Bilirubin 0.5 mg/dl (0.2-1.3) 04/22/24 06:05
AST 39 U/L (14-36) H 04/22/24 06:05
ALT 53 U/L (0-35) H 04/22/24 06:05
Alkaline Phosphatase 201 U/L (38-126) H 04/22/24 06:05
Lipase 67 U/L (23-300) 04/21/24 05:53
Vital Signs and I&O:
Vital Signs
Temp Pulse Resp BP Pulse Ox
99.3 F 86 14 142/78 96
04/22/24 07:53 04/22/24 07:53 04/22/24 07:53 04/22/24 07:53 04/22/24 09:47
I&O
04/21/24 04/22/24 04/23/24
06:59 06:59 06:59
Intake Total 3765 / 3765 2980 / 2980
Output Total 300 / 300
Balance 3765 / 3765 2680 / 2680
Physical Exam
Physical Exam
GI: Non Distended and Non Tender
[2024-04-22] MEDS: ZENPEP DELAYED RELEASE CAPSULE 3 CAPSULE PO ×2 (11:32→17:11)
--- NOTE | 2024-04-22 13:33 | W.PN.ID1 ---
Date of Service
Date of Service: April 22, 2024
Today's Communication
ENT eval.
Assessment / Plan
# Soft tissue mass in vallecula and adenoid.
- ENT to evaluate.
# Fever and leukocytosis despite broad-spectrum abx's
- No infectious etiology identified to date.
UA neg, bcx's neg, CXR neg, CT a/p stable pancreas, ABD MRI no obstructing bile duct stones.
No diarrhea. On bowel regimen for constipation.
repeat CT a/p with oral contrast, unremarkable
- Repeat UA negative
- ?Neck mass source of fever and leukocytosis.
- DC'd Vanco, cefepime, metronidazole as pt not responding.
- Currently empiric meropenem (d2) pending ENT eval.
- Trend wbc, temps.
# Acute on chronic pancreatitis/pain
- CT a/p: no necrosis/abscess
-?possible source of fever and leukocytosis
- No indication for abx.
# Herpes labialis
- Ordered Valacyclovir 2g po q12 x 2 doses.
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
Pancreatic stone and pancreatic divisum and recurrent pancreatitis.
History of pancreatojejunostomy 2016.
Irritable bowel syndrome.
Gastroparesis.
Anxiety.
C difficile x2.
Hereditary spherocytosis status post splenectomy, up to date
with her splenectomy vaccines per patient.
Chronic pain
PICC-associated RUE DVT
Cholecystectomy.
VSD repair as a child.
History of liver trauma repair.
Chief Complaint
-: Fever and Leukocytosis
Subjective / Review of Systems
Still c/o epigastric pain.
No diarrhea. No urinary sxs.
Vital Signs / Physical Exam
Vital Signs
Vital Signs
Temp Pulse Resp BP Pulse Ox
99.3 F 86 14 142/78 96
04/22/24 07:53 04/22/24 07:53 04/22/24 07:53 04/22/24 07:53 04/22/24 09:47
Physical Exam
Constitutional: No Acute Distress and Comfortable
Eyes: No Conjunctival Hemorrhage and Sclera Anicteric
Oropharyngeal: Other (upper lip vesicular lesions)
Lymph Nodes: Lymphadenopathy (bilateral submandibular )
Cardiovascular: Regular Rate and S1/S2
Pulmonary: Clear
Gastrointestinal: Soft and Tender (mild epigastrum)
Extremities: Negative Edema
Neurological: AO x 3
Objective Data
Lab Data
Lab Results
04/22/24 06:05
04/22/24 06:05
PT 14.0 Sec (11.4-14.6) 04/22/24 06:05
INR 1.09 04/22/24 06:05
Estimated Creat Clear 79 ml/min 04/22/24 06:05
Lactic Acid Cancelled 04/19/24 15:00
Total Bilirubin 0.5 mg/dl (0.2-1.3) 04/22/24 06:05
AST 39 U/L (14-36) H 04/22/24 06:05
ALT 53 U/L (0-35) H 04/22/24 06:05
Alkaline Phosphatase 201 U/L (38-126) H 04/22/24 06:05
Most recent labs reviewed.
Micro Results:
04/19/24 12:57 Blood Culture - Preliminary
Blood/Venous No Growth in 72 hours- Final report to follow
04/19/24 11:26 Blood Culture - Preliminary
Blood/Venous No Growth in 72 hours- Final report to follow
04/19/24 11:26 Influenza Types A & B (CHACHA) - Final
Nasal Swab Negative for Influenza A & B, NAAT
Negative results must be combined with clinical observations
and patient history.
Nucleic Acid Amplification test (NAAT)performed on the
[employer] platform.
04/22/[address]: There is increased adenoidal hypertrophy and heterogeneous soft tissue enhancement compared to prior. Persistent soft tissue fullness within the vallecula asymmetric the left. Associated mild airway narrowing in the oropharynx,
slightly progressed. Findings are suspicious for neoplasm and direct visualization is recommended. Slightly enlarged bilateral cervical chain lymph nodes, similar to prior and may be reactive or metastatic in etiology.
04/21/24 MRI ABD: No acute inflammatory changes of the pancreas. Trace bilateral pleural effusions.
04/19/24 CXR: No acute disease of the chest
04/19/24 CT a/p with IV contrast: No acute pathology of the abdomen or pelvis identified. Large amount of fecal material throughout the colon. Progressed
02/22/[address]: Airway and pharynx: Nodular soft tissue attenuation measuring approximately 1.2 cm transverse by 1.2 cm craniocaudal by 1.3 cm AP occupies the left vallecula. This could represent a mucous ball, given the presence of mild additional
secretions. However, a soft tissue mass cannot be entirely excluded. Mild, likely reactive adenopathy, without significant change from previous ultrasound examination. 8 mm subtle low-attenuation right thyroid nodule. Consider nonemergent thyroid
ultrasound follow-up.
Care Review
Plan reviewed with: Physician (Dr. Preciado)
--- NOTE | 2024-04-22 13:33 | W.PN.HOSP.TC ---
Addendum entered and electronically signed by Korin Preciado MD 04/22/24 14:13:
54-year-old female presented with abdominal pain and fever
Chest x-ray reviewed by me-no acute changes
CT abdomen and pelvis with IV contrast only-no acute changes, large amount of fecal material, pneumobilia, cholecystectomy, splenectomy single coarse pancreatic calcification stable from 2019. Simple left renal cyst
Herpes lesions on upper lip
CVS: S1-S2 normal
Chest: CTA B/L
Abdomen: Soft, gastric area soft. Patient states she has pain, Bowel sounds present
Extremities: No edema
# Fever
Antibiotics broadened
CT of the abdomen and pelvis with p.o. contrast, CT of the neck per discussion with infectious disease
Urine analysis unremarkable, COVID serology negative
CT of the abdomen pelvis no source of infection evident repeat blood also negative
History of splenectomy
Procalcitonin level elevated
GI and ID consulted and following
Fevers are down with broadening of antibiotics
Source is still unclear
Urinalysis without acute infection
Soft tissue density in the neck-ENT consulted
#Upper lip Herpes lesions- Topical Acyclovir. DOnt think this is the source of fever.
# Low TSH.with normal T4. Likely euthyroid sick syndrome.
# Chronic pancreatitis
History of pancreatitis for the past 15 years with history of pancreatic jejunostomy 2016
Narcotic dependent for chronic pain
Also on pancreatic enzymes
She is followed by Dr. Rome at [facility] and is planning to be evaluated at [facility] for potential pancreatic transplant.
Pancreatic divisum and history of pancreatic duct stone
History of celiac nerve block
# Constipation-likely narcotic related-bowel regimen ordered Pt says she has had BMs.
# Mild hyponatremia-resolved
# Chronically elevated LFTs
# Anxiety and depression-continue lorazepam and sertraline
# Chronic muscle spasms-continue cyclobenzaprine
# History of IBS and gastroparesis
# Hereditary spherocytosis
# History of hepatitis A
# History of C. difficile
# History of VSD repair as a child
# History of splenectomy
# DVT prophylaxis-Lovenox
# Full code
D/W RN
Original Note:
Today's Communication/Plan
-
Consult ENT to help evaluate neck mass
Zovirax topical for cold sores
Assessment / Plan
Assessment / Plan
IMPRESSION:
54-year-old female with recurrent admissions for chronic pancreatitis, complex medical and surgical history, high grade fever spikes, epigastric pain, nausea, and generalized weakness.Sepsis with continuous fever spikes and leukocytosis. Source
unclear,
ASSESSMENT
1.Fever of unknown origin/sepsis
2.Chronic pancreatitis
3.Anxiety depression
4.Muscle spasms
PLAN:
1.Fever of unknown origin/sepsis
Patient has high-grade fever, still spiking in the hospital
Leukocytosis present on blood count
Recurrent history of pancreatitis for past few years and history of pancreaticojejunostomy done in 2017, helped initially but later the pain returned
Lipase wnl apr 20(57), repeat lipase on apr 21 is 67
Chest x-ray shows no infiltrate
Influenza and COVID screening negative, repeat covid screen on 04/21 also negative
Urine analysis within normal limits
MRI abdomen done -No significant findings, CBD shows no stone, no dilation in biliary tracts, Normal caliber pancreatic duct.
CT scan of abdomen shows no obvious source of infection, Repeat CT scan of abdomen with oral contrast to visualize the bowels showed no significant findings
No growth in blood cultures in last 72hrs
Infectious diseases consult appreciated- Start meropenem empirically since patient not responding to antibiotics
Neck ct with iv contrast to evaluate the mucous ball/soft tissue swelling found in ct of february [address] NECK IMPRESSION:(04/22) There is increased adenoidal hypertrophy and heterogeneous soft tissue enhancement compared to prior. Persistent soft tissue fullness within the vallecula asymmetric the left. Associated mild airway narrowing in the
oropharynx, slightly progressed. Findings are suspicious for neoplasm and direct visualization is recommended.
ENT consultation to evaluate the neck mass
TSH to evaluate right thyroid nodule, TSH is slightly decreased possibly secondary to euthyroid sick sinus syndrome
2. Chronic pancreatitis
Patient has history of chronic pancreatitis from last 10 years
Patient is on pancrelipase, hydromorphone, ondansetron at home
Patient states she never had a high-grade fever with pancreatitis episodes
Lipase wnl
Patient had pancreaticojejunostomy that helped in past in 2017
Plans to discuss pancreatic transplant with Dr Myron Rome at [facility]
On triple bowel regimen to prevent opioid induced constipation(sennakot, Miralax, Colace)
Increase pancreatic enzymes to 3 capsules with meals
MRI 04/20 showed no stone I d/w rads (stone on CT was actually a calcification).
3. Anxiety depression
Maintain on IV Ativan half milligram every 6 hours
4. Muscle spasms
Patient has muscle spasms in neck for which she takes cyclobenzoprine as needed
Patient recently had a Mohs surgery for skin cancer with a hypertrophic scar on forehead
History of IBS and gastroparesis
Hereditary spherocytosis status post splenectomy, up to date
with her splenectomy vaccines per patient.
C difficile x2
CODE STATUS full
DVT prophylaxis heparin 5000 units subcut twice daily
Anticipated Discharge: 24 - 48 hours
Subjective/Interval History
-
Date of Service: April 22, 2024
Patient still has some epigastric pain,no fever in last 24hours, feels weak and exhausted.
Objective Data
-
Labs:
Laboratory Results
04/22/24
06:05
WBC 20.0 H
Hgb 10.4 L
Hct 28.9 L
Plt Count 442 H
PT 14.0
INR 1.09
Sodium 139
Potassium 4.1
Chloride 101
Carbon Dioxide 25
BUN 8
Creatinine 0.5 L
Glucose 95
Calcium 8.6
Total Bilirubin 0.5
AST 39 H
ALT 53 H
Alkaline Phosphatase 201 H
Vital Signs:
Vital Signs
Temp Pulse Resp BP Pulse Ox
99.3 F 86 14 142/78 96
04/22/24 07:53 04/22/24 07:53 04/22/24 07:53 04/22/24 07:53 04/22/24 09:47
I&O
04/21/24 04/22/24 04/23/24
06:59 06:59 06:59
Intake Total 3765 / 3765 2980 / 2980
Output Total 300 / 300
Balance 3765 / 3765 2680 / 2680
Review of Systems
-
All other systems: Reviewed and negative
Physical Exam
-
General: Pain (mild tenderness in abdomen), Conversant and Appears Chronically Ill
HEENT: Normocephalic, Atraumatic, Neck Non Tender (some lymph nodes in submandibular region) and Other (surgery scar ashley on left side of forehead)
Respiratory: Clear to Auscultation
Cardiac: Regular Rhythm and S1/S2
GI: Soft, Nontender, Nondistended and Normal Bowel Sounds
Genito-urinary: No Costovertebral Tender
Musculoskeletal: No Clubbing, No Cyanosis and No Edema
Skin: Warm and Dry
Neuro: Awake, Alert and Oriented
Hematologic / Lymphatic: Lymphadenopathy (neck below chin on left side)
Psych: Calm
[2024-04-22] MEDS: VALTREX 2000 MG PO (14:34)
[2024-04-22] MEDS: ZOVIRAX OINTMENT 5% 1 APPLIC TOPICAL ×3 (14:54→22:17)
[2024-04-22 15:26] VITALS: BP 108/59
--- NOTE | 2024-04-22 15:28 | CON.MD ---
Consultation - Medical
-
Patient seen and evaluated at the bedside.
Full consult dictated.
A/A-80-lsve-old female with chronic pancreatitis, noted to have soft tissue and vallecula on CT of neck.
-Patient with fever of unknown origin.
-CT of neck showed soft tissue and left greater than right vallecula along with some increased lymphoid activity throughout the nasopharynx.
-Patient with elevated white blood cell counts as well, greater than 20.
-Continues to spike temperatures throughout her stay.
-Patient feels fairly good from a head and neck perspective, does have some mild mucus in her throat with some mild hoarseness.
-Flexible fiberoptic laryngoscopy at the bedside showed some increased lymphoid tissue at base of tongue, left greater than right along with some mild mucosal edema of larynx.
-This is likely benign, however could represent lymphoma.
-I did discuss this possibility with the patient.
-Will discuss with medical team, may need to consider biopsy of base of tongue tissue for diagnosis.
[2024-04-22] MEDS: LOVENOX 40 MG SC (17:16)
[2024-04-22] MEDS: SENOKOT 17.2 MG PO (22:08)
[2024-04-22] MEDS: ZOLOFT 100 MG PO (22:08)
[2024-04-22 23:15] VITALS: BP 114/63
[2024-04-22] MEDS: TORADOL 15 MG IV (23:19)
[2024-04-22 23:56] VITALS: BP 114/63
[2024-04-23] VITALS (10 sets, daily range): BP systolic 95–154; BP diastolic 57–84
[2024-04-23] MEDS: VALTREX 2000 MG PO (01:26)
[2024-04-23] MEDS: DILAUDID 1 MG IV ×3 (02:52→21:00)
[2024-04-23] MEDS: LR 1000 IV (03:15)
[2024-04-23] MEDS: ATIVAN 0.5 MG IV ×3 (04:13→21:53)
[2024-04-23] MEDS: NSS (PRESERVATIVE FREE) 0.25 ML IV ×2 (04:15→12:13)
[2024-04-23] MEDS: STERILE WATER FOR INJECTION 10 ML IV (05:32)
[2024-04-23] MEDS: MERREM 500 MG IV (05:32)
[2024-04-23] MEDS: VISBIOME 2 CAP PO (09:04)
[2024-04-23] MEDS: ZOVIRAX OINTMENT 5% 1 APPLIC TOPICAL ×4 (09:05→21:55)
[2024-04-23] MEDS: MIRALAX 17 GRAMS PO ×2 (09:05→20:37)
[2024-04-23] MEDS: COLACE 100 MG PO ×2 (09:05→20:37)
[2024-04-23] MEDS: ZENPEP DELAYED RELEASE CAPSULE 3 CAPSULE PO ×2 (09:05→17:23)
[2024-04-23] MEDS: DILAUDID 2 MG IV (09:27)
--- NOTE | 2024-04-23 10:06 | W.PN.ID1 ---
Date of Service
Date of Service: April 23, 2024
Today's Communication
DC abx and observe.
Assessment / Plan
# Head and Neck painless LAD
- ?Source of fever/leukocytosis
- ENT examination of the pharynx revealed moderate to severe lymphoid tissue present at the left greater than right base of tongue. There was some mild vallecular filling of the left side from the lymphoid tissue.
- Pt scheduled for biopsy today.
# Fever and leukocytosis despite broad-spectrum abx's, unclear etiology at this time
- Fever resolving. Leukocytosis trending down.
- No infectious etiology identified to date.
UA neg, bcx's neg, CXR neg, CT a/p stable pancreas, ABD MRI no obstructing bile duct stones.
No diarrhea. On bowel regimen for constipation.
repeat CT a/p with oral contrast, unremarkable
- Repeat UA negative
- DC meropenem
- Trend wbc, temps.
# Acute on chronic pancreatitis/pain
- CT a/p: no necrosis/abscess
- No indication for abx.
# Herpes labialis
- s/p Valacyclovir 2g po q12 x 2 doses.
# Conditions HE[employer] SE[employer]
Pancreatic stone and pancreatic divisum and recurrent pancreatitis.
History of pancreatojejunostomy 2016.
Irritable bowel syndrome.
Gastroparesis.
Anxiety.
C difficile x2.
Hereditary spherocytosis status post splenectomy, up to date
with her splenectomy vaccines per patient.
Chronic pain
PICC-associated RUE DVT
Cholecystectomy.
VSD repair as a child.
History of liver trauma repair.
Chief Complaint
-: Fever and Leukocytosis
Subjective / Review of Systems
Her father last night. She wants to go home soon.
For adenoid bx today.
Still with epigastric pain - stable.
Vital Signs / Physical Exam
Vital Signs
Vital Signs
Temp Pulse Resp BP Pulse Ox
98.1 F 84 16 137/78 97
04/23/24 07:43 04/23/24 07:43 04/23/24 07:43 04/23/24 07:43 04/23/24 07:43
Selected Entries
04/22/24
23:15
Temp 100.6 F H
Physical Exam
Constitutional: Non-toxic
Oropharyngeal: Other (vesicle on upper and lower lip)
Pulmonary: Clear
Gastrointestinal: Soft, Tender (mild epigastric) and Non Distended
Extremities: Negative Edema
Neurological: AO x 3
Lines: PICC (RUE intact)
Objective Data
Lab Data
PT 14.0 Sec (11.4-14.6) 04/22/24 06:05
INR 1.09 04/22/24 06:05
Estimated Creat Clear 79 ml/min 04/22/24 06:05
Lactic Acid Cancelled 04/19/24 15:00
Total Bilirubin 0.5 mg/dl (0.2-1.3) 04/22/24 06:05
AST 39 U/L (14-36) H 04/22/24 06:05
ALT 53 U/L (0-35) H 04/22/24 06:05
Alkaline Phosphatase 201 U/L (38-126) H 04/22/24 06:05
Most recent labs reviewed.
Micro Results:
04/19/24 12:57 Blood Culture - Preliminary
Blood/Venous No Growth in 72 hours- Final report to follow
04/19/24 11:26 Blood Culture - Preliminary
Blood/Venous No Growth in 72 hours- Final report to follow
04/19/24 11:26 Influenza Types A & B ([facility]) - Final
Nasal Swab Negative for Influenza A & B, NAAT
Negative results must be combined with clinical observations
and patient history.
Nucleic Acid Amplification test (NAAT)performed on the
[employer] platform.
04/22/[address]: There is increased adenoidal hypertrophy and heterogeneous soft tissue enhancement compared to prior. Persistent soft tissue fullness within the vallecula asymmetric the left. Associated mild airway narrowing in the oropharynx,
slightly progressed. Findings are suspicious for neoplasm and direct visualization is recommended. Slightly enlarged bilateral cervical chain lymph nodes, similar to prior and may be reactive or metastatic in etiology.
04/21/24 MRI ABD: No acute inflammatory changes of the pancreas. Trace bilateral pleural effusions.
04/19/24 CXR: No acute disease of the chest
04/19/24 CT a/p with IV contrast: No acute pathology of the abdomen or pelvis identified. Large amount of fecal material throughout the colon. Progressed
02/22/[address]: Airway and pharynx: Nodular soft tissue attenuation measuring approximately 1.2 cm transverse by 1.2 cm craniocaudal by 1.3 cm AP occupies the left vallecula. This could represent a mucous ball, given the presence of mild additional
secretions. However, a soft tissue mass cannot be entirely excluded. Mild, likely reactive adenopathy, without significant change from previous ultrasound examination. 8 mm subtle low-attenuation right thyroid nodule. Consider nonemergent thyroid
ultrasound follow-up.
Care Review
Plan reviewed with: Physician (GALILEO Joseph)
[2024-04-23] MEDS: ZENPEP DELAYED RELEASE CAPSULE PO (12:09)
--- NOTE | 2024-04-23 12:39 | W.PN.UPDATE ---
Update Note
Progress Note Update
54-year-old female presented with abdominal pain and fever
I personally performed a history and physical exam of the patient and discussed management with the resident. I reviewed the resident's note and agree with the documented findings and plan of care HPI/CC except for changes i documentation.
Chest x-ray reviewed by me-no acute changes
CT abdomen and pelvis with IV contrast only-no acute changes, large amount of fecal material, pneumobilia, cholecystectomy, splenectomy single coarse pancreatic calcification stable from 2019. Simple left renal cyst
Father yesterday and she is tearful. emotional support offered.
Herpes lesions on upper lip- better
CVS: S1-S2 normal
Chest: CTA B/L
Abdomen: Soft, when distracted not much tenderness with palpation
Extremities: No edema
# Fever
Fever resolved. Antibiotics discontinued and watching the patient overnight. No clear source of infection
CT of the abdomen and pelvis with p.o. contrast, CT of the neck per discussion with infectious disease
Urine analysis unremarkable, COVID serology negative
CT of the abdomen pelvis no source of infection evident repeat blood also negative
History of splenectomy
Procalcitonin level was elevated
Decrease Dilaudid dose
# Soft tissue density in the neck-ENT consulted
She was noncompliant with follow-up last and therefore biopsy planned this admission.
#Upper lip Herpes lesions- Topical Acyclovir.
# Low TSH.with normal T4. Likely euthyroid sick syndrome.
# Chronic pancreatitis
History of pancreatitis for the past 15 years with history of pancreatic jejunostomy 2016
Narcotic dependent for chronic pain
Also on pancreatic enzymes
She is followed by Dr. Rome at [facility] and is planning to be evaluated at [facility] for potential pancreatic transplant.
Pancreatic divisum and history of pancreatic duct stone
History of celiac nerve block
# Constipation-likely narcotic related-bowel regimen ordered Pt says she has had BMs.
# Mild hyponatremia-resolved
# Chronically elevated LFTs
# Anxiety and depression-continue lorazepam and sertraline
# Chronic muscle spasms-continue cyclobenzaprine
# History of IBS and gastroparesis
# Hereditary spherocytosis
# History of hepatitis A
# History of C. difficile
# History of VSD repair as a child
# History of splenectomy
# DVT prophylaxis-Lovenox
# Full code
[2024-04-23 13:20] LABS: % Basophils 0.8 % (0-2); % Eosinophils 7.1 % (0-6); % Immature Granulocytes 1.2 % (0-0.5); % Lymphocytes 25.2 % (20.5-51.1); % Neutrophils 57.7 % (42.2-75.2); Absolute Basophils 0.1 10^3/uL (0-0.2); Absolute Eosinophils 0.9 10^3/uL (0-0.7); Absolute Immature Granulocytes 0.2 10^3/uL (0-0.05); Absolute Lymphocytes 3.3 10^3/uL (1.2-3.4); Absolute Neutrophils 7.5 10^3/uL (1.4-6.5); Hemoglobin 10.3 g/dL (12.0-16.0); Mean Corp Hgb Conc. 35.5 g/dL (33.0-37.0); Mean Corpuscular Volume 76.1 fL (81.0-99.0); Mean Platelet Volume 8.5 fL (7.4-10.4); Nucleated Red Blood Cells % 0 %; Platelet Count 525 10^3/uL (130-400); Red Blood Cell Count 3.81 10^6/uL (4.20-5.40); Red Cell Dist. Width 14.2 % (11.5-14.5); White Blood Cell Count 12.9 10^3/uL (4.8-10.8)
[2024-04-23 13:38] LABS: AST (SGOT) 32 U/L (14-36); Albumin 3.4 g/dl (3.5-5.0); Alkaline Phosphatase 175 U/L (38-126); Blood Urea Nitrogen 3 mg/dl (7-17); Calcium 8.9 mg/dl (8.4-10.2); Carbon Dioxide 27 mmol/L (22-30); Chloride 100 mmol/L (98-107); Estimated Creatinine Clearance 79 ml/min; Glucose 86 mg/dl (70-99); LDH 221 U/L (120-246); Potassium 3.8 mmol/L (3.5-5.1); Sodium 137 mmol/L (135-145); Total Bilirubin 0.5 mg/dl (0.2-1.3); Total Protein 6.5 g/dl (6.3-8.2); eGFR > 60.00
--- NOTE | 2024-04-23 13:46 | W.PN.HOSP.TC ---
Today's Communication/Plan
-
Discontinue antibiotics and observe as no source identified yet
Decrease oxycodone dose
lymph node biopsy of neck by ent
hold fluids
Assessment / Plan
Assessment / Plan
IMPRESSION:
54-year-old female with recurrent admissions for chronic pancreatitis, complex medical and surgical history, high grade fever spikes, epigastric pain, nausea, and generalized weakness.Sepsis with continuous fever spikes and leukocytosis. Source
unclear,
ASSESSMENT
1.Fever of unknown origin/sepsis
2.Chronic pancreatitis
3.Anxiety depression
4.Muscle spasms
PLAN:
1.Fever of unknown origin/sepsis
febrile and leukocytosis
Lipase wnl apr 20(57), repeat lipase on apr 21 is 67
Chest x-ray shows no infiltrate
Influenza and COVID screening negative, repeat covid screen on 04/21 also negative
Urine analysis within normal limits
MRI abdomen done -No significant findings, CBD shows no stone, no dilation in biliary tracts, Normal caliber pancreatic duct.
CT scan of abdomen shows no obvious source of infection, Repeat CT scan of abdomen with oral contrast to visualize the bowels showed no significant findings
No growth in blood cultures in last 72hrs
Neck ct with iv contrast to evaluate the mucous ball/soft tissue swelling found in ct of february [address] was [address] scan shows a lot of lymphoid tissue, ENT evaluation appreciated, flexible laryngoscopy done, Lot of lymphoid tissue throughout nasopharynx, Discussed with ENT and patient wishes asked, plan is to do biopsy today on apr 23, 2024
euthyroid sick syndrome
Infectious disease consult appreciated-plan is to discontinue antibiotics and observe
2. Chronic pancreatitis
Patient has history of chronic pancreatitis from last 10 years
Patient is on pancrelipase, hydromorphone, ondansetron at home
Patient states she never had a high-grade fever with pancreatitis episodes
Lipase wnl
Patient had pancreaticojejunostomy that helped in past in 2017
Plans to discuss pancreatic transplant with Dr Myron Rome at [facility]
On triple bowel regimen to prevent opioid induced constipation(sennakot, Miralax, Colace)
Increase pancreatic enzymes to 3 capsules with meals
MRI 04/20 showed no stone I d/w rads (stone on CT was actually a calcification).
3. Anxiety depression
Maintain on IV Ativan half milligram every 6 hours
4. Muscle spasms
Patient has muscle spasms in neck for which she takes cyclobenzoprine as needed
Topical ointment for Herpes lesions on lips
Patient recently had a Mohs surgery for skin cancer with a hypertrophic scar on forehead
History of IBS and gastroparesis
Hereditary spherocytosis status post splenectomy, up to date
with her splenectomy vaccines per patient.
C difficile x2
CODE STATUS full
DVT prophylaxis heparin 5000 units subcut twice daily
Anticipated Discharge: 24 - 48 hours
Subjective/Interval History
-
Date of Service: April 23, 2024
Patient overwhelmed today as her father yesterday
Exhausted and weak
Objective Data
-
Labs:
Laboratory Results
04/23/24
12:59
WBC 12.9 H
Hgb 10.3 L
Hct 29.0 L
Plt Count 525 H
Sodium 137
Potassium 3.8
Chloride 100
Carbon Dioxide 27
BUN 3 L
Creatinine 0.4 L
Glucose 86
Calcium 8.9
Total Bilirubin 0.5
AST 32
ALT Pending
Alkaline Phosphatase 175 H
Vital Signs:
Vital Signs
Temp Pulse Resp BP Pulse Ox
98.1 F 84 16 137/78 97
04/23/24 07:43 04/23/24 07:43 04/23/24 07:43 04/23/24 07:43 04/23/24 08:30
I&O
04/22/24 04/23/24 04/24/24
06:59 06:59 06:59
Intake Total 2980 / 2980 2400 / 2400
Output Total 300 / 300
Balance 2680 / 2680 2400 / 2400
Review of Systems
-
All other systems: Reviewed and negative
Physical Exam
-
General: Appears in Distress, Pain, Conversant, Appears Chronically Ill and Cachectic
HEENT: Normocephalic, Atraumatic and Other (submandibular lymph nodes, herpetic lesions on lips)
Respiratory: Clear to Auscultation
Cardiac: Regular Rhythm and S1/S2
GI: Soft, Nontender and Normal Bowel Sounds
Genito-urinary: No Costovertebral Tender
Musculoskeletal: No Clubbing, No Cyanosis and No Edema
Skin: Warm and Dry
Neuro: Awake, Alert, Oriented and No Motor Deficits
Hematologic / Lymphatic: No Lymphadenopathy
Psych: Anxious
[2024-04-23 13:47] LABS: ALT (SGPT) 41 U/L (0-35)
--- NOTE | 2024-04-23 15:02 | CM ---
Reviewed the chart notes. The patient continues on low fat diet, and IV Dilaudid for pain management. CM continues to be available to patient/family and is monitoring medical plan for needs at discharge.
Plan: Discharge to home when medically stable. No needs anticipated at discharge.
[2024-04-23] MEDS: DILAUDID 0.5 MG IV ×2 (15:21→17:34)
--- NOTE | 2024-04-23 15:53 | W.IMMPOSTOP ---
Surgical Immed Post Op Note
-
Primary Surgeon: Ramiro
Assisting Surgeon: None
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
Post-op Diagnosis: Same
Procedure Performed: Direct laryngoscopy with biopsy of base of tongue tissue
Anesthesia Type: General
Specimen / Cultures: Base of tongue tissue
Estimated Blood Loss: 5mL
Complications: None
Operative Findings: Dictated
[2024-04-23] MEDS: ZOVIRAX OINTMENT 5% TOPICAL (16:30)
--- NOTE | 2024-04-23 16:56 | PTCARENOTE ---
Patient back from [facility]. AAOx3, no s/s distress noted. Vs documented. plan of care ongoing.
[2024-04-23] MEDS: LOVENOX 40 MG SC (17:21)
[2024-04-23] MEDS: ZOLOFT 100 MG PO (21:53)
[2024-04-23] MEDS: SENOKOT 17.2 MG PO (21:53)
[2024-04-24] MEDS: DILAUDID 1 MG IV ×7 (04:46→23:00)
[2024-04-24] MEDS: NSS (PRESERVATIVE FREE) 0.25 ML IV (04:59)
[2024-04-24] MEDS: ATIVAN 0.5 MG IV (04:59)
[2024-04-24 08:00] VITALS: BP 129/90
[2024-04-24] MEDS: VISBIOME 2 CAP PO (08:39)
[2024-04-24] MEDS: COLACE 100 MG PO ×2 (08:39→19:26)
[2024-04-24] MEDS: ZENPEP DELAYED RELEASE CAPSULE 3 CAPSULE PO ×2 (08:40→15:55)
[2024-04-24] MEDS: ZOVIRAX OINTMENT 5% 1 APPLIC TOPICAL ×5 (08:40→22:59)
[2024-04-24 08:41] LABS: Hematocrit 30.8 % (37.0-47.0); Mean Corp Hgb Conc. 35.7 g/dL (33.0-37.0); Mean Corpuscular Hgb 27.9 pg (27.0-31.0); Mean Corpuscular Volume 78.2 fL (81.0-99.0); Mean Platelet Volume 8.8 fL (7.4-10.4); Platelet Count 610 10^3/uL (130-400); Red Blood Cell Count 3.94 10^6/uL (4.20-5.40); Red Cell Dist. Width 14.1 % (11.5-14.5); White Blood Cell Count 14.8 10^3/uL (4.8-10.8)
[2024-04-24] MEDS: MIRALAX PO ×2 (08:41→19:27)
[2024-04-24 08:48] LABS: PT 14.1 Sec (11.4-14.6)
[2024-04-24 09:21] LABS: % Basophils 0.7 % (0-2); % Eosinophils 2.1 % (0-6); % Immature Granulocytes 1.4 % (0-0.5); % Lymphocytes 43.2 % (20.5-51.1); % Monocytes 7.6 % (1.7-9.3); Absolute Basophils 0.1 10^3/uL (0-0.2); Absolute Eosinophils 0.3 10^3/uL (0-0.7); Absolute Immature Granulocytes 0.2 10^3/uL (0-0.05); Absolute Lymphocytes 6.4 10^3/uL (1.2-3.4); Absolute Monocytes 1.1 10^3/uL (0.1-0.6); Absolute Neutrophils 6.7 10^3/uL (1.4-6.5); Nucleated Red Blood Cells % 0 %
[2024-04-24 09:51] LABS: ALT (SGPT) 36 U/L (0-35); AST (SGOT) 29 U/L (14-36); Albumin 3.6 g/dl (3.5-5.0); Alkaline Phosphatase 172 U/L (38-126); Blood Urea Nitrogen 7 mg/dl (7-17); Carbon Dioxide 26 mmol/L (22-30); Chloride 101 mmol/L (98-107); Estimated Creatinine Clearance 79 ml/min; Glucose 86 mg/dl (70-99); Potassium 3.7 mmol/L (3.5-5.1); Sodium 140 mmol/L (135-145); Total Bilirubin 0.5 mg/dl (0.2-1.3); Total Protein 6.9 g/dl (6.3-8.2); eGFR > 60.00
[2024-04-24] MEDS: ZENPEP DELAYED RELEASE CAPSULE PO (10:52)
[2024-04-24] MEDS: DILAUDID 0.5 MG IV ×2 (10:53→17:19)
--- NOTE | 2024-04-24 11:18 | W.PN.ID1 ---
Date of Service
Date of Service: April 24, 2024
Today's Communication
Continue to observe off abx.
Assessment / Plan
# Head and Neck painless lymphoid tissue
- ?Source of fever/leukocytosis
- ENT examination of the pharynx revealed moderate to severe lymphoid tissue present at the left greater than right base of tongue. There was some mild vallecular filling of the left side from the lymphoid tissue.
- 04/23/24 tissue biopsy pending
# Fever resolving
# Leukocytosis - overall trending down. Slight increase today could be due to post-procedure
- Unclear etiology of fever, leukocytosis
- Likely non-infectious source as extensive infectious disease workup negative.
-Observing off abx.
# Acute on chronic pancreatitis/pain
- CT a/p: no necrosis/abscess
- No indication for abx.
# Herpes labialis, resolving
- s/p Valacyclovir 2g po q12 x 2 doses.
# Conditions [employer]
Chronic pancreatitis. For transplant eval.
Pancreatic stone and pancreatic divisum and recurrent pancreatitis.
History of pancreatojejunostomy 2016.
Irritable bowel syndrome.
Gastroparesis.
Anxiety.
C difficile x2.
Hereditary spherocytosis status post splenectomy, up to date
with her splenectomy vaccines per patient.
Chronic pain
PICC-associated RUE DVT
Cholecystectomy.
VSD repair as a child.
History of liver trauma repair.
Chief Complaint
-: Fever and Leukocytosis
Subjective / Review of Systems
having formed bowel movement
epigastric pain somewhat better
will like to stay another day.
Vital Signs / Physical Exam
Vital Signs
Vital Signs
Temp Pulse Resp BP Pulse Ox
98.1 F 77 16 129/90 98
04/24/24 08:00 04/24/24 08:00 04/24/24 08:00 04/24/24 08:00 04/24/24 08:00
Physical Exam
Constitutional: No Acute Distress and Comfortable
Cardiovascular: Regular Rate and S1/S2
Pulmonary: Clear
Gastrointestinal: Soft and Non Distended
Extremities: Negative Edema
Lines: Other (RUE midline no erythema)
Objective Data
Lab Data
Lab Results
04/24/24 08:23
04/24/24 08:23
PT 14.1 Sec (11.4-14.6) 04/24/24 08:23
INR 1.10 04/24/24 08:23
Estimated Creat Clear 79 ml/min 04/24/24 08:23
Lactic Acid Cancelled 04/19/24 15:00
Total Bilirubin 0.5 mg/dl (0.2-1.3) 04/24/24 08:23
AST 29 U/L (14-36) 04/24/24 08:23
ALT 36 U/L (0-35) H 04/24/24 08:23
Alkaline Phosphatase 172 U/L (38-126) H 04/24/24 08:23
Most recent labs reviewed.
Micro Results:
04/19/24 12:57 Blood Culture - Preliminary
Blood/Venous No Growth in 4 days- Final report to follow
04/19/24 11:26 Blood Culture - Preliminary
Blood/Venous No Growth in 4 days- Final report to follow
04/19/24 11:26 Influenza Types A & B ([facility]) - Final
Nasal Swab Negative for Influenza A & B, NAAT
Negative results must be combined with clinical observations
and patient history.
Nucleic Acid Amplification test (NAAT)performed on the
[employer] platform.
04/22/[address]: There is increased adenoidal hypertrophy and heterogeneous soft tissue enhancement compared to prior. Persistent soft tissue fullness within the vallecula asymmetric the left. Associated mild airway narrowing in the oropharynx,
slightly progressed. Findings are suspicious for neoplasm and direct visualization is recommended. Slightly enlarged bilateral cervical chain lymph nodes, similar to prior and may be reactive or metastatic in etiology.
04/21/24 MRI ABD: No acute inflammatory changes of the pancreas. Trace bilateral pleural effusions.
04/19/24 CXR: No acute disease of the chest
04/19/24 CT a/p with IV contrast: No acute pathology of the abdomen or pelvis identified. Large amount of fecal material throughout the colon. Progressed
02/22/[address]: Airway and pharynx: Nodular soft tissue attenuation measuring approximately 1.2 cm transverse by 1.2 cm craniocaudal by 1.3 cm AP occupies the left vallecula. This could represent a mucous ball, given the presence of mild additional
secretions. However, a soft tissue mass cannot be entirely excluded. Mild, likely reactive adenopathy, without significant change from previous ultrasound examination. 8 mm subtle low-attenuation right thyroid nodule. Consider nonemergent thyroid
ultrasound follow-up.
Care Review
Plan reviewed with: Physician (Drs. Preciado, Jake)
--- NOTE | 2024-04-24 13:21 | W.PN.HOSP.TC ---
Today's Communication/Plan
-
Emotional support offered to the patient
Temperature charting
Assessment / Plan
Assessment / Plan
IMPRESSION:
54-year-old female with recurrent admissions for chronic pancreatitis, complex medical and surgical history, high grade fever spikes, epigastric pain, nausea, and generalized weakness.Sepsis with continuous fever spikes and leukocytosis. Source
unclear,
ASSESSMENT
1.Fever of unknown origin/sepsis
2.Chronic pancreatitis
3.Anxiety depression
4.Muscle spasms
PLAN:
1.Fever of unknown origin/sepsis
No fever in last 24 hours
Leukocyte count overall trending down, had a slight increase yesterday, could be due to ENT biopsy
No cause identified yet after extensive workup
Workup included chest x-ray, CT abdomen and pelvis, urine analysis, blood cultures, neck CT, neck CT showed lymphoid tissue biopsy done,
Influenza and COVID testing negative,
MRI abdomen within normal limits
TSH slightly decreased possibly -due to euthyroid sick syndrome
Infectious disease consult appreciated-plan is to discontinue antibiotics and observe
2. Chronic pancreatitis
Patient has history of chronic pancreatitis from last 10 years
Patient is on pancrelipase, hydromorphone, ondansetron at home
Patient states she never had a high-grade fever with pancreatitis episodes
Lipase wnl
Patient had pancreaticojejunostomy that helped in past in 2017
Plans to discuss pancreatic transplant with Dr Myron Rome at [facility]
On triple bowel regimen to prevent opioid induced constipation(sennakot, Miralax, Colace)
Gastroenterology consult appreciated that advised to increase pancreatic enzymes to 3 capsules with meals
MRI 04/20 showed no stone I d/w rads (stone on CT was actually a calcification).
3.ENT Consult for lymphoid tissue
Most likely benign lymphoid tissue according to ENT based on flexible laryngoscope and direct laryngoscopy
Awaiting biopsy results
4. Anxiety depression
Maintain on IV Ativan half milligram every 6 hours
5. Muscle spasms
Patient has muscle spasms in neck for which she takes cyclobenzoprine as needed
Topical ointment for Herpes lesions on lips
Patient recently had a Mohs surgery for skin cancer with a hypertrophic scar on forehead
History of IBS and gastroparesis
Hereditary spherocytosis status post splenectomy, up to date
with her splenectomy vaccines per patient.
C difficile x2
CODE STATUS full
DVT prophylaxis heparin 5000 units subcut twice daily
Anticipated Discharge: 24 - 48 hours
Anticipated Discharge: 24 - 48 hours
Subjective/Interval History
-
Date of Service: April 24, 2024
Patient feels some tenderness in the epigastric region. No fever spike in the last 24 hours. She thinks she would like to go home to be with her family as her dad recently
Objective Data
-
Labs:
Laboratory Results
04/24/24
08:23
WBC 14.8 H
Hgb 11.0 L
Hct 30.8 L
Plt Count 610 H
PT 14.1
INR 1.10
Sodium 140
Potassium 3.7
Chloride 101
Carbon Dioxide 26
BUN 7
Creatinine 0.4 L
Glucose 86
Calcium 9.0
Total Bilirubin 0.5
AST 29
ALT 36 H
Alkaline Phosphatase 172 H
Vital Signs:
Vital Signs
Temp Pulse Resp BP Pulse Ox
98.1 F 77 16 129/90 98
04/24/24 08:00 04/24/24 08:00 04/24/24 08:00 04/24/24 08:00 04/24/24 08:00
I&O
04/23/24 04/24/24 04/25/24
06:59 06:59 06:59
Intake Total 2400 / 2400 580 / 580
Output Total 400 / 400
Balance 2400 / 2400 180 / 180
Review of Systems
-
All other systems: Reviewed and negative
Physical Exam
-
General: No Apparent Distress and Pain ()
HEENT: Normocephalic and Atraumatic
Respiratory: Clear to Auscultation
Cardiac: Regular Rhythm and S1/S2
GI: Soft, Nontender, Nondistended and Normal Bowel Sounds
Genito-urinary: No Costovertebral Tender
Musculoskeletal: No Clubbing, No Cyanosis and No Edema
Skin: Warm, Dry and Other (Full sores on the lips)
Neuro: Awake, Alert, Oriented and No Motor Deficits
Hematologic / Lymphatic: No Lymphadenopathy
Psych: Calm
--- NOTE | 2024-04-24 13:25 | W.PN.UPDATE ---
Update Note
Progress Note Update
54-year-old female presented with abdominal pain and fever
I personally performed a history and physical exam of the patient and discussed management with the resident. I reviewed the resident's note and agree with the documented findings and plan of care HPI/CC except for changes i documentation.
Chest x-ray reviewed by me-no acute changes
CT abdomen and pelvis with IV contrast only-no acute changes, large amount of fecal material, pneumobilia, cholecystectomy, splenectomy single coarse pancreatic calcification stable from 2019. Simple left renal cyst
Father yesterday and she is tearful. emotional support offered.
Herpes lesions on upper lip- better
CVS: S1-S2 normal
Chest: CTA B/L
Abdomen: Soft, less tender,
Extremities: No edema
# Fever
Fever resolved. Antibiotics discontinued No clear source of infection
Leucocytois noted.
No clear source on abdomen CT
Urine analysis unremarkable, COVID serology negative
CT of the abdomen pelvis no source of infection evident repeat blood also negative
History of splenectomy
Procalcitonin level was elevated
Decreased Dilaudid dose
# Soft tissue density in the neck-ENT consulted
Status post biopsy
#Upper lip Herpes lesions- Topical Acyclovir.
# Low TSH.with normal T4. Likely euthyroid sick syndrome.
# Chronic pancreatitis
History of pancreatitis for the past 15 years with history of pancreatic jejunostomy 2016
Narcotic dependent for chronic pain
Also on pancreatic enzymes
She is followed by Dr. Rome at [facility] and is planning to be evaluated at [facility] for potential pancreatic transplant.
Pancreatic divisum and history of pancreatic duct stone
History of celiac nerve block
# Constipation-likely narcotic related-bowel regimen ordered Pt says she has had BMs.
# Mild hyponatremia-resolved
# Chronically elevated LFTs
# Anxiety and depression-continue lorazepam and sertraline
# Chronic muscle spasms-continue cyclobenzaprine
# History of IBS and gastroparesis
# Hereditary spherocytosis
# History of hepatitis A
# History of C. difficile
# History of VSD repair as a child
# History of splenectomy
# DVT prophylaxis-Lovenox
# Full code
D/W RN
Discussed with infectious disease. Patient wanted to go home today initially as her father later she changed her mind and stated that she cannot leave today.
watch off AB
[2024-04-24] MEDS: FLEXERIL 5 MG PO ×2 (14:09→20:56)
[2024-04-24] MEDS: ZOFRAN 4 MG IV (14:09)
[2024-04-24 16:00] VITALS: BP 109/63
[2024-04-24] MEDS: LOVENOX 40 MG SC (17:19)
[2024-04-24] MEDS: ATIVAN 1 MG PO (20:53)
[2024-04-24] MEDS: SENOKOT 17.2 MG PO (20:53)
[2024-04-24] MEDS: ZOLOFT 100 MG PO (20:53)
[2024-04-24 23:36] VITALS: BP 118/66
[2024-04-25] MEDS: DILAUDID 1 MG IV ×3 (06:02→12:21)
[2024-04-25 07:25] VITALS: BP 123/80
[2024-04-25] MEDS: ZOVIRAX OINTMENT 5% 1 APPLIC TOPICAL (09:05)
[2024-04-25] MEDS: ZENPEP DELAYED RELEASE CAPSULE PO ×2 (09:05→11:50)
[2024-04-25] MEDS: COLACE 100 MG PO (09:05)
[2024-04-25] MEDS: MIRALAX 17 GRAMS PO (09:05)
[2024-04-25] MEDS: VISBIOME 2 CAP PO (09:05)
[2024-04-25] MEDS: ZOFRAN 4 MG IV (09:18)
[2024-04-25] MEDS: ZOVIRAX OINTMENT 5% TOPICAL (10:33)
--- NOTE | 2024-04-25 10:38 | W.PN.HOSP.TC ---
Today's Communication/Plan
-
Discharge
Assessment / Plan
Assessment / Plan
Herpes lesions on upper lip- better
CVS: S1-S2 normal
Chest: CTA B/L
Abdomen: Soft, less tender,
Extremities: No edema
# Fever
Fever resolved. Antibiotics discontinued No clear source of infection
Patient was watched for more than 48 hours with no fever
No clear source on abdomen CT
Urine analysis unremarkable, COVID serology negative
CT of the abdomen pelvis no source of infection evident repeat blood also negative
History of splenectomy
# Soft tissue density in the neck
Status post biopsy
Patient needs to follow-up with Dr. Rubio as outpatient
# Upper lip Herpes lesions- Topical Acyclovir.
# Low TSH.with normal T4. Likely euthyroid sick syndrome. Repeat thyroid function test in 6 weeks.
# Chronic pancreatitis
History of pancreatitis for the past 15 years with history of pancreatic jejunostomy 2016
Narcotic dependent for chronic pain
Also on pancreatic enzymes
She is followed by Dr. Rome at [facility] and is planning to be evaluated at [facility] for potential pancreatic transplant.
Pancreatic divisum and history of pancreatic duct stone
History of celiac nerve block
# Constipation-resolved.
# Mild hyponatremia-resolved
# Chronically elevated LFTs
# Anxiety and depression-continue lorazepam and sertraline
# Chronic muscle spasms-continue cyclobenzaprine
# History of IBS and gastroparesis
# Hereditary spherocytosis
# History of hepatitis A
# History of C. difficile
# History of VSD repair as a child
# History of splenectomy
# DVT prophylaxis-Lovenox
# Full code
D/W RN
D/W ID
Feels good and wants to go home.
More than 30 minutes spent in discharge including
Final examination of the patient
Summarizing hospital stay
Instructions for continuing care to all relevant caregivers
Preparation of discharge records, prescriptions, and referral forms
Total time spent (in minutes): 33 min
Anticipated Discharge: Today
Subjective/Interval History
-
Date of Service: April 25, 2024
Objective Data
-
Vital Signs:
Vital Signs
Temp Pulse Resp BP Pulse Ox
98.7 F 82 16 123/80 94
04/25/24 07:25 04/25/24 07:25 04/25/24 07:25 04/25/24 07:25 04/25/24 07:25
I&O
04/24/24 04/25/24 04/26/24
06:59 06:59 06:59
Intake Total 580 / 580 1800 / 1800
Output Total 400 / 400
Balance 180 / 180 1800 / 1800
--- NOTE | 2024-04-25 11:20 | W.DS.TRANS ---
Addendum entered and electronically signed by Korin Preciado MD 04/26/24 17:28:
Dictation- [id number]
Original Note:
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
-
Discharge Instructions:
Discharge Diagnosis/Procedures Fever
Chronic pancreatitis
Neck lymphoid tissue biopsy
Constipation
Anxiety and depression
Diet As tolerated
Activity As tolerated
Driving Restrictions As prior to admission
Bathing Restrictions None
Instructions:
Stand-Alone Forms:
Changes to Home Medications: Yes
Discharge Medications:
DC Medications w/original date entered in [employer] (deja mi)
sertraline 50 mg tablet 100 mg PO HS depression/anxiety 12/08/13
ondansetron 4 mg disintegrating tablet 8 mg PO TIDPRN PRN nausea/vomiting 02/17/23
lorazepam 1 mg tablet 1 mg PO HS anxiety/sleep 10/21/23
docusate sodium 100 mg capsule (Colace) 100 mg PO BID Constipation 02/17/24
hydromorphone 4 mg tablet (Dilaudid) 4 mg PO BIDPRN PRN severe pain 02/17/24
cyclobenzaprine 5 mg tablet 5 mg PO TIDPRN PRN muscle spasm 04/19/24
acyclovir 5 % topical ointment 1 applic topical 5/D Infection 7 days #5 grams 04/24/24
[id number] 12,000-38,000-60,000 unit capsule,delayed rel (Creon) 2 cap PO AC Pancreatitis #3 caps 04/24/24
sennosides 8.6 mg capsule (senna) 8.6 mg PO BID PRN when you take Dilaudid #30 caps 04/25/24
Home Medication Changes
new
acyclovir 5 % topical ointment 1 applic topical 5/D Infection 7 days #5 grams 04/24/24
sennosides 8.6 mg capsule (senna) 8.6 mg PO BID PRN when you take Dilaudid #30 caps 04/25/24
Pending Results: Yes
Additional Pending Results:
Pathology
[2024-04-25 11:50] VITALS: BP 111/72
== END 2024-04-25 13:52 | disposition home or self-care (01) | DRG 872 ==
LOC: 2 NORTH 15:43
PROVIDERS: Nurse Practitioner Adult Health; ADMITTING PHYSICIAN Hospitalist; ATTENDING PHYSICIAN Hospitalist; CONSULT PHYSICIAN Internal Medicine; CONSULT PHYSICIAN Internal Medicine Infectious Disease; CONSULT PHYSICIAN Otolaryngology; EMERGENCY PHYSICIAN Emergency Medicine
PROC: 0CBM8ZX Excision of Pharynx, Via Natural or Artificial Opening Endoscopic, Diagnostic (ICD-10-PCS; 2024-04-19)
DX: A41.9 Sepsis, unspecified organism (principal); Q45.3 Other congenital malformations of pancreas and pancreatic duct; K86.1 Other chronic pancreatitis; F11.20 Opioid dependence, uncomplicated; E87.1 Hypo-osmolality and hyponatremia; J90 Pleural effusion, not elsewhere classified; K31.84 Gastroparesis; M62.838 Other muscle spasm; B00.9 Herpesviral infection, unspecified; R79.89 Other specified abnormal findings of blood chemistry; L91.0 Hypertrophic scar; G89.4 Chronic pain syndrome; D58.0 Hereditary spherocytosis; F41.9 Anxiety disorder, unspecified; K59.00 Constipation, unspecified; E07.81 Sick-euthyroid syndrome; J35.2 Hypertrophy of adenoids; F32.A Depression, unspecified; K58.9 Irritable bowel syndrome, unspecified; Z82.49 Family history of ischemic heart disease and other diseases of the circulatory system; Z87.19 Personal history of other diseases of the digestive system; Z87.01 Personal history of pneumonia (recurrent); Z86.19 Personal history of other infectious and parasitic diseases; Z87.74 Personal history of (corrected) congenital malformations of heart and circulatory system; Z90.81 Acquired absence of spleen; Z90.49 Acquired absence of other specified parts of digestive tract; Z88.1 Allergy status to other antibiotic agents; Z88.8 Allergy status to other drugs, medicaments and biological substances; Z85.828 Personal history of other malignant neoplasm of skin; Z87.440 Personal history of urinary (tract) infections; Z11.52 Encounter for screening for COVID-19; Z63.4 Disappearance and death of family member; Z86.718 Personal history of other venous thrombosis and embolism
CPT/HCPCS: 88305; 70491; 71045; 74177; 74183; 80053; 80202; 81003; 81015; 83605; 83615; 83690; 83735; 84145; 84439; 84443; 85025; 85610; 87040; 87502; 87811; 88341; 88342; 88365; 93005; 96365; 96375; 96376; 99285; A9575; Q9967

== ENCOUNTER → 2024-04-29 09:40 | Outpatient (REF) | payer BC, SELFPAY ==
[2024-04-29 11:29] LABS: % Basophils 0.7 % (0-2); % Eosinophils 3.5 % (0-6); % Immature Granulocytes 1.1 % (0-0.5); % Lymphocytes 21.2 % (20.5-51.1); % Monocytes 4.9 % (1.7-9.3); % Neutrophils 68.6 % (42.2-75.2); Absolute Basophils 0.1 10^3/uL (0-0.2); Absolute Eosinophils 0.4 10^3/uL (0-0.7); Absolute Immature Granulocytes 0.1 10^3/uL (0-0.05); Absolute Lymphocytes 2.3 10^3/uL (1.2-3.4); Absolute Monocytes 0.5 10^3/uL (0.1-0.6); Absolute Neutrophils 7.4 10^3/uL (1.4-6.5); Hematocrit 37.4 % (37.0-47.0); Hemoglobin 12.9 g/dL (12.0-16.0); Mean Corp Hgb Conc. 34.5 g/dL (33.0-37.0); Mean Corpuscular Hgb 28.4 pg (27.0-31.0); Mean Corpuscular Volume 82.2 fL (81.0-99.0); Mean Platelet Volume 8.6 fL (7.4-10.4); Nucleated Red Blood Cells % 0 %; Platelet Count 1092 10^3/uL (130-400); Red Blood Cell Count 4.55 10^6/uL (4.20-5.40); Red Cell Dist. Width 15.1 % (11.5-14.5); White Blood Cell Count 10.7 10^3/uL (4.8-10.8)
[2024-04-29 12:04] LABS: ALT (SGPT) 28 U/L (0-35); AST (SGOT) 41 U/L (14-36); Albumin 4.6 g/dl (3.5-5.0); Alkaline Phosphatase 165 U/L (38-126); Amylase 68 U/L (30-110); Blood Urea Nitrogen 13 mg/dl (7-17); Calcium 9.9 mg/dl (8.4-10.2); Carbon Dioxide 24 mmol/L (22-30); Chloride 103 mmol/L (98-107); Glucose 90 mg/dl (70-99); Lipase 87 U/L (23-300); Potassium 5.2 mmol/L (3.5-5.1); Sodium 141 mmol/L (135-145); Total Bilirubin 0.5 mg/dl (0.2-1.3); Total Protein 8.4 g/dl (6.3-8.2); eGFR > 60.00
[2024-04-29 13:40] LABS: Erythrocyte Sed Rate 27 mm/hour (0-20)
== END ==
LOC: REG 09:40
DX: Z09 Encounter for follow-up examination after completed treatment for conditions other than malignant neoplasm (principal); Q45.3 Other congenital malformations of pancreas and pancreatic duct; R79.89 Other specified abnormal findings of blood chemistry; R74.8 Abnormal levels of other serum enzymes
CPT/HCPCS: 36415; 80053; 82150; 83690; 85025; 85652; 86140

== ENCOUNTER → 2024-05-04 12:15 | Outpatient (REF) | payer BC, SELFPAY ==
[2024-05-04 12:47] LABS: % Basophils 0.9 % (0-2); % Eosinophils 2.5 % (0-6); % Immature Granulocytes 0.4 % (0-0.5); % Monocytes 6.9 % (1.7-9.3); % Neutrophils 55.3 % (42.2-75.2); Absolute Basophils 0.1 10^3/uL (0-0.2); Absolute Eosinophils 0.2 10^3/uL (0-0.7); Absolute Lymphocytes 3.1 10^3/uL (1.2-3.4); Absolute Monocytes 0.6 10^3/uL (0.1-0.6); Absolute Neutrophils 5.1 10^3/uL (1.4-6.5); Hematocrit 36.3 % (37.0-47.0); Hemoglobin 12.7 g/dL (12.0-16.0); Mean Corpuscular Hgb 28.5 pg (27.0-31.0); Mean Corpuscular Volume 81.6 fL (81.0-99.0); Mean Platelet Volume 8.6 fL (7.4-10.4); Nucleated Red Blood Cells % 0 %; Platelet Count 1047 10^3/uL (130-400); Red Blood Cell Count 4.45 10^6/uL (4.20-5.40); Red Cell Dist. Width 15.1 % (11.5-14.5); White Blood Cell Count 9.2 10^3/uL (4.8-10.8)
[2024-05-04 12:54] LABS: Erythrocyte Sed Rate 23 mm/hour (0-20)
[2024-05-04 14:17] LABS: ALT (SGPT) 25 U/L (0-35); AST (SGOT) 41 U/L (14-36); Albumin 4.8 g/dl (3.5-5.0); Alkaline Phosphatase 122 U/L (38-126); Blood Urea Nitrogen 19 mg/dl (7-17); Calcium 9.8 mg/dl (8.4-10.2); Carbon Dioxide 24 mmol/L (22-30); Chloride 102 mmol/L (98-107); Glucose 89 mg/dl (70-99); Sodium 144 mmol/L (135-145); Total Bilirubin 0.4 mg/dl (0.2-1.3); Total Protein 8.7 g/dl (6.3-8.2); eGFR > 60.00
== END ==
LOC: REG 12:15
DX: D75.839 Thrombocytosis, unspecified (principal); K86.1 Other chronic pancreatitis
CPT/HCPCS: 36415; 80053; 85025; 85652; 86140

== ENCOUNTER → 2024-05-13 12:19 | Outpatient (REF) | payer BC, SELFPAY ==
[2024-05-13 13:03] LABS: % Basophils 1.1 % (0-2); % Eosinophils 9.4 % (0-6); % Immature Granulocytes 0.4 % (0-0.5); % Lymphocytes 27.3 % (20.5-51.1); % Monocytes 7.6 % (1.7-9.3); % Neutrophils 54.2 % (42.2-75.2); Absolute Basophils 0.1 10^3/uL (0-0.2); Absolute Eosinophils 0.8 10^3/uL (0-0.7); Absolute Lymphocytes 2.3 10^3/uL (1.2-3.4); Absolute Monocytes 0.6 10^3/uL (0.1-0.6); Absolute Neutrophils 4.5 10^3/uL (1.4-6.5); Hematocrit 35.6 % (37.0-47.0); Hemoglobin 12.9 g/dL (12.0-16.0); Mean Corp Hgb Conc. 36.2 g/dL (33.0-37.0); Mean Corpuscular Hgb 28.2 pg (27.0-31.0); Mean Corpuscular Volume 77.7 fL (81.0-99.0); Mean Platelet Volume 8.7 fL (7.4-10.4); Nucleated Red Blood Cells % 0 %; Platelet Count 710 10^3/uL (130-400); Red Blood Cell Count 4.58 10^6/uL (4.20-5.40); White Blood Cell Count 8.3 10^3/uL (4.8-10.8)
[2024-05-13 13:18] LABS: ALT (SGPT) 49 U/L (0-35); AST (SGOT) 85 U/L (14-36); Albumin 4.6 g/dl (3.5-5.0); Alkaline Phosphatase 156 U/L (38-126); Blood Urea Nitrogen 14 mg/dl (7-17); Calcium 9.9 mg/dl (8.4-10.2); Carbon Dioxide 26 mmol/L (22-30); Chloride 101 mmol/L (98-107); Glucose 102 mg/dl (70-99); Lipase 103 U/L (23-300); Potassium 4.2 mmol/L (3.5-5.1); Sodium 142 mmol/L (135-145); Total Bilirubin 0.3 mg/dl (0.2-1.3); Total Protein 8.2 g/dl (6.3-8.2); eGFR > 60.00
== END ==
LOC: REG 12:19
PROVIDERS: ATTENDING PHYSICIAN Registered Nurse
DX: K86.1 Other chronic pancreatitis (principal)
CPT/HCPCS: 36415; 80053; 83690; 85025

== ENCOUNTER → 2024-05-27 15:55 | Outpatient (REF) | payer BC, SELFPAY ==
[2024-05-27 17:30] LABS: Platelet Count 583 10^3/uL (130-400)
[2024-05-27 17:42] LABS: ALT (SGPT) 102 U/L (0-35); AST (SGOT) 103 U/L (14-36); Albumin 4.8 g/dl (3.5-5.0); Alkaline Phosphatase 203 U/L (38-126); Direct Bilirubin 0.2 mg/dl (0.0-0.4); Total Bilirubin 0.4 mg/dl (0.2-1.3); Total Protein 8.4 g/dl (6.3-8.2)
[2024-05-27 18:19] LABS: Amylase 80 U/L (30-110); Lipase 100 U/L (23-300)
== END ==
LOC: REG 15:55
DX: D75.839 Thrombocytosis, unspecified (principal); K86.1 Other chronic pancreatitis
CPT/HCPCS: 36415; 80076; 82150; 83690; 85049

== ENCOUNTER → 2024-06-29 15:30 | Outpatient (REF) | payer BC, SELFPAY ==
[2024-06-29 16:44] LABS: ALT (SGPT) 90 U/L (0-35); AST (SGOT) 86 U/L (14-36); Albumin 4.6 g/dl (3.5-5.0); Alkaline Phosphatase 155 U/L (38-126); Blood Urea Nitrogen 18 mg/dl (7-17); Calcium 9.4 mg/dl (8.4-10.2); Carbon Dioxide 24 mmol/L (22-30); Chloride 103 mmol/L (98-107); Glucose 70 mg/dl (70-99); Potassium 4.1 mmol/L (3.5-5.1); Sodium 140 mmol/L (135-145); Total Bilirubin 0.4 mg/dl (0.2-1.3); Total Protein 8.1 g/dl (6.3-8.2); eGFR > 60.00
[2024-06-29 16:47] LABS: % Basophils 0.9 % (0-2); % Eosinophils 8.2 % (0-6); % Immature Granulocytes 0.5 % (0-0.5); % Lymphocytes 33.4 % (20.5-51.1); % Monocytes 7.5 % (1.7-9.3); % Neutrophils 49.5 % (42.2-75.2); Absolute Basophils 0.1 10^3/uL (0-0.2); Absolute Eosinophils 0.8 10^3/uL (0-0.7); Absolute Immature Granulocytes 0.1 10^3/uL (0-0.05); Absolute Lymphocytes 3.4 10^3/uL (1.2-3.4); Absolute Monocytes 0.8 10^3/uL (0.1-0.6); Hematocrit 38.8 % (37.0-47.0); Hemoglobin 13.3 g/dL (12.0-16.0); Mean Corp Hgb Conc. 34.3 g/dL (33.0-37.0); Mean Corpuscular Hgb 29.2 pg (27.0-31.0); Mean Corpuscular Volume 85.3 fL (81.0-99.0); Mean Platelet Volume 8.5 fL (7.4-10.4); Nucleated Red Blood Cells % 0 %; Platelet Count 653 10^3/uL (130-400); Red Blood Cell Count 4.55 10^6/uL (4.20-5.40); Red Cell Dist. Width 13.4 % (11.5-14.5); White Blood Cell Count 10.2 10^3/uL (4.8-10.8)
== END ==
LOC: REG 15:30
PROVIDERS: ATTENDING PHYSICIAN Internal Medicine Gastroenterology
DX: K86.1 Other chronic pancreatitis (principal); K90.9 Intestinal malabsorption, unspecified
CPT/HCPCS: 36415; 80053; 85025

== ENCOUNTER → 2024-07-27 11:46 | Outpatient (REF) | payer BC, SELFPAY ==
[2024-07-27 12:43] LABS: % Eosinophils 8.5 % (0-6); % Immature Granulocytes 0.4 % (0-0.5); % Lymphocytes 28.3 % (20.5-51.1); % Monocytes 6.1 % (1.7-9.3); % Neutrophils 55.7 % (42.2-75.2); Absolute Basophils 0.1 10^3/uL (0-0.2); Absolute Eosinophils 0.9 10^3/uL (0-0.7); Absolute Lymphocytes 3.1 10^3/uL (1.2-3.4); Absolute Monocytes 0.7 10^3/uL (0.1-0.6); Absolute Neutrophils 6.1 10^3/uL (1.4-6.5); Hematocrit 41.6 % (37.0-47.0); Hemoglobin 14.4 g/dL (12.0-16.0); Mean Corp Hgb Conc. 34.6 g/dL (33.0-37.0); Mean Corpuscular Volume 83.9 fL (81.0-99.0); Mean Platelet Volume 8.5 fL (7.4-10.4); Nucleated Red Blood Cells % 0 %; Platelet Count 669 10^3/uL (130-400); Red Blood Cell Count 4.96 10^6/uL (4.20-5.40); Red Cell Dist. Width 12.3 % (11.5-14.5); White Blood Cell Count 10.9 10^3/uL (4.8-10.8)
[2024-07-27 13:02] LABS: ALT (SGPT) 32 U/L (0-35); AST (SGOT) 42 U/L (14-36); Albumin 4.8 g/dl (3.5-5.0); Alkaline Phosphatase 172 U/L (38-126); Amylase 108 U/L (30-110); Blood Urea Nitrogen 18 mg/dl (7-17); Calcium 9.5 mg/dl (8.4-10.2); Carbon Dioxide 27 mmol/L (22-30); Chloride 101 mmol/L (98-107); Glucose 87 mg/dl (70-99); Lipase 107 U/L (23-300); Potassium 4.5 mmol/L (3.5-5.1); Sodium 140 mmol/L (135-145); Total Bilirubin 0.4 mg/dl (0.2-1.3); Total Protein 8.8 g/dl (6.3-8.2); eGFR > 60.00
== END ==
LOC: REG 11:46
PROVIDERS: ATTENDING PHYSICIAN Internal Medicine
DX: K86.1 Other chronic pancreatitis (principal)
CPT/HCPCS: 36415; 80053; 82150; 83690; 85025

== ENCOUNTER → 2024-08-10 16:52 | Outpatient (REF) | payer BC, SELFPAY ==
[2024-08-10 17:29] LABS: % Eosinophils 4.5 % (0-6); % Immature Granulocytes 0.2 % (0-0.5); % Lymphocytes 30.6 % (20.5-51.1); % Monocytes 6.8 % (1.7-9.3); % Neutrophils 56.9 % (42.2-75.2); Absolute Basophils 0.1 10^3/uL (0-0.2); Absolute Eosinophils 0.5 10^3/uL (0-0.7); Absolute Lymphocytes 3.1 10^3/uL (1.2-3.4); Absolute Monocytes 0.7 10^3/uL (0.1-0.6); Absolute Neutrophils 5.8 10^3/uL (1.4-6.5); Hematocrit 36.9 % (37.0-47.0); Hemoglobin 13.5 g/dL (12.0-16.0); Mean Corp Hgb Conc. 36.6 g/dL (33.0-37.0); Mean Corpuscular Hgb 29.6 pg (27.0-31.0); Mean Corpuscular Volume 80.9 fL (81.0-99.0); Nucleated Red Blood Cells % 0 %; Platelet Count 520 10^3/uL (130-400); Red Blood Cell Count 4.56 10^6/uL (4.20-5.40); Red Cell Dist. Width 12.1 % (11.5-14.5); White Blood Cell Count 10.1 10^3/uL (4.8-10.8)
[2024-08-10 17:45] LABS: ALT (SGPT) 35 U/L (0-35); AST (SGOT) 41 U/L (14-36); Albumin 4.6 g/dl (3.5-5.0); Alkaline Phosphatase 151 U/L (38-126); Blood Urea Nitrogen 14 mg/dl (7-17); Calcium 9.5 mg/dl (8.4-10.2); Carbon Dioxide 27 mmol/L (22-30); Chloride 101 mmol/L (98-107); Glucose 86 mg/dl (70-99); Lipase 86 U/L (23-300); Potassium 4.3 mmol/L (3.5-5.1); Sodium 138 mmol/L (135-145); Total Bilirubin 0.5 mg/dl (0.2-1.3); Total Protein 8.2 g/dl (6.3-8.2); eGFR > 60.00
== END ==
LOC: REG 16:52
PROVIDERS: ATTENDING PHYSICIAN Registered Nurse
DX: K86.1 Other chronic pancreatitis (principal)
CPT/HCPCS: 36415; 80053; 83690; 85025

== ENCOUNTER → 2024-08-21 15:45 | Outpatient (REF) | payer BC, SELFPAY ==
[2024-08-21 17:18] LABS: ALT (SGPT) 32 U/L (0-35); AST (SGOT) 40 U/L (14-36); Albumin 4.3 g/dl (3.5-5.0); Alkaline Phosphatase 195 U/L (38-126); Amylase 87 U/L (30-110); Direct Bilirubin 0.2 mg/dl (0.0-0.4); Iron 102 ug/dl (37-170); Lipase 80 U/L (23-300); Total Bilirubin 0.4 mg/dl (0.2-1.3)
[2024-08-21 17:28] LABS: Percent Saturation 30 % (20-50); Total Iron Binding Capacity 335 ug/dl (265-497)
[2024-08-24 02:47] LABS: Vitamin D 1,25 Dihydroxy 33.6 pg/mL (19.9-79.3)
[2024-08-24 08:47] LABS: Zinc 76.9 ug/dL (60.0-120.0)
== END ==
LOC: REG 15:45
PROVIDERS: ATTENDING PHYSICIAN Internal Medicine Gastroenterology
DX: K90.9 Intestinal malabsorption, unspecified (principal); K86.1 Other chronic pancreatitis
CPT/HCPCS: 36415; 80076; 82150; 82652; 83540; 83550; 83690; 84443; 84446; 84590; 84630

== ENCOUNTER 2024-08-28 18:44 | Emergency (ER) | payer BC, SELFPAY ==
[2024-08-28 19:01] VITALS: BP 144/91
[2024-08-28 19:42] LABS: Hematocrit 41.5 % (37.0-47.0); Hemoglobin 14.8 g/dL (12.0-16.0); Mean Corp Hgb Conc. 35.7 g/dL (33.0-37.0); Mean Corpuscular Hgb 29.6 pg (27.0-31.0); Mean Platelet Volume 8.1 fL (7.4-10.4); Platelet Count 632 10^3/uL (130-400); Red Cell Dist. Width 12.5 % (11.5-14.5); White Blood Cell Count 11.5 10^3/uL (4.8-10.8)
[2024-08-28 19:44] LABS: Lactic Acid 1.5 mmol/L (0.7-2.0)
[2024-08-28 19:46] LABS: ALT (SGPT) 38 U/L (0-35); AST (SGOT) 56 U/L (14-36); Albumin 4.7 g/dl (3.5-5.0); Alkaline Phosphatase 171 U/L (38-126); Blood Urea Nitrogen 22 mg/dl (7-17); Calcium 9.8 mg/dl (8.4-10.2); Carbon Dioxide 24 mmol/L (22-30); Chloride 101 mmol/L (98-107); Glucose 97 mg/dl (70-99); Lipase 114 U/L (23-300); Potassium 4.3 mmol/L (3.5-5.1); Sodium 138 mmol/L (135-145); Total Bilirubin 0.5 mg/dl (0.2-1.3); Total Protein 8.8 g/dl (6.3-8.2); eGFR > 60.00
[2024-08-28 20:13] LABS: % Basophils 0.9 % (0-2); % Eosinophils 6.4 % (0-6); % Immature Granulocytes 0.4 % (0-0.5); % Lymphocytes 35.4 % (20.5-51.1); % Monocytes 6.9 % (1.7-9.3); Absolute Basophils 0.1 10^3/uL (0-0.2); Absolute Eosinophils 0.7 10^3/uL (0-0.7); Absolute Immature Granulocytes 0.1 10^3/uL (0-0.05); Absolute Lymphocytes 4.1 10^3/uL (1.2-3.4); Absolute Monocytes 0.8 10^3/uL (0.1-0.6); Absolute Neutrophils 5.7 10^3/uL (1.4-6.5); Nucleated Red Blood Cells % 0 %
[2024-08-28 20:15] VITALS: BMI 23.0
[2024-08-28 20:21] VITALS: BP 134/87
[2024-08-28 21:00] VITALS: BP 126/85
--- NOTE | 2024-08-28 21:37 | ED.GENMED ---
History of Present Illness
General
Chief Complaint: Abdominal Pain
Source: patient
Exam Limitations: none
Time Seen by Provider: 08/28/24 21:35
Nursing documentation reviewed up to this point in time: agreed with
History of Present Illness
History of Present Illness:
Patient is a 54-year-old female with chronic pancreatitis presents to the ER complaining of left upper quadrant pain. She reports this does feel like her typical pancreatitis pain.
Patient has a history of chronic pancreatitis/chronic pancreatitis pain from pancreas divisum, status post Pustow procedure . She is followed by [facility] (Dr Rome ) for this. They are discussing removing the pancreas however they are still in
the process of deciding what to do. She is normally on Dilaudid and Zofran and has flares of intense pain. She has had this for the past several days and she thinks she thinks eating Jell-O flared this up. She denies any fever or chills. She is
very nauseous despite taking Zofran but has not vomited.
She denies any associated fever or chills.
Past History
Past History
ED Past Medical History: Other (Recurrent pancreatitis, pancreatic duct stone,, pancreatic divisum,, PNA, Bowel obstruction, Hep A, IBS, Gastroporesis) and Other (C. difficile colitis)
ED Past Surgical History: Appendectomy, Bowel resection (Pancreatic revision surgery February 2017.), Cardiac (VSD repair as a child ), Cholecystectomy and Other (Splenectomy/adhesion. Liver repair post trauma years ago. Stents Pancreatic, Adhesions)
Social History
Tobacco: Non-smoker
Alcohol: None
Drug: None
Personal:
Living: with family
Employment: Not employed
Family History
Family History: Hypertension
Review of Systems
Review of Systems
Allergies reviewed?: Yes
All Other Systems: ROS reviewed and negative except as documented in HPI and ROS
Constitutional: Denies fever, fatigue or chills
Respiratory: Reports no symptoms
Cardiac: Reports no symptoms
ABD/GI: Reports abdominal pain and nausea
: Reports no symptoms
Musculoskeletal: Reports no symptoms
Skin: Reports no symptoms
Neurological: Reports no symptoms
Psychiatric: Reports no symptoms
Phy Exam
General Physical Exam
General Presentation: no apparent distress
General age: appears stated age
General Skin: warm and dry
General Habitus: normal
General Mental: alert
General Hydration: appears well hydrated
Pulmonary Exam
Pulmonary Exam: lungs clear and no respiratory distress
Gastrointestinal Exam
Gastrointestinal Exam: non tender and soft
Neurological Exam
Neurological Exam: alert and oriented x3
Musculoskeletal Exam
Musculoskeletal Exam: full ROM
Skin Exam
Skin Exam: normal color and warm/dry
Psychiatric Exam
Psychiatric Exam: normal mood/affect
Course
Orders/Labs/Results
Orders:
Orders
08/28/24 19:17
Complete Blood Count/With Diff Urgent
Comprehensive Metabolic Panel Urgent
Lactic Acid Urgent
Lipase Urgent
08/28/24 21:35
Urinalysis Reflex To Culture Urgent
Date Specimen was Collected: 08/28/24
Time Specimen was Collected: 21:32
Urine Microscopic Reflex Cult Urgent
Urine Culture Urgent
JUAN M Source: U
Specimen Description:
Date Specimen was Collected: 08/28/24
Time Specimen was Collected: 21:32
08/28/24 21:59
HYDROmorphone [Dilaudid] 1 mg IV NOW STA
08/28/24 22:00
0.9% Sodium Chloride 1000 ml [Nss] 1,000 ml IV BOLUS
Ondansetron Injectable [Zofran] 4 mg IV NOW STA
08/28/24 23:02
HYDROmorphone [Dilaudid] 2 mg IV NOW STA
08/28/24 23:10
Promethazine [Phenergan] 25 mg 0.9% Sodium Chloride 50 ml [Nss] 50 ml IV NOW
Abnormal Lab Results
08/28/24 08/28/24
19:17 21:35
WBC 11.5 H 10^3/uL
(4.8-10.8)
Plt Count 632 H 10^3/uL
(130-400)
Abs Immat Gran (auto) 0.1 H 10^3/uL
(0-0.05)
Absolute Lymphs (auto) 4.1 H 10^3/uL
(1.2-3.4)
Absolute Monos (auto) 0.8 H 10^3/uL
(0.1-0.6)
Eosinophils % 6.4 H %
(0-6)
BUN 22 H mg/dl
(7-17)
AST 56 H U/L
(14-36)
ALT 38 H U/L
(0-35)
Alkaline Phosphatase 171 H U/L
(38-126)
Total Protein 8.8 H g/dl
(6.3-8.2)
Urine Bilirubin 1+ A
(Negative)
Leukocyte Esterase Rfl 1+ A
(Negative)
Urine Albumin (Reflex) 2+ A
(Neg - Trace)
08/28/24 19:17
08/28/24 19:17
Vital Signs
Initial and Last Documented VS:
Initial Vital Signs
Temp Pulse Resp BP Pulse Ox
98.1 F 105 16 144/91 100
08/28/24 19:01 08/28/24 19:01 08/28/24 19:01 08/28/24 19:01 08/28/24 19:01
Last Documented Vital Signs
Temp Pulse Resp BP Pulse Ox
98.1 F 105 16 131/79 97
08/28/24 19:01 08/28/24 19:01 08/28/24 19:01 08/28/24 22:00 08/28/24 23:29
Contact Lens Inspector consulted with Physician
Contact Lens Inspector consulted with physician?: Yes
Name of Physician Consulted: DR Barron
MDM/Problems Addressed
Differential Diagnosis Includes:
Not limited to chronic pancreatitis
MDM/Problems Addressed:
Patient has chronic pancreatitis and is followed by Gilberto Sultana. She received pain medicine and fluids here in the ER feeling better wishes to go home. Patient was medicated with nausea medicine and fluids. Patient denies any fevers is afebrile
white count 11.54 hemoglobin stable; LFTs minimally elevated
Chronic conditions affecting care:
Chronic pancreatitis
*Pulse Oximetry
Patient hypoxic: no
*Critical Care Note
Total Time (30-74mins, 75-104mins- exclusive of procedures): Not Applicable
Data Reviewed
Review of Other/Old Records Reveals: Discharge Summary
ED Attending Note
-
Portions of this chart may have been created with voice recognition software.� Occasional wrong word or��sound alike� substitutions may have occurred due to the inherent limitations of voice recognition software.
Discharge Plan
Departure
Patient Disposition: Home (Routine Discharge)
Date of Disposition: 08/29/24
Time of Disposition: 00:14
Patient with high blood pressure during this ER visit?: Yes
Condition: Fair
Covid-19: Not Applicable
Discharge Problem:
Chronic abdominal pain
Prescriptions:
No Action
sertraline 50 MG tablet
100 mg PO HS
ondansetron 4 mg tablet,disintegrating
8 mg PO TIDPRN PRN (Reason: nausea/vomiting)
lorazepam 1 mg Tablet
1 mg PO HS
docusate sodium [Colace] 100 mg Capsule
100 mg PO BID
hydromorphone [Dilaudid] 4 mg tablet
4 mg PO BIDPRN PRN (Reason: severe pain)
cyclobenzaprine 5 mg tablet
5 mg PO TIDPRN PRN (Reason: muscle spasm)
acyclovir 5 % Ointment
1 applic topical 5/D 7 Days Qty: 5 0RF
Creon 12,000-38,000 -60,000 unit Capsule,Delayed Release(Dr/Ec)
2 cap PO AC Qty: 3 0RF
senna 8.6 mg capsule
8.6 mg PO BID PRN (Reason: when you take Dilaudid) Qty: 30 0RF
Referrals:
Irvin Campo CRNP [Family Provider] -
Activity Restrictions/Additional Instructions:
As discussed continue your previously prescribed medication.
return if any worsening of symptoms
Follow-up with your specialist as scheduled
Interventions
Interventions:
*Risk Screen - Suicide Last Done: 08/28/24 20:15
*General Assessment Last Done: 08/28/24 20:15
*Neglect/Abuse Screening Last Done: 08/28/24 20:15
ED- Fall Risk Assessment Last Done: 08/28/24 20:15
*ED COVID-19 Vaccine History Last Done: 08/28/24 20:15
*Nursing Disposition Last Done: 08/29/24 01:53
JE-Wgodsr-Soeyfceazf Assessment Last Done: 08/28/24 20:15
Discharge Date and Time
Discharge Date/Time: 08/29/24 01:54
Print Language: AFGHAN
[2024-08-28 21:46] LABS: Urine Albumin 2+ (Neg - Trace); Urine Bilirubin 1+ (Negative); Urine Character Clear (Clear); Urine Color Amber; Urine Glucose Negative (Negative); Urine Ketone Negative (Negative); Urine Leukocyte 1+ (Negative); Urine Nitrite Negative (Negative); Urine Occult Blood Negative (Negative); Urine Specific Gravity 1.025 (<1.030); Urine Urobilinogen 1+ (Neg - 1+)
[2024-08-28 22:00] VITALS: BP 131/79
[2024-08-28] MEDS: ZOFRAN 4 MG IV (22:08)
[2024-08-28] MEDS: DILAUDID 1 MG IV (22:08)
[2024-08-28] MEDS: NSS 1000 IV (22:09)
[2024-08-28 22:28] LABS: Urine Squamous Cell >30 /LPF (Few)
[2024-08-28 22:30] LABS: Urine Calcium Oxalate Crystals Seen; Urine Red Blood Cell 0-2 /HPF (0-2)
[2024-08-28] MEDS: DILAUDID 2 MG IV (23:23)
[2024-08-28] MEDS: PHENERGAN 51 MG IV (23:23)
== END 2024-08-29 01:54 | disposition home or self-care (01) ==
LOC: EMR 18:44
PROVIDERS: Emergency Medicine; EMERGENCY PHYSICIAN Student in an Organized Health Care Education/Training Program
DX: G89.29 Other chronic pain (principal); R10.12 Left upper quadrant pain; K58.9 Irritable bowel syndrome, unspecified; K86.1 Other chronic pancreatitis; Z82.49 Family history of ischemic heart disease and other diseases of the circulatory system; Z90.49 Acquired absence of other specified parts of digestive tract
CPT/HCPCS: 99283; 96374; 96375; 80053; 81003; 81015; 83605; 83690; 85025; 87086

== ENCOUNTER → 2024-09-01 15:43 | Outpatient (REF) | payer BC, SELFPAY ==
[2024-09-01 16:26] LABS: % Basophils 0.9 % (0-2); % Eosinophils 9.7 % (0-6); % Immature Granulocytes 0.3 % (0-0.5); % Lymphocytes 34.4 % (20.5-51.1); % Monocytes 6.2 % (1.7-9.3); % Neutrophils 48.5 % (42.2-75.2); Absolute Basophils 0.1 10^3/uL (0-0.2); Absolute Eosinophils 1.3 10^3/uL (0-0.7); Absolute Lymphocytes 4.5 10^3/uL (1.2-3.4); Absolute Monocytes 0.8 10^3/uL (0.1-0.6); Absolute Neutrophils 6.3 10^3/uL (1.4-6.5); Hematocrit 38.3 % (37.0-47.0); Hemoglobin 13.5 g/dL (12.0-16.0); Mean Corp Hgb Conc. 35.2 g/dL (33.0-37.0); Mean Corpuscular Hgb 29.5 pg (27.0-31.0); Mean Corpuscular Volume 83.6 fL (81.0-99.0); Mean Platelet Volume 8.5 fL (7.4-10.4); Nucleated Red Blood Cells % 0 %; Platelet Count 621 10^3/uL (130-400); Red Blood Cell Count 4.58 10^6/uL (4.20-5.40); Red Cell Dist. Width 12.6 % (11.5-14.5); White Blood Cell Count 13.1 10^3/uL (4.8-10.8)
[2024-09-01 16:34] LABS: ALT (SGPT) 32 U/L (0-35); AST (SGOT) 31 U/L (14-36); Albumin 4.9 g/dl (3.5-5.0); Alkaline Phosphatase 155 U/L (38-126); Blood Urea Nitrogen 18 mg/dl (7-17); Calcium 9.3 mg/dl (8.4-10.2); Carbon Dioxide 25 mmol/L (22-30); Chloride 100 mmol/L (98-107); Glucose 91 mg/dl (70-99); Potassium 4.5 mmol/L (3.5-5.1); Sodium 136 mmol/L (135-145); Total Bilirubin 0.7 mg/dl (0.2-1.3); Total Protein 8.5 g/dl (6.3-8.2); eGFR > 60.00
[2024-09-01 16:35] LABS: Amylase 91 U/L (30-110); Lipase 116 U/L (23-300)
== END ==
LOC: REG 15:43
DX: K86.1 Other chronic pancreatitis (principal)
CPT/HCPCS: 36415; 80053; 82150; 83690; 85025

== ENCOUNTER → 2024-09-16 10:04 | Outpatient (REF) | payer BC, SELFPAY ==
[2024-09-16 10:47] LABS: Erythrocyte Sed Rate 11 mm/hour (0-20)
[2024-09-16 10:53] LABS: ALT (SGPT) 43 U/L (0-35); AST (SGOT) 42 U/L (14-36); Albumin 4.3 g/dl (3.5-5.0); Alkaline Phosphatase 164 U/L (38-126); Amylase 79 U/L (30-110); Blood Urea Nitrogen 19 mg/dl (7-17); Calcium 9.6 mg/dl (8.4-10.2); Carbon Dioxide 27 mmol/L (22-30); Chloride 102 mmol/L (98-107); Glucose 87 mg/dl (70-99); Lipase 69 U/L (23-300); Potassium 4.8 mmol/L (3.5-5.1); Sodium 137 mmol/L (135-145); Total Bilirubin 0.7 mg/dl (0.2-1.3); eGFR > 60.00
== END ==
LOC: REG 10:04
DX: K86.1 Other chronic pancreatitis (principal)
CPT/HCPCS: 36415; 80053; 82150; 83690; 85652; 86140

== ENCOUNTER 2024-10-07 10:00 | Inpatient (IN) | payer BC, SELFPAY ==
[2024-10-07] VITALS (9 sets, daily range): BP systolic 98–122; BP diastolic 57–98; BMI 22.2
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
[2024-10-07 07:21] LABS: % Basophils 0.7 % (0-2); % Immature Granulocytes 0.4 % (0-0.5); % Lymphocytes 11.8 % (20.5-51.1); % Monocytes 6.3 % (1.7-9.3); % Neutrophils 77.8 % (42.2-75.2); Absolute Basophils 0.1 10^3/uL (0-0.2); Absolute Eosinophils 0.5 10^3/uL (0-0.7); Absolute Immature Granulocytes 0.1 10^3/uL (0-0.05); Absolute Lymphocytes 1.9 10^3/uL (1.2-3.4); Absolute Neutrophils 12.4 10^3/uL (1.4-6.5); Hematocrit 33.8 % (37.0-47.0); Hemoglobin 12.4 g/dL (12.0-16.0); Mean Corp Hgb Conc. 36.7 g/dL (33.0-37.0); Mean Corpuscular Hgb 29.8 pg (27.0-31.0); Mean Corpuscular Volume 81.3 fL (81.0-99.0); Mean Platelet Volume 8.4 fL (7.4-10.4); Nucleated Red Blood Cells % 0 %; Platelet Count 565 10^3/uL (130-400); Red Blood Cell Count 4.16 10^6/uL (4.20-5.40); Red Cell Dist. Width 12.7 % (11.5-14.5)
[2024-10-07] MEDS: NSS 500 IV (07:23)
[2024-10-07] MEDS: ZOFRAN 4 MG IV ×3 (07:24→22:33)
[2024-10-07] MEDS: DILAUDID 1 MG IV ×5 (07:24→18:34)
[2024-10-07] MEDS: PROTONIX IV 40 MG IV (07:24)
--- NOTE | 2024-10-07 07:25 | EDRN ---
Per Dr Navarrete- administer the other 500 ml NSS IV as a bolus for a total of 1000 ml
[2024-10-07 07:40] LABS: ALT (SGPT) 47 U/L (0-35); AST (SGOT) 48 U/L (14-36); Albumin 4.2 g/dl (3.5-5.0); Alkaline Phosphatase 192 U/L (38-126); Blood Urea Nitrogen 21 mg/dl (7-17); Calcium 9.3 mg/dl (8.4-10.2); Carbon Dioxide 24 mmol/L (22-30); Chloride 104 mmol/L (98-107); Estimated Creatinine Clearance 83 ml/min; Glucose 101 mg/dl (70-99); Lipase 112 U/L (23-300); Potassium 4.4 mmol/L (3.5-5.1); Sodium 137 mmol/L (135-145); Total Bilirubin 0.8 mg/dl (0.2-1.3); Total Protein 7.8 g/dl (6.3-8.2); eGFR > 60.00
[2024-10-07 07:57] LABS: COVID-19 Antigen Negative (Negative)
[2024-10-07] MEDS: TYLENOL 650 MG PO (09:19)
[2024-10-07] MEDS: LR 1000 IV ×2 (10:06→18:21)
[2024-10-07 10:43] LABS: Troponin I < 0.012 ng/ml
[2024-10-07] MEDS: FLAGYL 500 MG 100 IV ×2 (12:43→23:42)
[2024-10-07] MEDS: STERILE WATER FOR INJECTION 10 ML IV ×2 (12:43→19:59)
[2024-10-07] MEDS: MAXIPIME 2000 MG IV ×2 (12:43→19:59)
[2024-10-07] MEDS: DILAUDID 0.5 MG IV (12:53)
[2024-10-07 13:29] LABS: Troponin I < 0.012 ng/ml
[2024-10-07] MEDS: PHENERGAN 50.25 MG IV ×2 (13:33→18:34)
[2024-10-07 13:43] LABS: TSH Reflex To Free T4 0.17 uIU/ml (0.47-4.68)
[2024-10-07] MEDS: DILAUDID 2 MG IV ×4 (14:03→22:36)
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
[2024-10-07 14:22] LABS: Free T4 0.92 ng/dl (0.78-2.19)
[2024-10-07] MEDS: HEPARIN 5000 UNITS SC ×2 (15:46→23:42)
[2024-10-07] MEDS: ZENPEP DELAYED RELEASE CAPSULE PO (15:46)
--- NOTE | 2024-10-07 15:51 | CON.ID ---
Consultation
-
Date/Time Consultation Requested: October 07, 2024 1107
Date/Time Consultation Performed: October 07, 2024 1550
Requesting Provider: Dr. Lorne Bermudez
Performing Provider: Dr. Leida Lynn
Reason for Consultation: Fever and upper abd pain
Chief Complaint / Past History
Chief Complaint
Abd pain
History of Present Illness
54 year old female with history of splenectomy, chronic pancreatitis, pancreatic divisum with pancreatic stone, history of pancreatojejunostomy, chronic pain syndrome, multiple hospitalizations for recurrent acute on chronic pancreatitis, being
evaluated for pancreas transplant at [facility] who presented to the hospital on 10/07/24 with severe right upper and epigastric pain radiating to the back similar to previous. She continues to have intermittent fevers at home which escalated over the
past 2 to 3 days.. + nausea/vomiting. No diarrhea. No urine symptoms. She is started on cefepime/metronidazole. No cough. No headache, sinus congestion or sore throat. No rash. She continues to have left swollen neck glands, biopsied in
04/2024 + severe inflammation without lymphoma, followed with ENT. No ill-contacts. No recent travel. Admission WBC 16. Temp 101. She refuses CT a/p.
Past History
Additional Past Medical History:
Pancreatic stone and pancreatic divisum and recurrent pancreatitis.
History of pancreatojejunostomy 2016.
Irritable bowel syndrome.
Gastroparesis.
Anxiety.
C difficile x2.
Hereditary spherocytosis status post splenectomy, up to date
with her splenectomy vaccines per patient.
Enlarge L>R adenoid/vallecula s/p base of tongue bx + florid chronic inflammation (04/2024)
Chronic pain
PICC-associated RUE DVT
Cholecystectomy.
VSD repair as a child.
History of liver trauma repair.
Allergy History:
ketamine Allergy (Verified 08/28/24 19:04)
Hallucinations
prochlorperazine Allergy (Verified 08/28/24 19:04)
Shortness of Breath, Muscle Rigidity
prochlorperazine edisylate [From Compazine] Allergy (Verified 08/28/24 19:04)
tardive dyskinesia
prochlorperazine maleate [From Compazine] Allergy (Verified 08/28/24 19:04)
tardive dyskinesia
trimethobenzamide Allergy (Verified 08/28/24 19:04)
Shortness of Breath, muscle rigidity
trimethobenzamide HCl [From Tigan] Allergy (Verified 08/28/24 19:04)
tardive dyskinesia
vancomycin Allergy (Verified 08/28/24 19:04)
RED AND ITCHY
CHG Allergy (Uncoded 10/07/24 06:01)
Unknown
Medications Reviewed: Yes
Current Antibiotics:
cefepime
metronidazole
Social History
Tobacco: Non-Smoker
Alcohol: None
Drug: None
Personal:
Family History
Family History: Not Pertinent
Review of Systems
Vital Signs
Temp Pulse Resp BP Pulse Ox
99.5 F 105 18 105/64 93
10/07/24 12:19 10/07/24 12:19 10/07/24 12:19 10/07/24 12:19 10/07/24 12:19
Selected Entries
10/07/24
06:28
Temp 101.0 F H
Physical Exam
Physical Exam
Constitutional: Acutely Ill
Lymph Nodes: Other (left submandibular firm LAD)
Cardiovascular: Regular Rate and S1/S2
Pulmonary: Clear
Gastrointestinal: Soft, Tender (RUQ and epigastrum), Distended (mild) and Normal Bowel Sounds
Extremities: Negative Edema
Neurological: AO x 3
Lines: Port (RCW no erythema)
Lab / Diagnostic Study Results
10/07/24 07:12
10/07/24 07:12
Abs Immat Gran (auto) 0.1 10^3/uL (0-0.05) H 10/07/24 07:12
Absolute Neuts (auto) 12.4 10^3/uL (1.4-6.5) H 10/07/24 07:12
Absolute Lymphs (auto) 1.9 10^3/uL (1.2-3.4) 10/07/24 07:12
Absolute Monos (auto) 1.0 10^3/uL (0.1-0.6) H 10/07/24 07:12
Absolute Basos (auto) 0.1 10^3/uL (0-0.2) 10/07/24 07:12
Immature Gran % 0.4 % (0-0.5) 10/07/24 07:12
Neutrophils % 77.8 % (42.2-75.2) H 10/07/24 07:12
Lymphocytes % 11.8 % (20.5-51.1) L 10/07/24 07:12
Monocytes % 6.3 % (1.7-9.3) 10/07/24 07:12
Eosinophils % 3.0 % (0-6) 10/07/24 07:12
Basophils % 0.7 % (0-2) 10/07/24 07:12
Lactic Acid Cancelled 10/07/24 10:45
Microbiology Results
Micro:
10/07/24 07:55 Blood Culture - Pending
Blood/Venous
10/07/24 10:02 MRSA Screen - Pending
Nose
10/07/24 09:15 Influenza Types A & B ([facility]) - Final
Nasal Swab Negative for Influenza A & B, NAAT
Negative results must be combined with clinical observations
and patient history.
Nucleic Acid Amplification test (NAAT)performed on the
[employer] platform.
10/07/24 07:33 Blood Culture - Pending
Blood/Venous
Assessment / Plan
# Recurrent acute on chronic pancreatitis/pain
# Fever and leukocytosis due to above
-COVID/Flu neg
- If blood cx's neg, dc abx's.
-follow temps/wbc
-Supportive care.
# Head and Neck painless enlarged lymphoid tissue
- 04/23/24 ENT examination of the pharynx revealed moderate to severe lymphoid tissue present at the left greater than right base of tongue. There was some mild vallecular filling of the left side from the lymphoid tissue.
- 04/23/24 tissue biopsy: no lymphoma, + florid chronic inflammation
- Palpable left submandibular large painless LAD
- Ordered repeat CT neck to follow.
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
Pancreatic stone and pancreatic divisum and recurrent pancreatitis.
History of pancreatojejunostomy 2016.
Irritable bowel syndrome.
Gastroparesis.
Anxiety.
C difficile x2.
Hereditary spherocytosis status post splenectomy, up to date
with her splenectomy vaccines per patient.
Enlarge L>R adenoid/vallecula s/p base of tongue bx + florid chronic inflammation (04/2024)
Chronic pain
PICC-associated RUE DVT
Cholecystectomy.
VSD repair as a child.
History of liver trauma repair.
[2024-10-07 19:17] LABS: Troponin I < 0.012 ng/ml
[2024-10-07] MEDS: ATIVAN 1 MG PO (21:31)
[2024-10-07] MEDS: ZOLOFT 100 MG PO (21:31)
[2024-10-08 00:18] VITALS: BP 112/59
[2024-10-08 00:35] LABS: Troponin I < 0.012 ng/ml
[2024-10-08] MEDS: DILAUDID 2 MG IV ×8 (01:37→23:24)
[2024-10-08] MEDS: PHENERGAN 50.25 MG IV ×2 (01:52→07:04)
[2024-10-08 03:36] VITALS: BP 108/65
[2024-10-08] MEDS: STERILE WATER FOR INJECTION 10 ML IV (03:36)
[2024-10-08] MEDS: MAXIPIME 2000 MG IV (03:36)
[2024-10-08] MEDS: DILAUDID 1 MG IV ×3 (03:40→16:10)
[2024-10-08] MEDS: LR IV (04:28)
[2024-10-08] MEDS: ZOFRAN 4 MG IV ×3 (04:33→20:25)
[2024-10-08 04:50] LABS: Hematocrit 31.2 % (37.0-47.0); Mean Corp Hgb Conc. 35.3 g/dL (33.0-37.0); Mean Corpuscular Hgb 29.4 pg (27.0-31.0); Mean Corpuscular Volume 83.4 fL (81.0-99.0); Mean Platelet Volume 8.5 fL (7.4-10.4); Platelet Count 458 10^3/uL (130-400); Red Blood Cell Count 3.74 10^6/uL (4.20-5.40); Red Cell Dist. Width 12.7 % (11.5-14.5); White Blood Cell Count 15.1 10^3/uL (4.8-10.8)
[2024-10-08 05:28] LABS: ALT (SGPT) 50 U/L (0-35); AST (SGOT) 60 U/L (14-36); Albumin 3.7 g/dl (3.5-5.0); Alkaline Phosphatase 173 U/L (38-126); Blood Urea Nitrogen 13 mg/dl (7-17); Calcium 8.7 mg/dl (8.4-10.2); Carbon Dioxide 21 mmol/L (22-30); Chloride 102 mmol/L (98-107); Estimated Creatinine Clearance 83 ml/min; Glucose 82 mg/dl (70-99); Magnesium 1.5 mg/dl (1.6-2.3); Potassium 4.1 mmol/L (3.5-5.1); Sodium 133 mmol/L (135-145); Total Bilirubin 0.7 mg/dl (0.2-1.3); Total Protein 6.8 g/dl (6.3-8.2); eGFR > 60.00
[2024-10-08] MEDS: LR 1000 IV ×3 (06:03→20:20)
[2024-10-08] MEDS: ZENPEP DELAYED RELEASE CAPSULE PO ×3 (07:04→16:03)
[2024-10-08 07:23] VITALS: BP 108/63
[2024-10-08] MEDS: HEPARIN 5000 UNITS SC ×3 (08:05→23:25)
[2024-10-08] MEDS: NSS (PRESERVATIVE FREE) 10 ML IV (08:05)
[2024-10-08] MEDS: PROTONIX IV 40 MG IV (08:05)
[2024-10-08] MEDS: MAGNESIUM SULFATE 100 IV (08:19)
--- NOTE | 2024-10-08 11:08 | W.PN.ID1 ---
Date of Service
Date of Service: October 08, 2024
Today's Communication
DC cefepime.
Augmentin for chronic adenoiditis.
Assessment / Plan
# Recurrent acute on chronic pancreatitis/pain
# Fever and leukocytosis due to above
-COVID/Flu neg
- blood cx's x2 neg to date -> dc cefepime
-follow temps/wbc
-Supportive care.
# Chronic adenoiditis
- 04/23/24 ENT examination of the pharynx revealed moderate to severe lymphoid tissue present at the left greater than right base of tongue. There was some mild vallecular filling of the left side from the lymphoid tissue.
- 04/23/24 tissue biopsy: no lymphoma, + florid chronic inflammation
- 10/08/[address] neck: similar appearance as previous
- Treat with course of Augmentin 875mg po bid.
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
Pancreatic stone and pancreatic divisum and recurrent pancreatitis.
History of pancreatojejunostomy 2017.
Irritable bowel syndrome.
Gastroparesis.
Anxiety.
C difficile x2.
Hereditary spherocytosis status post splenectomy, up to date
with her splenectomy vaccines per patient.
Enlarge L>R adenoid/vallecula s/p base of tongue bx + florid chronic inflammation (04/2024)
Chronic pain
PICC-associated RUE DVT
Cholecystectomy.
VSD repair as a child.
History of liver trauma repair.
Chief Complaint
-: Fever and Leukocytosis
Subjective / Review of Systems
Abd pain waxes and wanes.
Vital Signs / Physical Exam
Vital Signs
Vital Signs
Temp Pulse Resp BP Pulse Ox
99.3 F 94 18 108/63 96
10/08/24 07:23 10/08/24 07:23 10/08/24 07:23 10/08/24 07:23 10/08/24 08:00
Physical Exam
Constitutional: Non-toxic
Cardiovascular: Regular Rate and S1/S2
Pulmonary: Clear
Gastrointestinal: Soft, Tender (upper abdomen) and Distended (mild)
Extremities: Negative Edema
Neurological: AO x 3
Objective Data
Lab Data
Lab Results
10/08/24 04:37
10/08/24 04:37
Estimated Creat Clear 83 ml/min 10/08/24 04:37
Lactic Acid Cancelled 10/07/24 10:45
Total Bilirubin 0.7 mg/dl (0.2-1.3) 10/08/24 04:37
AST 60 U/L (14-36) H 10/08/24 04:37
ALT 50 U/L (0-35) H 10/08/24 04:37
Alkaline Phosphatase 173 U/L (38-126) H 10/08/24 04:37
Most recent labs reviewed.
Micro Results:
10/07/24 07:55 Blood Culture - Preliminary
Blood/Venous No Growth in 24 hours- Final report to follow
10/07/24 07:33 Blood Culture - Preliminary
Blood/Venous No Growth in 24 hours- Final report to follow
10/07/24 10:02 MRSA Screen - Pending
Nose
10/07/24 09:15 Influenza Types A & B ([facility]) - Final
Nasal Swab Negative for Influenza A & B, NAAT
Negative results must be combined with clinical observations
and patient history.
Nucleic Acid Amplification test (NAAT)performed on the
[employer] platform.
10/08/24 CT Neck with IV contrast: Similar CT appearance of soft tissue thickening of the vallecula asymmetric to the left. History of lymphoid tissue hypertrophy at the base of the tongue with tissue biopsy revealing florid chronic inflammation.
Mild cervical lymphadenopathy and adenoidal hypertrophy with some improvement compared to the previous neck CT from 04/22/2024.
[2024-10-08 11:33] VITALS: BP 102/58
[2024-10-08] MEDS: AUGMENTIN 875 MG/125 MG 1 TABLET PO ×2 (12:29→20:20)
[2024-10-08] MEDS: FLAGYL 500 MG 100 IV ×2 (12:30→23:25)
--- NOTE | 2024-10-08 14:20 | W.PN.HOSP.TC ---
Today's Communication/Plan
-
pain control
f/u cultures
abx
Assessment / Plan
Assessment / Plan
Physical Exam
General: Well Developed and Well Nourished
HEENT: NormoCephalic
Respiratory: Clear
Cardiac: S1/S2
GI: Soft, Non Tender and Non Distended
Musculoskeletal: No Clubbing
Skin: Warm
Neuro: Awake, Alert, Oriented and AO x 3
Hematologic/Lymphatic: No Lymphadenopathy
Psych: Calm
54-year-old female with history of chronic pancreatitis with recurrent abdominal pain being worked up for pancreatic transplant at [facility] presents for recurrent right upper abdominal pain over the last 3 days. Febrile
episode and abd pain similar to past admissions.
PLAN:
# Fever
-associated with abdominal pain
-has been similar from past episodes with abd pain - inclusive results
-f/u mrsa
-f/u blood cultures
-empiric abx
-ID consulted
-patient desires to hold off on further imaging at this time due to frequent exposure to radiation
-History of splenectomy
#Acute Abdominal Pain
# Chronic pancreatitis
Probable 2/2 to recurrent pancreatitis, abd non distended, non tender, passing flatus BMs
Pain Control with Narcan PRN
History of pancreatitis for the past 15 years with history of pancreatic jejunostomy 2017
Narcotic dependent for chronic pain
Also on pancreatic enzymes
She is followed by Dr. Rome at [facility] and is planning to be evaluated at [facility] for potential pancreatic transplant.
Pancreatic divisum and history of pancreatic duct stone
History of celiac nerve block
# Leukocytosis
I suspect reactive
Follow-up cultures
Empiric antibiotics
MRSA swab
# Soft tissue density in the neck
Status post biopsy
Patient needs to follow-up with Dr. Rubio as outpatient
#Hyponatremia
-monitor
#Hypomagnesemia
� Monitor and replete
#Hx of Likely euthyroid sick syndrome.
Follow-up outpatient
#Thrombocytosis
# Mostly clear reactive
� Monitor
#Transaminitis
� Chronic
# Chronically elevated LFTs
# Anxiety and depression-continue lorazepam and sertraline
# Chronic muscle spasms-continue cyclobenzaprine
# History of IBS and gastroparesis
# Hereditary spherocytosis
# History of hepatitis A
# History of C. difficile
# History of VSD repair as a child
# History of splenectomy
# DVT prophylaxis-HSQ
# Full code
Anticipated Discharge: > 48 hours
Subjective/Interval History
-
Date of Service: October 08, 2024
Pain still present
Objective Data
-
Labs:
Laboratory Results
10/08/24
04:37
WBC 15.1 H
Hgb 11.0 L
Hct 31.2 L
Plt Count 458 H
Sodium 133 L
Potassium 4.1
Chloride 102
Carbon Dioxide 21 L
BUN 13
Creatinine 0.6
Glucose 82
Calcium 8.7
Total Bilirubin 0.7
AST 60 H
ALT 50 H
Alkaline Phosphatase 173 H
Vital Signs:
Vital Signs
Temp Pulse Resp BP Pulse Ox
99.0 F 91 18 102/58 94
10/08/24 11:33 10/08/24 11:33 10/08/24 11:33 10/08/24 11:33 10/08/24 11:33
I&O
10/07/24 10/08/24 10/09/24
06:59 06:59 06:59
Intake Total 1899
Balance 1899
Review of Systems
-
History Source: Patient
All other systems: Not reviewed unless documented
Data Reviewed
-
Labs: Labs Reviewed by me and Discussed with Physician
--- NOTE | 2024-10-08 15:04 | PN.CDI ---
CDI
- -
CDI:
Physician Documentation Request
Admit Date: 10/07/24 10:00
Dear Doctor Lara,
Please review the following and provide your response in the progress notes.
Clinical Indicators:
Pt admitted with acute on chronic pancreatitis
ID progress note 10/08, ' # Recurrent acute on chronic pancreatitis/pain# Fever and leukocytosis due to above... Chronic adenoiditis ..... Treat with course of Augmentin 875mg po bid. ...'
On admission WBC 16.0,Tmax 101, Respirations 31, HR 113
Please clarify which of the following most accurately describes the status of the patient's infection:
Sepsis-POA
- Systemic manifestations of infection, with 2 or more SIRS criteria which include:
- Fever >100.4 degrees F or hypothermia < 96.8 degrees F
- Leukocytosis - WBC > 12,000 or leukopenia - WBC < 4,000 or > 10% bands
- Tachycardia > 90 beats per minute
- Tachypnea - RR > 20 breaths per minute or PaCO2 , 32mmHg
Source: Merck Manual 2013
SIRS with Acute Pancreatitis
Other ( please specify)
Use of terms such as suspected, likely, concern for, or probable (associated with a specific diagnosis that is being evaluated, monitored, or treated as if it exists) are acceptable and can be coded in the inpatient setting, when documented at the
time of discharge.
Thank you,
Elle Amaya RN
CDI Specialist
[employer]
Please use your independent medical judgment in providing your response.
[2024-10-08 15:52] VITALS: BP 102/60
[2024-10-08] MEDS: VISBIOME 2 CAP PO (16:03)
[2024-10-08] MEDS: SENOKOT-S 1 TABLET PO (16:54)
[2024-10-08] MEDS: PHENERGAN 50.5 MG IV ×2 (16:54→23:24)
--- NOTE | 2024-10-08 17:20 | CM ---
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
ambulation, patient drives, patient has had difficulty with working due to medical issues and is interested in claiming disability, patient plans on reaching out to her PCP to discuss disability further.
PCP: Irvin Campo
Pharmacy [facility] in [place]
Plan; Home with spouse when stable.
[2024-10-08 19:57] VITALS: BP 91/55
[2024-10-08] MEDS: ZOLOFT 100 MG PO (22:21)
[2024-10-08] MEDS: ATIVAN 1 MG PO (22:21)
[2024-10-09] VITALS (7 sets, daily range): BP systolic 91–149; BP diastolic 51–75; BMI 22.2
[2024-10-09] MEDS: DILAUDID 2 MG IV ×8 (02:44→23:01)
[2024-10-09] MEDS: LR 1000 IV (04:18)
[2024-10-09] MEDS: ZENPEP DELAYED RELEASE CAPSULE PO ×3 (08:10→16:02)
[2024-10-09] MEDS: NSS (PRESERVATIVE FREE) 10 ML IV (08:10)
[2024-10-09] MEDS: PROTONIX IV 40 MG IV (08:11)
[2024-10-09] MEDS: HEPARIN 5000 UNITS SC ×3 (08:11→23:00)
[2024-10-09] MEDS: VISBIOME 2 CAP PO (08:12)
[2024-10-09 08:26] LABS: Hematocrit 27.8 % (37.0-47.0); Hemoglobin 10.1 g/dL (12.0-16.0); Mean Corp Hgb Conc. 36.3 g/dL (33.0-37.0); Mean Corpuscular Hgb 29.7 pg (27.0-31.0); Mean Corpuscular Volume 81.8 fL (81.0-99.0); Mean Platelet Volume 8.8 fL (7.4-10.4); Platelet Count 422 10^3/uL (130-400); Red Cell Dist. Width 12.8 % (11.5-14.5); White Blood Cell Count 18.6 10^3/uL (4.8-10.8)
--- NOTE | 2024-10-09 09:00 | PTCARENOTE ---
0830 Noted pulse ox on room air 86% to 88%, pt c/o short of breath when up ambulating. Place O2 2L via n/c (pulse ox 95%), DR. Bermudez notified and ordered chest x-ray and d/c IV fluids. Explain to pt, continue to monitor pt closely.
[2024-10-09 09:15] LABS: ALT (SGPT) 34 U/L (0-35); AST (SGOT) 36 U/L (14-36); Alkaline Phosphatase 143 U/L (38-126); Blood Urea Nitrogen 10 mg/dl (7-17); Calcium 7.9 mg/dl (8.4-10.2); Carbon Dioxide 20 mmol/L (22-30); Chloride 105 mmol/L (98-107); Estimated Creatinine Clearance 83 ml/min; Glucose 67 mg/dl (70-99); Magnesium 1.7 mg/dl (1.6-2.3); Potassium 3.8 mmol/L (3.5-5.1); Sodium 134 mmol/L (135-145); Total Bilirubin 0.6 mg/dl (0.2-1.3); Total Protein 5.7 g/dl (6.3-8.2); eGFR > 60.00
[2024-10-09] MEDS: DILAUDID 0.5 MG IV (10:30)
[2024-10-09] MEDS: AUGMENTIN 875 MG/125 MG 1 TABLET PO ×2 (10:33→19:55)
[2024-10-09] MEDS: LR IV (11:22)
[2024-10-09] MEDS: FLAGYL 500 MG 100 IV (13:52)
--- NOTE | 2024-10-09 14:18 | W.PN.HOSP.TC ---
Today's Communication/Plan
-
pain control
wean o2
stop fluids
Assessment / Plan
Assessment / Plan
Physical Exam
General: Well Developed and Well Nourished
HEENT: NormoCephalic
Respiratory: Clear
Cardiac: S1/S2
GI: Soft, Non Tender and Non Distended
Musculoskeletal: No Clubbing
Skin: Warm
Neuro: Awake, Alert, Oriented and AO x 3
Hematologic/Lymphatic: No Lymphadenopathy
Psych: Calm
54-year-old female with history of chronic pancreatitis with recurrent abdominal pain being worked up for pancreatic transplant at [facility] presents for recurrent right upper abdominal pain over the last 3 days. Febrile
episode and abd pain similar to past admissions.
PLAN:
# Fever
-associated with abdominal pain
-has been similar from past episodes with abd pain - inclusive results
-f/u mrsa
-f/u blood cultures
-empiric abx
-ID consulted
-patient desires to hold off on further imaging at this time due to frequent exposure to radiation
-History of splenectomy
#Acute Abdominal Pain
# Chronic pancreatitis
Probable 2/2 to recurrent pancreatitis, abd non distended, non tender, passing flatus BMs
Pain Control with Narcan PRN
History of pancreatitis for the past 15 years with history of pancreatic jejunostomy 2016
Narcotic dependent for chronic pain
Also on pancreatic enzymes
She is followed by Dr. Rome at [facility] and is planning to be evaluated at [facility] for potential pancreatic transplant.
Pancreatic divisum and history of pancreatic duct stone
History of celiac nerve block
#Hypoxia
-most liekly related to splinting from pain
-pain control
stop fluids
-small left pleural effusion
-wean o2 as tolerated
# Leukocytosis
I suspect reactive
Follow-up cultures
Empiric antibiotics
MRSA swab
# Soft tissue density in the neck
Status post biopsy
Patient needs to follow-up with Dr. Rubio as outpatient
#Hyponatremia
-monitor
#Hypomagnesemia
� Monitor and replete
#Hx of Likely euthyroid sick syndrome.
Follow-up outpatient
#Thrombocytosis
# Mostly clear reactive
� Monitor
#Transaminitis
� Chronic
# Chronically elevated LFTs
# Anxiety and depression-continue lorazepam and sertraline
# Chronic muscle spasms-continue cyclobenzaprine
# History of IBS and gastroparesis
# Hereditary spherocytosis
# History of hepatitis A
# History of C. difficile
# History of VSD repair as a child
# History of splenectomy
# DVT prophylaxis-HSQ
# Full code
Anticipated Discharge: 24 - 48 hours
Subjective/Interval History
-
Date of Service: October 09, 2024
mildly hypoxic today, splinting due to pain
Objective Data
-
Labs:
Laboratory Results
10/09/24
07:53
WBC 18.6 H
Hgb 10.1 L
Hct 27.8 L
Plt Count 422 H
Sodium 134 L
Potassium 3.8
Chloride 105
Carbon Dioxide 20 L
BUN 10
Creatinine 0.5 L
Glucose 67 L
Calcium 7.9 L
Total Bilirubin 0.6
AST 36
ALT 34
Alkaline Phosphatase 143 H
Vital Signs:
Vital Signs
Temp Pulse Resp BP Pulse Ox
99.7 F 101 20 115/65 95
10/09/24 11:00 10/09/24 11:00 10/09/24 11:00 10/09/24 11:00 10/09/24 11:00
I&O
10/08/24 10/09/24 10/10/24
06:59 06:59 06:59
Intake Total 1899
Balance 1899
Review of Systems
-
History Source: Patient
All other systems: Not reviewed unless documented
Data Reviewed
-
Labs: Labs Reviewed by me and Discussed with Physician
--- NOTE | 2024-10-09 15:55 | CM ---
CM reviewed chart, discharge likely 24-48 hrs. Plan remains home no needs. CM will continue to follow for all discharge planning needs.
Plan; home no needs.
[2024-10-09] MEDS: TYLENOL 650 MG PO (15:57)
--- NOTE | 2024-10-09 17:23 | W.PN.ID1 ---
Date of Service
Date of Service: October 09, 2024
Today's Communication
Continue Augmentin for adenoiditis.
Supportive care for acute on chronic pancreatitits.
Assessment / Plan
# Recurrent acute on chronic pancreatitis/pain
# Fever and leukocytosis due to above
-COVID/Flu neg
- Fever resolved
- blood cx's x2 neg to date
-Supportive care.
# Chronic adenoiditis with florid inflammation
- 04/23/24 ENT examination of the pharynx revealed moderate to severe lymphoid tissue present at the left greater than right base of tongue. There was some mild vallecular filling of the left side from the lymphoid tissue.
- 04/23/24 tissue biopsy: no lymphoma, + florid chronic inflammation
- 10/08/[address] neck: similar appearance as previous
- Continue Augmentin 875mg po bid x 10 days through 10/17.
- Follow-up with ENT oupt.
# Conditions [employer]
Pancreatic stone and pancreatic divisum and recurrent pancreatitis.
History of pancreatojejunostomy 2016.
Irritable bowel syndrome.
Gastroparesis.
Anxiety.
C difficile x2.
Hereditary spherocytosis status post splenectomy, up to date
with her splenectomy vaccines per patient.
Enlarge L>R adenoid/vallecula s/p base of tongue bx + florid chronic inflammation (04/2024)
Chronic pain
PICC-associated RUE DVT
Cholecystectomy.
VSD repair as a child.
History of liver trauma repair.
Chief Complaint
-: Fever and Leukocytosis
Subjective / Review of Systems
c/o severe abd pain
Vital Signs / Physical Exam
Vital Signs
Vital Signs
Temp Pulse Resp BP Pulse Ox
99.3 F 85 18 149/75 97
10/09/24 17:03 10/09/24 15:00 10/09/24 15:00 10/09/24 15:00 10/09/24 15:00
Physical Exam
Constitutional: Chronically Ill
Lymph Nodes: Other (Left submandibular)
Cardiovascular: Regular Rate and S1/S2
Gastrointestinal: Soft, Tender (upper abd) and Non Distended
Extremities: Negative Edema
Neurological: AO x 3
Lines: Port (no erythema)
Objective Data
Lab Data
Lab Results
10/09/24 07:53
10/09/24 07:53
Estimated Creat Clear 83 ml/min 10/09/24 07:53
Lactic Acid Cancelled 10/07/24 10:45
Total Bilirubin 0.6 mg/dl (0.2-1.3) 10/09/24 07:53
AST 36 U/L (14-36) 10/09/24 07:53
ALT 34 U/L (0-35) 10/09/24 07:53
Alkaline Phosphatase 143 U/L (38-126) H 10/09/24 07:53
Most recent labs reviewed.
Micro Results:
10/07/24 07:55 Blood Culture - Preliminary
Blood/Venous No Growth in 48 hours- Final report to follow
10/07/24 07:33 Blood Culture - Preliminary
Blood/Venous No Growth in 48 hours- Final report to follow
10/07/24 10:02 MRSA Screen - Final
Nose No Methicillin Resistant Staphylococcus aureus isolated.
10/07/24 09:15 Influenza Types A & B ([facility]) - Final
Nasal Swab Negative for Influenza A & B, NAAT
Negative results must be combined with clinical observations
and patient history.
Nucleic Acid Amplification test (NAAT)performed on the
[employer] platform.
10/09/24 CXR : Small left pleural effusion. No evidence for pulmonary edema or pneumonia. Mild cardiomegaly. Right IJ venous catheter in place.
10/08/24 CT Neck with IV contrast: Similar CT appearance of soft tissue thickening of the vallecula asymmetric to the left. History of lymphoid tissue hypertrophy at the base of the tongue with tissue biopsy revealing florid chronic inflammation.
Mild cervical lymphadenopathy and adenoidal hypertrophy with some improvement compared to the previous neck CT from 04/22/2024.
Care Review
Plan reviewed with: Physician (Dr. Bermudez)
--- NOTE | 2024-10-09 19:40 | PTCARENOTE ---
1530 Noted pt had temp 102.1, Pt c/o chest discomfort when takes deep breaths in. DR. Bermudez notified. ordered tylenol and ordered Incentive spirometry. Explain to pt,continue to monitor closely.
[2024-10-09] MEDS: ZOLOFT 100 MG PO (21:57)
[2024-10-09] MEDS: ATIVAN 1 MG PO (21:57)
[2024-10-10] MEDS: DILAUDID 2 MG IV ×8 (02:25→23:30)
[2024-10-10 03:11] VITALS: BP 110/57
[2024-10-10 04:09] LABS: Hematocrit 27.5 % (37.0-47.0); Hemoglobin 10.1 g/dL (12.0-16.0); Mean Corp Hgb Conc. 36.7 g/dL (33.0-37.0); Mean Corpuscular Hgb 30.5 pg (27.0-31.0); Mean Corpuscular Volume 83.1 fL (81.0-99.0); Mean Platelet Volume 9.2 fL (7.4-10.4); Platelet Count 449 10^3/uL (130-400); Red Blood Cell Count 3.31 10^6/uL (4.20-5.40); White Blood Cell Count 21.9 10^3/uL (4.8-10.8)
[2024-10-10 04:36] LABS: ALT (SGPT) 41 U/L (0-35); AST (SGOT) 51 U/L (14-36); Albumin 3.2 g/dl (3.5-5.0); Alkaline Phosphatase 179 U/L (38-126); Blood Urea Nitrogen 10 mg/dl (7-17); Calcium 8.3 mg/dl (8.4-10.2); Carbon Dioxide 25 mmol/L (22-30); Chloride 101 mmol/L (98-107); Estimated Creatinine Clearance 83 ml/min; Glucose 119 mg/dl (70-99); Potassium 3.8 mmol/L (3.5-5.1); Sodium 134 mmol/L (135-145); Total Bilirubin 1.4 mg/dl (0.2-1.3); Total Protein 6.2 g/dl (6.3-8.2); eGFR > 60.00
[2024-10-10 07:00] VITALS: BP 111/63
[2024-10-10] MEDS: ZENPEP DELAYED RELEASE CAPSULE PO ×3 (09:37→16:17)
[2024-10-10] MEDS: HEPARIN 5000 UNITS SC ×3 (09:54→23:30)
[2024-10-10] MEDS: PROTONIX IV 40 MG IV (09:54)
[2024-10-10] MEDS: NSS (PRESERVATIVE FREE) 10 ML IV (09:54)
[2024-10-10] MEDS: AUGMENTIN 875 MG/125 MG 1 TABLET PO ×2 (09:55→20:13)
[2024-10-10] MEDS: VISBIOME 2 CAP PO (09:55)
[2024-10-10] MEDS: DILAUDID 1 MG IV (10:03)
[2024-10-10 11:00] VITALS: BP 105/59
--- NOTE | 2024-10-10 13:08 | W.PN.HOSP.TC ---
Today's Communication/Plan
-
pain control
wean o2, incentive clayton, acapella
adv diet
abd US
CT PE
Assessment / Plan
Assessment / Plan
Physical Exam
General: Well Developed and Well Nourished
HEENT: NormoCephalic
Respiratory: Clear
Cardiac: S1/S2
GI: Soft, Non Tender and Non Distended
Musculoskeletal: No Clubbing
Skin: Warm
Neuro: Awake, Alert, Oriented and AO x 3
Hematologic/Lymphatic: No Lymphadenopathy
Psych: Calm
54-year-old female with history of chronic pancreatitis with recurrent abdominal pain being worked up for pancreatic transplant at [facility] presents for recurrent right upper abdominal pain over the last 3 days. Febrile
episode and abd pain similar to past admissions.
PLAN:
# Fever
-associated with abdominal pain
-has been similar from past episodes with abd pain - inclusive results
-f/u mrsa
-f/u blood cultures ngtd
-empiric abx
-ID consulted
-patient desires to hold off on further imaging at this time due to frequent exposure to radiation
-History of splenectomy
#Acute Abdominal Pain
# Chronic pancreatitis
#Transaminitis
Probable 2/2 to recurrent pancreatitis, abd non distended, non tender, passing flatus BMs
Pain Control with Narcan PRN
History of pancreatitis for the past 15 years with history of pancreatic jejunostomy 2016
Narcotic dependent for chronic pain
Also on pancreatic enzymes
She is followed by Dr. Rome at [facility] and is planning to be evaluated at [facility] for potential pancreatic transplant.
Pancreatic divisum and history of pancreatic duct stone
History of celiac nerve block
-F/u Complete abd US
-Adv Diet
#Hypoxia
-most likely related to splinting from pain
-pain control
stop fluids
-small left pleural effusion
-wean o2 as tolerated
-Incentive Clayton and Acapella
-CT PE series
#Chronic Adenoiditis
-Continue Augmentin 875mg po bid x 10 days through 10/17.
- Follow-up with ENT oupt.
# Leukocytosis
I suspect reactive
Follow-up cultures
Empiric antibiotics
MRSA swab
# Soft tissue density in the neck
Status post biopsy
Patient needs to follow-up with Dr. Rubio as outpatient
#Hyponatremia
-monitor
#Hypomagnesemia
� Monitor and replete
#Hx of Likely euthyroid sick syndrome.
Follow-up outpatient
#Thrombocytosis
# Mostly clear reactive
� Monitor
#Transaminitis
� Chronic
-f/u US
# Chronically elevated LFTs
# Anxiety and depression-continue lorazepam and sertraline
# Chronic muscle spasms-continue cyclobenzaprine
# History of IBS and gastroparesis
# Hereditary spherocytosis
# History of hepatitis A
# History of C. difficile
# History of VSD repair as a child
# History of splenectomy
# DVT prophylaxis-HSQ
# Full code
Total time spent on today's encounter was 55 minutes which included time spent in counseling the patient/family regarding diagnosis and treatment plan as listed above, goals of care, and symptom management. Case was discussed with nursing staff,
specialists, and care coordinators/case management. All labs and imaging personally reviewed by me. Remainder the time spent in detailed review of previous records, lab data, imaging, and other medical provider documentation.
Anticipated Discharge: > 48 hours
Subjective/Interval History
-
Date of Service: October 10, 2024
weaned off o2 yesterday evening, on and off
Objective Data
-
Labs:
Laboratory Results
10/10/24
03:45
WBC 21.9 H
Hgb 10.1 L
Hct 27.5 L
Plt Count 449 H
Sodium 134 L
Potassium 3.8
Chloride 101
Carbon Dioxide 25
BUN 10
Creatinine 0.5 L
Glucose 119 H
Calcium 8.3 L
Total Bilirubin 1.4 H
AST 51 H
ALT 41 H
Alkaline Phosphatase 179 H
Vital Signs:
Vital Signs
Temp Pulse Resp BP Pulse Ox
99.3 F 102 18 105/59 87
10/10/24 11:00 10/10/24 11:00 10/10/24 11:00 10/10/24 11:00 10/10/24 11:00
I&O
10/09/24 10/10/24 10/11/24
06:59 06:59 06:59
Intake Total 1650 / 1650 0 / 0
Balance 1650 / 1650 0 / 0
Review of Systems
-
History Source: Patient
All other systems: Not reviewed unless documented
Data Reviewed
-
Labs: Labs Reviewed by me and Discussed with Physician
[2024-10-10] MEDS: ZOFRAN 4 MG IV ×2 (14:03→20:20)
[2024-10-10 15:00] VITALS: BP 126/87
[2024-10-10] MEDS: LASIX 40 MG IV (17:24)
[2024-10-10 20:10] VITALS: BP 115/60
[2024-10-10] MEDS: ZOLOFT 100 MG PO (21:40)
[2024-10-10] MEDS: TYLENOL 650 MG PO (21:40)
[2024-10-10] MEDS: ATIVAN 1 MG PO (21:40)
[2024-10-10 23:48] VITALS: BP 98/63
[2024-10-11] MEDS: DILAUDID 2 MG IV ×4 (02:28→11:19)
[2024-10-11 03:31] VITALS: BP 98/58
[2024-10-11 07:30] VITALS: BP 97/59
[2024-10-11] MEDS: VISBIOME 2 CAP PO (08:29)
[2024-10-11] MEDS: AUGMENTIN 875 MG/125 MG 1 TABLET PO (08:29)
[2024-10-11] MEDS: HEPARIN 5000 UNITS SC ×2 (08:29→16:39)
[2024-10-11] MEDS: ZENPEP DELAYED RELEASE CAPSULE 2 CAPSULE PO ×3 (08:29→16:39)
[2024-10-11] MEDS: NSS (PRESERVATIVE FREE) 10 ML IV (08:30)
[2024-10-11] MEDS: PROTONIX IV 40 MG IV (08:30)
[2024-10-11 08:43] LABS: Hematocrit 28.6 % (37.0-47.0); Hemoglobin 10.4 g/dL (12.0-16.0); Mean Corp Hgb Conc. 36.4 g/dL (33.0-37.0); Mean Corpuscular Hgb 30.1 pg (27.0-31.0); Mean Corpuscular Volume 82.7 fL (81.0-99.0); Mean Platelet Volume 9.1 fL (7.4-10.4); Platelet Count 528 10^3/uL (130-400); Red Blood Cell Count 3.46 10^6/uL (4.20-5.40); Red Cell Dist. Width 12.8 % (11.5-14.5); White Blood Cell Count 20.8 10^3/uL (4.8-10.8)
[2024-10-11 08:55] LABS: ALT (SGPT) 34 U/L (0-35); AST (SGOT) 29 U/L (14-36); Albumin 3.1 g/dl (3.5-5.0); Alkaline Phosphatase 183 U/L (38-126); Blood Urea Nitrogen 11 mg/dl (7-17); Calcium 8.3 mg/dl (8.4-10.2); Carbon Dioxide 34 mmol/L (22-30); Chloride 96 mmol/L (98-107); Estimated Creatinine Clearance 83 ml/min; Glucose 122 mg/dl (70-99); Potassium 3.2 mmol/L (3.5-5.1); Sodium 135 mmol/L (135-145); Total Bilirubin 0.9 mg/dl (0.2-1.3); Total Protein 6.2 g/dl (6.3-8.2); eGFR > 60.00
[2024-10-11] MEDS: LASIX 40 MG IV (09:32)
[2024-10-11] MEDS: KCL ELIXIR 40 MEQ PO (09:33)
--- NOTE | 2024-10-11 09:44 | W.PN.ID1 ---
Addendum entered and electronically signed by Leida Lynn MD 10/11/24 13:52:
CT chest shows new RUL PNA.
DC Augmentin.
Start cefepime.
Original Note:
Date of Service
Date of Service: October 11, 2024
Today's Communication
Follow wbc.
Assessment / Plan
# Recurrent acute on chronic pancreatitis/pain
# Fever resolved
# Leukocytosis trending up.
-COVID/Flu neg
- Fever resolved
- blood cx's x2 neg to date
- No diarrhea. Is constipated -> ordered 1 dose of Miralax.
- Monitor WBC for now.
# Chronic adenoiditis with florid inflammation
- 04/23/24 ENT examination of the pharynx revealed moderate to severe lymphoid tissue present at the left greater than right base of tongue. There was some mild vallecular filling of the left side from the lymphoid tissue.
- 04/23/24 tissue biopsy: no lymphoma, + florid chronic inflammation
- 10/08/[address] neck: similar appearance as previous
- Continue Augmentin 875mg po bid x 10 days through 10/17.
- Follow-up with ENT oupt.
# Conditions [employer]
Pancreatic stone and pancreatic divisum and recurrent pancreatitis.
History of pancreatojejunostomy 2016.
Irritable bowel syndrome.
Gastroparesis.
Anxiety.
C difficile x2.
Hereditary spherocytosis status post splenectomy, up to date
with her splenectomy vaccines per patient.
Enlarge L>R adenoid/vallecula s/p base of tongue bx + florid chronic inflammation (04/2024)
Chronic pain
PICC-associated RUE DVT
Cholecystectomy.
VSD repair as a child.
History of liver trauma repair.
Chief Complaint
-: Leukocytosis
Subjective / Review of Systems
Continues to have abd pain.
adenoiditis same.
No diarrhea. No BM.
Vital Signs / Physical Exam
Vital Signs
Vital Signs
Temp Pulse Resp BP Pulse Ox
99.1 F 93 16 97/59 91
10/11/24 07:30 10/11/24 07:30 10/11/24 07:30 10/11/24 07:30 10/11/24 07:30
Physical Exam
Constitutional: Chronically Ill
Lymph Nodes: Other (Left submandibular)
Cardiovascular: Regular Rate and S1/S2
Gastrointestinal: Soft, Tender (upper abd) and Non Distended
Extremities: Negative Edema
Neurological: AO x 3
Lines: Port (no erythema)
Objective Data
Lab Data
Lab Results
10/11/24 08:19
10/11/24 08:19
Estimated Creat Clear 83 ml/min 10/11/24 08:19
Lactic Acid Cancelled 10/07/24 10:45
Total Bilirubin 0.9 mg/dl (0.2-1.3) 10/11/24 08:19
AST 29 U/L (14-36) 10/11/24 08:19
ALT 34 U/L (0-35) 10/11/24 08:19
Alkaline Phosphatase 183 U/L (38-126) H 10/11/24 08:19
Most recent labs reviewed.
Micro Results:
10/07/24 07:55 Blood Culture - Preliminary
Blood/Venous No Growth in 4 days- Final report to follow
10/07/24 07:33 Blood Culture - Preliminary
Blood/Venous No Growth in 4 days- Final report to follow
10/07/24 10:02 MRSA Screen - Final
Nose No Methicillin Resistant Staphylococcus aureus isolated.
10/07/24 09:15 Influenza Types A & B ([facility]) - Final
Nasal Swab Negative for Influenza A & B, NAAT
Negative results must be combined with clinical observations
and patient history.
Nucleic Acid Amplification test (NAAT)performed on the
[employer] platform.
10/09/24 CXR : Small left pleural effusion. No evidence for pulmonary edema or pneumonia. Mild cardiomegaly. Right IJ venous catheter in place.
10/08/24 CT Neck with IV contrast: Similar CT appearance of soft tissue thickening of the vallecula asymmetric to the left. History of lymphoid tissue hypertrophy at the base of the tongue with tissue biopsy revealing florid chronic inflammation.
Mild cervical lymphadenopathy and adenoidal hypertrophy with some improvement compared to the previous neck CT from 04/22/2024.
[2024-10-11 11:35] VITALS: BP 119/75
--- NOTE | 2024-10-11 13:29 | W.PN.HOSP.TC ---
Addendum entered and electronically signed by Lorne Bermudez MD 10/11/24 14:48:
Sepsis, POA
Original Note:
Today's Communication/Plan
-
wean pain regimen
abx as per ID
IV lasix
ECHO
Assessment / Plan
Assessment / Plan
Physical Exam
General: Well Developed and Well Nourished
HEENT: NormoCephalic
Respiratory: Clear
Cardiac: S1/S2
GI: Soft, Non Tender and Non Distended
Musculoskeletal: No Clubbing
Skin: Warm
Neuro: Awake, Alert, Oriented and AO x 3
Hematologic/Lymphatic: No Lymphadenopathy
Psych: Calm
54-year-old female with history of chronic pancreatitis with recurrent abdominal pain being worked up for pancreatic transplant at [facility] and [facility] presents for recurrent right upper abdominal pain over the last 3 days. Febrile
episode and abd pain similar to past admissions.
PLAN:
# Fever
-associated with abdominal pain
-has been similar from past episodes with abd pain - inclusive results
-f/u blood cultures ngtd
-ID consulted - defer to ID for ?pneumonia; already on abx
-patient desires to hold off on further imaging at this time due to frequent exposure to radiation
-History of splenectomy
#Acute on Chronic Abdominal Pain
# Chronic pancreatitis
#Transaminitis
Probable 2/2 to recurrent pancreatitis, abd non distended, non tender, passing flatus BMs
Pain Control with Narcan PRN; reduce standing dose to 1mg today
History of pancreatitis for the past 15 years with history of pancreatic jejunostomy 2016
Narcotic dependent for chronic pain
Also on pancreatic enzymes
She is followed by Dr. Rome at [facility] and is planning to be evaluated at [facility] for potential pancreatic transplant.
Pancreatic divisum and history of pancreatic duct stone
History of celiac nerve block
-Adv Diet and monitor
#Hypoxia
#Pulmonary Edema + Atelectasis from Splinting+ ?Pneumonia
-IV diuresis, 40mg today again
- ECHO f/u
-stop fluids
-wean o2 as tolerated
-Incentive [place] and Acapella
-no PE on imaging
-Abx
#Hypokalemia
-monitor and replete
#Chronic Adenoiditis
-Augmentin 875mg po bid x 10 days through 10/17 - switched to cefepime with ?pneumonia and recurrent fevers
- Follow-up with ENT oupt.
# Leukocytosis
I suspect reactive
cultures ngtd
Empiric antibiotics
# Soft tissue density in the neck
Status post biopsy
Patient needs to follow-up with Dr. Rubio as outpatient
#Hyponatremia
-monitor
#Hypomagnesemia
� Monitor and replete
#Hx of Likely euthyroid sick syndrome.
Follow-up outpatient
#Thrombocytosis
# Mostly clear reactive
� Monitor
#Transaminitis
� Chronic
#Possible masses developing along the left hepatic margin versus findings due to positioning. Nonurgent dedicated examination of liver recommended when the patient is able.
-f/u outpt
# Chronically elevated LFTs
# Anxiety and depression-continue lorazepam and sertraline
# Chronic muscle spasms-continue cyclobenzaprine
# History of IBS and gastroparesis
# Hereditary spherocytosis
# History of hepatitis A
# History of C. difficile
# History of VSD repair as a child
# History of splenectomy
# DVT prophylaxis-HSQ
# Full code
Total time spent on today's encounter was 53 minutes which included time spent in counseling the patient/family regarding diagnosis and treatment plan as listed above, goals of care, and symptom management. Case was discussed with nursing staff,
specialists, and care coordinators/case management. All labs and imaging personally reviewed by me. Remainder the time spent in detailed review of previous records, lab data, imaging, and other medical provider documentation.
Anticipated Discharge: > 48 hours
Subjective/Interval History
-
Date of Service: October 11, 2024
breathing improved
Objective Data
-
Labs:
Laboratory Results
10/11/24
08:19
WBC 20.8 H
Hgb 10.4 L
Hct 28.6 L
Plt Count 528 H
Sodium 135
Potassium 3.2 L
Chloride 96 L
Carbon Dioxide 34 H
BUN 11
Creatinine 0.4 L
Glucose 122 H
Calcium 8.3 L
Total Bilirubin 0.9
AST 29
ALT 34
Alkaline Phosphatase 183 H
Vital Signs:
Vital Signs
Temp Pulse Resp BP Pulse Ox
98.9 F 99 16 119/75 95
10/11/24 11:35 10/11/24 11:35 10/11/24 11:35 10/11/24 11:35 10/11/24 11:35
I&O
10/10/24 10/11/24 10/12/24
06:59 06:59 06:59
Intake Total 0 / 0 480 / 480
Balance 0 / 0 480 / 480
Review of Systems
-
History Source: Patient
All other systems: Not reviewed unless documented
Physical Exam
-
General: No Apparent Distress and Pain (-01/21)
HEENT: Normocephalic and Atraumatic
Respiratory: Clear to Auscultation
Cardiac: Regular Rhythm and S1/S2
GI: Soft, Nontender, Nondistended and Normal Bowel Sounds
Genito-urinary: No Costovertebral Tender
Musculoskeletal: No Clubbing, No Cyanosis and No Edema
Skin: Warm and Dry
Neuro: Awake, Alert, Oriented and No Motor Deficits
Hematologic / Lymphatic: No Lymphadenopathy
Psych: Calm
Data Reviewed
-
CT Scan: Report Reviewed by me
Labs: Labs Reviewed by me and Discussed with Physician
[2024-10-11] MEDS: DILAUDID 1 MG IV ×4 (14:22→20:45)
[2024-10-11] MEDS: STERILE WATER FOR INJECTION 10 ML IV ×2 (14:23→21:37)
[2024-10-11] MEDS: MAXIPIME 2000 MG IV ×2 (14:23→21:37)
[2024-10-11 15:00] VITALS: BP 122/72
[2024-10-11] MEDS: ZOFRAN 4 MG IV (18:32)
--- NOTE | 2024-10-11 19:09 | PTCARENOTE ---
Patient reached 1,000 on spirometer
[2024-10-11 19:55] VITALS: BP 103/62
[2024-10-11] MEDS: ATIVAN 1 MG PO (21:37)
[2024-10-11] MEDS: PHENERGAN 50.5 MG IV (21:37)
[2024-10-11] MEDS: ZOLOFT 100 MG PO (21:37)
[2024-10-11 23:40] VITALS: BP 109/56
[2024-10-12] MEDS: DILAUDID 1 MG IV ×9 (00:07→23:03)
[2024-10-12] MEDS: HEPARIN 5000 UNITS SC ×4 (00:07→23:03)
--- NOTE | 2024-10-12 03:00 | PTCARENOTE ---
Patient ordered scheduled 1mg IV Dilaudid Q3hr, medication due at 0200 but upon assessment patient sleeping comfortably and snoring in bed. RN not to wake patient for scheduled narcotics as patient resting comfortably, medication not given at this
time - see MAR. Patient drowsy when awake and forgetful at time's. PRN dose of Dilaudid equivalent to scheduled dose if patient requires pain medication before next dose due. Care ongoing.
[2024-10-12 03:05] VITALS: BP 105/58
[2024-10-12] MEDS: DILAUDID IV (03:11)
[2024-10-12] MEDS: ZOFRAN 4 MG IV ×2 (04:31→11:34)
[2024-10-12] MEDS: MAXIPIME 2000 MG IV ×3 (05:38→21:29)
[2024-10-12] MEDS: STERILE WATER FOR INJECTION 10 ML IV ×3 (05:38→21:28)
[2024-10-12 07:00] VITALS: BP 114/67
[2024-10-12 07:36] LABS: Hematocrit 30.4 % (37.0-47.0); Hemoglobin 10.9 g/dL (12.0-16.0); Mean Corp Hgb Conc. 35.9 g/dL (33.0-37.0); Mean Corpuscular Hgb 29.5 pg (27.0-31.0); Mean Corpuscular Volume 82.4 fL (81.0-99.0); Mean Platelet Volume 8.8 fL (7.4-10.4); Platelet Count 589 10^3/uL (130-400); Red Blood Cell Count 3.69 10^6/uL (4.20-5.40); Red Cell Dist. Width 12.8 % (11.5-14.5); White Blood Cell Count 16.4 10^3/uL (4.8-10.8)
[2024-10-12] MEDS: ZENPEP DELAYED RELEASE CAPSULE 2 CAPSULE PO (07:46)
[2024-10-12] MEDS: VISBIOME 2 CAP PO (07:47)
[2024-10-12] MEDS: PROTONIX IV 40 MG IV (07:48)
[2024-10-12] MEDS: NSS (PRESERVATIVE FREE) 10 ML IV (07:49)
[2024-10-12 08:41] LABS: ALT (SGPT) 27 U/L (0-35); AST (SGOT) 22 U/L (14-36); Albumin 3.1 g/dl (3.5-5.0); Alkaline Phosphatase 170 U/L (38-126); Blood Urea Nitrogen 11 mg/dl (7-17); Calcium 8.3 mg/dl (8.4-10.2); Carbon Dioxide 31 mmol/L (22-30); Chloride 97 mmol/L (98-107); Estimated Creatinine Clearance 83 ml/min; Glucose 94 mg/dl (70-99); Potassium 3.5 mmol/L (3.5-5.1); Sodium 137 mmol/L (135-145); Total Bilirubin 0.8 mg/dl (0.2-1.3); Total Protein 6.3 g/dl (6.3-8.2); eGFR > 60.00
[2024-10-12] MEDS: DILAUDID 0.5 MG IV ×2 (09:23→16:52)
[2024-10-12] MEDS: CATHFLO/ACTIVASE 2 MG INTRACATH (10:41)
[2024-10-12 11:00] VITALS: BP 102/63
--- NOTE | 2024-10-12 11:07 | W.PN.ID1 ---
Date of Service
Date of Service: October 12, 2024
Today's Communication
Continue cefepime.
Assessment / Plan
# RUL PNA (new)
# Leukocytosis -improved today
- Continue cefepime (d2)
-Follow wbc.
# Recurrent acute on chronic pancreatitis/pain
# Fever resolved
-COVID/Flu neg
- Fever resolved
- blood cx's x2 neg to date
- No diarrhea. Is constipated
# Chronic adenoiditis with florid inflammation
- 04/23/24 ENT examination of the pharynx revealed moderate to severe lymphoid tissue present at the left greater than right base of tongue. There was some mild vallecular filling of the left side from the lymphoid tissue.
- 04/23/24 tissue biopsy: no lymphoma, + florid chronic inflammation
- 10/08/[address] neck: similar appearance as previous
- Follow-up with ENT oupt.
# Conditions LAY MIDWIFE
Pancreatic stone and pancreatic divisum and recurrent pancreatitis.
History of pancreatojejunostomy 2016.
Irritable bowel syndrome.
Gastroparesis.
Anxiety.
C difficile x2.
Hereditary spherocytosis status post splenectomy, up to date
with her splenectomy vaccines per patient.
Enlarge L>R adenoid/vallecula s/p base of tongue bx + florid chronic inflammation (04/2024)
Chronic pain
PICC-associated RUE DVT
Cholecystectomy.
VSD repair as a child.
History of liver trauma repair.
Chief Complaint
-: Leukocytosis
Subjective / Review of Systems
upper abd pain persists. Chest tightness same.
No bm yet.
Vital Signs / Physical Exam
Vital Signs
Vital Signs
Temp Pulse Resp BP Pulse Ox
98.5 F 105 16 114/67 92
10/12/24 07:00 10/12/24 07:00 10/12/24 07:00 10/12/24 07:00 10/12/24 07:00
Physical Exam
Constitutional: Chronically Ill
Lymph Nodes: Other (Left submandibular)
Cardiovascular: Regular Rate and S1/S2
Pulmonary: Other (Decreased BS at bases)
Gastrointestinal: Soft, Tender (upper abd) and Non Distended
Extremities: Negative Edema
Neurological: AO x 3
Lines: Port (no erythema)
Objective Data
Lab Data
Lab Results
10/12/24 07:14
10/12/24 07:14
Estimated Creat Clear 83 ml/min 10/12/24 07:14
Lactic Acid Cancelled 10/07/24 10:45
Total Bilirubin 0.8 mg/dl (0.2-1.3) 10/12/24 07:14
AST 22 U/L (14-36) 10/12/24 07:14
ALT 27 U/L (0-35) 10/12/24 07:14
Alkaline Phosphatase 170 U/L (38-126) H 10/12/24 07:14
Most recent labs reviewed.
Micro Results:
10/07/24 07:55 Blood Culture - Final
Blood/Venous No Growth - Final Report
10/07/24 07:33 Blood Culture - Final
Blood/Venous No Growth - Final Report
10/07/24 10:02 MRSA Screen - Final
Nose No Methicillin Resistant Staphylococcus aureus isolated.
10/07/24 09:15 Influenza Types A & B ([facility]) - Final
Nasal Swab Negative for Influenza A & B, NAAT
Negative results must be combined with clinical observations
and patient history.
Nucleic Acid Amplification test (NAAT)performed on the
[employer] platform.
10/09/24 CXR : Small left pleural effusion. No evidence for pulmonary edema or pneumonia. Mild cardiomegaly. Right IJ venous catheter in place.
10/08/24 CT Neck with IV contrast: Similar CT appearance of soft tissue thickening of the vallecula asymmetric to the left. History of lymphoid tissue hypertrophy at the base of the tongue with tissue biopsy revealing florid chronic inflammation.
Mild cervical lymphadenopathy and adenoidal hypertrophy with some improvement compared to the previous neck CT from 04/22/2024.
--- NOTE | 2024-10-12 11:32 | CM ---
CM reviewed chart, patient seen bedside. Patient remains on IV antibiotics. Patient inquiring about disability information, requesting CM return tomorrow with information. CM will continue to follow for all discharge planning needs.
Plan; home no needs likely.
[2024-10-12] MEDS: FLUSH (NSS) 1 FLUSH IV (11:35)
[2024-10-12] MEDS: ZENPEP DELAYED RELEASE CAPSULE PO ×2 (12:35→16:52)
[2024-10-12 15:00] VITALS: BP 107/65
--- NOTE | 2024-10-12 16:42 | W.PN.HOSP.TC ---
Today's Communication/Plan
-
continue abx
follow labs
will try to decrease narcotic analgesics over next several days
Assessment / Plan
Assessment / Plan
54-year-old female with history of chronic pancreatitis with recurrent abdominal pain being worked up for pancreatic transplant at [facility] and [facility] presents for recurrent right upper abdominal pain over the last 3 days [employer]OR EX[employer].
Febrile episode and abd pain similar to past admissions.
Hx of Pancreatic divisum
PLAN:
# Fever
-associated with abdominal pain
-has been similar from past episodes with abd pain - inclusive results
-f/u blood cultures ngtd
-ID consulted - defer to ID for RUL pneumonia; already on abx
-patient desires to hold off on further imaging at this time due to frequent exposure to radiation
-History of splenectomy
#Acute on Chronic Abdominal Pain
# Chronic pancreatitis
#Transaminitis
Probable 2/2 to recurrent pancreatitis, abd non distended, , passing flatus BMs, still requires narcotic analgesic
Pain Control with Narcan PRN; reduce standing dose to 1mg dosing
History of pancreatitis for the past 15 years with history of pancreatic jejunostomy 2016
Narcotic dependent for chronic pain
Also on pancreatic enzymes
She is followed by Dr. Rome at [facility] and is planning to be evaluated at [facility] for potential pancreatic transplant.
Pancreatic divisum and history of pancreatic duct stone
History of celiac nerve block
-Adv Diet and monitor
#Hypoxia
#Pulmonary Edema + Atelectasis from Splinting+ ?Pneumonia
-IV diuresis, 40mg today again
- ECHO: Normal LV systolic function.
Estimated ejection fraction 55-60%.
No significant valvular disease.
No prior study available for comparison.
-stop fluids
-wean o2 as tolerated
-Incentive [place] and Acapella
-no PE on imaging
-Abx
#Hypokalemia
resolved, K 3.5
-monitor and replete
Constipation
change Docusate with Senna to scheduled
add MOM prn
#Chronic Adenoiditis
-Augmentin 875mg po bid x 10 days through 10/17 - switched to cefepime with ?pneumonia and recurrent fevers
- Follow-up with ENT oupt.
# Leukocytosis
I suspect reactive
cultures ngtd
Empiric antibiotics
WBC 15.1-->18.6-->21.9-->20.8-->16.4k
# Soft tissue density in the neck
Status post biopsy
Patient needs to follow-up with Dr. Rubio as outpatient
#Hyponatremia
137 Better
-monitor
#Hypomagnesemia
resolved 1.7
� Monitor and replete
#Hx of Likely euthyroid sick syndrome.
Follow-up outpatient
#Thrombocytosis
# Mostly clear reactive
� Monitor
#Transaminitis
� Chronic
#Possible masses developing along the left hepatic margin versus findings due to positioning. Nonurgent dedicated examination of liver recommended when the patient is able.
-f/u outpt
# Chronically elevated LFTs
# Anxiety and depression-continue lorazepam and sertraline
# Chronic muscle spasms-continue cyclobenzaprine
# History of IBS and gastroparesis
# Hereditary spherocytosis
# History of hepatitis A
# History of C. difficile
# History of VSD repair as a child
# History of splenectomy
# DVT prophylaxis-HSQ
# Full code
Anticipated Discharge: > 48 hours
Subjective/Interval History
-
Date of Service: October 12, 2024
Still with significant abdominal pain
Objective Data
-
Labs:
Laboratory Results
10/12/24
07:14
WBC 16.4 H
Hgb 10.9 L
Hct 30.4 L
Plt Count 589 H
Sodium 137
Potassium 3.5
Chloride 97 L
Carbon Dioxide 31 H
BUN 11
Creatinine 0.4 L
Glucose 94
Calcium 8.3 L
Total Bilirubin 0.8
AST 22
ALT 27
Alkaline Phosphatase 170 H
Vital Signs:
Vital Signs
Temp Pulse Resp BP Pulse Ox
98.0 F 91 16 107/65 95
10/12/24 15:00 10/12/24 15:00 10/12/24 15:00 10/12/24 15:00 10/12/24 15:00
I&O
10/11/24 10/12/24 10/13/24
06:59 06:59 06:59
Intake Total 480 / 480 2300 / 2300
Balance 480 / 480 2300 / 2300
Review of Systems
-
History Source: Patient and Coordinated Provider
Constitutional: Denies Fever (afebrile since 10/09)
EENT: Reports No Symptoms Reported
Respiratory: Reports No Symptoms
Cardiac: Reports No Symptoms; Denies Chest Pain
Abdomen/GI: Reports Abdominal Pain and Constipated (probably related to pancreatitis and chronic narcotics)
Genitourinary: Reports No Symptoms
Musculoskeletal: Reports No Symptoms
Physical Exam
-
General: Well Developed, Well Nourished and No Apparent Distress
HEENT: Normocephalic, Atraumatic and Moist Mucous Membranes
Respiratory: Clear to Auscultation; Negative Wheezes, Rales or Rhonchi
Cardiac: Regular Rhythm and S1/S2
GI: Soft, Normal Bowel Sounds (hypoactive BS), Tender and Distended
Musculoskeletal: No Clubbing, No Cyanosis and No Edema
Neuro: Awake, Alert and Oriented
[2024-10-12] MEDS: SENOKOT-S 1 TABLET PO (17:36)
[2024-10-12 19:45] VITALS: BP 117/68
[2024-10-12] MEDS: ATIVAN 1 MG PO (21:28)
[2024-10-12] MEDS: ZOLOFT 100 MG PO (21:28)
[2024-10-12 23:35] VITALS: BP 109/64
[2024-10-13] MEDS: DILAUDID 1 MG IV ×6 (02:15→21:46)
[2024-10-13 03:33] VITALS: BP 104/59
[2024-10-13 04:53] LABS: % Basophils 0.9 % (0-2); % Eosinophils 7.9 % (0-6); % Immature Granulocytes 2.2 % (0-0.5); % Lymphocytes 35.5 % (20.5-51.1); % Monocytes 9.9 % (1.7-9.3); % Neutrophils 43.6 % (42.2-75.2); ALT (SGPT) 22 U/L (0-35); AST (SGOT) 19 U/L (14-36); Absolute Basophils 0.1 10^3/uL (0-0.2); Absolute Eosinophils 1.3 10^3/uL (0-0.7); Absolute Immature Granulocytes 0.4 10^3/uL (0-0.05); Absolute Lymphocytes 5.6 10^3/uL (1.2-3.4); Absolute Monocytes 1.6 10^3/uL (0.1-0.6); Absolute Neutrophils 6.9 10^3/uL (1.4-6.5); Alkaline Phosphatase 154 U/L (38-126); Blood Urea Nitrogen 10 mg/dl (7-17); Calcium 8.6 mg/dl (8.4-10.2); Carbon Dioxide 32 mmol/L (22-30); Chloride 99 mmol/L (98-107); Estimated Creatinine Clearance 83 ml/min; Glucose 99 mg/dl (70-99); Hematocrit 29.1 % (37.0-47.0); Hemoglobin 10.3 g/dL (12.0-16.0); Lipase 147 U/L (23-300); Mean Corp Hgb Conc. 35.4 g/dL (33.0-37.0); Mean Corpuscular Hgb 29.7 pg (27.0-31.0); Mean Corpuscular Volume 83.9 fL (81.0-99.0); Mean Platelet Volume 8.9 fL (7.4-10.4); Nucleated Red Blood Cells % 0.3 %; Platelet Count 631 10^3/uL (130-400); Potassium 3.6 mmol/L (3.5-5.1); Red Blood Cell Count 3.47 10^6/uL (4.20-5.40); Red Cell Dist. Width 12.8 % (11.5-14.5); Sodium 138 mmol/L (135-145); Total Bilirubin 0.6 mg/dl (0.2-1.3); Total Protein 6.1 g/dl (6.3-8.2); White Blood Cell Count 15.9 10^3/uL (4.8-10.8); eGFR > 60.00
[2024-10-13] MEDS: MAXIPIME 2000 MG IV ×3 (05:07→21:46)
[2024-10-13] MEDS: STERILE WATER FOR INJECTION 10 ML IV ×3 (05:07→21:47)
[2024-10-13 07:03] VITALS: BP 97/62
[2024-10-13] MEDS: VISBIOME 2 CAP PO (08:33)
[2024-10-13] MEDS: HEPARIN 5000 UNITS SC ×3 (08:33→23:12)
[2024-10-13] MEDS: PROTONIX IV 40 MG IV (08:34)
[2024-10-13] MEDS: SENOKOT-S 1 TABLET PO ×2 (08:34→17:27)
[2024-10-13] MEDS: NSS (PRESERVATIVE FREE) 10 ML IV (08:34)
[2024-10-13] MEDS: ZENPEP DELAYED RELEASE CAPSULE 2 CAPSULE PO ×2 (08:37→11:36)
[2024-10-13] MEDS: DILAUDID 0.25 MG IV (09:57)
--- NOTE | 2024-10-13 10:52 | W.PN.ID1 ---
Date of Service
Date of Service: October 13, 2024
Today's Communication
Continue cefepime.
Assessment / Plan
# RUL PNA
# Leukocytosis -improving
- Continue cefepime (d3)
-Follow wbc.
# Recurrent acute on chronic pancreatitis/pain
# Fever resolved
-COVID/Flu neg
- blood cx's x2 neg to date
# Constipation
- Management by hospitalist
# Chronic adenoiditis with florid inflammation
- 04/23/24 ENT examination of the pharynx revealed moderate to severe lymphoid tissue present at the left greater than right base of tongue. There was some mild vallecular filling of the left side from the lymphoid tissue.
- 04/23/24 tissue biopsy: no lymphoma, + florid chronic inflammation
- 10/08/[address] neck: similar appearance as previous
- Follow-up with ENT oupt.
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
Pancreatic stone and pancreatic divisum and recurrent pancreatitis.
History of pancreatojejunostomy 2016.
Irritable bowel syndrome.
Gastroparesis.
Anxiety.
C difficile x2.
Hereditary spherocytosis status post splenectomy, up to date
with her splenectomy vaccines per patient.
Enlarge L>R adenoid/vallecula s/p base of tongue bx + florid chronic inflammation (04/2024)
Chronic pain
PICC-associated RUE DVT
Cholecystectomy.
VSD repair as a child.
History of liver trauma repair.
Chief Complaint
-: Leukocytosis
Subjective / Review of Systems
Wants pain meds increased.
No cough.
Vital Signs / Physical Exam
Vital Signs
Vital Signs
Temp Pulse Resp BP Pulse Ox
98.4 F 82 18 97/62 93
10/13/24 07:03 10/13/24 07:03 10/13/24 07:03 10/13/24 07:03 10/13/24 07:03
Physical Exam
Constitutional: Chronically Ill
Pulmonary: Rales (bibase crackles)
Gastrointestinal: Soft, Tender (upper abd) and Non Distended
Extremities: Negative Edema
Neurological: AO x 3
Lines: Port
Objective Data
Lab Data
Lab Results
10/13/24 04:13
10/13/24 04:13
Estimated Creat Clear 83 ml/min 10/13/24 04:13
Lactic Acid Cancelled 10/07/24 10:45
Total Bilirubin 0.6 mg/dl (0.2-1.3) 10/13/24 04:13
AST 19 U/L (14-36) 10/13/24 04:13
ALT 22 U/L (0-35) 10/13/24 04:13
Alkaline Phosphatase 154 U/L (38-126) H 10/13/24 04:13
Most recent labs reviewed.
Micro Results:
10/07/24 07:55 Blood Culture - Final
Blood/Venous No Growth - Final Report
10/07/24 07:33 Blood Culture - Final
Blood/Venous No Growth - Final Report
10/07/24 10:02 MRSA Screen - Final
Nose No Methicillin Resistant Staphylococcus aureus isolated.
10/07/24 09:15 Influenza Types A & B ([facility]) - Final
Nasal Swab Negative for Influenza A & B, NAAT
Negative results must be combined with clinical observations
and patient history.
Nucleic Acid Amplification test (NAAT)performed on the
[employer] platform.
10/09/24 CXR : Small left pleural effusion. No evidence for pulmonary edema or pneumonia. Mild cardiomegaly. Right IJ venous catheter in place.
10/08/24 CT Neck with IV contrast: Similar CT appearance of soft tissue thickening of the vallecula asymmetric to the left. History of lymphoid tissue hypertrophy at the base of the tongue with tissue biopsy revealing florid chronic inflammation.
Mild cervical lymphadenopathy and adenoidal hypertrophy with some improvement compared to the previous neck CT from 04/22/2024.
[2024-10-13 11:25] VITALS: BP 96/60
--- NOTE | 2024-10-13 11:26 | CM ---
CM reviewed chart, patient seen bedside with family. CM provided information regarding disability. Patient remains on IV antibiotics. CM will continue to follow for all discharge planning needs.
Plan; home no needs likely.
--- NOTE | 2024-10-13 11:31 | PTCARENOTE ---
patient's BP 96/ 60, MD Brian notified of BP in 90's. per MARCOS RAMIREZ to give IV Dilaudid.
[2024-10-13] MEDS: MILK OF MAGNESIA 30 ML PO (14:23)
[2024-10-13] MEDS: MIRALAX 17 GRAMS PO (14:23)
[2024-10-13] MEDS: ZOFRAN 4 MG IV (14:34)
[2024-10-13 15:40] VITALS: BP 108/62
--- NOTE | 2024-10-13 16:38 | W.PN.HOSP.TC ---
Today's Communication/Plan
-
adjust narcotic dosing
recommended pt utilize laxative
Assessment / Plan
Assessment / Plan
54-year-old female with history of chronic pancreatitis with recurrent abdominal pain being worked up for potential pancreatic transplant at [facility] and [facility] presents for recurrent right upper abdominal pain over the last 3 days
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 Febrile episode and abd pain similar to past admissions.
Hx of Pancreatic divisum
PLAN:
# Fever
-associated with abdominal pain
-has been similar from past episodes with abd pain - inclusive results
-f/u blood cultures ngtd
-ID consulted - defer to ID for RUL pneumonia; already on Cefepime
-patient desires to hold off on further imaging at this time due to frequent exposure to radiation
-History of splenectomy
#Acute on Chronic Abdominal Pain
# Chronic pancreatitis
#Transaminitis
Probable 2/2 to recurrent pancreatitis, abd non distended, , passing flatus BMs, still requires narcotic analgesic
Pain Control with Narcan PRN; has been on a standing dose of dilaudid IV 1mg q3h dosing, will change to 2 mg orally. Pt is concerned that prn IV will be stopped, reviewed that it will not be stopped
History of pancreatitis for the past 15 years with history of pancreatic jejunostomy 2016
Narcotic dependent for chronic pain
Also on pancreatic enzymes
She is followed by Dr. Rome at [facility] and is planning to be evaluated at [facility] for potential pancreatic transplant.
Pancreatic divisum and history of pancreatic duct stone
History of celiac nerve block
-pt really not eating. Constipation not helping. Discussed with pt and nursing, really needs to take laxative
consider GI consult
#Hypoxia
#Pulmonary Edema + Atelectasis from Splinting+ ?Pneumonia
- ECHO: Normal LV systolic function.
Estimated ejection fraction 55-60%.
No significant valvular disease.
No prior study available for comparison.
-stop fluids
-wean o2 as tolerated
-Incentive [place] and Acapella
-no PE on imaging
-Abx
#Hypokalemia
resolved, K 3.5
-monitor and replete
cold sore lower lip
onset 3 days ago, will start Valtrex (though may be out of the window of effectiveness)
Constipation
change Docusate with Senna to scheduled
add MOM prn
#Chronic Adenoiditis
-Augmentin 875mg po bid x 10 days through 10/17 - switched to cefepime with ?pneumonia and recurrent fevers
- Follow-up with ENT oupt.
# Leukocytosis
I suspect reactive
cultures ngtd
Empiric antibiotics
WBC 15.1-->18.6-->21.9-->20.8-->16.4-->15.9k
# Soft tissue density in the neck
Status post biopsy
Patient needs to follow-up with Dr. Rubio as outpatient
#Hyponatremia
137 Better
-monitor
#Hypomagnesemia
resolved 1.7
� Monitor and replete
#Hx of Likely euthyroid sick syndrome.
Follow-up outpatient
#Thrombocytosis
# Mostly clear reactive
� Monitor
#Transaminitis
� Chronic
#Possible masses developing along the left hepatic margin versus findings due to positioning. Nonurgent dedicated examination of liver recommended when the patient is able.
-f/u outpt
# Chronically elevated LFTs
# Anxiety and depression-continue lorazepam and sertraline
# Chronic muscle spasms-continue cyclobenzaprine
# History of IBS and gastroparesis
# Hereditary spherocytosis
# History of hepatitis A
# History of C. difficile
# History of VSD repair as a child
# History of splenectomy
# DVT prophylaxis-HSQ
# Full code
Anticipated Discharge: > 48 hours
Subjective/Interval History
-
Date of Service: October 13, 2024
still with abdominal pains and no appetite
Objective Data
-
Labs:
Laboratory Results
10/13/24
04:13
WBC 15.9 H
Hgb 10.3 L
Hct 29.1 L
Plt Count 631 H
Sodium 138
Potassium 3.6
Chloride 99
Carbon Dioxide 32 H
BUN 10
Creatinine 0.5 L
Glucose 99
Calcium 8.6
Total Bilirubin 0.6
AST 19
ALT 22
Alkaline Phosphatase 154 H
Vital Signs:
Vital Signs
Temp Pulse Resp BP Pulse Ox
98.3 F 83 18 108/62 95
10/13/24 15:40 10/13/24 15:40 10/13/24 15:40 10/13/24 15:40 10/13/24 15:40
I&O
10/12/24 10/13/24 10/14/24
06:59 06:59 06:59
Intake Total 2300 / 2300 2460 / 2460
Balance 2300 / 2300 2460 / 2460
Review of Systems
-
History Source: Patient and Coordinated Provider
Constitutional: Denies Fever (afebrile since 10/09)
EENT: Reports No Symptoms Reported
Respiratory: Reports No Symptoms
Cardiac: Reports No Symptoms; Denies Chest Pain
Abdomen/GI: Reports Abdominal Pain and Constipated (probably related to pancreatitis and chronic narcotics)
Genitourinary: Reports No Symptoms
Musculoskeletal: Reports No Symptoms
Physical Exam
-
General: Well Developed, Well Nourished and No Apparent Distress
HEENT: Normocephalic, Atraumatic, Moist Mucous Membranes and Other (HSV2 lower lip)
Respiratory: Clear to Auscultation; Negative Wheezes, Rales or Rhonchi
Cardiac: Regular Rhythm and S1/S2
GI: Soft, Tender and Distended; Negative Normal Bowel Sounds (hypoactive BS)
Musculoskeletal: No Clubbing, No Cyanosis and No Edema
Neuro: Awake, Alert and Oriented
[2024-10-13] MEDS: DILAUDID 2 MG PO ×3 (17:27→23:11)
[2024-10-13] MEDS: ZENPEP DELAYED RELEASE CAPSULE PO (17:27)
[2024-10-13 19:20] VITALS: BP 122/67
[2024-10-13] MEDS: ZOLOFT 100 MG PO (21:45)
[2024-10-13] MEDS: VALTREX 500 MG PO (21:45)
[2024-10-13] MEDS: ATIVAN 1 MG PO (21:46)
[2024-10-13 23:53] VITALS: BP 104/67
[2024-10-14] MEDS: DILAUDID 2 MG PO ×8 (01:59→23:35)
[2024-10-14 02:40] VITALS: BP 101/67
[2024-10-14] MEDS: TYLENOL 650 MG PO (02:48)
[2024-10-14] MEDS: MAXIPIME 2000 MG IV ×3 (05:02→22:04)
[2024-10-14] MEDS: STERILE WATER FOR INJECTION 10 ML IV ×3 (05:02→22:04)
[2024-10-14 07:30] VITALS: BP 107/65
[2024-10-14] MEDS: ZENPEP DELAYED RELEASE CAPSULE PO ×2 (08:03→11:47)
[2024-10-14] MEDS: SENOKOT-S 1 TABLET PO ×2 (08:07→16:53)
[2024-10-14] MEDS: VALTREX 500 MG PO ×3 (08:07→22:06)
[2024-10-14] MEDS: VISBIOME 2 CAP PO (08:08)
[2024-10-14] MEDS: HEPARIN 5000 UNITS SC ×3 (08:08→23:35)
[2024-10-14] MEDS: PROTONIX IV 40 MG IV (08:09)
[2024-10-14] MEDS: NSS (PRESERVATIVE FREE) 10 ML IV (08:09)
[2024-10-14] MEDS: DILAUDID 1 MG IV (09:26)
[2024-10-14 10:55] VITALS: BP 113/66
[2024-10-14] MEDS: ZENPEP DELAYED RELEASE CAPSULE 2 CAPSULE PO ×2 (11:52→16:52)
[2024-10-14] MEDS: DILAUDID 0.25 MG IV (13:25)
--- NOTE | 2024-10-14 13:31 | PN.CDI ---
CDI
- -
CDI:
Physician Documentation Request
Admit Date: 10/07/24 10:00
Dear Doctor Snehal,
Please review the following and provide your response in the progress notes.
Clinical Indicators:
Pt admitted with acute on chronic pancreatitis/ Sepsis POA
Progress notes 10/12,' #Hypoxia#Pulmonary Edema + Atelectasis from Splinting+ ?Pneumonia-IV diuresis, 40mg today again..''
Pt did get IV Lasix 40 mg IV 10/10 and 10/11
Clarify which of the following accurately represents the acuity of the (Pulmonary Edema ).
Acute Noncardiogenic pulmonary Edema
Acute on Chronic Noncardiogenic pulmonary edema
Other ( please specify)
Use of terms such as suspected, likely, concern for, or probable (associated with a specific diagnosis that is being evaluated, monitored, or treated as if it exists) are acceptable and can be coded in the inpatient setting, when documented at the
time of discharge.
Thank you,
Elle Amaya RN
CDI Specialist
[place] [facility]
Please use your independent medical judgment in providing your response.
--- NOTE | 2024-10-14 14:29 | W.PN.ID1 ---
Date of Service
Date of Service: October 14, 2024
Today's Communication
See below.
Continue cefepime for now.
Assessment / Plan
# RUL PNA
- Continue cefepime (d4 of 7)
# Fever overnight
# Leukocytosis -improving
- Addmission COVID/Flu neg
- Admissioon blood cx's x2 neg to date
- pt c/o foul-odor urine. Check UA/reflx to cx.
- Follow temps/wbc
# Recurrent acute on chronic pancreatitis
- Abd pain perisists
# Constipation
- Management by hospitalist
# Chronic adenoiditis with florid inflammation
- 04/23/24 ENT examination of the pharynx revealed moderate to severe lymphoid tissue present at the left greater than right base of tongue. There was some mild vallecular filling of the left side from the lymphoid tissue.
- 04/23/24 tissue biopsy: no lymphoma, + florid chronic inflammation
- 10/08/[address] neck: similar appearance as previous
- Follow-up with ENT oupt.
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
Pancreatic stone and pancreatic divisum and recurrent pancreatitis.
History of pancreatojejunostomy 2016.
Irritable bowel syndrome.
Gastroparesis.
Anxiety.
C difficile x2.
Hereditary spherocytosis status post splenectomy, up to date
with her splenectomy vaccines per patient.
Enlarge L>R adenoid/vallecula s/p base of tongue bx + florid chronic inflammation (04/2024)
Chronic pain
PICC-associated RUE DVT
Cholecystectomy.
VSD repair as a child.
History of liver trauma repair.
Chief Complaint
-: Fever and Leukocytosis
Subjective / Review of Systems
Fever last night. Reports urine foul smelling, no dysuria.
Still with abd pain.
Chest tightness better.
Vital Signs / Physical Exam
Vital Signs
Vital Signs
Temp Pulse Resp BP Pulse Ox
98.1 F 77 20 113/66 96
10/14/24 10:55 10/14/24 10:55 10/14/24 10:55 10/14/24 10:55 10/14/24 10:55
Physical Exam
Constitutional: Chronically Ill
Pulmonary: Rales (bibase crackles)
Gastrointestinal: Soft, Tender (upper abd) and Non Distended
Genito-Urinary: Negative CVA Tenderness
Extremities: Negative Edema
Neurological: AO x 3
Lines: Port
Objective Data
Lab Data
Lab Results
10/13/24 04:13
10/13/24 04:13
Estimated Creat Clear 83 ml/min 10/13/24 04:13
Lactic Acid Cancelled 10/07/24 10:45
Total Bilirubin 0.6 mg/dl (0.2-1.3) 10/13/24 04:13
AST 19 U/L (14-36) 10/13/24 04:13
ALT 22 U/L (0-35) 10/13/24 04:13
Alkaline Phosphatase 154 U/L (38-126) H 10/13/24 04:13
Most recent labs reviewed.
Micro Results:
10/07/24 07:55 Blood Culture - Final
Blood/Venous No Growth - Final Report
10/07/24 07:33 Blood Culture - Final
Blood/Venous No Growth - Final Report
10/07/24 10:02 MRSA Screen - Final
Nose No Methicillin Resistant Staphylococcus aureus isolated.
10/07/24 09:15 Influenza Types A & B ([facility]) - Final
Nasal Swab Negative for Influenza A & B, NAAT
Negative results must be combined with clinical observations
and patient history.
Nucleic Acid Amplification test (NAAT)performed on the
[employer] NOW platform.
10/09/24 CXR : Small left pleural effusion. No evidence for pulmonary edema or pneumonia. Mild cardiomegaly. Right IJ venous catheter in place.
10/08/24 CT Neck with IV contrast: Similar CT appearance of soft tissue thickening of the vallecula asymmetric to the left. History of lymphoid tissue hypertrophy at the base of the tongue with tissue biopsy revealing florid chronic inflammation.
Mild cervical lymphadenopathy and adenoidal hypertrophy with some improvement compared to the previous neck CT from 04/22/2024.
[2024-10-14 15:00] VITALS: BP 98/62
--- NOTE | 2024-10-14 15:05 | W.PN.HOSP.TC ---
Today's Communication/Plan
-
Benadryl prn for sleep
MOM prn
advance diet
stop prn 1 mg Dilaudid
Assessment / Plan
Assessment / Plan
54-year-old female with history of chronic pancreatitis with recurrent abdominal pain being worked up for potential pancreatic transplant at [facility] and [facility] presents for recurrent right upper abdominal pain over the last 3 days
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 Febrile episode and abd pain similar to past admissions.
Hx of Pancreatic divisum
PLAN:
# Fever
-associated with abdominal pain
-has been similar from past episodes with abd pain - inclusive results
-f/u blood cultures ngtd
-ID consulted - defer to ID for RUL pneumonia; already on Cefepime
was seen on CT scan of 10/10, not in CXR of 10/12
-patient desires to hold off on further imaging at this time due to frequent exposure to radiation
-History of splenectomy
Acute on Chronic Noncardiogenic pulmonary edema
resolving
#Acute on Chronic Abdominal Pain
# Chronic pancreatitis
#Transaminitis
Probable 2/2 to recurrent pancreatitis, abd non distended, , passing flatus BMs, still requires narcotic analgesic
Pain Control with Narcan PRN; has been on a standing dose of dilaudid IV 1mg q3h dosing, will change to 2 mg orally. Pt is concerned that prn IV will be stopped, reviewed that it will not be stopped
History of pancreatitis for the past 15 years with history of pancreatic jejunostomy 2016
Narcotic dependent for chronic pain
Also on pancreatic enzymes
She is followed by Dr. Rome at [facility] and is planning to be evaluated at [facility] for potential pancreatic transplant.
Pancreatic divisum and history of pancreatic duct stone
History of celiac nerve block
-pt really not eating. Constipation not helping. Discussed with pt and nursing, really needs to take laxative
will stop higher dose of prn Dilaudid. encouraged to take laxative and will advance diet
#Hypoxia
#Pulmonary Edema + Atelectasis from Splinting+ ?Pneumonia
- ECHO: Normal LV systolic function.
Estimated ejection fraction 55-60%.
No significant valvular disease.
No prior study available for comparison.
-stop fluids
-wean o2 as tolerated
-Incentive Hero and Acapella
-no PE on imaging
-Abx
#Hypokalemia
resolved, K 3.5
-monitor and replete
cold sore lower lip
onset 10/10, will start Valtrex lesion markedly improved
Constipation
change Docusate with Senna to scheduled
add MOM prn
#Chronic Adenoiditis
-Augmentin 875mg po bid x 10 days through 10/17 - switched to cefepime with ?pneumonia and recurrent fevers
- Follow-up with ENT oupt.
# Leukocytosis
I suspect reactive
cultures ngtd
Empiric antibiotics
WBC 15.1-->18.6-->21.9-->20.8-->16.4-->15.9k
# Soft tissue density in the neck
Status post biopsy
Patient needs to follow-up with Dr. Rubio as outpatient
#Hyponatremia
137 Better
-monitor
#Hypomagnesemia
resolved 1.7
� Monitor and replete
#Hx of Likely euthyroid sick syndrome.
Follow-up outpatient
#Thrombocytosis
# Mostly clear reactive
� Monitor
#Transaminitis
� Chronic
#Possible masses developing along the left hepatic margin versus findings due to positioning. Nonurgent dedicated examination of liver recommended when the patient is able.
-f/u outpt
# Chronically elevated LFTs
# Anxiety and depression-continue lorazepam and sertraline
# Chronic muscle spasms-continue cyclobenzaprine
# History of IBS and gastroparesis
# Hereditary spherocytosis
# History of hepatitis A
# History of C. difficile
# History of VSD repair as a child
# History of splenectomy
# DVT prophylaxis-HSQ
# Full code
Anticipated Discharge: > 48 hours
Subjective/Interval History
-
Date of Service: October 14, 2024
Generally feeling better, passing flatus and some stool
Objective Data
-
Vital Signs:
Vital Signs
Temp Pulse Resp BP Pulse Ox
98.1 F 77 20 113/66 96
10/14/24 10:55 10/14/24 10:55 10/14/24 10:55 10/14/24 10:55 10/14/24 10:55
I&O
10/13/24 10/14/24 10/15/24
06:59 06:59 06:59
Intake Total 2460 / 2460 1440 / 1440
Balance 2460 / 2460 1440 / 1440
Review of Systems
-
History Source: Patient and Coordinated Provider
Constitutional: Denies Fever (100.6 during night)
EENT: Reports No Symptoms Reported
Respiratory: Reports No Symptoms
Cardiac: Reports No Symptoms; Denies Chest Pain
Abdomen/GI: Reports Abdominal Pain and Constipated (probably related to pancreatitis and chronic narcotics)
Genitourinary: Reports No Symptoms
Musculoskeletal: Reports No Symptoms
Physical Exam
-
General: Well Developed, Well Nourished and No Apparent Distress
HEENT: Normocephalic, Atraumatic, Moist Mucous Membranes and Other (HSV2 left lower lip markedly improved)
Respiratory: Clear to Auscultation; Negative Wheezes, Rales or Rhonchi
Cardiac: Regular Rhythm and S1/S2
GI: Soft, Normal Bowel Sounds (more active, probably approaching baseline), Tender (decreased somewhat, but not resolved) and Distended (better)
Musculoskeletal: No Clubbing, No Cyanosis and No Edema
Neuro: Awake, Alert and Oriented
[2024-10-14] MEDS: MILK OF MAGNESIA 30 ML PO (15:15)
[2024-10-14 18:20] LABS: Urine Albumin 2+ (Neg - Trace); Urine Bilirubin Negative (Negative); Urine Character Clear (Clear); Urine Color Yellow; Urine Glucose Negative (Negative); Urine Ketone Negative (Negative); Urine Leukocyte Negative (Negative); Urine Nitrite Negative (Negative); Urine Occult Blood Negative (Negative); Urine Urobilinogen 1+ (Neg - 1+)
[2024-10-14 18:38] LABS: Urine Squamous Cell 16-20 /LPF (Few)
[2024-10-14 18:39] LABS: Urine Bacteria Few (Negative); Urine Red Blood Cell 0-2 /HPF (0-2)
[2024-10-14 19:45] VITALS: BP 100/68
[2024-10-14] MEDS: DILAUDID 0.5 MG IV (22:01)
[2024-10-14] MEDS: ATIVAN 1 MG PO (22:06)
[2024-10-14] MEDS: ZOLOFT 100 MG PO (22:06)
[2024-10-14] MEDS: BENADRYL 25 MG IV (23:38)
[2024-10-14 23:56] VITALS: BP 97/72
[2024-10-15] MEDS: DILAUDID 2 MG PO ×5 (02:39→15:26)
[2024-10-15 03:02] VITALS: BP 98/59
[2024-10-15 03:40] LABS: Hematocrit 28.5 % (37.0-47.0); Hemoglobin 10.1 g/dL (12.0-16.0); Mean Corp Hgb Conc. 35.4 g/dL (33.0-37.0); Mean Corpuscular Volume 84.6 fL (81.0-99.0); Mean Platelet Volume 8.6 fL (7.4-10.4); Platelet Count 713 10^3/uL (130-400); Red Blood Cell Count 3.37 10^6/uL (4.20-5.40); Red Cell Dist. Width 13.1 % (11.5-14.5); White Blood Cell Count 14.9 10^3/uL (4.8-10.8)
[2024-10-15 04:00] LABS: ALT (SGPT) 16 U/L (0-35); AST (SGOT) 18 U/L (14-36); Albumin 3.2 g/dl (3.5-5.0); Alkaline Phosphatase 140 U/L (38-126); Blood Urea Nitrogen 15 mg/dl (7-17); Calcium 8.8 mg/dl (8.4-10.2); Carbon Dioxide 29 mmol/L (22-30); Chloride 104 mmol/L (98-107); Estimated Creatinine Clearance 83 ml/min; Glucose 128 mg/dl (70-99); Potassium 3.7 mmol/L (3.5-5.1); Sodium 140 mmol/L (135-145); Total Bilirubin 0.5 mg/dl (0.2-1.3); Total Protein 6.4 g/dl (6.3-8.2); eGFR > 60.00
[2024-10-15] MEDS: STERILE WATER FOR INJECTION 10 ML IV ×2 (05:48→15:00)
[2024-10-15] MEDS: MAXIPIME 2000 MG IV ×2 (05:49→15:00)
[2024-10-15 07:05] LABS: % Basophils 1.3 % (0-2); % Eosinophils 9.8 % (0-6); % Immature Granulocytes 4.5 % (0-0.5); % Lymphocytes 34.7 % (20.5-51.1); % Monocytes 7.6 % (1.7-9.3); % Neutrophils 42.1 % (42.2-75.2); Absolute Basophils 0.2 10^3/uL (0-0.2); Absolute Eosinophils 1.5 10^3/uL (0-0.7); Absolute Immature Granulocytes 0.7 10^3/uL (0-0.05); Absolute Lymphocytes 5.2 10^3/uL (1.2-3.4); Absolute Monocytes 1.1 10^3/uL (0.1-0.6); Absolute Neutrophils 6.3 10^3/uL (1.4-6.5); Nucleated Red Blood Cells % 0.1 %
[2024-10-15 07:30] VITALS: BP 108/68
[2024-10-15] MEDS: VALTREX 500 MG PO (09:21)
[2024-10-15] MEDS: ZENPEP DELAYED RELEASE CAPSULE 2 CAPSULE PO ×2 (09:21→12:42)
[2024-10-15] MEDS: VISBIOME 2 CAP PO (09:22)
[2024-10-15] MEDS: PROTONIX 40 MG PO (09:22)
[2024-10-15] MEDS: HEPARIN 5000 UNITS SC (09:22)
[2024-10-15] MEDS: SENOKOT-S 1 TABLET PO (09:22)
[2024-10-15] MEDS: ZOFRAN 4 MG IV (09:38)
--- NOTE | 2024-10-15 10:56 | CM ---
Chart reviewed and director of casework services will follow for discharge planning needs, home when stable.
Plan; Home when stable.
[2024-10-15] MEDS: NSS (PRESERVATIVE FREE) IV (11:05)
[2024-10-15] MEDS: PROTONIX IV IV (11:06)
[2024-10-15 11:30] VITALS: BP 113/65
--- NOTE | 2024-10-15 13:40 | W.PN.HOSP.TC ---
Today's Communication/Plan
-
dc to home
Assessment / Plan
Assessment / Plan
54-year-old female with history of chronic pancreatitis with recurrent abdominal pain being worked up for potential pancreatic transplant at [facility] and [facility] presents for recurrent right upper abdominal pain over the last 3 days
PSYCHOMETRIST. Febrile episode and abd pain similar to past admissions.
Hx of Pancreatic divisum
PLAN:
# Fever
-resolved
-has been similar from past episodes with abd pain - inclusive results
-f/u blood cultures ngtd
-ID consulted - defer to ID for RUL pneumonia; already on Cefepime
was seen on CT scan of 10/10, not in CXR of 10/12, will change to oral at time of dc
-patient desires to hold off on further imaging at this time due to frequent exposure to radiation
-History of splenectomy
Acute on Chronic Noncardiogenic pulmonary edema
resolving
#Acute on Chronic Abdominal Pain
# Chronic pancreatitis
#Transaminitis
Probable 2/2 to recurrent pancreatitis, abd non distended, , passing flatus BMs, still requires narcotic analgesic
Pain Control with Narcan PRN; has been on a standing dose of dilaudid IV 1mg q3h dosing, will change to 2 mg orally. Pt is concerned that prn IV will be stopped, reviewed that it will not be stopped
History of pancreatitis for the past 15 years with history of pancreatic jejunostomy 2016
Narcotic dependent for chronic pain
Also on pancreatic enzymes
She is followed by Dr. Rome at [facility] and is planning to be evaluated at [facility] for potential pancreatic transplant.
Pancreatic divisum and history of pancreatic duct stone
History of celiac nerve block
-pt really not eating. Constipation not helping. Discussed with pt and nursing, really needs to take laxative
will stop higher dose of prn Dilaudid. encouraged to take laxative and will advance diet
#Hypoxia
#Pulmonary Edema + Atelectasis from Splinting+ ?Pneumonia
resolved
- ECHO: Normal LV systolic function.
Estimated ejection fraction 55-60%.
No significant valvular disease.
No prior study available for comparison.
-stop fluids
-wean o2 as tolerated
-Incentive Hero and Acapella
-no PE on imaging
-Abx
#Hypokalemia
resolved, K 3.5
-monitor and replete
cold sore lower lip
onset 10/10, started Valtrex, lesion markedly improved
Constipation
change Docusate with Senna to scheduled
add MOM prn
#Chronic Adenoiditis
-Augmentin 875mg po bid x 10 days through 10/17 - switched to cefepime with ?pneumonia and recurrent fevers
- Follow-up with ENT oupt.
# Leukocytosis
I suspect reactive
cultures ngtd
Empiric antibiotics
WBC 15.1-->18.6-->21.9-->20.8-->16.4-->15.9k
# Soft tissue density in the neck
Status post biopsy
Patient needs to follow-up with Dr. Rubio as outpatient
#Hyponatremia
137 Better
-monitor
#Hypomagnesemia
resolved 1.7
� Monitor and replete
#Hx of Likely euthyroid sick syndrome.
Follow-up outpatient
#Thrombocytosis
# Mostly clear reactive
� Monitor
#Transaminitis
� Chronic
#Possible masses developing along the left hepatic margin versus findings due to positioning. Nonurgent dedicated examination of liver recommended when the patient is able.
-f/u outpt
# Chronically elevated LFTs
# Anxiety and depression-continue lorazepam and sertraline
# Chronic muscle spasms-continue cyclobenzaprine
# History of IBS and gastroparesis
# Hereditary spherocytosis
# History of hepatitis A
# History of C. difficile
# History of VSD repair as a child
# History of splenectomy
# DVT prophylaxis-HSQ
# Full code
More than 30 minutes spent in discharge including
Final examination of the patient
Summarizing hospital stay
Instructions for continuing care to all relevant caregivers
Preparation of discharge records, prescriptions, and referral forms
Total time spent (in minutes): 45 minutes
Anticipated Discharge: Today
Subjective/Interval History
-
Date of Service: October 15, 2024
Actually feels better today. Had BM and is tolerating her diet. She would like to go home today
Objective Data
-
Labs:
Laboratory Results
10/15/24
03:20
WBC 14.9 H
Hgb 10.1 L
Hct 28.5 L
Plt Count 713 H
Sodium 140
Potassium 3.7
Chloride 104
Carbon Dioxide 29
BUN 15
Creatinine 0.4 L
Glucose 128 H
Calcium 8.8
Total Bilirubin 0.5
AST 18
ALT 16
Alkaline Phosphatase 140 H
Vital Signs:
Vital Signs
Temp Pulse Resp BP Pulse Ox
98.3 F 79 16 113/65 100
10/15/24 11:30 10/15/24 11:30 10/15/24 11:30 10/15/24 11:30 10/15/24 11:30
I&O
10/14/24 10/15/24 10/16/24
06:59 06:59 06:59
Intake Total 1440 / 1440 840 / 840
Balance 1440 / 1440 840 / 840
Review of Systems
-
History Source: Patient and Coordinated Provider
Constitutional: Denies Fever (100.6 during night)
EENT: Reports No Symptoms Reported
Respiratory: Reports No Symptoms
Cardiac: Reports No Symptoms; Denies Chest Pain
Abdomen/GI: Reports Abdominal Pain (much reduced) and Constipated (probably related to pancreatitis and chronic narcotics, reduced)
Genitourinary: Reports No Symptoms
Musculoskeletal: Reports No Symptoms
Physical Exam
-
General: Well Developed, Well Nourished and No Apparent Distress
HEENT: Normocephalic, Atraumatic, Moist Mucous Membranes and Other (HSV2 left lower lip markedly improved)
Respiratory: Clear to Auscultation; Negative Wheezes, Rales or Rhonchi
Cardiac: Regular Rhythm and S1/S2
GI: Soft, Normal Bowel Sounds (more active, probably approaching baseline) and Tender (decreased essentially resolved); Negative Distended (resolved)
Musculoskeletal: No Clubbing, No Cyanosis and No Edema
Neuro: Awake, Alert and Oriented
--- NOTE | 2024-10-15 15:20 | W.DS.TRANS ---
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
-
Discharge Instructions:
Discharge Diagnosis/Procedures Acute on Chronic Pancreatitis
Diet Low Fat
Activity As tolerated,No strenuous activity
Driving Restrictions Not until seen by your Dr
Bathing Restrictions None
Blood Work CBC, CMP
Instructions:
Stand-Alone Forms:
Changes to Home Medications: Yes
Discharge Medications:
DC Medications w/original date entered in [facility]
sertraline 50 mg tablet 100 mg PO HS depression/anxiety 12/08/13
lorazepam 1 mg tablet 1 mg PO HS anxiety/sleep 10/21/23
docusate sodium 100 mg capsule (Colace) 200 mg PO HS Constipation 02/17/24
cyclobenzaprine 5 mg tablet 5 mg PO DAILYPRN PRN muscle spasm 04/19/24
clobetasol 0.05 % topical cream 1 applic topical DAILYPRN PRN rash 10/07/24
hydromorphone 4 mg tablet 4 mg PO Q6HPRN PRN severe pain 10/07/24
uvqgru-fbfelhcn-gkqhhaj 12,000-38,000-60,000 unit capsule,delayed rel (Creon) 2 cap PO AC 10/07/24
dcgkuy-qdcjmjsj-cntjvzr 12,000-38,000-60,000 unit capsule,delayed rel (Creon) 2 cap PO DAILYPRN PRN with snacks 10/07/24
multivitamin with minerals-folic acid 200 mcg chewable tablet (Multivitamin Gummies) 2 tab PO HS Supplement 10/07/24
ondansetron 8 mg disintegrating tablet 8 mg PO Q8HPRN PRN nausea vommiting 10/07/24
polyethylene glycol 3350 17 gram/dose oral powder (Miralax) 8.5 g PO DAILYPRN PRN constipation 10/07/24
cefuroxime axetil 500 mg tablet 500 mg PO BID 7 days #14 tabs 10/15/24
valacyclovir 500 mg tablet 500 mg PO TID #21 tabs 10/15/24
Home Medication Changes
Ceftin for 7 days
Valtrex for 7 days
Pending Results: No
[2024-10-15 15:38] VITALS: BP 118/67
== END 2024-10-15 16:14 | disposition home or self-care (01) | DRG 871 ==
LOC: 4 WEST ACU 10:00
PROVIDERS: ADMITTING PHYSICIAN Internal Medicine; ATTENDING PHYSICIAN Internal Medicine; EMERGENCY PHYSICIAN Emergency Medicine; OTHER PHYSICIAN Internal Medicine Infectious Disease
DX: A41.89 Other specified sepsis (principal); J18.9 Pneumonia, unspecified organism; K85.90 Acute pancreatitis without necrosis or infection, unspecified; J81.0 Acute pulmonary edema; K86.1 Other chronic pancreatitis; F11.20 Opioid dependence, uncomplicated; E87.1 Hypo-osmolality and hyponatremia; J81.1 Chronic pulmonary edema; J98.11 Atelectasis; Q45.3 Other congenital malformations of pancreas and pancreatic duct; Z11.52 Encounter for screening for COVID-19; Z90.81 Acquired absence of spleen; G89.4 Chronic pain syndrome; D75.839 Thrombocytosis, unspecified; F41.9 Anxiety disorder, unspecified; F32.A Depression, unspecified; M62.838 Other muscle spasm; I88.1 Chronic lymphadenitis, except mesenteric; B00.1 Herpesviral vesicular dermatitis; Z87.74 Personal history of (corrected) congenital malformations of heart and circulatory system; E87.6 Hypokalemia
CPT/HCPCS: 70491; 71046; 71275; 74177; 76700; 80053; 81003; 81015; 83605; 83690; 83735; 84439; 84443; 84484; 85025; 85027; 87040; 87070; 87502; 87811; 93005; 93306; 96361; 96374; 96375; 96376; 99284; J2997; Q9967

== ENCOUNTER → 2024-10-23 15:35 | Outpatient (REF) | payer BC, SELFPAY ==
[2024-10-23 18:02] LABS: Erythrocyte Sed Rate 48 mm/hour (0-20)
[2024-10-23 18:09] LABS: % Basophils 1.4 % (0-2); % Eosinophils 5.4 % (0-6); % Immature Granulocytes 0.5 % (0-0.5); % Lymphocytes 33.4 % (20.5-51.1); % Monocytes 6.3 % (1.7-9.3); Absolute Basophils 0.2 10^3/uL (0-0.2); Absolute Eosinophils 0.6 10^3/uL (0-0.7); Absolute Immature Granulocytes 0.1 10^3/uL (0-0.05); Absolute Lymphocytes 3.5 10^3/uL (1.2-3.4); Absolute Monocytes 0.7 10^3/uL (0.1-0.6); Absolute Neutrophils 5.5 10^3/uL (1.4-6.5); Hemoglobin 13.5 g/dL (12.0-16.0); Mean Corp Hgb Conc. 33.8 g/dL (33.0-37.0); Nucleated Red Blood Cells % 0 %; Red Blood Cell Count 4.65 10^6/uL (4.20-5.40); Red Cell Dist. Width 13.2 % (11.5-14.5); White Blood Cell Count 10.5 10^3/uL (4.8-10.8)
[2024-10-23 18:13] LABS: ALT (SGPT) 27 U/L (0-35); AST (SGOT) 42 U/L (14-36); Albumin 4.7 g/dl (3.5-5.0); Alkaline Phosphatase 162 U/L (38-126); Alkaline Phosphatase, Total 162 U/L (38-126); Amylase 154 U/L (30-110); Blood Urea Nitrogen 20 mg/dl (7-17); Calcium 10.6 mg/dl (8.4-10.2); Carbon Dioxide 27 mmol/L (22-30); Chloride 101 mmol/L (98-107); GGTP 45 U/L (12-43); Glucose 95 mg/dl (70-99); HDL Cholesterol 85 mg/dl; LDL Cholesterol, Calculated 148 mg/dl; Lipase 453 U/L (23-300); Potassium 5.6 mmol/L (3.5-5.1); Sodium 142 mmol/L (135-145); Total Bilirubin 0.7 mg/dl (0.2-1.3); Total Cholesterol 270 mg/dl (50-199); Total Protein 9.3 g/dl (6.3-8.2); Triglyceride 189 mg/dl (10-149); Very Low Density Lipoprotein 37 mg/dl (0-30); eGFR > 60.00
[2024-10-23 18:46] LABS: Mean Platelet Volume 8.7 fL (7.4-10.4); Platelet Count 1159 10^3/uL (130-400)
[2024-10-23 18:51] LABS: TSH Reflex To Free T4 0.11 uIU/ml (0.47-4.68)
[2024-10-23 19:20] LABS: Free T4 1.26 ng/dl (0.78-2.19)
[2024-10-23 19:33] LABS: Alk Phos After Heat 110
[2024-10-26 07:46] LABS: ANA, IgG Reflex to HEp-2 Detected (None Detected)
== END ==
LOC: REG 15:35
DX: Z09 Encounter for follow-up examination after completed treatment for conditions other than malignant neoplasm (principal); K86.1 Other chronic pancreatitis; J18.9 Pneumonia, unspecified organism; J35.02 Chronic adenoiditis
CPT/HCPCS: 36415; 80053; 80061; 82150; 82977; 83690; 84078; 84439; 84443; 85025; 85652; 86038; 86140

== ENCOUNTER 2024-10-26 08:42 | Inpatient (IN) | payer BC, SELFPAY ==
[2024-10-23 20:16] VITALS: BP 125/87
[2024-10-23 22:22] VITALS: BP 114/84
[2024-10-23 22:23] VITALS: BMI 22.2
--- NOTE | 2024-10-23 22:42 | ED.GENMED ---
History of Present Illness
General
Chief Complaint: Abdominal Pain
Source: patient
Time Seen by Provider: 10/23/24 22:05
History of Present Illness
History of Present Illness:
54-year-old female presents to the emergency room complaining of significant abdominal pain. Patient has a history of chronic pancreatitis related to pancreatic divisum. She is followed by Dr. Nichole who was initially at [place] but has since
moved to [place]. She has had previous pancreatic revision surgery. She is now under consideration for 'removal of the pancreas' and reimplantation of the islet cells. She has an appointment with a pancreatic transplant surgeon at the
[facility] in the near future. Patient states her home analgesia regimen is not alleviating her pain adequately. Patient was recently hospitalized here with an exacerbation of her chronic pancreatitis. No fever today.
Past History
Past History
ED Past Medical History: Other (Recurrent pancreatitis, pancreatic duct stone,, pancreatic divisum,, PNA, Bowel obstruction, Hep A, IBS, Gastroporesis) and Other (C. difficile colitis)
ED Past Surgical History: Appendectomy, Bowel resection (Pancreatic revision surgery February 2017.), Cardiac (VSD repair as a child ), Cholecystectomy and Other (Splenectomy/adhesion. Liver repair post trauma years ago. Stents Pancreatic, Adhesions)
Social History
Tobacco: Non-smoker
Alcohol: None
Drug: None
Personal:
Living: with family
Employment: Not employed
Family History
Family History: Hypertension
Phy Exam
Physical Exam
Physical Exam:
General: Awake, Alert, Oriented X3. Appears uncomfortable and chronically ill
Vitals: unremarkable
Head: Atraumatic
Eyes: Pupils equal, EOMI
Throat: Airway intact, no exudates
Neck: Trachea midline
Lungs: Clear and equal b/l
Heart: Regular rate, no murmurs
Abd: Soft, upper abdominal tenderness, No pulsatile mass
Neuro: Nonfocal
Skin: Warm, dry, no rash
Extremities: pulses equal b/l, no edema
Course
Orders/Labs/Results
Orders:
Orders
10/23/24 22:42
HYDROmorphone [Dilaudid] 1 mg IV NOW STA
Lactated Ringers [Lr] 1,000 ml IV BOLUS
Ondansetron Injectable [Zofran] 4 mg IV NOW STA
10/23/24 22:46
Basic Metabolic Panel Urgent
Lipase Urgent
10/24/24 00:04
HYDROmorphone [Dilaudid] 1 mg IV NOW STA
Abnormal Lab Results
10/23/24
22:46
BUN 22 H mg/dl
(7-17)
Lipase 313 H U/L
(23-300)
10/23/24 22:46
Vital Signs
Initial and Last Documented VS:
Initial Vital Signs
Temp Pulse Resp BP Pulse Ox
98.1 F 99 20 125/87 99
10/23/24 20:16 10/23/24 20:16 10/23/24 20:16 10/23/24 20:16 10/23/24 20:16
Last Documented Vital Signs
Temp Pulse Resp BP Pulse Ox
98.1 F 99 20 112/75 95
10/23/24 20:16 10/23/24 20:16 10/23/24 20:16 10/24/24 00:00 10/24/24 00:15
MDM/Problems Addressed
Differential Diagnosis Includes:
Exacerbation of chronic pancreatitis, electrolyte abnormality, dehydration
MDM/Problems Addressed:
Patient presents with exacerbation of epigastric pain typical of her chronic pancreatitis. Patient had some labs performed earlier today which showed a normal white blood cell count but a markedly elevated platelet count at 1,159,000. An ESR was
elevated at 48. Chemistries this morning showed a potassium of 5.6 with normal renal function. Lipase was essentially normal at 453. Lipase was repeated here and is 313 which is basically unchanged from this morning. Renal function shows a BUN of
22 and a creatinine 0.6. Potassium is normal at 4.6. Patient has had multiple hospitalizations for similar complaint. She does have a very significant history with pancreatic surgery and is now followed for potential pancreatic
resection/transplant. Patient's pain was not controlled with a dose of IV analgesia here in the emergency room. Will hospitalize the patient for pain control, IV hydration, n.p.o. status. Patient did have a CT of her abdomen pelvis just a couple
weeks ago. I do not believe further radiation exposure for CT scan at this point is warranted
*Pulse Oximetry
Patient hypoxic: no
*Critical Care Note
Total Time (30-74mins, 75-104mins- exclusive of procedures): Not Applicable
ED Attending Note
-
Portions of this chart may have been created with voice recognition software.� Occasional wrong word or��sound alike� substitutions may have occurred due to the inherent limitations of voice recognition software.
Discharge Plan
Departure
Patient Disposition: Admit
Date of Disposition: 10/24/24
Time of Disposition: 00:05
Presentation/result/management discussed w/ accepting MD/DO: Hospitalist
Condition: Fair
Discharge Problem:
Abdominal pain, acute, Pancreatitis, chronic
Prescriptions:
No Action
sertraline 50 MG tablet
100 mg PO HS
lorazepam 1 mg Tablet
1 mg PO HS
docusate sodium [Colace] 100 mg Capsule
200 mg PO HS
cyclobenzaprine 5 mg tablet
5 mg PO DAILYPRN PRN (Reason: muscle spasm)
clobetasol 0.05 % Cream
1 applic TOPICAL DAILYPRN PRN (Reason: rash)
Patient Comments:
arms, leg, back
ondansetron 8 mg Tablet,Disintegrating
8 mg PO Q8HPRN PRN (Reason: nausea vommiting)
polyethylene glycol 3350 [Miralax] 17 gram/dose Powder
8.5 g PO DAILYPRN PRN (Reason: constipation)
hydromorphone 4 mg Tablet
4 mg PO Q6HPRN PRN (Reason: severe pain)
Creon 12,000-38,000 -60,000 unit Capsule,Delayed Release(Dr/Ec)
2 cap PO AC
multivit with min-folic acid [Multivitamin Gummies] 200 mcg Tablet,Chewable
2 tab PO HS
Creon 12,000-38,000 -60,000 unit Capsule,Delayed Release(Dr/Ec)
2 cap PO DAILYPRN PRN (Reason: with snacks)
valacyclovir 500 mg Tablet
500 mg PO TID Qty: 21 0RF
cefuroxime axetil 500 mg tablet
500 mg PO BID 7 Days Qty: 14 0RF
Referrals:
Irvin Campo CRNP [Family Provider] -
Interventions
Interventions:
*Risk Screen - Suicide Last Done: 10/23/24 22:23
*General Assessment Last Done: 10/23/24 20:16
*Neglect/Abuse Screening Last Done: 10/23/24 22:23
*ED- Fall Risk Assessment Last Done: 10/23/24 22:23
*ED COVID-19 Vaccine History Last Done: 10/23/24 22:23
FP-Bjzuwy-Ttexitjqls Assessment Last Done: 10/23/24 22:23
Discharge Date and Time
Print Language: CITIZEN [place]
[2024-10-23 23:00] VITALS: BP 129/72
[2024-10-23] MEDS: ZOFRAN 4 MG IV (23:01)
[2024-10-23] MEDS: DILAUDID 1 MG IV (23:02)
[2024-10-23] MEDS: LR 1000 IV (23:03)
[2024-10-23 23:11] LABS: Blood Urea Nitrogen 22 mg/dl (7-17); Carbon Dioxide 26 mmol/L (22-30); Chloride 104 mmol/L (98-107); Estimated Creatinine Clearance 83 ml/min; Glucose 92 mg/dl (70-99); Lipase 313 U/L (23-300); Potassium 4.6 mmol/L (3.5-5.1); Sodium 139 mmol/L (135-145); eGFR > 60.00
[2024-10-24] VITALS (9 sets, daily range): BP systolic 97–146; BP diastolic 50–91; BMI 21.5
[2024-10-24] MEDS: DILAUDID 1 MG IV ×2 (00:16→18:23)
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
[2024-10-24] MEDS: TYLENOL 650 MG PO ×6 (03:21→23:44)
[2024-10-24] MEDS: D5LR 1000 IV ×3 (03:21→23:43)
[2024-10-24] MEDS: DILAUDID 2 MG IV ×7 (03:38→23:44)
[2024-10-24] MEDS: ZOFRAN 4 MG IV ×3 (03:58→16:26)
[2024-10-24 06:55] LABS: Hematocrit 29.5 % (37.0-47.0); Hemoglobin 10.3 g/dL (12.0-16.0); Mean Corp Hgb Conc. 34.9 g/dL (33.0-37.0); Mean Corpuscular Hgb 29.7 pg (27.0-31.0); Mean Platelet Volume 8.6 fL (7.4-10.4); Platelet Count 892 10^3/uL (130-400); Red Blood Cell Count 3.47 10^6/uL (4.20-5.40); Red Cell Dist. Width 12.9 % (11.5-14.5); White Blood Cell Count 10.3 10^3/uL (4.8-10.8)
[2024-10-24 07:28] LABS: ALT (SGPT) 23 U/L (0-35); AST (SGOT) 38 U/L (14-36); Albumin 3.5 g/dl (3.5-5.0); Alkaline Phosphatase 117 U/L (38-126); Blood Urea Nitrogen 19 mg/dl (7-17); Calcium 9.6 mg/dl (8.4-10.2); Carbon Dioxide 29 mmol/L (22-30); Chloride 105 mmol/L (98-107); Direct Bilirubin 0.1 mg/dl (0.0-0.4); Estimated Creatinine Clearance 83 ml/min; Glucose 95 mg/dl (70-99); Lipase 438 U/L (23-300); Sodium 139 mmol/L (135-145); Total Bilirubin 0.6 mg/dl (0.2-1.3); eGFR > 60.00
[2024-10-24] MEDS: ZENPEP DELAYED RELEASE CAPSULE PO ×2 (08:02→13:11)
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
--- NOTE | 2024-10-24 13:19 | W.PN.HOSP.TC ---
Today's Communication/Plan
-
await GI input
NPO/IVF
pain control
Assessment / Plan
Assessment / Plan
pt is a 54 year old female
Acute on chronic pancreatitis--await GI input--lipase not terribly elevated BUT could be 'burned out'--NPO/IVF--being evaluated for pancreas transplant at [place]--cont pain meds, heating pad�Restart Creon when she is tolerating p.o�History of celiac
nerve block which helped for a while, she is pending follow-up at the [facility] for possible pancreatic transplant.
herpes-- Completed course of acyclovir 500 mg p.o. 3 times daily
DVT proph�Lovenox subcu
CODE STATUS�full code
Anticipated Discharge: > 48 hours
Subjective/Interval History
-
Date of Service: October 24, 2024
pt still with abdominal pain
Objective Data
-
Labs:
Laboratory Results
10/24/24
06:30
WBC 10.3
Hgb 10.3 L D
Hct 29.5 L
Plt Count 892 H D
Sodium 139
Potassium 5.0
Chloride 105
Carbon Dioxide 29
BUN 19 H
Creatinine 0.6
Glucose 95
Calcium 9.6
Total Bilirubin 0.6
AST 38 H
ALT 23
Alkaline Phosphatase 117
Vital Signs:
max temp for 24 hours
10/24/24
03:38
Temp 98.0 F
Vital Signs
Temp Pulse Resp BP Pulse Ox
97.8 F 75 16 97/50 98
10/24/24 07:00 10/24/24 07:00 10/24/24 07:00 10/24/24 07:00 10/24/24 07:00
I&O
10/23/24 10/24/24 10/25/24
06:59 06:59 06:59
Intake Total 400 / 400
Balance 400 / 400
Review of Systems
-
All other systems: Reviewed and negative
Abdomen/GI: Reports Abdominal Pain
Physical Exam
-
General: Well Developed, Well Nourished and No Apparent Distress
HEENT: Normocephalic and Atraumatic; Negative Oxygen
Respiratory: Clear to Auscultation; Negative Wheezes or Rhonchi
Cardiac: Regular Rhythm and S1/S2; Negative Murmur
GI: Soft, Normal Bowel Sounds, Tender and Distended
Musculoskeletal: No Clubbing, No Cyanosis and No Edema
Skin: Warm
Neuro: Awake
Psych: Calm
[2024-10-24] MEDS: MIRALAX PO (15:49)
--- NOTE | 2024-10-24 16:19 | CM ---
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
ambulation, patient drives, patient has had difficulty with working due to medical issues and is interested in claiming disability, patient plans on reaching out to her PCP to discuss disability further.
PCP: Irvin Campo
Pharmacy [facility] in [place]
Plan; Home with spouse when stable.
[2024-10-24] MEDS: LOVENOX 40 MG SC (19:13)
[2024-10-24] MEDS: TORADOL 15 MG IV ×2 (19:13→23:44)
[2024-10-24] MEDS: ATIVAN 1 MG PO (20:35)
[2024-10-24] MEDS: ZOLOFT 100 MG PO (20:35)
[2024-10-25] MEDS: DILAUDID 2 MG IV ×7 (03:02→23:42)
[2024-10-25] MEDS: TYLENOL 650 MG PO ×5 (03:03→22:54)
[2024-10-25 04:57] LABS: Hematocrit 27.9 % (37.0-47.0); Hemoglobin 9.6 g/dL (12.0-16.0); Mean Corp Hgb Conc. 34.4 g/dL (33.0-37.0); Mean Corpuscular Hgb 29.4 pg (27.0-31.0); Mean Corpuscular Volume 85.6 fL (81.0-99.0); Mean Platelet Volume 8.7 fL (7.4-10.4); Platelet Count 832 10^3/uL (130-400); Red Blood Cell Count 3.26 10^6/uL (4.20-5.40); Red Cell Dist. Width 12.7 % (11.5-14.5)
[2024-10-25 05:01] LABS: ALT (SGPT) 24 U/L (0-35); AST (SGOT) 46 U/L (14-36); Albumin 3.2 g/dl (3.5-5.0); Alkaline Phosphatase 105 U/L (38-126); Blood Urea Nitrogen 11 mg/dl (7-17); Calcium 9.2 mg/dl (8.4-10.2); Carbon Dioxide 29 mmol/L (22-30); Chloride 104 mmol/L (98-107); Estimated Creatinine Clearance 83 ml/min; Glucose 98 mg/dl (70-99); Lipase 188 U/L (23-300); Magnesium 1.8 mg/dl (1.6-2.3); Sodium 140 mmol/L (135-145); Total Bilirubin 0.5 mg/dl (0.2-1.3); Total Protein 6.3 g/dl (6.3-8.2); eGFR > 60.00
[2024-10-25 05:06] LABS: Potassium 4.7 mmol/L (3.5-5.1)
[2024-10-25] MEDS: TORADOL 15 MG IV ×4 (05:48→22:55)
[2024-10-25 07:30] VITALS: BP 106/54
[2024-10-25] MEDS: MIRALAX PO (08:24)
[2024-10-25] MEDS: D5LR 1000 IV ×2 (09:18→22:57)
[2024-10-25] MEDS: ZOFRAN 4 MG IV ×2 (10:18→20:10)
--- NOTE | 2024-10-25 12:38 | W.PN.HOSP.TC ---
Today's Communication/Plan
-
if MRI neg, consider advancing diet
Assessment / Plan
Assessment / Plan
pt is a 54 year old female
Acute on chronic pancreatitis--apprec GI input, MRI abdomen pending--lipase not terribly elevated BUT pancreas could be 'burned out'--NPO/IVF--being evaluated for pancreas transplant at [place]--cont pain meds, heating pad�Restart Creon when she is
tolerating p.o�History of celiac nerve block which helped for a while
herpes-- Completed course of acyclovir 500 mg p.o. 3 times daily
DVT proph�Lovenox subcu
CODE STATUS�full code
Anticipated Discharge: 24 - 48 hours
Subjective/Interval History
-
Date of Service: October 25, 2024
pt pain better but still there, still requires pain meds
Objective Data
-
Labs:
Laboratory Results
10/25/24
04:12
WBC 8.0
Hgb 9.6 L
Hct 27.9 L
Plt Count 832 H
Sodium 140
Potassium 4.7
Chloride 104
Carbon Dioxide 29
BUN 11
Creatinine 0.6
Glucose 98
Calcium 9.2
Total Bilirubin 0.5
AST 46 H
ALT 24
Alkaline Phosphatase 105
Vital Signs:
max temp for 24 hours
10/24/24
22:38
Temp 97.8 F
Vital Signs
Temp Pulse Resp BP Pulse Ox
97.7 F 73 16 106/54 97
10/25/24 07:30 10/25/24 07:30 10/25/24 07:30 10/25/24 07:30 10/25/24 07:30
I&O
04/12/25 04/13/25 04/14/25
06:59 06:59 06:59
Intake Total 400 / 400 1200 / 1200
Balance 400 / 400 1200 / 1200
Review of Systems
-
All other systems: Reviewed and negative
Abdomen/GI: Reports Abdominal Pain and Nausea
Physical Exam
-
General: Well Developed, Well Nourished and No Apparent Distress
HEENT: Normocephalic and Atraumatic
Respiratory: Clear to Auscultation; Negative Wheezes or Rhonchi
Cardiac: Regular Rhythm and S1/S2; Negative Murmur
GI: Soft, Nondistended, Normal Bowel Sounds and Tender
Musculoskeletal: No Clubbing, No Cyanosis and No Edema
Neuro: Awake and Alert
Psych: Calm
[2024-10-25] MEDS: DILAUDID 1 MG IV (14:50)
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
[2024-10-25 15:30] VITALS: BP 119/64
[2024-10-25] MEDS: MIRALAX 17 GRAMS PO (15:54)
[2024-10-25] MEDS: PHENERGAN 50.5 MG IV ×2 (16:15→21:27)
[2024-10-25 16:32] LABS: Glucose - Point of Care 89 mg/dl (70-99)
[2024-10-25] MEDS: LOVENOX 40 MG SC (18:23)
[2024-10-25] MEDS: ZENPEP DELAYED RELEASE CAPSULE PO (19:19)
[2024-10-25 20:05] VITALS: BP 110/59
[2024-10-25] MEDS: TYLENOL PO (22:34)
[2024-10-25] MEDS: ZOLOFT 100 MG PO (22:54)
[2024-10-25] MEDS: ATIVAN 1 MG PO (22:54)
[2024-10-25 23:28] VITALS: BP 112/67
[2024-10-26] MEDS: DILAUDID 2 MG IV ×7 (02:56→21:06)
[2024-10-26] MEDS: TYLENOL PO ×4 (05:20→15:26)
[2024-10-26] MEDS: TORADOL 15 MG IV ×4 (05:47→23:24)
[2024-10-26] MEDS: PHENERGAN 50.5 MG IV ×4 (06:10→21:14)
[2024-10-26] MEDS: D5LR IV (06:17)
[2024-10-26 06:32] LABS: Blood Urea Nitrogen 8 mg/dl (7-17); Chloride 105 mmol/L (98-107); Glucose 88 mg/dl (70-99); Lipase 109 U/L (23-300); Magnesium 1.8 mg/dl (1.6-2.3); Potassium 4.4 mmol/L (3.5-5.1); Sodium 140 mmol/L (135-145)
[2024-10-26 06:36] LABS: Hematocrit 27.4 % (37.0-47.0); Hemoglobin 9.7 g/dL (12.0-16.0); Mean Corp Hgb Conc. 35.4 g/dL (33.0-37.0); Mean Corpuscular Volume 84.8 fL (81.0-99.0); Mean Platelet Volume 8.8 fL (7.4-10.4); Platelet Count 795 10^3/uL (130-400); Red Blood Cell Count 3.23 10^6/uL (4.20-5.40); Red Cell Dist. Width 12.5 % (11.5-14.5); White Blood Cell Count 13.7 10^3/uL (4.8-10.8)
[2024-10-26 06:42] LABS: Carbon Dioxide 27 mmol/L (22-30); Estimated Creatinine Clearance 83 ml/min; eGFR > 60.00
[2024-10-26 07:00] VITALS: BP 106/58
[2024-10-26] MEDS: ZENPEP DELAYED RELEASE CAPSULE PO ×3 (08:39→15:26)
[2024-10-26] MEDS: ZOFRAN 4 MG IV ×3 (08:45→23:24)
[2024-10-26] MEDS: MIRALAX 17 GRAMS PO (08:45)
--- NOTE | 2024-10-26 11:38 | CM ---
CM reviewed chart, patient seen bedside, reports no concerns to CM at this time. CM will continue to follow for all discharge planning needs.
Plan; home no needs likely
[2024-10-26] MEDS: D5LR 1000 IV (12:57)
--- NOTE | 2024-10-26 14:01 | W.PN.HOSP.TC ---
Addendum entered and electronically signed by Destinee Le MD 10/26/24 14:36:
I saw and evaluated the patient. I reviewed the resident�s note and agree with findings and plan as documented in the resident�s note.
A/P:
# Acute on chronic pancreatitis with nausea and abdominal pain
# h/o pancreatic divisum s/p surgery and history of pancreatic duct stone
MRI abdomen unrevealing: Stable postoperative changes along the pancreas with prior pancreaticojejunostomy. There is trace T2 hyperintense signal within the superior aspect of the pancreatic head which may represent an element of acute on chronic
pancreatitis. There is no peripancreatic collection.
Mild lipase elevation on admission, improved
Continue current full liquid diet today without advancement due to persistent abdominal pain
cont IVF
Cont IV Dilaudid for pain control
PRN Zofran and Benadryl for nausea (pt stated that Benadryl had worked previously for her nausea)
Cont Creon
Pt being evaluated for pancreas transplant at [place]
Apprec GI input, signed off
# herpes
Completed course of acyclovir 500 mg p.o. 3 times daily
DVT proph�Lovenox subcu
CODE STATUS�full code
Original Note:
Today's Communication/Plan
-
Full liquid diet, advance as tolerated
Add Benadryl for nausea
Add Senokot- S for opioid-induced constipation
Pain control
Assessment / Plan
Assessment / Plan
Impression
Acute on chronic pancreatitis
History of pancreatic divisum
Herpes
Plan
Acute on chronic pancreatitis
History of pancreatic divisum
MRI of the abdomen reveals trace T2 hyperintense signal within the superior aspect of the pancreatic head, no peripancreatic collection.
Pain control with Toradol and Dilaudid
For nausea continue Zofran, promethazine. Add Benadryl as needed
Continue full liquid diet
Advance diet as tolerated
Continue pancrelipase
Herpes-- Completed course of acyclovir 500 mg p.o. 3 times daily
DVT proph�Lovenox subcu
CODE STATUS�full code
Anticipated Discharge: > 48 hours
Subjective/Interval History
-
Date of Service: October 26, 2024
No overnight events, still nauseous
Objective Data
-
Labs:
Laboratory Results
10/26/24
05:36
WBC 13.7 H
Hgb 9.7 L
Hct 27.4 L
Plt Count 795 H
Sodium 140
Potassium 4.4
Chloride 105
Carbon Dioxide 27
BUN 8
Creatinine 0.5 L
Glucose 88
Calcium 9.0
Vital Signs:
Vital Signs
Temp Pulse Resp BP Pulse Ox
97.9 F 77 20 106/58 96
10/26/24 07:00 10/26/24 07:00 10/26/24 07:00 10/26/24 07:00 10/26/24 07:00
I&O
10/25/24 10/26/24 10/27/24
06:59 06:59 06:59
Intake Total 1200 / 1200 1919
Balance 1200 / 1200 1919
Review of Systems
-
All other systems: Reviewed and negative
Physical Exam
-
General: No Apparent Distress
HEENT: Normocephalic and Atraumatic
Respiratory: Clear to Auscultation
Cardiac: Regular Rhythm and S1/S2
GI: Nondistended and Tender (Mild epigastric)
Musculoskeletal: No Edema
Skin: Warm and Dry
Neuro: AO x 3
Psych: Calm
Data Reviewed
-
Labs: Labs Reviewed by me and Discussed with Physician
[2024-10-26 15:00] VITALS: BP 116/55
[2024-10-26] MEDS: LOVENOX 40 MG SC (17:07)
[2024-10-26] MEDS: SENOKOT-S 1 TABLET PO (20:31)
[2024-10-26] MEDS: TYLENOL 650 MG PO ×2 (20:38→23:24)
[2024-10-26] MEDS: ZOLOFT 100 MG PO (22:08)
[2024-10-26] MEDS: ATIVAN 1 MG PO (22:09)
[2024-10-26 23:40] VITALS: BP 112/60
[2024-10-27] MEDS: DILAUDID 2 MG IV ×8 (00:08→22:48)
[2024-10-27] MEDS: D5LR 1000 IV ×2 (01:07→12:35)
[2024-10-27] MEDS: PHENERGAN 50.5 MG IV ×4 (01:27→21:27)
[2024-10-27] MEDS: TYLENOL 650 MG PO ×3 (03:41→21:27)
[2024-10-27] MEDS: BENADRYL 25 MG PO ×2 (03:41→22:17)
[2024-10-27] MEDS: ZOFRAN 4 MG IV ×3 (05:30→19:45)
[2024-10-27] MEDS: TORADOL 15 MG IV ×3 (05:30→16:14)
[2024-10-27 06:49] LABS: % Basophils 0.7 % (0-2); % Eosinophils 6.5 % (0-6); % Immature Granulocytes 0.3 % (0-0.5); % Lymphocytes 21.7 % (20.5-51.1); % Monocytes 7.8 % (1.7-9.3); Absolute Basophils 0.1 10^3/uL (0-0.2); Absolute Lymphocytes 3.3 10^3/uL (1.2-3.4); Absolute Monocytes 1.2 10^3/uL (0.1-0.6); Absolute Neutrophils 9.6 10^3/uL (1.4-6.5); Hematocrit 26.6 % (37.0-47.0); Hemoglobin 9.2 g/dL (12.0-16.0); Mean Corp Hgb Conc. 34.6 g/dL (33.0-37.0); Mean Corpuscular Hgb 29.6 pg (27.0-31.0); Mean Corpuscular Volume 85.5 fL (81.0-99.0); Mean Platelet Volume 8.6 fL (7.4-10.4); Nucleated Red Blood Cells % 0 %; Platelet Count 675 10^3/uL (130-400); Red Blood Cell Count 3.11 10^6/uL (4.20-5.40); Red Cell Dist. Width 12.7 % (11.5-14.5); White Blood Cell Count 15.2 10^3/uL (4.8-10.8)
[2024-10-27 07:00] VITALS: BP 106/57
[2024-10-27 07:15] LABS: Blood Urea Nitrogen 6 mg/dl (7-17); Calcium 8.6 mg/dl (8.4-10.2); Carbon Dioxide 27 mmol/L (22-30); Chloride 107 mmol/L (98-107); Estimated Creatinine Clearance 83 ml/min; Glucose 101 mg/dl (70-99); Lipase 196 U/L (23-300); Magnesium 1.7 mg/dl (1.6-2.3); Potassium 3.8 mmol/L (3.5-5.1); Sodium 140 mmol/L (135-145); eGFR > 60.00
[2024-10-27] MEDS: ZENPEP DELAYED RELEASE CAPSULE 2 CAPSULE PO ×3 (08:01→15:44)
[2024-10-27] MEDS: MIRALAX 17 GRAMS PO (08:01)
[2024-10-27] MEDS: SENOKOT-S 1 TABLET PO ×2 (08:01→19:45)
[2024-10-27] MEDS: MAGNESIUM SULFATE 50 IV (08:11)
[2024-10-27] MEDS: KCL 270 MEQ IV (08:11)
--- NOTE | 2024-10-27 12:17 | W.PN.HOSP.TC ---
Addendum entered and electronically signed by Destinee Le MD 10/27/24 13:02:
I saw and evaluated the patient. I reviewed the resident�s note and agree with findings and plan as documented in the resident�s note.
A/P:
# Acute on chronic pancreatitis with nausea and abdominal pain
# h/o pancreatic divisum s/p surgery and history of pancreatic duct stone
MRI abdomen unrevealing: Stable postoperative changes along the pancreas with prior pancreaticojejunostomy. There is trace T2 hyperintense signal within the superior aspect of the pancreatic head which may represent an element of acute on chronic
pancreatitis. There is no peripancreatic collection.
Mild lipase elevation on admission, improved
Continue current full liquid diet without advancement, monitor symptoms
cont IVF
IV Dilaudid for pain control
PRN Zofran and Benadryl for nausea (pt stated that Benadryl had worked previously for her nausea)
Cont Creon
Pt being evaluated for pancreas transplant at [place]
Apprec GI input, signed off
# herpes
Completed course of acyclovir 500 mg p.o. 3 times daily
DVT proph: Lovenox subcu
CODE STATUS: full code
Original Note:
Today's Communication/Plan
-
Pain control
Full liquids for now without advancement of diet due to persistent nausea/abd pain
Monitor for any recurrent/new symptoms.
Assessment / Plan
Assessment / Plan
Impression
Acute on chronic pancreatitis
History of pancreatic divisum
Herpes
Plan
Acute on chronic pancreatitis
History of pancreatic divisum
MRI of the abdomen reveals trace T2 hyperintense signal within the superior aspect of the pancreatic head, no peripancreatic collection.
Pain control with Toradol, Tylenol and Dilaudid
For nausea continue Zofran, promethazine. Add Benadryl as needed
Continue full liquid diet for without advancing the diet
Continue pancrelipase
Herpes-- Completed course of acyclovir 500 mg p.o. 3 times daily
DVT proph�Lovenox subcu
CODE STATUS�full code
Anticipated Discharge: > 48 hours
Subjective/Interval History
-
Date of Service: October 27, 2024
Patient reports nausea is a little better, no other overnight events.
Objective Data
-
Labs:
Laboratory Results
10/27/24
06:23
WBC 15.2 H
Hgb 9.2 L
Hct 26.6 L
Plt Count 675 H
Sodium 140
Potassium 3.8
Chloride 107
Carbon Dioxide 27
BUN 6 L
Creatinine 0.6
Glucose 101 H
Calcium 8.6
Vital Signs:
Vital Signs
Temp Pulse Resp BP Pulse Ox
98.5 F 68 20 106/57 99
10/27/24 07:00 10/27/24 07:00 10/27/24 07:00 10/27/24 07:00 10/27/24 08:00
I&O
10/26/24 10/27/24 10/28/24
06:59 06:59 06:59
Intake Total 1919 1200 / 1200 50 / 50
Balance 1919 1200 / 1200 50 / 50
Review of Systems
-
All other systems: Reviewed and negative
Physical Exam
-
General: No Apparent Distress and Comfortable
HEENT: Normocephalic and Atraumatic
Respiratory: Clear to Auscultation
Cardiac: Regular Rhythm and S1/S2
GI: Nontender and Nondistended
Musculoskeletal: No Edema
Skin: Warm and Dry
Neuro: AO x 3
Psych: Calm
Data Reviewed
-
Labs: Labs Reviewed by me and Discussed with Physician
--- NOTE | 2024-10-27 12:24 | CM ---
CM reviewed chart, patient remains on full liquids. Will continue to follow for all discharge planning needs.
Plan; home no needs anticipated.
--- NOTE | 2024-10-27 12:30 | PTCARENOTE ---
10/27- Patient states she feels like her hands are getting 'puffy.' She states this has happened before, and during her last stay, we had to discontinue the IVF and put her on lasix for some fluid overload. BL hands do currently have +1 edema on
inferior surface; Trace pitting edema now observed on BL ankles. +pulsesX4; Skin CDI. HR=78. Notified Physician.
[2024-10-27] MEDS: TYLENOL PO ×2 (12:38→13:15)
[2024-10-27 14:45] VITALS: BP 113/63
--- NOTE | 2024-10-27 15:50 | PTCARENOTE ---
10/27- Patient states her pain is still a 6/10 after the 1mg IV Dilaudid. She requests the 0.5mg Dilaudid IV PRN. Notified Physician of patient's persistent abdominal pain despite IV Dilaudid.
[2024-10-27] MEDS: LOVENOX 40 MG SC (16:15)
--- NOTE | 2024-10-27 20:22 | VATNOTE ---
pt complained that skin itched under neath port dressing. Redressed, removed biopatch per pts request and only applied 1 steri-strip. Providone-iodine swabstick used at pts request instead of chlorhexidine.
[2024-10-27] MEDS: ATIVAN 1 MG PO (21:27)
[2024-10-27] MEDS: ZOLOFT 100 MG PO (21:27)
[2024-10-27 23:43] VITALS: BP 125/71
[2024-10-28] MEDS: TYLENOL 650 MG PO ×4 (00:40→17:30)
[2024-10-28] MEDS: TORADOL 15 MG IV ×4 (00:40→23:00)
[2024-10-28] MEDS: DILAUDID 2 MG IV ×6 (02:32→20:49)
[2024-10-28] MEDS: TYLENOL PO ×2 (05:02→21:57)
[2024-10-28 07:30] VITALS: BP 115/72
[2024-10-28] MEDS: ZOFRAN 4 MG IV ×2 (08:36→17:46)
[2024-10-28] MEDS: ZENPEP DELAYED RELEASE CAPSULE 2 CAPSULE PO ×3 (08:37→17:32)
[2024-10-28] MEDS: MIRALAX 17 GRAMS PO (08:41)
[2024-10-28] MEDS: SENOKOT-S 1 TABLET PO ×2 (08:41→21:54)
[2024-10-28 08:57] LABS: Hematocrit 26.5 % (37.0-47.0); Hemoglobin 9.4 g/dL (12.0-16.0); Mean Corp Hgb Conc. 35.5 g/dL (33.0-37.0); Mean Corpuscular Hgb 29.9 pg (27.0-31.0); Mean Corpuscular Volume 84.4 fL (81.0-99.0); Platelet Count 638 10^3/uL (130-400); Red Blood Cell Count 3.14 10^6/uL (4.20-5.40); Red Cell Dist. Width 12.8 % (11.5-14.5); White Blood Cell Count 13.6 10^3/uL (4.8-10.8)
[2024-10-28 09:53] LABS: Blood Urea Nitrogen 8 mg/dl (7-17); Calcium 8.5 mg/dl (8.4-10.2); Carbon Dioxide 22 mmol/L (22-30); Chloride 108 mmol/L (98-107); Estimated Creatinine Clearance 83 ml/min; Glucose 74 mg/dl (70-99); Potassium 4.8 mmol/L (3.5-5.1); Sodium 138 mmol/L (135-145); eGFR > 60.00
[2024-10-28] MEDS: PHENERGAN 50.5 MG IV ×2 (11:15→20:31)
--- NOTE | 2024-10-28 12:05 | PN.CDI ---
CDI
- -
CDI:
Physician Documentation Request
Admit Date: 10/26/24 08:42
Dear Doctor Rey/Resident,
Please review the following and provide your response in the progress notes.
Clinical Indicators:
Pt admitted with Acute on Chronic Pancreatitis
Tmax 10/27 -100.9, HR 99, WBC 15.2 ( 10/27)
Please clarify which most accurately describes the patient:
Sepsis-Evolved during hospitalization
Systemic manifestations of infection, with 2 or more SIRS criteria which include:
Fever > 100.4 degrees F or hypothermia < 96.8 degrees F
Leukocytosis - WBC > 12,000 or leukopenia, WBC < 4,000 or > 10% bands
Tachycardia - > 90 beats per minute
Tachypnea - RR > 20 breaths per minute or PaCO2 < 32 mmHg
Source: Merck Manual 2012
SIRS due to a non-infectious source
Acute on Chronic Pancreatitis only
Other ( please specify)
Use of terms such as suspected, likely, concern for, or probable (associated with a specific diagnosis that is being evaluated, monitored, or treated as if it exists) are acceptable and can be coded in the inpatient setting, when documented at the
time of discharge.
Thank you,
Elle Amaya RN
CDI Specialist
[facility]
Please use your independent medical judgment in providing your response.
--- NOTE | 2024-10-28 12:44 | W.PN.HOSP.TC ---
Addendum entered and electronically signed by Destinee Le MD 10/28/24 14:07:
I saw and evaluated the patient. I reviewed the resident�s note and agree with findings and plan as documented in the resident�s note.
A/P:
# Acute on chronic pancreatitis with nausea and abdominal pain
# h/o pancreatic divisum s/p surgery and history of pancreatic duct stone
MRI abdomen unrevealing: Stable postoperative changes along the pancreas with prior pancreaticojejunostomy. There is trace T2 hyperintense signal within the superior aspect of the pancreatic head which may represent an element of acute on chronic
pancreatitis. There is no peripancreatic collection.
Mild lipase elevation on admission, improved
Continue current full liquid diet without advancement, monitor symptoms
cont IVF
IV Dilaudid for pain control
PRN Zofran and Benadryl for nausea (pt stated that Benadryl had worked previously for her nausea)
Cont Creon
Pt being evaluated for pancreas transplant at [place]
Apprec GI input, signed off
# SIRS likely due to acute pancreatitis
Noted fever, check blood culture, cover with empiric Zosyn for now until culture results returned
Patient declined to any urinary symptoms
# herpes
Completed course of acyclovir 500 mg p.o. 3 times daily
DVT proph: Lovenox subcu
CODE STATUS: full code
Original Note:
Today's Communication/Plan
-
Continue full liquids without advancement
Check blood culture first
Then start IV Zosyn until blood culture is negative
Assessment / Plan
Assessment / Plan
Impression
Acute on chronic pancreatitis
History of pancreatic divisum
Fever with leukocytosis
Herpes
Plan
Acute on chronic pancreatitis
History of pancreatic divisum
MRI of the abdomen reveals trace T2 hyperintense signal within the superior aspect of the pancreatic head, no peripancreatic collection.
Pain control with Toradol, Tylenol and Dilaudid
For nausea continue Zofran, promethazine. Add Benadryl as needed
Continue full liquid diet for without advancing the diet
Continue pancrelipase
Fever with leukocytosis
Meets SIRS criteria
This may be to her ongoing pancreatitis
However we will check blood culture first to rule out infection
Then start IV Zosyn until the blood culture is negative
Herpes-- Completed course of acyclovir 500 mg p.o. 3 times daily
DVT proph�Lovenox subcu
CODE STATUS�full code
Anticipated Discharge: > 48 hours
Subjective/Interval History
-
Date of Service: October 28, 2024
Patient was febrile with a oral temp of 100.9 F
Objective Data
-
Labs:
Laboratory Results
10/28/24
07:48
WBC 13.6 H
Hgb 9.4 L
Hct 26.5 L
Plt Count 638 H
Sodium 138
Potassium 4.8 D
Chloride 108 H
Carbon Dioxide 22
BUN 8
Creatinine 0.5 L
Glucose 74
Calcium 8.5
Vital Signs:
Vital Signs
Temp Pulse Resp BP Pulse Ox
98.4 F 71 18 115/72 92
10/28/24 07:30 10/28/24 07:30 10/28/24 07:30 10/28/24 07:30 10/28/24 07:30
I&O
10/27/24 10/28/24 10/29/24
06:59 06:59 06:59
Intake Total 1200 / 1200 1010 / 1010 120 / 120
Balance 1200 / 1200 1010 / 1010 120 / 120
Review of Systems
-
All other systems: Reviewed and negative (Except mentioned)
Abdomen/GI: Reports Nausea
Physical Exam
-
General: Comfortable
HEENT: Normocephalic and Atraumatic
Respiratory: Clear to Auscultation
Cardiac: Regular Rhythm
GI: Soft and Nondistended
Musculoskeletal: No Edema
Neuro: AO x 3
Psych: Calm
Data Reviewed
-
Labs: Labs Reviewed by me and Discussed with Physician
--- NOTE | 2024-10-28 12:46 | CM ---
CM reviewed chart, patient seen beside, reports no concerns/changes to CM at this time. CM will continue to follow for all discharge planning needs.
Plan; home no needs anticipated.
[2024-10-28] MEDS: D5LR 500 IV ×2 (12:53→22:08)
[2024-10-28] MEDS: D5LR IV ×2 (13:03→22:10)
[2024-10-28] MEDS: DILAUDID 0.5 MG IV (15:03)
[2024-10-28 15:44] VITALS: BP 111/60
[2024-10-28] MEDS: ZOSYN 50 IV ×2 (17:31→21:54)
[2024-10-28] MEDS: TORADOL IV (17:32)
[2024-10-28] MEDS: LOVENOX 40 MG SC (17:33)
[2024-10-28] MEDS: ZOLOFT 100 MG PO (21:54)
[2024-10-28] MEDS: ATIVAN 1 MG PO (21:54)
[2024-10-28] MEDS: BENADRYL 25 MG PO (21:59)
[2024-10-28 23:12] VITALS: BP 128/65
[2024-10-29] MEDS: TYLENOL PO ×2 (00:11→03:23)
[2024-10-29] MEDS: DILAUDID 2 MG IV ×7 (00:14→23:40)
[2024-10-29] MEDS: ZOSYN 50 IV ×4 (03:29→21:45)
[2024-10-29 04:41] LABS: Blood Urea Nitrogen 9 mg/dl (7-17); Calcium 8.4 mg/dl (8.4-10.2); Carbon Dioxide 24 mmol/L (22-30); Chloride 109 mmol/L (98-107); Estimated Creatinine Clearance 83 ml/min; Glucose 77 mg/dl (70-99); Potassium 4.3 mmol/L (3.5-5.1); Sodium 142 mmol/L (135-145); eGFR > 60.00
[2024-10-29] MEDS: TORADOL 15 MG IV ×2 (05:45→12:56)
[2024-10-29] MEDS: D5LR 500 IV ×3 (05:46→21:57)
[2024-10-29 07:00] VITALS: BP 127/67
[2024-10-29] MEDS: SENOKOT-S 1 TABLET PO ×2 (09:46→20:04)
[2024-10-29] MEDS: TYLENOL 650 MG PO ×5 (09:46→23:40)
[2024-10-29] MEDS: MIRALAX 17 GRAMS PO (09:46)
[2024-10-29] MEDS: ZENPEP DELAYED RELEASE CAPSULE 2 CAPSULE PO ×3 (09:46→16:29)
--- NOTE | 2024-10-29 10:45 | W.PN.HOSP.TC ---
Addendum entered and electronically signed by Destinee Le MD 10/29/24 13:09:
I saw and evaluated the patient. I reviewed the resident�s note and agree with findings and plan as documented in the resident�s note.
A/P:
# Acute on chronic pancreatitis with nausea and abdominal pain
# h/o pancreatic divisum s/p surgery and history of pancreatic duct stone
MRI abdomen unrevealing: Stable postoperative changes along the pancreas with prior pancreaticojejunostomy. There is trace T2 hyperintense signal within the superior aspect of the pancreatic head which may represent an element of acute on chronic
pancreatitis. There is no peripancreatic collection.
Mild lipase elevation on admission, improved
Advance full liquid diet to low fat, monitor symptoms
IV Dilaudid for pain control
PRN Zofran and Benadryl for nausea (pt stated that Benadryl had worked previously for her nausea)
Cont Creon
Pt being evaluated for pancreas transplant at [place]
Apprec GI input, signed off
# SIRS likely due to acute pancreatitis
Noted fever, follow blood cultures x48 hours,
cover with empiric Zosyn for now until culture results negative
Patient denied to any urinary symptoms
# herpes
Completed course of acyclovir 500 mg p.o. 3 times daily
DVT proph: Lovenox subcu
CODE STATUS: full code
Original Note:
Today's Communication/Plan
-
Switch to low-fat diet
Await blood culture results
Assessment / Plan
Assessment / Plan
Impression
Acute on chronic pancreatitis
History of pancreatic divisum
Fever with leukocytosis
Herpes
Plan
Acute on chronic pancreatitis
History of pancreatic divisum
MRI of the abdomen reveals trace T2 hyperintense signal within the superior aspect of the pancreatic head, no peripancreatic collection.
Pain control with Toradol, Tylenol and Dilaudid
For nausea continue Zofran, promethazine. Add Benadryl as needed
Patient is now better tolerating full liquids
Switch to low-fat diet
Continue pancrelipase
Fever with leukocytosis
Meets SIRS criteria
This may be to her ongoing pancreatitis
However we will check blood culture first to rule out infection
Then start IV Zosyn until the blood culture is negative
Await cultures
Herpes-- Completed course of acyclovir 500 mg p.o. 3 times daily
DVT proph�Lovenox subcu
CODE STATUS�full code
Anticipated Discharge: > 48 hours
Subjective/Interval History
-
Date of Service: October 29, 2024
Patient is better tolerating full liquids
Objective Data
-
Labs:
Laboratory Results
10/29/24 10/29/24
04:03 07:51
WBC Pending
Hgb Pending
Hct Pending
Plt Count Pending
Sodium 142
Potassium 4.3
Chloride 109 H
Carbon Dioxide 24
BUN 9
Creatinine 0.6
Glucose 77
Calcium 8.4
Vital Signs:
Vital Signs
Temp Pulse Resp BP Pulse Ox
98.1 F 74 16 127/67 96
10/29/24 07:00 10/29/24 07:00 10/29/24 07:00 10/29/24 07:00 10/29/24 07:00
I&O
10/28/24 10/29/24 10/30/24
06:59 06:59 06:59
Intake Total 0 / 1010 1779
Balance 1010 / 1010 1779
Review of Systems
-
All other systems: Reviewed and negative
Physical Exam
-
General: Comfortable
HEENT: Normocephalic and Atraumatic
Respiratory: Clear to Auscultation
Cardiac: Regular Rhythm and S1/S2
GI: Soft, Nontender and Nondistended
Musculoskeletal: No Edema
Neuro: AO x 3
Psych: Calm
Data Reviewed
-
Labs: Labs Reviewed by me and Discussed with Physician
[2024-10-29 11:05] LABS: % Basophils 0.9 % (0-2); % Eosinophils 10.3 % (0-6); % Immature Granulocytes 0.5 % (0-0.5); % Lymphocytes 25.1 % (20.5-51.1); % Monocytes 10.2 % (1.7-9.3); Absolute Basophils 0.1 10^3/uL (0-0.2); Absolute Immature Granulocytes 0.1 10^3/uL (0-0.05); Absolute Lymphocytes 2.5 10^3/uL (1.2-3.4); Absolute Neutrophils 5.4 10^3/uL (1.4-6.5); Hematocrit 27.1 % (37.0-47.0); Hemoglobin 9.5 g/dL (12.0-16.0); Mean Corp Hgb Conc. 35.1 g/dL (33.0-37.0); Mean Corpuscular Hgb 30.2 pg (27.0-31.0); Mean Platelet Volume 8.9 fL (7.4-10.4); Nucleated Red Blood Cells % 0 %; Platelet Count 615 10^3/uL (130-400); Red Blood Cell Count 3.15 10^6/uL (4.20-5.40); White Blood Cell Count 10.1 10^3/uL (4.8-10.8)
[2024-10-29] MEDS: ZOFRAN 4 MG IV (13:02)
[2024-10-29 15:00] VITALS: BP 101/52
[2024-10-29] MEDS: LOVENOX 40 MG SC (16:29)
[2024-10-29] MEDS: PHENERGAN 50.5 MG IV (16:54)
[2024-10-29] MEDS: ZOLOFT 100 MG PO (21:45)
[2024-10-29] MEDS: ATIVAN 1 MG PO (21:45)
[2024-10-29 23:26] VITALS: BP 104/65
[2024-10-30] MEDS: TYLENOL 650 MG PO ×3 (03:29→14:25)
[2024-10-30] MEDS: ZOSYN 50 IV ×2 (03:29→09:38)
[2024-10-30] MEDS: DILAUDID 2 MG IV ×3 (03:30→14:17)
[2024-10-30] MEDS: ZOFRAN 4 MG IV ×2 (03:36→11:45)
[2024-10-30] MEDS: D5LR 500 IV (04:06)
[2024-10-30 06:54] LABS: Hematocrit 26.8 % (37.0-47.0); Mean Corp Hgb Conc. 33.6 g/dL (33.0-37.0); Mean Corpuscular Hgb 29.5 pg (27.0-31.0); Mean Corpuscular Volume 87.9 fL (81.0-99.0); Platelet Count 581 10^3/uL (130-400); Red Blood Cell Count 3.05 10^6/uL (4.20-5.40); Red Cell Dist. Width 13.2 % (11.5-14.5); White Blood Cell Count 8.1 10^3/uL (4.8-10.8)
[2024-10-30 08:01] LABS: % Basophils 1.2 % (0-2); % Eosinophils 14.9 % (0-6); % Immature Granulocytes 0.5 % (0-0.5); % Lymphocytes 37.8 % (20.5-51.1); % Monocytes 12.7 % (1.7-9.3); % Neutrophils 32.9 % (42.2-75.2); Absolute Basophils 0.1 10^3/uL (0-0.2); Absolute Eosinophils 1.2 10^3/uL (0-0.7); Absolute Neutrophils 2.7 10^3/uL (1.4-6.5); Nucleated Red Blood Cells % 0 %
[2024-10-30] MEDS: D5LR IV (09:17)
[2024-10-30] MEDS: MIRALAX PO (09:34)
[2024-10-30] MEDS: ZENPEP DELAYED RELEASE CAPSULE PO (09:34)
[2024-10-30 11:00] VITALS: BP 111/64
[2024-10-30] MEDS: ZENPEP DELAYED RELEASE CAPSULE 2 CAPSULE PO (11:38)
[2024-10-30] MEDS: SENOKOT-S PO (11:39)
--- NOTE | 2024-10-30 12:48 | W.PN.HOSP.TC ---
Addendum entered and electronically signed by Destinee Le MD 10/30/24 16:47:
total DC time 40 min
Addendum entered and electronically signed by Destinee Le MD 10/30/24 14:13:
I saw and evaluated the patient. I reviewed the resident�s note and agree with findings and plan as documented in the resident�s note.
A/P:
# Acute on chronic pancreatitis with nausea and abdominal pain
# h/o pancreatic divisum s/p surgery and history of pancreatic duct stone
MRI abdomen unrevealing: Stable postoperative changes along the pancreas with prior pancreaticojejunostomy. There is trace T2 hyperintense signal within the superior aspect of the pancreatic head which may represent an element of acute on chronic
pancreatitis. There is no peripancreatic collection.
Mild lipase elevation on admission, improved
Advanced to low fat, tolerating well
Cont Dilaudid PRN for pain control
PRN Zofran and Benadryl for nausea (pt stated that Benadryl had worked previously for her nausea)
Cont Creon
Pt being evaluated for pancreas transplant at [place]
Apprec GI input, signed off
# SIRS likely due to acute pancreatitis
fever has resolved, blood cultures x2 negative
DC further empiric Zosyn
# herpes
Completed course of acyclovir 500 mg p.o. 3 times daily
DVT proph: Lovenox subcu
CODE STATUS: full code
Dispo: DC today
Original Note:
Today's Communication/Plan
-
Discharge plan today
Blood cultures and negative, stop antibiotics
continue all other home medications
Follow-up with GI outpatient
Assessment / Plan
Assessment / Plan
Impression
Acute on chronic pancreatitis
History of pancreatic divisum
Fever with leukocytosis
Herpes
Plan
Acute on chronic pancreatitis
History of pancreatic divisum
MRI of the abdomen reveals trace T2 hyperintense signal within the superior aspect of the pancreatic head, no peripancreatic collection.
Pain control with Toradol, Tylenol and Dilaudid
For nausea continue Zofran, promethazine. Add Benadryl as needed
Patient is now better tolerating low-fat diet
Discharge plan today
Fever with leukocytosis
Meets SIRS criteria
This may be to her ongoing pancreatitis
However we will check blood culture first to rule out infection
Blood cultures negative
Stop antibiotics at discharge
Herpes-- Completed course of acyclovir 500 mg p.o. 3 times daily
DVT proph�Lovenox subcu
CODE STATUS�full code
Anticipated Discharge: Today
Subjective/Interval History
-
Date of Service: October 30, 2024
Tolerating low-fat diet
Objective Data
-
Labs:
Laboratory Results
10/30/24
06:14
WBC 8.1
Hgb 9.0 L
Hct 26.8 L
Plt Count 581 H
Vital Signs:
Vital Signs
Temp Pulse Resp BP Pulse Ox
98.3 F 70 16 111/64 96
10/30/24 11:00 10/30/24 11:00 10/30/24 11:00 10/30/24 11:00 10/30/24 11:00
I&O
10/29/24 10/30/24 10/31/24
06:59 06:59 06:59
Intake Total 1779 / 218
Balance 1779
Review of Systems
-
All other systems: Reviewed and negative
Physical Exam
-
General: No Apparent Distress and Comfortable
HEENT: Normocephalic and Atraumatic
Respiratory: Clear to Auscultation
Cardiac: Regular Rhythm and S1/S2
GI: Soft, Nontender and Nondistended
Musculoskeletal: No Edema
Neuro: AO x 3
Psych: Calm
Data Reviewed
-
Labs: Labs Reviewed by me and Discussed with Physician
--- NOTE | 2024-10-30 13:26 | W.DCSUMMARY ---
Documented by User: Vishnu Lauren MD, Resident 10/30/24 13:37
Discharge Summary
Discharge Data
Date of Admission: 10/26/24
Date of Discharge: 10/30/24
-
Pending Results: No
Hospital Course
Discharging Physician : Dr Vishnu Lauren, Dr Rey Mattson
Disposition : Home
Primary care physician :
Principal Discharge diagnosis :
Acute on chronic pancreatitis
Fever with leukocytosis
Chronic Discharge diagnosis :
History of chronic pancreatitis
history of pancreatic divisum s/p pancreaticojejunostomy
Herpes
Hospital Course :
54-year-old female presented recurrent episode of abdominal pain. She has a significant history of chronic pancreatitis secondary to pancreas divisum and s/p pancreaticojejunostomy.
For abdominal pain, MRI of the abdomen unrevealing. Patient was continued on IV fluids, pain control, antinausea medications. She was slowly able to tolerate full liquids however she was persistently nauseous with chronic abdominal pain. She was
continued on IV Dilaudid for pain control, Zofran and Benadryl for nausea and Creon as well. Blood cultures negative. Slowly patient was able to tolerate low-fat diet. On the day of discharge patient is hemodynamically stable. Advise to continue
low-fat diet at home. Pt being evaluated for pancreas transplant at [facility], recommended to follow-up outpatient with GI.
Important imaging findings :
10/25/2024 Abdomen MRI
Stable postoperative changes along the pancreas with prior pancreaticojejunostomy. There is trace T2 hyperintense signal within the superior aspect of the pancreatic head which may represent an element of acute on chronic pancreatitis. There is no
peripancreatic collection.
Procedure findings : none
Discharge Plan
-
Patient Disposition: Home (Routine Discharge)
Discharge Diagnosis/Procedures: Acute on chronic pancreatitis
History of pancreatic divisum
Fever with leukocytosis
Herpes
Condition: Good
Diet: Low Fat
Activity: No restrictions
Driving Restrictions: As prior to admission
Bathing Restrictions: None
Referrals:
Irvin Campo CRNP [Family Provider] - in less than 1 week
Additional Discharge Medication Instructions:
Stop cefuroxime axetil
Please follow low-fat diet
Follow-up with outpatient GI
Continue all other home medication
Prescriptions:
Continued
sertraline 50 MG tablet
100 mg PO HS
lorazepam 1 mg Tablet
1 mg PO HS
docusate sodium [Colace] 100 mg Capsule
200 mg PO HS
cyclobenzaprine 5 mg tablet
5 mg PO DAILYPRN PRN (Reason: muscle spasm)
clobetasol 0.05 % Cream
1 applic TOPICAL DAILYPRN PRN (Reason: rash)
Patient Comments:
arms, leg, back
ondansetron 8 mg Tablet,Disintegrating
8 mg PO Q8HPRN PRN (Reason: nausea vommiting)
polyethylene glycol 3350 [Miralax] 17 gram/dose Powder
8.5 g PO DAILYPRN PRN (Reason: constipation)
hydromorphone 4 mg Tablet
4 mg PO Q6HPRN PRN (Reason: severe pain)
Creon 12,000-38,000 -60,000 unit Capsule,Delayed Release(Dr/Ec)
2 cap PO AC
multivit with min-folic acid [Multivitamin Gummies] 200 mcg Tablet,Chewable
2 tab PO HS
Creon 12,000-38,000 -60,000 unit Capsule,Delayed Release(Dr/Ec)
2 cap PO DAILYPRN PRN (Reason: with snacks)
valacyclovir 500 mg Tablet
500 mg PO TID Qty: 21 0RF
Discontinued
cefuroxime axetil 500 mg tablet
500 mg PO BID 7 Days Qty: 14 0RF
Discharge Orders:
Discharge Patient (As Directed); Ordered 10/30/24
Ordered By: Vishnu Lauren
Discharge Date and Time
Print Language: YI

Documented by User: Destinee Le MD 10/30/24 16:46
Discharge Summary
Discharge Data
Date of Admission: 10/26/24
Date of Discharge: 10/30/24
Hospital Course
Discharging Physician : Dr Vishnu Lauren, Dr Rey Mattson
Disposition : Home
Principal Discharge diagnosis :
Acute on chronic pancreatitis
SIRS (Fever with leukocytosis) due to pancreatitis
Chronic Discharge diagnosis :
History of chronic pancreatitis due to pancreatic divisum s/p pancreaticojejunostomy
Herpes
Hospital Course :
54-year-old female presented with recurrent abdominal pain due to acute on chronic pancreatitis.
Her MRI abdomen was unrevealing. During this admission, patient was continued with IV fluids, pain control, antinausea medications. She slowly improved, and diet was advanced to low-fat which she tolerated prior to discharge.
She was very briefly on empiric antibiotic Zosyn (for 3 days) while awaiting for blood culture, which resulted to be negative. Antibiotic was discontinued.
She can continue with a low-fat diet following discharge, and follow-up with GI at [facility] for eventual pancreas transplant.
Important imaging findings :
10/25/2024 Abdomen MRI
Stable postoperative changes along the pancreas with prior pancreaticojejunostomy. There is trace T2 hyperintense signal within the superior aspect of the pancreatic head which may represent an element of acute on chronic pancreatitis. There is no
peripancreatic collection.
Procedure findings : none
Discharge Plan
-
Patient Disposition: Home (Routine Discharge)
Discharge Diagnosis/Procedures: Acute on chronic pancreatitis
History of pancreatic divisum
Fever with leukocytosis
Herpes
Condition: Good
Diet: Low Fat
Activity: No restrictions
Driving Restrictions: As prior to admission
Bathing Restrictions: None
Referrals:
Irvin Campo CRNP [Family Provider] - in less than 1 week
Additional Discharge Medication Instructions:
Stop cefuroxime axetil
Please follow low-fat diet
Follow-up with outpatient GI
Continue all other home medication
Prescriptions:
Continued
sertraline 50 MG tablet
100 mg PO HS
lorazepam 1 mg Tablet
1 mg PO HS
docusate sodium [Colace] 100 mg Capsule
200 mg PO HS
cyclobenzaprine 5 mg tablet
5 mg PO DAILYPRN PRN (Reason: muscle spasm)
clobetasol 0.05 % Cream
1 applic TOPICAL DAILYPRN PRN (Reason: rash)
Patient Comments:
arms, leg, back
ondansetron 8 mg Tablet,Disintegrating
8 mg PO Q8HPRN PRN (Reason: nausea vommiting)
polyethylene glycol 3350 [Miralax] 17 gram/dose Powder
8.5 g PO DAILYPRN PRN (Reason: constipation)
hydromorphone 4 mg Tablet
4 mg PO Q6HPRN PRN (Reason: severe pain)
Creon 12,000-38,000 -60,000 unit Capsule,Delayed Release(Dr/Ec)
2 cap PO AC
multivit with min-folic acid [Multivitamin Gummies] 200 mcg Tablet,Chewable
2 tab PO HS
Creon 12,000-38,000 -60,000 unit Capsule,Delayed Release(Dr/Ec)
2 cap PO DAILYPRN PRN (Reason: with snacks)
valacyclovir 500 mg Tablet
500 mg PO TID Qty: 21 0RF
Discontinued
cefuroxime axetil 500 mg tablet
500 mg PO BID 7 Days Qty: 14 0RF
Discharge Orders:
Discharge Patient (As Directed); Ordered 10/30/24
Ordered By: Vishnu Lauren
Discharge Date and Time
Print Language: YI
[2024-10-30] MEDS: FLUSH (NSS) 2 FLUSH IV (14:24)
[2024-10-30 15:00] VITALS: BP 146/83
--- NOTE | 2024-10-30 15:43 | CM ---
CM reviewed chart, patient seen bedside, for discharge today. Patient reports no concerns to CM, confirms transportation home. CM will continue to follow for all discharge planning needs.
Plan; home no needs.
== END 2024-10-30 18:40 | disposition home or self-care (01) | DRG 439 ==
LOC: 4 WEST ACU 08:42
PROVIDERS: Internal Medicine; Student in an Organized Health Care Education/Training Program; ADMITTING PHYSICIAN Internal Medicine; ATTENDING PHYSICIAN Internal Medicine; CONSULT PHYSICIAN Internal Medicine Gastroenterology; EMERGENCY PHYSICIAN Emergency Medicine
DX: K85.90 Acute pancreatitis without necrosis or infection, unspecified (principal); Q45.3 Other congenital malformations of pancreas and pancreatic duct; R65.10 Systemic inflammatory response syndrome (SIRS) of non-infectious origin without acute organ dysfunction; K86.1 Other chronic pancreatitis; B00.9 Herpesviral infection, unspecified; K31.84 Gastroparesis; Z86.718 Personal history of other venous thrombosis and embolism; D75.838 Other thrombocytosis; Z87.74 Personal history of (corrected) congenital malformations of heart and circulatory system; Z90.49 Acquired absence of other specified parts of digestive tract; Z90.81 Acquired absence of spleen; Z88.1 Allergy status to other antibiotic agents; F32.A Depression, unspecified; F41.9 Anxiety disorder, unspecified; K58.9 Irritable bowel syndrome, unspecified
CPT/HCPCS: 36415; 74183; 80048; 80053; 80061; 80076; 82150; 82962; 82977; 83690; 83735; 84078; 84439; 84443; 85025; 85027; 85652; 86038; 86140; 87040; 96361; 96374; 96375; 96376; 99284; A9575

== ENCOUNTER → 2024-11-11 15:26 | Outpatient (REF) | payer BC, SELFPAY ==
[2024-11-11 16:05] LABS: Ionized Calcium 1.14 mMOL/L (1.15-1.33)
[2024-11-11 16:08] LABS: % Basophils 1.1 % (0-2); % Eosinophils 10.3 % (0-6); % Immature Granulocytes 0.6 % (0-0.5); % Lymphocytes 29.7 % (20.5-51.1); % Monocytes 6.5 % (1.7-9.3); % Neutrophils 51.8 % (42.2-75.2); Absolute Basophils 0.1 10^3/uL (0-0.2); Absolute Eosinophils 1.2 10^3/uL (0-0.7); Absolute Immature Granulocytes 0.1 10^3/uL (0-0.05); Absolute Lymphocytes 3.5 10^3/uL (1.2-3.4); Absolute Monocytes 0.8 10^3/uL (0.1-0.6); Absolute Neutrophils 6.1 10^3/uL (1.4-6.5); Hematocrit 34.1 % (37.0-47.0); Hemoglobin 12.1 g/dL (12.0-16.0); Mean Corp Hgb Conc. 35.5 g/dL (33.0-37.0); Mean Corpuscular Hgb 29.2 pg (27.0-31.0); Mean Corpuscular Volume 82.2 fL (81.0-99.0); Nucleated Red Blood Cells % 0 %; Red Blood Cell Count 4.15 10^6/uL (4.20-5.40); Red Cell Dist. Width 12.5 % (11.5-14.5); White Blood Cell Count 11.7 10^3/uL (4.8-10.8)
[2024-11-11 16:18] LABS: ALT (SGPT) 52 U/L (0-35); AST (SGOT) 79 U/L (14-36); Albumin 4.3 g/dl (3.5-5.0); Alkaline Phosphatase 183 U/L (38-126); Amylase 113 U/L (30-110); Blood Urea Nitrogen 22 mg/dl (7-17); Calcium 9.3 mg/dl (8.4-10.2); Carbon Dioxide 22 mmol/L (22-30); Chloride 106 mmol/L (98-107); Glucose 90 mg/dl (70-99); Lipase 262 U/L (23-300); Phosphorus 4.9 mg/dl (2.5-4.5); Potassium 4.6 mmol/L (3.5-5.1); Sodium 140 mmol/L (135-145); Total Bilirubin 0.5 mg/dl (0.2-1.3); Total Protein 8.2 g/dl (6.3-8.2); eGFR > 60.00
[2024-11-11 16:30] LABS: Platelet Count 732 10^3/uL (130-400)
[2024-11-11 16:31] LABS: Mean Platelet Volume 8.2 fL (7.4-10.4)
[2024-11-11 17:13] LABS: Intact PTH 97.2 pg/ml (13.6-85.8)
[2024-11-11 17:28] LABS: Free T3 4.36 pg/ml (2.77-5.27); Free T4 1.04 ng/dl (0.78-2.19); Vitamin D, 25-OH*** 15.8 ng/mL (30-80)
[2024-11-11 17:41] LABS: TSH 0.06 uIU/ml (0.47-4.68)
[2024-11-14 03:30] LABS: Thyroid Stim. Immunoglobulin <0.10 IU/L (<=0.54)
== END ==
LOC: REG 15:26
DX: Z09 Encounter for follow-up examination after completed treatment for conditions other than malignant neoplasm (principal); K86.1 Other chronic pancreatitis; R16.0 Hepatomegaly, not elsewhere classified; J35.02 Chronic adenoiditis; D75.839 Thrombocytosis, unspecified; E83.52 Hypercalcemia; E05.90 Thyrotoxicosis, unspecified without thyrotoxic crisis or storm
CPT/HCPCS: 36415; 80053; 82150; 82306; 82330; 83690; 83970; 84100; 84439; 84443; 84445; 84481; 85025

== ENCOUNTER → 2024-11-27 16:56 | Outpatient (REF) | payer BC, SELFPAY ==
[2024-11-27 17:33] LABS: Ionized Calcium 1.17 mMOL/L (1.15-1.33)
[2024-11-27 17:45] LABS: ALT (SGPT) 38 U/L (0-35); AST (SGOT) 35 U/L (14-36); Albumin 4.7 g/dl (3.5-5.0); Alkaline Phosphatase 151 U/L (38-126); Amylase 84 U/L (30-110); Blood Urea Nitrogen 25 mg/dl (7-17); Calcium 9.5 mg/dl (8.4-10.2); Carbon Dioxide 24 mmol/L (22-30); Chloride 107 mmol/L (98-107); Glucose 113 mg/dl (70-99); Lipase 133 U/L (23-300); Potassium 4.1 mmol/L (3.5-5.1); Sodium 141 mmol/L (135-145); Total Bilirubin 0.4 mg/dl (0.2-1.3); Total Protein 8.7 g/dl (6.3-8.2); eGFR > 60.00
[2024-11-27 17:56] LABS: % Basophils 0.7 % (0-2); % Eosinophils 4.9 % (0-6); % Immature Granulocytes 0.3 % (0-0.5); % Lymphocytes 23.1 % (20.5-51.1); Absolute Basophils 0.1 10^3/uL (0-0.2); Absolute Eosinophils 0.6 10^3/uL (0-0.7); Absolute Lymphocytes 2.8 10^3/uL (1.2-3.4); Absolute Monocytes 0.9 10^3/uL (0.1-0.6); Absolute Neutrophils 7.8 10^3/uL (1.4-6.5); Hematocrit 35.2 % (37.0-47.0); Hemoglobin 12.4 g/dL (12.0-16.0); Mean Corp Hgb Conc. 35.2 g/dL (33.0-37.0); Mean Corpuscular Volume 82.2 fL (81.0-99.0); Mean Platelet Volume 8.8 fL (7.4-10.4); Nucleated Red Blood Cells % 0 %; Platelet Count 617 10^3/uL (130-400); Red Blood Cell Count 4.28 10^6/uL (4.20-5.40); Red Cell Dist. Width 12.3 % (11.5-14.5); White Blood Cell Count 12.1 10^3/uL (4.8-10.8)
[2024-11-27 18:03] LABS: Vitamin D, 25-OH*** 24.3 ng/mL (30-80)
[2024-11-27 18:16] LABS: TSH Reflex To Free T4 0.17 uIU/ml (0.47-4.68)
[2024-11-27 18:46] LABS: Free T4 1.16 ng/dl (0.78-2.19)
[2024-11-28 12:12] LABS: Intact PTH 73.7 pg/ml (13.6-85.8)
== END ==
LOC: REG 16:56
DX: K86.1 Other chronic pancreatitis (principal); D72.820 Lymphocytosis (symptomatic); E83.51 Hypocalcemia; R79.89 Other specified abnormal findings of blood chemistry; E55.9 Vitamin D deficiency, unspecified
CPT/HCPCS: 36415; 80053; 82150; 82306; 82330; 83690; 83970; 84439; 84443; 85025

== ENCOUNTER → 2025-01-12 16:39 | Outpatient (REF) | payer BC, SELFPAY ==
[2025-01-12 17:39] LABS: Hematocrit 35.5 % (37.0-47.0); Hemoglobin 12.4 g/dL (12.0-16.0); Mean Corp Hgb Conc. 34.9 g/dL (33.0-37.0); Mean Corpuscular Volume 83.1 fL (81.0-99.0); Nucleated Red Blood Cells % 0 %; Platelet Count 615 10^3/uL (130-400); Red Cell Dist. Width 12.5 % (11.5-14.5)
[2025-01-12 17:42] LABS: ALT (SGPT) 56 U/L (0-35); AST (SGOT) 38 U/L (14-36); Albumin 4.6 g/dl (3.5-5.0); Alkaline Phosphatase 197 U/L (38-126); Amylase 88 U/L (30-110); Blood Urea Nitrogen 19 mg/dl (7-17); Calcium 9.9 mg/dl (8.4-10.2); Carbon Dioxide 28 mmol/L (22-30); Chloride 107 mmol/L (98-107); Glucose 81 mg/dl (70-99); Lipase 165 U/L (23-300); Potassium 4.8 mmol/L (3.5-5.1); Sodium 142 mmol/L (135-145); Total Protein 8.6 g/dl (6.3-8.2); eGFR > 60.00
[2025-01-12 19:40] LABS: C-Reactive Protein 6.30 mg/L (0.0-10.00)
== END ==
LOC: REG 16:39
DX: N30.01 Acute cystitis with hematuria (principal); R10.9 Unspecified abdominal pain
CPT/HCPCS: 36415; 80053; 82150; 83690; 85025; 85652; 86140

== ENCOUNTER → 2025-02-08 16:03 | Outpatient (REF) | payer BC, SELFPAY ==
[2025-02-08 16:59] LABS: ALT (SGPT) 26 U/L (0-35); AST (SGOT) 32 U/L (14-36); Albumin 4.6 g/dl (3.5-5.0); Alkaline Phosphatase 140 U/L (38-126); Amylase 82 U/L (30-110); Blood Urea Nitrogen 16 mg/dl (7-17); Calcium 9.7 mg/dl (8.4-10.2); Carbon Dioxide 28 mmol/L (22-30); Chloride 103 mmol/L (98-107); Glucose 160 mg/dl (70-99); Lipase 140 U/L (23-300); Potassium 4.0 mmol/L (3.5-5.1); Sodium 140 mmol/L (135-145); Total Protein 8.0 g/dl (6.3-8.2); eGFR > 60.00
[2025-02-08 17:04] LABS: Absolute Neutrophils -Man Diff 6.5 10^3/uL (1.4-6.5); Hematocrit 34.4 % (37.0-47.0); Hemoglobin 11.9 g/dL (12.0-16.0); Mean Corp Hgb Conc. 34.6 g/dL (33.0-37.0); Mean Corpuscular Volume 82.5 fL (81.0-99.0); Platelet Count 580 10^3/uL (130-400); Red Cell Dist. Width 13.2 % (11.5-14.5)
[2025-02-08 17:05] LABS: Platelets Checked Yes
[2025-02-08 17:08] LABS: Total Cells Counted 100
[2025-02-08 17:11] LABS: Normal RBC Morphology No
[2025-02-08 17:19] LABS: Spherocytes 3+
== END ==
LOC: REG 16:03
DX: K86.1 Other chronic pancreatitis (principal)
CPT/HCPCS: 36415; 80053; 82150; 83690; 85025

== ENCOUNTER 2025-03-18 09:40 | Inpatient (IN) | payer BC, SELFPAY ==
[2025-03-18] VITALS (9 sets, daily range): BP systolic 104–136; BP diastolic 56–82; BMI 22.6; BMI 23.1
--- NOTE | 2025-03-18 06:02 | ED.GENMED ---
History of Present Illness
General
Chief Complaint: Abdominal Pain
Time Seen by Provider: 03/18/25 06:02
History of Present Illness
History of Present Illness:
FOCUSED PAST MEDICAL HISTORY
- The patient has a history of pancreatitis and gastroparesis
REVIEW OF OLD RECORDS
- The patient was admitted here in October 2024 with acute on chronic pancreatitis as well as fever with leukocytosis. She also has a history of pancreatic division status post pancreaticojejunostomy. At that time she was receiving IV fluids, pain
control, antiemetics. At that time she was also receiving IV Dilaudid, Zofran, Benadryl, Creon. At that time MRI suggested the possibility of acute on chronic pancreatitis.
Note:
CHIEF COMPLAINT(S)
Exacerbation of chronic pancreatitis.
HISTORY OF PRESENT ILLNESS
The patient is a 54-year-old female with a history significant for chronic pancreatitis episodes over the past 15 years. The initial cause was identified as pancreatitis due to pancreas divisum. She reports undergoing the pancreaticoduodenostomy,
referred to as the [place] procedure, in 2018 with no significant improvement in her symptoms 'but helped initially'. The patient is currently under the care of a gastrointestinal specialist at [facility], previously at [facility]. No malignancy has
been associated with her condition. She comes in today because of about 36 hours worth of pain that feels very similar to prior episodes of pancreatitis. She has had significant nausea but no vomiting. She states that her stools have been yellow.
Her Tmax was 100.4 degrees at home.
PAST MEDICAL AND SURGICAL HISTORY
History of pancreas divisum causing pancreatitis. Underwent pancreaticoduodenostomy ([place] procedure) in 2018.
EXTERNAL RECORDS REVIEWED
Previous visits in October for acute exacerbation of chronic pancreatitis.
CHRONIC MEDICAL CONDITIONS SIGNIFICANTLY AFFECTING CARE
Chronic pancreatitis.
PHYSICAL EXAM
- General: Well appearing but appears uncomfortable
- HEENT: Moist oral mucosa
- Cardiovascular: No murmurs, normal heart rate, regular rhythm, No chest wall tenderness
- Pulmonary: No respiratory distress, breath sounds are clear and equal
- Abdomen: Soft with no peritoneal signs, moderate diffuse tenderness more so in the upper abdomen
- Neurologic: Excellent strength all extremities, no coordination deficits
- Psychiatric: Appropriate mental status, normal insight and judgement
- Extremities: Nontender, no edema, moves all extremities equally
- Skin: No rash, no lesions
DIFFERENTIAL DIAGNOSIS
The Differential Diagnosis includes, in no particular order and is not limited to:
- Acute exacerbation of chronic pancreatitis
- Biliary obstruction
- Pancreatic pseudocyst
- Chronic abnormality due to pancreas divisum
- Gastroparesis
- Peptic ulcer disease
- Hyperlipidemia
- Alcohol-induced pancreatitis
- Autoimmune pancreatitis
- Toxic-metabolic causes
SUMMARY OF ENCOUNTER
The patient presented with an exacerbation of chronic pancreatitis, a condition longstanding due to pancreas divisum. There was a noted lack of improvement post-pancreaticoduodenostomy. Management emphasis was on ensuring intravenous access for
potential treatment.
MEDICAL DECISION MAKING
- Number and Complexity of Problems Addressed: Chronic conditions affecting care: Chronic pancreatitis due to pancreas divisum.
- Risk: Prescription drug management was considered for addressing pancreatitis symptoms.
DIAGNOSIS
- Acute on chronic pancreatitis
RADIOLOGY
- I considered CT imaging however the CT imaging that was obtained in September and last April showed no acute abnormality at those times.
LABS
- White count 16.2, lipase 1752, normal LFTs
UPDATE
- At 6:30 AM, port was accessed.
- She was given Dilaudid 1 mg and first along with Zofran however pain persisted
- I reassessed patient and she states that she commonly takes 4 mg of Dilaudid once per day
- We gave Dilaudid 2 mg IV
SUMMARY OF ENCOUNTER
The patient presented to the emergency department with exacerbation of chronic pancreatitis, reporting severe pain that has persisted for over 24 hours despite previous administration of pain medication. The patient has a history of elevated lipase
levels, currently recorded at approximately 1700, which is higher than previous records. The patient has experienced similar episodes in October, wherein imaging, including CT scans and MRIs, showed signs of chronic pancreatitis but no acute findings.
Given the patients inability to manage pain at home, hospitalization was considered.
DISPOSITION
Admit.
ASSESSMENT
Acute exacerbation of chronic pancreatitis with elevated lipase.
EMERGENCY TREATMENTS ADMINISTERED
Administered Dilaudid (hydromorphone) for pain management.
MANAGEMENT OF THE PATIENTS CARE WAS DISCUSSED WITH
Internal medicine doctor consulted regarding potential admission for further management.
PLAN
The plan includes admitting the patient to manage pain effectively and address the exacerbation of chronic pancreatitis. Imaging at this time is deemed unnecessary due to previous scans showing no acute changes.
INDEPENDENT REVIEW OF LABS AND INTERPRETATION OF TESTS
My independent review of the labs indicates the patients lipase level is significantly elevated at approximately 1700, supporting the diagnosis of a pancreatitis flare.
PROCEDURES
None conducted.
MEDICATION RECONCILIATION
Hydromorphone has been administered for pain control in the emergency department.
MEDICAL DECISION MAKING
- Number and Complexity of Problems Addressed: Chronic conditions affecting care include chronic pancreatitis due to pancreas divisum, with the current acute exacerbation.
- Data:
- Category 1: External records reviewed from previous visits in October confirmed the chronic nature of the patients condition and past imaging results.
- Category 3: Discussion of management options, including hospitalization, was conducted with an internal medicine doctor.
- Risk: Prescription drug management was implemented for pain relief, and the decision was made to admit the patient due to the risk of unmanaged symptoms at home.
DIAGNOSIS
Acute exacerbation of chronic pancreatitis (ICD-10: K85.9).
Past History
Past History
ED Past Medical History: Other (Recurrent pancreatitis, pancreatic duct stone,, pancreatic divisum,, PNA, Bowel obstruction, Hep A, IBS, Gastroporesis) and Other (C. difficile colitis)
ED Past Surgical History: Appendectomy, Bowel resection (Pancreatic revision surgery February 2017.), Cardiac (VSD repair as a child ), Cholecystectomy and Other (Splenectomy/adhesion. Liver repair post trauma years ago. Stents Pancreatic, Adhesions)
Social History
Tobacco: Non-smoker
Alcohol: None
Drug: None
Personal:
Living: with family
Employment: Not employed
Family History
Family History: Hypertension
Phy Exam
Physical Exam
Physical Exam:
See HPI
Sepsis
Sepsis Screening
Sepsis Assessment: Sepsis Ruled Out
Sepsis Screen
Sepsis Screen: Sepsis Ruled Out
Date: 03/18/25
Time: 08:58
Course
Orders/Labs/Results
Orders:
Orders
03/18/25 06:05
0.9% Sodium Chloride 1000 ml [Nss] 1,000 ml IV BOLUS
03/18/25 06:36
Basic Metabolic Panel Urgent
Complete Blood Count/With Diff Urgent
LFT [[id number]-[id number]-Nedmksr] Urgent
Lipase Urgent
03/18/25 06:40
HYDROmorphone [Dilaudid] 1 mg IV NOW STA
Ondansetron Injectable [Zofran] 4 mg IV NOW STA
03/18/25 07:17
HYDROmorphone [Dilaudid] 2 mg IV NOW STA
03/18/25 07:31
Diphenhydramine [Benadryl] 25 mg IV NOW STA
Ondansetron Injectable [Zofran] 4 mg IV NOW STA
Abnormal Lab Results
03/18/25
06:36
WBC 16.2 H 10^3/uL
(4.8-10.8)
RBC 4.06 L 10^6/uL
(4.20-5.40)
Hgb 11.4 L g/dL
(12.0-16.0)
Hct 32.0 L %
(37.0-47.0)
MCV 78.8 L fL
(81.0-99.0)
Plt Count 599 H 10^3/uL
(130-400)
Abs Immat Gran (auto) 0.1 H 10^3/uL
(0-0.05)
Absolute Neuts (auto) 10.3 H 10^3/uL
(1.4-6.5)
Absolute Lymphs (auto) 3.7 H 10^3/uL
(1.2-3.4)
Absolute Monos (auto) 1.6 H 10^3/uL
(0.1-0.6)
Immature Gran % 0.6 H %
(0-0.5)
Monocytes % 9.6 H %
(1.7-9.3)
Creatinine 0.5 L mg/dL
(0.6-1.0)
Lipase 1752 H* U/L
(23-300)
03/18/25 06:36
03/18/25 06:36
Vital Signs
Initial and Last Documented VS:
Initial Vital Signs
Temp Pulse Resp BP Pulse Ox
37.2 C 92 18 136/82 98
03/18/25 05:40 03/18/25 05:40 03/18/25 05:40 03/18/25 05:40 03/18/25 05:40
Last Documented Vital Signs
Temp Pulse Resp BP Pulse Ox
37.2 C 80 15 117/64 94
03/18/25 07:19 03/18/25 08:00 03/18/25 08:00 03/18/25 08:00 03/18/25 08:00
*Pulse Oximetry
SaO2: 98
Oxygen Mode of Delivery: Room air
Patient hypoxic: no
*Critical Care Note
Total Time (30-74mins, 75-104mins- exclusive of procedures): Not Applicable
ED Attending Note
-
Portions of this chart may have been created with voice recognition software.� Occasional wrong word or��sound alike� substitutions may have occurred due to the inherent limitations of voice recognition software.
Discharge Plan
Departure
Patient Disposition: Admit
Date of Disposition: 03/18/25
Time of Disposition: 07:16
Presentation/result/management discussed w/ accepting MD/DO: Hospitalist
Discharge Problem:
Acute on chronic pancreatitis
Prescriptions:
No Action
sertraline 50 MG tablet
75 mg PO HS
lorazepam 1 mg Tablet
1 mg PO HS
docusate sodium [Colace] 100 mg Capsule
100 mg PO HS
cyclobenzaprine 5 mg tablet
5 mg PO DAILYPRN PRN (Reason: muscle spasm)
clobetasol 0.05 % Cream
1 applic TOPICAL DAILYPRN PRN (Reason: arms, leg, back)
ondansetron 8 mg Tablet,Disintegrating
8 mg PO Q8HPRN PRN (Reason: nausea vommiting)
polyethylene glycol 3350 [Miralax] 17 gram/dose Powder
8.5 g PO DAILYPRN PRN (Reason: constipation)
hydromorphone 4 mg Tablet
4 mg PO Q6HPRN PRN (Reason: severe pain)
Creon 12,000-38,000 -60,000 unit Capsule,Delayed Release(Dr/Ec)
2 cap PO AC
multivit with min-folic acid [Multivitamin Gummies] 200 mcg Tablet,Chewable
1 tab PO HS
Creon 12,000-38,000 -60,000 unit Capsule,Delayed Release(Dr/Ec)
2 cap PO DAILYPRN PRN (Reason: with snacks)
Hair, Skin and Nails (biotin) 10,000 mcg Tablet,Chewable
10,000 mcg PO DAILY
Referrals:
Irvin Campo CRNP [Family Provider]
Interventions
Interventions:
*Risk Screen - Suicide Last Done: 03/18/25 05:40
SZ-Sdgdtz-Nhjwknqrgt Assessment Last Done: 03/18/25 07:14
Discharge Date and Time
Print Language: SAMOAN
[2025-03-18] MEDS: NSS 1000 IV ×3 (06:37→22:33)
[2025-03-18] MEDS: ZOFRAN 4 MG IV ×4 (06:43→20:16)
[2025-03-18] MEDS: DILAUDID 1 MG IV (06:43)
[2025-03-18 06:45] LABS: Hematocrit 32.0 % (37.0-47.0); Hemoglobin 11.4 g/dL (12.0-16.0); Mean Corp Hgb Conc. 35.6 g/dL (33.0-37.0); Mean Corpuscular Volume 78.8 fL (81.0-99.0); Nucleated Red Blood Cells % 0 %; Platelet Count 599 10^3/uL (130-400); Red Cell Dist. Width 12.6 % (11.5-14.5)
[2025-03-18 07:07] LABS: ALT (SGPT) 20 U/L (0-35); AST (SGOT) 26 U/L (14-36); Albumin 4.1 g/dl (3.5-5.0); Alkaline Phosphatase 121 U/L (38-126); Blood Urea Nitrogen 17 mg/dl (7-17); Calcium 8.9 mg/dl (8.4-10.2); Carbon Dioxide 24 mmol/L (22-30); Chloride 107 mmol/L (98-107); Estimated Creatinine Clearance 83 ml/min; Glucose 96 mg/dl (70-99); Lipase 1752 U/L (23-300); Potassium 3.9 mmol/L (3.5-5.1); Sodium 137 mmol/L (135-145); Total Protein 7.4 g/dl (6.3-8.2); eGFR > 60.00
[2025-03-18] MEDS: DILAUDID 2 MG IV ×5 (07:26→20:15)
[2025-03-18] MEDS: BENADRYL 25 MG IV ×2 (07:36→22:33)
--- NOTE | 2025-03-18 09:05 | HPS.HSE ---
Addendum entered and electronically signed by Jory Norton MD, Resident 03/19/25 17:18:
SIRS due to non-infectious source.
Addendum entered and electronically signed by Dru Cardenas MD 03/18/25 13:21:
Attending�addendum:
I�saw�and�evaluated�the�patient.�I�reviewed�the�resident�s�note�and�agree�with�findings�and�plan�as�documented�in�the�resident�s�note.��
I was present during the resident interview with the patient,�patient seen and examined at bedside, denies any chest pain or shortness of breath, but still complaining of abdominal pain.
Physical�exam:
GENERAL : Patient is awake, alert, oriented x3
HEENT: Nonicteric sclerae, PERRLA, EOMI. Oropharynx clear. Moist mucous membranes. Conjunctivae appear well perfused.
CHEST: Chest wall is nontender.
HEART: Regular rate and rhythm without murmurs.
LUNGS: Clear to auscultation bilaterally.
ABDOMEN: Tender epigastric area.
RECTAL: Deferred.
SKIN: No rash, no excessive bruising, petechiae, or purpura.
NEUROLOGIC: Cranial nerves II-XII intact without motor/sensory deficit.
�
Assessment/plan:
Acute on chronic pancreatitis.
CT abdomen pelvis done shows:
Changes of pancreatitis, mainly involving the head of the pancreas. No evidence for abscess or developing pseudocyst at this time.
Status post cholecystectomy. Biliary air is present, which is likely from previous instrumentation. There is a calcification within the head of the pancreas, but appears to be medial to the common bile duct. This is likely dystrophic calcification,
possibly from chronic pancreatitis.
Findings of duodenitis involving the second portion of the duodenum, likely reactive from adjacent pancreatitis. Not mentioned above, there is also prominence of gastric folds, which is likely reactive gastritis.
Status post splenectomy.
IV fluid
NPO.
Pain and nausea control.
Added Bentyl.
GI consult.
PPI twice daily for CT finding of gastritis/duodenitis
Continue appropriate home meds
CODE STATUS: Full code
DVT prophylaxis: Lovenox
Diet: N.p.o.
�
Total�time�spent�on�today�s�encounter�was�75�minutes�which�included�time�spent�in�counseling�the�patient/family�regarding�diagnosis�and�treatment�plan�as�listed�above,�goals�of�care,�and�symptom�management.�Case�was�discussed�with�nursing�staff,�spec
ialists,�and�care�coordinators/case�management.�All�labs�and�imaging�personally�reviewed�by�me.�Remainder�the�time�spent�in�detailed�review�of�previous�records,�lab�data,�imaging,�and�other�medical�provider�documentation.
Original Note:
Family Physician
-
Family Physician: KATE Lynn
Chief Complaint
-
Abdominal pain with radiation to back, fever
History of Present Illness
54 year old female with history of pancreas divisum, chronic pancreatitis with multiple acute flares, bowel obstruction s/p bowel resection, Hep A, who presents with severe abdominal pain x 2 days. She notes that she has had some abdominal pain over
the past few weeks, but symptoms worsened two days ago. Patient is a rare drinker (last alcoholic drink at [place]) and tries to adhere to a low fat diet. No specific trigger was identified. She also reports radiation of abdominal pain to back,
fever (100.4 - 101 at home), loose yellow stool which she refers to as pancreatic stools (4 times yesterday), nausea with occasional vomiting, bloating and reduced PO intake.
She is followed currently by Dr. Myron Rome at [facility]. She has had evaluations for pancreas transplant at [facility] and [facility] in the past, and is currently scheduled to be seen at [facility] to be evaluated in April.
Medical History
Past Medical History
Past Medical History: Reports Other (Pancreas divisum, chronic pancreatitis, gastroparesis, bowel obstruction, Hep A )
Past Surgical History: Reports Appendectomy, Bowel Resection, Cardiac (VSD repair in childhood), Cholecystectomy and Other (pancreaticojejunostomy, splenectomy, )
Social History
Tobacco: Non-smoker
Alcohol: Other (rare)
Drug: None
Personal:
Living: With Family
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
Family History
Family History: Other (Daughter with crohns)
Allergies / Home Medications
Allergies reflects when Allergies were last updated in [facility].
Home Medications with original date entered in [facility]
Allergy/Medication List:
Allergies
Allergy/AdvReac Type Severity Reaction Status Date / Time
ketamine Allergy Hallucinati Verified 03/18/25 05:40
ons
prochlorperazine Allergy Shortness Verified 03/18/25 05:40
of Breath,
Muscle
Rigidity
prochlorperazine edisylate Allergy tardive Verified 03/18/25 05:40
(From Compazine) dyskinesia
prochlorperazine maleate Allergy tardive Verified 03/18/25 05:40
(From Compazine) dyskinesia
trimethobenzamide Allergy Shortness Verified 03/18/25 05:40
of Breath,
muscle
rigidity
trimethobenzamide HCl (From Allergy tardive Verified 03/18/25 05:40
Tigan) dyskinesia
vancomycin Allergy RED AND Verified 03/18/25 05:40
ITCHY
CHG Allergy Unknown Uncoded 03/18/25 05:40
Home Medications
sertraline 50 mg tablet 75 mg PO HS depression/anxiety 12/08/13
lorazepam 1 mg tablet 1 mg PO HS anxiety/sleep 10/21/23
docusate sodium 100 mg capsule (Colace) 100 mg PO HS Constipation 02/17/24
cyclobenzaprine 5 mg tablet 5 mg PO DAILYPRN PRN muscle spasm 04/19/24
clobetasol 0.05 % topical cream 1 applic topical DAILYPRN PRN arms, leg, back 10/07/24
hydromorphone 4 mg tablet 4 mg PO Q6HPRN PRN severe pain 10/07/24
uskgvj-actqlitc-gewifpe 12,000-38,000-60,000 unit capsule,delayed rel (Creon) 2 cap PO AC Supplement 10/07/24
gpbyod-rdovmxuk-ndautqf 12,000-38,000-60,000 unit capsule,delayed rel (Creon) 2 cap PO DAILYPRN PRN with snacks 10/07/24
multivitamin with minerals-folic acid 200 mcg chewable tablet (Multivitamin Gummies) 1 tab PO HS Supplement 10/07/24
ondansetron 8 mg disintegrating tablet 8 mg PO Q8HPRN PRN nausea vommiting 10/07/24
polyethylene glycol 3350 17 gram/dose oral powder (Miralax) 8.5 g PO DAILYPRN PRN constipation 10/07/24
biotin 10,000 mcg chewable tablet (Hair, Skin and Nails (biotin)) 10,000 mcg PO DAILY 03/18/25
Review of Systems
-
History Source: Patient
Constitutional: Reports Fever
Respiratory: Reports No Symptoms
Cardiac: Denies Chest Pain or Palpitations
Abdomen/GI: Reports Abdominal Pain, Nausea, Vomiting, Diarrhea (loose yellow stool) and Anorexia; Denies Bloody Stools
: Reports No Symptoms; Denies Dysuria, Frequency, Flank Pain, Difficulty Voiding or Bleeding
Psych: Reports Other (Feeling of hopelessness and fear about permanence of medical condition)
Physical Exam
Vital Signs
Vital Signs
Temp Pulse Resp BP Pulse Ox
99 F 80 15 117/64 94
03/18/25 07:19 03/18/25 08:00 03/18/25 08:00 03/18/25 08:00 03/18/25 08:00
Physical Exam
General: Well Nourished and No Apparent Distress
HEENT: NormoCephalic, Anicteric, Atraumatic and Other (dry mucous membranes)
Respiratory: Clear and Non Labored Respirations; No Wheezes, Rales, Rhonchi or Crackles
Cardiac: S1/S2 and Regular Rhythm; No Murmur, Rub, Gallop, Peripheral Edema or Calf Tenderness
GI: Soft, Non Distended, Normal Bowel Sounds and Tender (upper quadrants, more tender in epigastrium )
Genito-urinary: No costovertebral tender
Musculoskeletal: No Clubbing, No Cyanosis and No Edema
Skin: Warm and Dry
Neuro: Awake, Alert and Oriented
Psych: Calm and Depressed
Laboratory Results
-
03/18/25 06:36
03/18/25 06:36
Laboratory Results
Total Bilirubin 0.6 mg/dl (0.2-1.3) 03/18/25 06:36
AST 26 U/L (14-36) 03/18/25 06:36
ALT 20 U/L (0-35) 03/18/25 06:36
Alkaline Phosphatase 121 U/L (38-126) 03/18/25 06:36
Lipase 1752 U/L (23-300) H* 03/18/25 06:36
Impression/Plan
-
IMPRESSION:
54 year old female with history of pancreas divisum, chronic pancreatitis with multiple acute flares, bowel obstruction s/p bowel resection, Hep A, who presents with acute exacerbation of chronic pancreatitis.
PLAN:
Acute exacerbation of chronic pancreatitis:
SIRS criteria with leukocytosis and reported fever
No specific trigger identified. Lipase 1752
- aggressive hydration
- NPo with ice chips, advance diet as tolerated (to low fat)
- Zofran and benadryl worked for nausea control at prior admission, will restart PRN
- Pain management with Dilaudid, Toradol and Bentyl (for spasmodic abdominal pain)
- Check EKG for QTC given above meds
- Check CT abd/pel with IV contrast
- Monitor temp curve. Check UA
- GI consult
Chronic pancreatitis:
Pancreas Divisum:
S/P pancreaticojejunostomy:
- Continue Creon when patient can tolerate PO
- Followed by Dr. Myron Rome of [facility]
Anxiety/depression:
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
- Declines psych consult
- Continue Sertraline, lorazepam
Hx of bowel obstruction with bowel resection
Hx of hep A
Gastroparesis
Presence of port; accessed for IVF and meds
dvt ppx: Lovenox
Code status full Code
--- NOTE | 2025-03-18 09:30 | CM ---
Met with patient at bedside in the ED
Pharmacy verified: [facility] @ [address] [place] [address]
Lives w/ spouse; split level home; 7 steps between levels; railings on stairs; upper level master bathroom has tub w/shower; grab bar
PLOF: reported she is independent with ambulation, stairs, and ADLs; works part-time; drives
NO SNF utilization history; home health (PICC Line) w/[facility] 2023
will transport home
Plan: anticipate discharge to home when medically stable; Case Management will monitor for needs/services
[2025-03-18 11:39] LABS: Urine Character Clear (Clear)
[2025-03-18] MEDS: TORADOL 15 MG IV (11:44)
[2025-03-18 11:48] LABS: Urine Squamous Cell 16-20 /LPF (Few)
[2025-03-18 11:49] LABS: Urine Red Blood Cell 0-2 /HPF (0-2)
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
[2025-03-18] MEDS: PHENERGAN 50.25 MG IV (16:02)
[2025-03-18] MEDS: NSS (PRESERVATIVE FREE) 10 ML IV ×2 (16:08→20:23)
[2025-03-18] MEDS: PROTONIX IV 40 MG IV ×2 (16:08→20:23)
[2025-03-18] MEDS: LOVENOX 40 MG SC (17:59)
--- NOTE | 2025-03-18 18:32 | PTCARENOTE ---
Patient arrived from ED via stretcher with IV fluids running. VSS. Complaining of 7/10 abdominal pain. Medicated for pain in ED, prior to coming up. Patient independently ambulates. Skin CDI. Patient oriented to room. Bed in lowest position. Call
meier and personal belongings within reach.
[2025-03-18] MEDS: ZOLOFT 75 MG PO (20:25)
[2025-03-18] MEDS: ATIVAN 1 MG PO (20:26)
[2025-03-19] MEDS: BENTYL 20 MG PO (02:26)
[2025-03-19] MEDS: TORADOL 15 MG IV ×2 (02:26→10:30)
[2025-03-19] MEDS: ZOFRAN 4 MG IV ×3 (02:29→22:40)
[2025-03-19] MEDS: DILAUDID 2 MG IV ×7 (05:02→22:32)
[2025-03-19] MEDS: BENADRYL 25 MG IV (05:02)
[2025-03-19 05:15] LABS: Hematocrit 31.3 % (37.0-47.0); Hemoglobin 11.0 g/dL (12.0-16.0); Mean Corp Hgb Conc. 35.1 g/dL (33.0-37.0); Mean Corpuscular Volume 82.8 fL (81.0-99.0); Platelet Count 564 10^3/uL (130-400); Red Cell Dist. Width 12.8 % (11.5-14.5)
[2025-03-19 05:55] LABS: ALT (SGPT) 19 U/L (0-35); AST (SGOT) 25 U/L (14-36); Albumin 3.9 g/dl (3.5-5.0); Alkaline Phosphatase 123 U/L (38-126); Blood Urea Nitrogen 16 mg/dl (7-17); Calcium 8.6 mg/dl (8.4-10.2); Carbon Dioxide 17 mmol/L (22-30); Chloride 110 mmol/L (98-107); Estimated Creatinine Clearance 83 ml/min; Glucose 47 mg/dl (70-99); Potassium 4.1 mmol/L (3.5-5.1); Sodium 138 mmol/L (135-145); Total Protein 7.0 g/dl (6.3-8.2); eGFR > 60.00
[2025-03-19] MEDS: NSS 1000 IV (06:03)
[2025-03-19 06:30] LABS: Glucose - Point of Care 82 mg/dl (70-99)
--- NOTE | 2025-03-19 06:48 | W.PN.UPDATE ---
Update Note
Progress Note Update
AM glucose level 47, treated as per hypoglycemic protocol. Changed IV fluids to D5NS @ 120 mls/hr.
--- NOTE | 2025-03-19 07:42 | PTCARENOTE ---
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 New order for IVF reported off to receiving RN of change. Receiving RN will hang new IVF.
[2025-03-19] MEDS: D5/0.9% SODIUM CHLORIDE 1000 IV ×2 (08:07→17:05)
[2025-03-19] MEDS: NSS (PRESERVATIVE FREE) 10 ML IV ×2 (08:09→20:39)
[2025-03-19] MEDS: PROTONIX IV 40 MG IV ×2 (08:09→20:39)
[2025-03-19 08:27] VITALS: BP 104/61
[2025-03-19 08:27] LABS: Glucose - Point of Care 124 mg/dl (70-99)
--- NOTE | 2025-03-19 09:34 | PN.CDI ---
CDI
- -
CDI:
Physician Documentation Request
Admit Date: 03/18/25 09:40
Dear Doctor Cierra,
Clinical Indicators:
Patient admitted with acute on chronic pancreatitis.
9/4 H & P, 'SIRS criteria with leukocytosis and reported fever.'
HR on admission: 92
WBC on admission:
03/18/25
06:36
WBC 16.2 H
Please clarify which most accurately describes the patient:
SIRS due to a non-infectious source
Sepsis, POA
Systemic manifestations of infection, with 2 or more SIRS criteria which include:
Fever > 100.4 degrees F or hypothermia < 96.8 degrees F
Leukocytosis - WBC > 12,000 or leukopenia, WBC < 4,000 or > 10% bands
Tachycardia - > 90 beats per minute
Tachypnea - RR > 20 breaths per minute or PaCO2 < 32 mmHg
Source: Merck Manual 2013
Other, please specify
Use of terms such as suspected, likely, concern for, or probable (associated with a specific diagnosis that is being evaluated, monitored, or treated as if it exists) are acceptable and can be coded in the inpatient setting, when documented at the
time of discharge.
Thank you,
SIA Siddiqui RN
CDI Specialist
available via tiger text
Please use your independent medical judgment in providing your response.
--- NOTE | 2025-03-19 11:05 | W.PN.HOSP.TC ---
Today's Communication/Plan
-
Continue IV fluids, IV pain and nausea control.
Assessment / Plan
Assessment / Plan
Impression:
54 year old female with history of pancreas divisum, chronic pancreatitis with multiple acute flares, bowel obstruction s/p bowel resection, Hep A, who presents with acute exacerbation of chronic pancreatitis.
Seen by GI.
Started on IV fluid and IV antibiotics.
Started clear liquid diet
Assessment/plan:
Acute on chronic pancreatitis.
CT abdomen pelvis done shows:
Changes of pancreatitis, mainly involving the head of the pancreas. No evidence for abscess or developing pseudocyst at this time.
Status post cholecystectomy. Biliary air is present, which is likely from previous instrumentation. There is a calcification within the head of the pancreas, but appears to be medial to the common bile duct. This is likely dystrophic calcification,
possibly from chronic pancreatitis.
Findings of duodenitis involving the second portion of the duodenum, likely reactive from adjacent pancreatitis. Not mentioned above, there is also prominence of gastric folds, which is likely reactive gastritis.
Status post splenectomy.
IV fluid
Clear liquid
Pain and nausea control.
Incentive spirometry
GI consulted.
PPI twice daily for CT finding of gastritis/duodenitis
Chronic pancreatitis:
Pancreas Divisum:
S/P pancreaticojejunostomy:
- Continue Creon when patient can tolerate PO
- Followed by Dr. Myron Rome of [facility]
Anxiety/depression:
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
- Declines psych consult
- Continue Sertraline, lorazepam
Hx of bowel obstruction with bowel resection
Hx of hep A
Gastroparesis
Presence of port; accessed for IVF and meds
CODE STATUS: Full code
DVT prophylaxis: Lovenox
Diet: CLD
Disposition: Continue IV fluids, IV pain and nausea control.
Total time spent on today's encounter was 65 minutes which included time spent in counseling the patient/family regarding diagnosis and treatment plan as listed above, goals of care, and symptom management. Case was discussed with nursing staff,
specialists, and care coordinators/case management. All labs and imaging personally reviewed by me. Remainder the time spent in detailed review of previous records, lab data, imaging, and other medical provider documentation.
Anticipated Discharge: > 48 hours
Subjective/Interval History
-
Date of Service: March 19, 2025
Patient still complaining of significant abdominal pain and nausea
Objective Data
-
Labs:
Laboratory Results
03/19/25
04:56
WBC 15.5 H
Hgb 11.0 L
Hct 31.3 L
Plt Count 564 H
Sodium 138
Potassium 4.1
Chloride 110 H
Carbon Dioxide 17 L
BUN 16
Creatinine 0.6
Glucose 47 L*
Calcium 8.6
Total Bilirubin 0.6
AST 25
ALT 19
Alkaline Phosphatase 123
Vital Signs:
Vital Signs
Temp Pulse Resp BP Pulse Ox
98.2 F 72 16 104/61 95
03/19/25 08:27 03/19/25 08:27 03/19/25 08:27 03/19/25 08:27 03/19/25 08:27
I&O
03/18/25 03/19/25 03/20/25
06:59 06:59 06:59
Intake Total 260 / 260
Balance 260 / 260
Physical Exam
-
General: Well Developed, Well Nourished, No Apparent Distress and Comfortable
HEENT: Normocephalic, Atraumatic, Moist Mucous Membranes, No Ptosis, PERRLA and Nose Appears Normal
Respiratory: Rales and Non Labored Respirations
Cardiac: Regular Rhythm and S1/S2
Breast: Deferred by me
GI: Tender
Genito-urinary: No Costovertebral Tender
Musculoskeletal: No Clubbing, No Cyanosis and No Edema
Skin: Warm
Neuro: Awake, Alert, Oriented, AO x 3 and No Motor Deficits
Psych: Calm
Data Reviewed
-
Diagnostic Radiology: Image personally visualized and interpreted and Report Reviewed by me
CT Scan: Image personally visualized and interpreted and Report Reviewed by me
Ultrasound: Image personally visualized and interpreted and Report Reviewed by me
MRI: Image personally visualized and interpreted and Report Reviewed by me
Medical Tests (Nuc Med, Echo etc): Image personally visualized and interpreted and Report Reviewed by me
Labs: Labs Reviewed by me
Old Records: Reviewed
[2025-03-19] MEDS: ZENPEP DELAYED RELEASE CAPSULE 2 CAPSULE PO ×2 (11:40→17:06)
[2025-03-19 12:25] LABS: Glucose - Point of Care 128 mg/dl (70-99)
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
--- NOTE | 2025-03-19 15:18 | CM ---
Following up on patient.
RN stated that patient is still having pain and receiving pain medications. Thus far, no needs from Case Managment and No IMM needed.
PLAN: Home with no needs.
[2025-03-19 16:34] VITALS: BP 98/58
[2025-03-19] MEDS: PHENERGAN 50.25 MG IV (17:05)
[2025-03-19] MEDS: LOVENOX 40 MG SC (17:06)
[2025-03-19 18:32] LABS: Glucose - Point of Care 95 mg/dl (70-99)
[2025-03-19] MEDS: FLUSH (NSS) 2 FLUSH IV (20:41)
[2025-03-19 22:20] LABS: Glucose - Point of Care 107 mg/dl (70-99)
[2025-03-19] MEDS: ZOLOFT 75 MG PO (22:32)
[2025-03-19] MEDS: ATIVAN 1 MG PO (22:32)
[2025-03-19 23:49] VITALS: BP 116/62
[2025-03-20] MEDS: DILAUDID 2 MG IV ×5 (01:59→19:53)
[2025-03-20] MEDS: D5/0.9% SODIUM CHLORIDE 1000 IV ×2 (02:00→11:24)
[2025-03-20 03:11] LABS: Glucose - Point of Care 113 mg/dl (70-99)
[2025-03-20 05:10] LABS: Hematocrit 26.3 % (37.0-47.0); Hemoglobin 9.2 g/dL (12.0-16.0); Mean Corp Hgb Conc. 35.0 g/dL (33.0-37.0); Mean Corpuscular Volume 80.9 fL (81.0-99.0); Platelet Count 512 10^3/uL (130-400); Red Cell Dist. Width 12.9 % (11.5-14.5)
[2025-03-20 05:30] LABS: ALT (SGPT) 22 U/L (0-35); AST (SGOT) 35 U/L (14-36); Albumin 3.3 g/dl (3.5-5.0); Alkaline Phosphatase 96 U/L (38-126); Blood Urea Nitrogen 10 mg/dl (7-17); Calcium 8.5 mg/dl (8.4-10.2); Carbon Dioxide 21 mmol/L (22-30); Chloride 112 mmol/L (98-107); Estimated Creatinine Clearance 83 ml/min; Glucose 100 mg/dl (70-99); Potassium 3.8 mmol/L (3.5-5.1); Sodium 137 mmol/L (135-145); Total Protein 6.2 g/dl (6.3-8.2); eGFR > 60.00
[2025-03-20 07:00] VITALS: BP 105/61
[2025-03-20] MEDS: ZENPEP DELAYED RELEASE CAPSULE 2 CAPSULE PO ×3 (09:23→17:44)
[2025-03-20] MEDS: NSS (PRESERVATIVE FREE) 10 ML IV ×2 (09:24→19:54)
[2025-03-20] MEDS: PROTONIX IV 40 MG IV ×2 (09:24→19:54)
[2025-03-20] MEDS: MIRALAX 17 GRAMS PO (09:32)
[2025-03-20] MEDS: TORADOL 15 MG IV ×2 (11:24→17:45)
--- NOTE | 2025-03-20 12:35 | W.PN.HOSP.TC ---
Today's Communication/Plan
-
Continue IV fluids, IV pain and nausea control.
Assessment / Plan
Assessment / Plan
Impression:
54 year old female with history of pancreas divisum, chronic pancreatitis with multiple acute flares, bowel obstruction s/p bowel resection, Hep A, who presents with acute exacerbation of chronic pancreatitis.
Seen by GI.
Started on IV fluid and IV antibiotics.
Started clear liquid diet
Assessment/plan:
Acute on chronic pancreatitis.
CT abdomen pelvis done shows:
Changes of pancreatitis, mainly involving the head of the pancreas. No evidence for abscess or developing pseudocyst at this time.
Status post cholecystectomy. Biliary air is present, which is likely from previous instrumentation. There is a calcification within the head of the pancreas, but appears to be medial to the common bile duct. This is likely dystrophic calcification,
possibly from chronic pancreatitis.
Findings of duodenitis involving the second portion of the duodenum, likely reactive from adjacent pancreatitis. Not mentioned above, there is also prominence of gastric folds, which is likely reactive gastritis.
Status post splenectomy.
IV fluid
Clear liquid
Pain and nausea control.
Incentive spirometry
GI consulted.
PPI twice daily for CT finding of gastritis/duodenitis
Advance diet to low-fat, low fiber
SIRS due to a non-infectious source
SIRS criteria with leukocytosis and reported fever
Leukocytosis continue to improve off antibiotics.
Chronic pancreatitis:
Pancreas Divisum:
S/P pancreaticojejunostomy:
- Continue Creon when patient can tolerate PO
- Followed by Dr. Myron Rome of [place]
Anxiety/depression:
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
- Declines psych consult
- Continue Sertraline, lorazepam
Hx of bowel obstruction with bowel resection
Hx of hep A
Gastroparesis
Presence of port; accessed for IVF and meds
CODE STATUS: Full code
DVT prophylaxis: Lovenox
Diet: Low residual diet
Disposition: Continue IV fluids, IV pain and nausea control.
Total time spent on today's encounter was 65 minutes which included time spent in counseling the patient/family regarding diagnosis and treatment plan as listed above, goals of care, and symptom management. Case was discussed with nursing staff,
specialists, and care coordinators/case management. All labs and imaging personally reviewed by me. Remainder the time spent in detailed review of previous records, lab data, imaging, and other medical provider documentation.
Anticipated Discharge: 24 - 48 hours
Subjective/Interval History
-
Date of Service: March 20, 2025
Still with abdominal pain
Objective Data
-
Labs:
Laboratory Results
03/20/25
04:45
WBC 13.6 H
Hgb 9.2 L
Hct 26.3 L
Plt Count 512 H
Sodium 137
Potassium 3.8
Chloride 112 H
Carbon Dioxide 21 L
BUN 10
Creatinine 0.5 L
Glucose 100 H
Calcium 8.5
Total Bilirubin 0.6
AST 35
ALT 22
Alkaline Phosphatase 96
Vital Signs:
Vital Signs
Temp Pulse Resp BP Pulse Ox
98.7 F 75 18 105/61 94
03/20/25 07:00 03/20/25 07:00 03/20/25 07:00 03/20/25 07:00 03/20/25 07:00
I&O
03/19/25 03/20/25 03/21/25
06:59 06:59 06:59
Intake Total 260 / 260 1820 / 1820 1440 / 1440
Balance 260 / 260 1820 / 1820 1440 / 1440
Physical Exam
-
General: Well Developed, Well Nourished, No Apparent Distress and Comfortable
HEENT: Normocephalic, Atraumatic, Moist Mucous Membranes, No Ptosis, PERRLA and Nose Appears Normal
Respiratory: Rales and Non Labored Respirations
Cardiac: Regular Rhythm and S1/S2
Breast: Deferred by me
GI: Tender
Genito-urinary: No Costovertebral Tender
Musculoskeletal: No Clubbing, No Cyanosis and No Edema
Skin: Warm
Neuro: Awake, Alert, Oriented, AO x 3 and No Motor Deficits
Psych: Calm
[2025-03-20] MEDS: ZOFRAN 4 MG IV (14:19)
[2025-03-20 15:00] VITALS: BP 125/64
[2025-03-20] MEDS: LOVENOX 40 MG SC (17:40)
[2025-03-20] MEDS: MAALOX 30 ML PO (17:44)
[2025-03-20] MEDS: COLACE 100 MG PO (17:45)
[2025-03-20] MEDS: PHENERGAN 50.25 MG IV (20:53)
[2025-03-20] MEDS: ZOLOFT 75 MG PO (21:49)
[2025-03-20] MEDS: ATIVAN 1 MG PO (21:49)
[2025-03-20 23:36] VITALS: BP 111/70
[2025-03-21] MEDS: DILAUDID 2 MG IV ×7 (00:42→22:51)
[2025-03-21 04:48] LABS: Hematocrit 28.9 % (37.0-47.0); Hemoglobin 10.2 g/dL (12.0-16.0); Mean Corp Hgb Conc. 35.3 g/dL (33.0-37.0); Mean Corpuscular Volume 82.1 fL (81.0-99.0); Platelet Count 537 10^3/uL (130-400); Red Cell Dist. Width 13.1 % (11.5-14.5)
[2025-03-21 05:13] LABS: ALT (SGPT) 193 U/L (0-35); AST (SGOT) 364 U/L (14-36); Albumin 3.4 g/dl (3.5-5.0); Alkaline Phosphatase 131 U/L (38-126); Blood Urea Nitrogen 6 mg/dl (7-17); Calcium 8.4 mg/dl (8.4-10.2); Carbon Dioxide 23 mmol/L (22-30); Chloride 112 mmol/L (98-107); Estimated Creatinine Clearance 83 ml/min; Glucose 89 mg/dl (70-99); Potassium 4.1 mmol/L (3.5-5.1); Sodium 137 mmol/L (135-145); Total Protein 6.4 g/dl (6.3-8.2); eGFR > 60.00
[2025-03-21] MEDS: TORADOL 15 MG IV (05:17)
[2025-03-21] MEDS: ZOFRAN 4 MG IV ×2 (05:19→19:56)
[2025-03-21 07:25] VITALS: BP 117/63
[2025-03-21] MEDS: NSS (PRESERVATIVE FREE) 10 ML IV ×2 (09:33→20:14)
[2025-03-21] MEDS: ZENPEP DELAYED RELEASE CAPSULE PO ×2 (09:33→12:56)
[2025-03-21] MEDS: PROTONIX IV 40 MG IV ×2 (09:33→20:13)
[2025-03-21 10:25] LABS: Lipase 100 U/L (23-300)
--- NOTE | 2025-03-21 12:28 | W.PN.HOSP.TC ---
Today's Communication/Plan
-
Continue to monitor LFTs.
Pain and nausea control.
Diet as tolerated
Assessment / Plan
Assessment / Plan
Impression:
54 year old female with history of pancreas divisum, chronic pancreatitis with multiple acute flares, bowel obstruction s/p bowel resection, Hep A, who presents with acute exacerbation of chronic pancreatitis.
Seen by GI.
Started on IV fluid and IV antibiotics.
Started clear liquid diet
Assessment/plan:
Acute on chronic pancreatitis.
CT abdomen pelvis done shows:
Changes of pancreatitis, mainly involving the head of the pancreas. No evidence for abscess or developing pseudocyst at this time.
Status post cholecystectomy. Biliary air is present, which is likely from previous instrumentation. There is a calcification within the head of the pancreas, but appears to be medial to the common bile duct. This is likely dystrophic calcification,
possibly from chronic pancreatitis.
Findings of duodenitis involving the second portion of the duodenum, likely reactive from adjacent pancreatitis. Not mentioned above, there is also prominence of gastric folds, which is likely reactive gastritis.
Status post splenectomy.
IV fluid
Clear liquid
Pain and nausea control.
Incentive spirometry
GI consulted.
PPI twice daily for CT finding of gastritis/duodenitis
Advance diet to low-fat, low fiber
03/20
Still with pain, lipase went down to 100
Transaminitis.
Will continue to monitor.
Discussed with GI.
Repeat in a.m. if still elevated to consider ultrasound abdomen
SIRS due to a non-infectious source
SIRS criteria with leukocytosis and reported fever
Leukocytosis continue to improve off antibiotics.
Chronic pancreatitis:
Pancreas Divisum:
S/P pancreaticojejunostomy:
- Continue Creon when patient can tolerate PO
- Followed by Dr. Myron Rome of [place]
Anxiety/depression:
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
- Declines psych consult
- Continue Sertraline, lorazepam
Hx of bowel obstruction with bowel resection
Hx of hep A
Gastroparesis
Presence of port; accessed for IVF and meds
CODE STATUS: Full code
DVT prophylaxis: Lovenox
Diet: Low residual diet
Disposition: Continue to monitor LFTs.
Pain and nausea control.
Diet as tolerated
Total time spent on today's encounter was 65 minutes which included time spent in counseling the patient/family regarding diagnosis and treatment plan as listed above, goals of care, and symptom management. Case was discussed with nursing staff,
specialists, and care coordinators/case management. All labs and imaging personally reviewed by me. Remainder the time spent in detailed review of previous records, lab data, imaging, and other medical provider documentation.
Anticipated Discharge: 24 - 48 hours
Subjective/Interval History
-
Date of Service: March 21, 2025
Still complaining of abdominal pain.
Coughing, added cough syrup.
Objective Data
-
Labs:
Laboratory Results
03/21/25
04:29
WBC 10.0
Hgb 10.2 L
Hct 28.9 L
Plt Count 537 H
Sodium 137
Potassium 4.1
Chloride 112 H
Carbon Dioxide 23
BUN 6 L
Creatinine 0.5 L
Glucose 89
Calcium 8.4
Total Bilirubin 0.7
AST 364 H
ALT 193 H
Alkaline Phosphatase 131 H
Vital Signs:
Vital Signs
Temp Pulse Resp BP Pulse Ox
98.8 F 73 20 117/63 96
03/21/25 07:25 03/21/25 07:25 03/21/25 07:25 03/21/25 07:25 03/21/25 07:25
I&O
03/20/25 03/21/25 03/22/25
06:59 06:59 06:59
Intake Total 1819
Balance 1819
Physical Exam
-
General: Well Developed, Well Nourished, No Apparent Distress and Comfortable
HEENT: Normocephalic, Atraumatic, Moist Mucous Membranes, No Ptosis, PERRLA and Nose Appears Normal
Respiratory: Rales and Non Labored Respirations
Cardiac: Regular Rhythm and S1/S2
Breast: Deferred by me
GI: Tender
Genito-urinary: No Costovertebral Tender
Musculoskeletal: No Clubbing, No Cyanosis and No Edema
Skin: Warm
Neuro: Awake, Alert, Oriented, AO x 3 and No Motor Deficits
Psych: Calm
[2025-03-21] MEDS: ZENPEP DELAYED RELEASE CAPSULE 2 CAPSULE PO ×2 (12:53→15:39)
[2025-03-21 15:15] VITALS: BP 134/72
[2025-03-21] MEDS: COLACE 100 MG PO (15:39)
[2025-03-21] MEDS: LOVENOX 40 MG SC (17:38)
[2025-03-21] MEDS: BENADRYL 25 MG IV (20:14)
[2025-03-21] MEDS: ZOLOFT 75 MG PO (22:00)
[2025-03-21] MEDS: ATIVAN 1 MG PO (22:00)
[2025-03-21] MEDS: ROBITUSSIN DM 10 ML PO (22:00)
[2025-03-21 23:44] VITALS: BP 125/68
[2025-03-22] MEDS: PHENERGAN 50.25 MG IV (00:20)
[2025-03-22] MEDS: DILAUDID 2 MG IV ×7 (01:58→22:24)
[2025-03-22] MEDS: ZOFRAN 4 MG IV ×2 (01:58→14:22)
[2025-03-22] MEDS: ROBITUSSIN DM 10 ML PO ×2 (02:00→06:23)
[2025-03-22 06:33] LABS: ALT (SGPT) 162 U/L (0-35); AST (SGOT) 153 U/L (14-36); Albumin 3.4 g/dl (3.5-5.0); Alkaline Phosphatase 139 U/L (38-126); Blood Urea Nitrogen 5 mg/dl (7-17); Calcium 8.8 mg/dl (8.4-10.2); Carbon Dioxide 27 mmol/L (22-30); Chloride 109 mmol/L (98-107); Estimated Creatinine Clearance 83 ml/min; Glucose 90 mg/dl (70-99); Lipase 71 U/L (23-300); Potassium 3.7 mmol/L (3.5-5.1); Sodium 139 mmol/L (135-145); Total Protein 6.4 g/dl (6.3-8.2); eGFR > 60.00
[2025-03-22 06:48] LABS: Hematocrit 27.5 % (37.0-47.0); Hemoglobin 9.9 g/dL (12.0-16.0); Mean Corp Hgb Conc. 36.0 g/dL (33.0-37.0); Mean Corpuscular Volume 81.1 fL (81.0-99.0); Platelet Count 562 10^3/uL (130-400); Red Cell Dist. Width 13.2 % (11.5-14.5)
[2025-03-22 07:30] VITALS: BP 114/70
[2025-03-22] MEDS: PROTONIX IV 40 MG IV ×2 (08:22→19:22)
[2025-03-22] MEDS: NSS (PRESERVATIVE FREE) 10 ML IV ×2 (08:22→19:22)
[2025-03-22] MEDS: ZENPEP DELAYED RELEASE CAPSULE 2 CAPSULE PO ×3 (08:22→15:54)
--- NOTE | 2025-03-22 09:36 | W.PN.HOSP.TC ---
Today's Communication/Plan
-
Chest x-ray. Advance diet as tolerated. Discharge planning
Assessment / Plan
Assessment / Plan
Physical exam:
General: Well Developed, Well Nourished and No Apparent Distress
HEENT: Normocephalic, Atraumatic and Moist Mucous Membranes
Respiratory: Clear to Auscultation; Negative Wheezes, Rales or Rhonchi
Cardiac: Regular Rhythm and S1/S2
GI: Soft, tender and Nondistended
Musculoskeletal: No Clubbing, No Cyanosis and No Edema
Neuro: Awake, Alert and Oriented
Psych: Calm
A/P:
Impression:
54 year old female with history of pancreas divisum, chronic pancreatitis with multiple acute flares, bowel obstruction s/p bowel resection, Hep A, who presents with acute exacerbation of chronic pancreatitis.
Seen by GI.
Started on IV fluid and IV antibiotics.
Started clear liquid diet
Assessment/plan:
Acute on chronic pancreatitis.
CT abdomen pelvis done shows:
Changes of pancreatitis, mainly involving the head of the pancreas. No evidence for abscess or developing pseudocyst at this time.
Status post cholecystectomy. Biliary air is present, which is likely from previous instrumentation. There is a calcification within the head of the pancreas, but appears to be medial to the common bile duct. This is likely dystrophic calcification,
possibly from chronic pancreatitis.
Findings of duodenitis involving the second portion of the duodenum, likely reactive from adjacent pancreatitis. Not mentioned above, there is also prominence of gastric folds, which is likely reactive gastritis.
Status post splenectomy.
IV fluid
Clear liquid
Pain and nausea control.
Incentive spirometry
GI consulted.
PPI twice daily for CT finding of gastritis/duodenitis
Advance diet to low-fat, low fiber
03/20
Still with pain, lipase went down to 100
03/22
Obtain chest x-ray
LFT trending down
She feels not ready for discharge yet
Continue current regimen and low residue diet and plan to discharge tomorrow
Transaminitis.
Will continue to monitor as outpatient
Appears to be trending down now
SIRS due to a non-infectious source
SIRS criteria with leukocytosis and reported fever
Leukocytosis continue to improve off antibiotics.
Chronic pancreatitis:
Pancreas Divisum:
S/P pancreaticojejunostomy:
- Continue Creon when patient can tolerate PO
- Followed by Dr. Myron Rome of [place]
Anxiety/depression:
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
- Declines psych consult
- Continue Sertraline, lorazepam
Hx of bowel obstruction with bowel resection
Hx of hep A
Gastroparesis
Presence of port; accessed for IVF and meds
CODE STATUS: Full code
DVT prophylaxis: Lovenox
Diet: Low residual diet
Disposition: Continue to monitor LFTs.
Pain and nausea control.
Diet as tolerated
Total time spent on today's encounter was 35 minutes which included time spent in counseling the patient/family regarding diagnosis and treatment plan as listed above, goals of care, and symptom management. Case was discussed with nursing staff,
specialists, and care coordinators/case management. All labs and imaging personally reviewed by me. Remainder the time spent in detailed review of previous records, lab data, imaging, and other medical provider documentation.
Anticipated Discharge: Within 24 hours
Subjective/Interval History
-
Date of Service: March 22, 2025
Patient abdominal pain better overall but does not feel back to her baseline although she understands cannot be pain-free. She complains of mild cough. No shortness of breath or fever
Objective Data
-
Labs:
Laboratory Results
03/22/25
06:02
WBC 10.9 H
Hgb 9.9 L
Hct 27.5 L
Plt Count 562 H
Sodium 139
Potassium 3.7
Chloride 109 H
Carbon Dioxide 27
BUN 5 L
Creatinine 0.5 L
Glucose 90
Calcium 8.8
Total Bilirubin 0.6
AST 153 H
ALT 162 H
Alkaline Phosphatase 139 H
Vital Signs:
Vital Signs
Temp Pulse Resp BP Pulse Ox
98.9 F 81 20 114/70 97
03/22/25 07:30 03/22/25 07:30 03/22/25 07:30 03/22/25 07:30 03/22/25 07:30
I&O
03/21/25 03/22/25 03/23/25
06:59 06:59 06:59
Intake Total 3170 / 3170 1859
Balance 3170 / 3170 1859
--- NOTE | 2025-03-22 13:39 | CM ---
Chart reviewed. Poss d/c tomorrow
Advanced diet
No CM needs at this time
Plan: Home, no needs
[2025-03-22 15:31] VITALS: BP 150/86
[2025-03-22] MEDS: LOVENOX 40 MG SC (15:54)
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
[2025-03-22] MEDS: FLEXERIL 5 MG PO (17:15)
[2025-03-22] MEDS: TORADOL 15 MG IV (20:22)
[2025-03-22] MEDS: ZOLOFT 75 MG PO (21:40)
[2025-03-22] MEDS: ATIVAN 1 MG PO (21:40)
[2025-03-22 23:35] VITALS: BP 117/64
[2025-03-23] MEDS: DILAUDID 2 MG IV ×4 (01:27→10:58)
[2025-03-23] MEDS: ROBITUSSIN 100 MG PO (01:34)
[2025-03-23] MEDS: TORADOL 15 MG IV ×2 (04:40→10:57)
[2025-03-23 05:58] LABS: ALT (SGPT) 123 U/L (0-35); AST (SGOT) 73 U/L (14-36); Albumin 3.7 g/dl (3.5-5.0); Alkaline Phosphatase 161 U/L (38-126); Total Protein 6.8 g/dl (6.3-8.2)
[2025-03-23 06:34] LABS: Hepatitis B Surface Antigen Negative (Negative)
[2025-03-23 06:51] LABS: Hepatitis A Antibody, Total Negative (Negative); Hepatitis C Antibody Negative (Negative)
[2025-03-23 07:35] VITALS: BP 128/68
[2025-03-23] MEDS: NSS (PRESERVATIVE FREE) 10 ML IV (08:09)
[2025-03-23] MEDS: PROTONIX IV 40 MG IV (08:09)
[2025-03-23] MEDS: ZENPEP DELAYED RELEASE CAPSULE 2 CAPSULE PO ×2 (08:09→10:56)
--- NOTE | 2025-03-23 12:05 | W.PN.HOSP.TC ---
Today's Communication/Plan
-
Discharge planning
Assessment / Plan
Assessment / Plan
Physical exam:
General: Well Developed, Well Nourished and No Apparent Distress
HEENT: Normocephalic, Atraumatic and Moist Mucous Membranes
Respiratory: Clear to Auscultation; Negative Wheezes, Rales or Rhonchi
Cardiac: Regular Rhythm and S1/S2
GI: Soft, tender and Nondistended
Musculoskeletal: No Clubbing, No Cyanosis and No Edema
Neuro: Awake, Alert and Oriented
Psych: Calm
A/P:
Impression:
54 year old female with history of pancreas divisum, chronic pancreatitis with multiple acute flares, bowel obstruction s/p bowel resection, Hep A, who presents with acute exacerbation of chronic pancreatitis.
Seen by GI.
Started on IV fluid and IV antibiotics.
Started clear liquid diet
Assessment/plan:
Acute on chronic pancreatitis.
CT abdomen pelvis done shows:
Changes of pancreatitis, mainly involving the head of the pancreas. No evidence for abscess or developing pseudocyst at this time.
Status post cholecystectomy. Biliary air is present, which is likely from previous instrumentation. There is a calcification within the head of the pancreas, but appears to be medial to the common bile duct. This is likely dystrophic calcification,
possibly from chronic pancreatitis.
Findings of duodenitis involving the second portion of the duodenum, likely reactive from adjacent pancreatitis. Not mentioned above, there is also prominence of gastric folds, which is likely reactive gastritis.
Status post splenectomy.
IV fluid
Clear liquid
Pain and nausea control.
Incentive spirometry
GI consulted.
PPI twice daily for CT finding of gastritis/duodenitis
Advance diet to low-fat, low fiber
03/20
Still with pain, lipase went down to 100
03/22
Obtain chest x-ray
LFT trending down
She feels not ready for discharge yet
Continue current regimen and low residue diet and plan to discharge tomorrow
03/23
LFTs continue to trend down
Appreciate GI input from yesterday regarding LFTs
Hepatitis screen negative
Chest x-ray unremarkable with just minimal pleural effusions-discussed with patient.
Patient agreeable for discharge today
Transaminitis.
Will continue to monitor as outpatient
Appears to be trending down now
SIRS due to a non-infectious source
SIRS criteria with leukocytosis and reported fever
Leukocytosis continue to improve off antibiotics.
Chronic pancreatitis:
Pancreas Divisum:
S/P pancreaticojejunostomy:
- Continue Creon when patient can tolerate PO
- Followed by Dr. Myron Rome of [place]
Anxiety/depression:
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
- Declines psych consult
- Continue Sertraline, lorazepam
Hx of bowel obstruction with bowel resection
Hx of hep A
Gastroparesis
Presence of port; accessed for IVF and meds
CODE STATUS: Full code
DVT prophylaxis: Lovenox
Anticipated Discharge: Today
Subjective/Interval History
-
Date of Service: March 23, 2025
Abdominal pain improving. No nausea or vomiting. Tolerating diet. Afebrile
Objective Data
-
Labs:
Laboratory Results
03/23/25
05:09
Total Bilirubin 0.7
AST 73 H
ALT 123 H
Alkaline Phosphatase 161 H
Vital Signs:
Vital Signs
Temp Pulse Resp BP Pulse Ox
98.2 F 68 16 128/68 98
03/23/25 07:35 03/23/25 07:35 03/23/25 07:35 03/23/25 07:35 03/23/25 08:10
I&O
0903/23/25 03/24/25
06:59 06:59 06:59
Intake Total 1859 1280 / 1280
Balance 1859 1280 / 1280
--- NOTE | 2025-03-23 12:07 | W.DCSUMMARY ---
Discharge Summary
Discharge Data
Date of Admission: 03/18/25
Date of Discharge: 03/23/25
Total time spent discharging patient (in min): 32
-
Pending Results: No
Hospital Course
Patient 54-year-old female with history of chronic recurrent pancreatitis, PD stone with prior stenting, pancreas divisum status post pancreatic jejunostomy ([place]o procedure), celiac nerve block for chronic pain, gastroparesis, spherocytosis status
post penectomy in the past, and multiple other medical problems, came into the hospital acute on chronic abdominal pain and found to have acute on chronic pancreatitis. GI was consulted. Patient was managed conservatively with pain medications and
her diet was advanced slowly. Patient also had a mild bump in her LFTs unclear etiology although possible related to pain pancreatitis but in any event they started trending down on its own. She had hepatitis panel negative for any infection.
Patient feels symptomatically much back to her baseline. She will be discharged in relatively stable condition today.
Discharge duration: 32 minutes
Discharge Plan
-
Patient Disposition: Home (Routine Discharge)
Discharge Diagnosis/Procedures: Acute on chronic pancreatitis. Elevated liver function test. Chronic pain with opioid dependence.
Condition: Good
Diet: Low Fat
Activity: As tolerated
Blood Work: Please PCP to order CBC, CMP within 1 week
Referrals:
Irvin Campo CRNP [Family Provider] - in less than 1 week
Kellee Patel DO [Active, Gastroenterology] - in two to four weeks
Prescriptions:
Continued
sertraline 50 MG tablet
75 mg PO HS
lorazepam 1 mg Tablet
1 mg PO HS
docusate sodium [Colace] 100 mg Capsule
100 mg PO HS
cyclobenzaprine 5 mg tablet
5 mg PO DAILYPRN PRN (Reason: muscle spasm)
clobetasol 0.05 % Cream
1 applic TOPICAL DAILYPRN PRN (Reason: arms, leg, back)
ondansetron 8 mg Tablet,Disintegrating
8 mg PO Q8HPRN PRN (Reason: nausea vommiting)
polyethylene glycol 3350 [Miralax] 17 gram/dose Powder
8.5 g PO DAILYPRN PRN (Reason: constipation)
hydromorphone 4 mg Tablet
4 mg PO Q8HPRN PRN (Reason: severe pain)
Creon 12,000-38,000 -60,000 unit Capsule,Delayed Release(Dr/Ec)
2 cap PO AC
multivit with min-folic acid [Multivitamin Gummies] 200 mcg Tablet,Chewable
1 tab PO HS
Creon 12,000-38,000 -60,000 unit Capsule,Delayed Release(Dr/Ec)
2 cap PO DAILYPRN PRN (Reason: with snacks)
Hair, Skin and Nails (biotin) 10,000 mcg Tablet,Chewable
10,000 mcg PO DAILY
Discharge Orders:
Discharge Patient (As Directed); Ordered 03/23/25
Ordered By: Isael Arndt
Discharge Date and Time
Discharge Date/Time: 03/23/25 12:56
Print Language: LIBYAN
--- NOTE | 2025-03-23 12:28 | CM ---
Chart reviewed. Patient has d/c order
No CM needs at this time
Plan: Home, no needs
[2025-03-23 12:36] VITALS: BP 125/70
[2025-03-23 12:48] VITALS: BP 140/77
== END 2025-03-23 12:56 | disposition home or self-care (01) | DRG 439 ==
LOC: 4 WEST ACU 09:40
PROVIDERS: Nurse Practitioner Adult Health; Student in an Organized Health Care Education/Training Program; ADMITTING PHYSICIAN General Practice; ATTENDING PHYSICIAN Hospitalist; EMERGENCY PHYSICIAN Emergency Medicine; OTHER PHYSICIAN Internal Medicine Gastroenterology
DX: K85.90 Acute pancreatitis without necrosis or infection, unspecified (principal); F11.20 Opioid dependence, uncomplicated; Q45.3 Other congenital malformations of pancreas and pancreatic duct; R65.10 Systemic inflammatory response syndrome (SIRS) of non-infectious origin without acute organ dysfunction; K29.70 Gastritis, unspecified, without bleeding; F32.A Depression, unspecified; G89.29 Other chronic pain; R79.89 Other specified abnormal findings of blood chemistry; F41.9 Anxiety disorder, unspecified; K86.1 Other chronic pancreatitis; Z87.01 Personal history of pneumonia (recurrent); Z86.19 Personal history of other infectious and parasitic diseases; Z82.49 Family history of ischemic heart disease and other diseases of the circulatory system; Z90.49 Acquired absence of other specified parts of digestive tract; Z88.1 Allergy status to other antibiotic agents; Z88.8 Allergy status to other drugs, medicaments and biological substances; Z90.81 Acquired absence of spleen; Z87.74 Personal history of (corrected) congenital malformations of heart and circulatory system
CPT/HCPCS: 71046; 74177; 80048; 80053; 80076; 81003; 81015; 82962; 83690; 85025; 85027; 86704; 86705; 86706; 86708; 86709; 86803; 87070; 87340; 93005; 96361; 96374; 96375; 96376; 99284; Q9967

== ENCOUNTER → 2025-03-25 14:49 | Outpatient (REF) | payer BC, SELFPAY ==
[2025-03-25 15:39] LABS: Hematocrit 32.2 % (37.0-47.0); Hemoglobin 11.3 g/dL (12.0-16.0); Mean Corp Hgb Conc. 35.1 g/dL (33.0-37.0); Mean Corpuscular Volume 81.7 fL (81.0-99.0); Nucleated Red Blood Cells % 0.4 %; Red Cell Dist. Width 13.7 % (11.5-14.5)
[2025-03-25 15:59] LABS: ALT (SGPT) 72 U/L (0-35); AST (SGOT) 31 U/L (14-36); Albumin 4.0 g/dl (3.5-5.0); Alkaline Phosphatase 172 U/L (38-126); Amylase 64 U/L (30-110); Blood Urea Nitrogen 11 mg/dl (7-17); Calcium 9.2 mg/dl (8.4-10.2); Carbon Dioxide 32 mmol/L (22-30); Chloride 104 mmol/L (98-107); Glucose 72 mg/dl (70-99); Lipase 118 U/L (23-300); Potassium 3.7 mmol/L (3.5-5.1); Sodium 143 mmol/L (135-145); Total Protein 7.7 g/dl (6.3-8.2); eGFR > 60.00
[2025-03-25 16:49] LABS: Platelet Count 750 10^3/uL (130-400)
== END ==
LOC: REG 14:49
DX: K85.90 Acute pancreatitis without necrosis or infection, unspecified (principal); R65.10 Systemic inflammatory response syndrome (SIRS) of non-infectious origin without acute organ dysfunction; K86.1 Other chronic pancreatitis; R79.89 Other specified abnormal findings of blood chemistry
CPT/HCPCS: 36415; 80053; 82150; 83690; 85025

== ENCOUNTER → 2025-03-27 09:03 | Outpatient (REF) | payer BC, SELFPAY ==
[2025-03-27 10:01] LABS: Hematocrit 30.3 % (37.0-47.0); Hemoglobin 10.6 g/dL (12.0-16.0); Mean Corp Hgb Conc. 35.0 g/dL (33.0-37.0); Mean Corpuscular Volume 79.3 fL (81.0-99.0); Nucleated Red Blood Cells % 0 %; Platelet Count 726 10^3/uL (130-400); Red Cell Dist. Width 13.5 % (11.5-14.5)
[2025-03-27 10:25] LABS: ALT (SGPT) 47 U/L (0-35); AST (SGOT) 26 U/L (14-36); Albumin 4.0 g/dl (3.5-5.0); Alkaline Phosphatase 152 U/L (38-126); Amylase 63 U/L (30-110); Blood Urea Nitrogen 15 mg/dl (7-17); Calcium 9.1 mg/dl (8.4-10.2); Carbon Dioxide 28 mmol/L (22-30); Chloride 104 mmol/L (98-107); Glucose 78 mg/dl (70-99); HDL Cholesterol 54 mg/dl; Lipase 75 U/L (23-300); Potassium 3.9 mmol/L (3.5-5.1); Sodium 138 mmol/L (135-145); Total Protein 7.7 g/dl (6.3-8.2); eGFR > 60.00
[2025-03-27 10:33] LABS: LDL Cholesterol, Calculated 64 mg/dl; Very Low Density Lipoprotein 15 mg/dl (0-30)
== END ==
LOC: REG 09:03
DX: Z09 Encounter for follow-up examination after completed treatment for conditions other than malignant neoplasm (principal); K86.1 Other chronic pancreatitis
CPT/HCPCS: 36415; 80053; 80061; 82150; 83690; 85025

== ENCOUNTER → 2025-06-04 14:33 | Outpatient (REF) | payer BC, SELFPAY ==
[2025-06-04 15:28] LABS: ALT (SGPT) 65 U/L (0-35); AST (SGOT) 57 U/L (14-36); Albumin 4.6 g/dl (3.5-5.0); Alkaline Phosphatase 167 U/L (38-126); Amylase 76 U/L (30-110); Blood Urea Nitrogen 17 mg/dl (7-17); Calcium 9.5 mg/dl (8.4-10.2); Carbon Dioxide 20 mmol/L (22-30); Chloride 106 mmol/L (98-107); Glucose 74 mg/dl (70-99); Lipase 104 U/L (23-300); Potassium 4.3 mmol/L (3.5-5.1); Sodium 136 mmol/L (135-145); Total Protein 8.6 g/dl (6.3-8.2); eGFR > 60.00
[2025-06-04 15:34] LABS: Hematocrit 38.3 % (37.0-47.0); Hemoglobin 13.4 g/dL (12.0-16.0); Mean Corp Hgb Conc. 35.0 g/dL (33.0-37.0); Mean Corpuscular Volume 81.1 fL (81.0-99.0); Nucleated Red Blood Cells % 0 %; Platelet Count 659 10^3/uL (130-400); Red Cell Dist. Width 13.7 % (11.5-14.5)
== END ==
LOC: REG 14:33
DX: K86.1 Other chronic pancreatitis (principal)
CPT/HCPCS: 36415; 80053; 82150; 83690; 85025

== ENCOUNTER → 2025-06-14 15:26 | Outpatient (REF) | payer BC, SELFPAY ==
[2025-06-14 16:43] LABS: Hematocrit 38.6 % (37.0-47.0); Hemoglobin 13.1 g/dL (12.0-16.0); Mean Corp Hgb Conc. 33.9 g/dL (33.0-37.0); Mean Corpuscular Volume 81.4 fL (81.0-99.0); Nucleated Red Blood Cells % 0 %; Platelet Count 685 10^3/uL (130-400); Red Cell Dist. Width 14.0 % (11.5-14.5)
[2025-06-14 16:53] LABS: ALT (SGPT) 77 U/L (0-35); AST (SGOT) 82 U/L (14-36); Albumin 4.9 g/dl (3.5-5.0); Alkaline Phosphatase 160 U/L (38-126); Amylase 83 U/L (30-110); Blood Urea Nitrogen 13 mg/dl (7-17); Calcium 9.9 mg/dl (8.4-10.2); Carbon Dioxide 26 mmol/L (22-30); Chloride 102 mmol/L (98-107); Glucose 115 mg/dl (70-99); Lipase 107 U/L (23-300); Potassium 4.4 mmol/L (3.5-5.1); Sodium 137 mmol/L (135-145); Total Protein 8.9 g/dl (6.3-8.2); eGFR > 60.00
== END ==
LOC: REG 15:26
DX: K86.1 Other chronic pancreatitis (principal)
CPT/HCPCS: 36415; 80053; 82150; 83690; 85025